=== PATIENT | female | born 1970 ===

== ENCOUNTER 2020-07-07 13:40 | Emergency (ER) | payer OTHER, SELFPAY ==
[2020-07-07 16:26] VITALS: BP 185/88; PULSE 86; RESP 18; TEMP 36.6; O2SAT 97; BMI 27.7
--- NOTE | 2020-07-07 16:26 | ED_ITS ---
HPI - Headache General Chief Complaint: General Medical Stated Complaint: facial swelling headache Time Seen by Provider: 07/07/20 16:25 Source: patient Mode of arrival: ambulatory Limitations: no limitations History of Present Illness HPI Narrative: Patient has had facial swelling for 2 weeks but now with headache and vomiting MD elicited complaint: headache Onset description: gradually Location: frontal Severity: moderate Quality & Timing: throbbing Context: occurred at rest Associated symptoms: nausea and vomiting Related Data Home Medications Medication Instructions Recorded Confirmed bisacodyl 5 mg tablet,delayed 10 mg PO BID 07/03/20 release clonazepam 1 mg tablet 2 mg PO BEDTIME 07/03/20 hydroxyzine HCl 25 mg tablet 25 mg PO BID 07/03/20 ketoconazole 2 % shampoo TOPICAL 2XW 07/03/20 linaclotide 72 mcg capsule mcg PO 07/03/20 loratadine 10 mg tablet 10 mg PO DAILY 07/03/20 omeprazole 20 mg capsule,delayed 20 mg PO DAILY 07/03/20 release peg 3350-electrolytes 236 ml PO ONCE 07/03/20 gram-22.74 gram-6.74 gram-5.86 gram solution prazosin 1 mg capsule mg PO 07/03/20 sumatriptan succinate 25 mg tablet mg PO 07/03/20 tizanidine 4 mg tablet 4 mg PO BEDTIME 07/03/20 Previous Rx's Medication Instructions Recorded diphenhydramine HCl 25 mg capsule 25 mg PO TID PRN #30 cap 07/03/20 famotidine 20 mg tablet 20 mg PO DAILY #7 tab 07/03/20 prednisone 20 mg tablet 20 mg PO DAILY 9 Days #18 tab 07/03/20 diphenhydramine HCl [Benadryl] 25 mg PO TID PRN #14 cap 07/07/20 naproxen [Naprosyn] 500 mg PO BID #20 tab 07/07/20 Allergies Allergy/AdvReac Type Severity Reaction Status Date / Time No Known Allergies Allergy Verified 07/07/20 16:25 [No Known Allergies*] Review of Systems Constitutional: Constitutional: Reports no additional constitutional complaints Eyes: Eyes: Reports no additional eye complaints ENT: Denies dizziness Cardiovascular: Cardiovascular: Reports no additional cardiovascular comp laints Respiratory: Respiratory: Reports as per HPI Gastrointestinal: Gastrointestinal: Reports no additional gastrointestinal complaints Genitourinary: Genitourinary: Reports no additional female genitourinary complaints Musculoskeletal: Musculoskeletal: Reports no additional musculoskeletal complaints Integumentary/Breasts: Skin/Breast: Denies rash Neurologic: Reports system reviewed and no additional complaints, except as documented, Denies dizziness and Denies Sensory deficit (Neuro) Psychiatric: Psychiatric: Denies anxiety [facility], [facility] Past Medical History Medical History (Updated 07/07/20 @ 20:11 by Ehsan Rawls MD) Healthy adult Social History Social History Advance Directives: No Advance Directives Information Provided: Yes Physical Exam Vital Signs: Vital Signs: Vital Signs Temp Pulse Resp BP Pulse Ox 07/07/20 17:44 99.8 F 75 18 152/78 H 96 07/07/20 16:26 97.8 F 86 18 185/88 H 97 Body Mass Index 27.7 Const: Other: some facial erythema and swelling General: healthy appearing Nutritional Appearance: average body habitus Orientation/consciousness: oriented to person and patient oriented x3 Limitations: no limitations HENMT: Head: Yes normal to inspection Ears: external ears normal General nose exam: Normal external nose present Mouth: Normal oral and palatal mucosa present and oropharynx normal Throat: Yes posterior oropharynx normal Eyes: General: appearance normal, both eyes and all related structures Neck: Other: supple Neck: Yes normal visual inspection Chest: Chest palpation & inspection: normal inspection of the chest Resp: Auscultation: clear to auscultation bilaterally Cardio: Jugular venous distension: no JVD Rate: regular rate Rhythm: regular rhythm Heart sounds: S1 normal heart sound present and S2 normal heart sound present GI: Inspection: Yes normal to inspection Palpation (GI): Soft to palpation, nontender and No hepatosplenomegaly present Auscultation: normal bowel sounds : General: Yes no CVA tenderness Back/Spine/Pelvis: Back: no CVA tenderness Skin: General skin exam: no rashes or lesions noted Neuro: General: oriented to person and patient oriented x3 Cranial nerves: Yes CN's II-XII intact bilaterally Motor exam (neuro): 5/5 motor strength present throughout Sensory Exam: No Sensory deficit (Neuro) Extrem: General: Yes normal to inspection Psych: Appearance: grossly normal Course Course Course Narrative: less swelling, head CT neg, leukocytosis secondary to the prednisone MDM - Headache MDM Narrative Medical decision making narrative: rule out brain pathology, swelling responded to bendadryl Lab Data Result diagrams: 07/07/20 17:35 07/07/20 19:08 Labs: Lab Results 07/07/20 07/07/20 07/07/20 Range/Units 17:35 17:35 19:08 WBC 14.1 H (4.8-10.8) X10*3/uL RBC 4.63 (4.20-5.50) X10*6/uL Hgb 14.0 (12.0-16.0) g/dl Hct 41.4 (37-47) % MCV 89.4 (80-98) fL MCH 30.2 (27.0-33.0) pg MCHC 33.8 (31.0-35.0) g/dl RDW 14.8 (11.0-16.0) % Plt Count 284 (160-400) X10*3/uL MPV 11.5 (9.4-12.3) fL Immature Gran % (Auto) 0.5 H (0.0-0.4) % Neut % (Auto) 86.5 H (45-73) % Lymph % (Auto) 11.9 L (20-40) % Gladwin % (Auto) 0.9 L (2-11) % Eos % (Auto) 0.1 (0-4) % Baso % (Auto) 0.1 (0-2) % Lymph # (Auto) 1.7 (1.2-4.9) X10*3/uL Gladwin # (Auto) 0.1 (0.1-1.2) X10*3/uL Eos # (Auto) 0.0 (0.0-0.4) X10*3/uL Baso # (Auto) 0.0 (0.0-0.2) X10*3/uL Abs Immat Gran (auto) 0.07 H (0.00-0.03) X10*3/uL Absolute Neuts (auto) 12.2 H (2.0-8.3) X10*3/uL Absolute Nucleated RBC 0.000 (0.0-0.012) X10*3/uL Nucleated RBC % (auto) 0.0 (0.0-0.2) /100WBC Sodium Cancelled 141 Potassium Cancelled 4.6 Chloride Cancelled 111 H Carbon Dioxide Cancelled 23 Anion Gap Cancelled 12 BUN Cancelled 13 Creatinine Cancelled 0.70 Estim Creat Clear Calc Cancelled 78.7 Estimated GFR Cancelled > 60 Random Glucose Cancelled 137 H Calcium Cancelled 8.[address] scan - head: Radiologist's impression: no acute pathology Discharge Plan Discharge Clinical Impression: Periorbital edema of both eyes Allergic reaction Qualifiers: Encounter type: initial encounter Qualified Code(s): T78.40XA - Allergy, unspecified, initial encounter Patient Disposition: Home, Self-Care Prescriptions: New naproxen [Naprosyn] 500 mg tablet 500 mg PO BID Qty: 20 RF: 0 diphenhydramine HCl [Benadryl] 25 mg capsule 25 mg PO TID PRN (Reason: allergic reaction) Qty: 14 RF: 0 No Action Linzess 72 mcg capsule PO RF: 0 hydroxyzine HCl 25 mg tablet 25 mg PO BID RF: 0 ketoconazole 2 % shampoo topical 2XW RF: 0 sumatriptan succinate 25 mg tablet PO RF: 0 omeprazole 20 mg capsule,delayed release(DR/EC) 20 mg PO DAILY RF: 0 clonazepam 1 mg tablet 2 mg PO BEDTIME RF: 0 loratadine 10 mg tablet 10 mg PO DAILY RF: 0 prazosin 1 mg capsule PO RF: 0 peg 3350-electrolytes 236-22.74-6.74 -5.86 gram recon soln PO ONCE RF: 0 bisacodyl 5 mg tablet,delayed release (DR/EC) 10 mg PO BID RF: 0 tizanidine 4 mg tablet 4 mg PO BEDTIME RF: 0 prednisone 20 mg tablet 20 mg PO DAILY 9 Days Qty: 18 RF: 0 famotidine [Pepcid] 20 mg tablet 20 mg PO DAILY Qty: 7 RF: 0 diphenhydramine HCl [Allergy (diphenhydramine)] 25 mg capsule 25 mg PO TID PRN (Reason: itching) Qty: 30 RF: 0 Referrals: Lauren Merritt MD [Primary Care Provider] - 2 days
--- NOTE | 2020-07-07 16:31 | CT_ITS ---
EXAMINATION: CT HEAD WITHOUT CONTRAST CLINICAL INFORMATION: 50-year-old female with headache and vomiting. COMPARISON: Head CT 04/10/2017 TECHNIQUE: Contiguous axial imaging was performed from the skull base to vertex without intravenous administration of contrast. This CT examination was performed using dose optimization techniques as appropriate, variously including the following: *Automated exposure control *Adjustment of mA and/or kV according to patient size (this includes techniques or standardized protocols for targeted exams where dose is matched to indication/reason for exam; i.e. extremities or head) *Use of iterative reconstruction technique DLP: 677 mGy-cm FINDINGS: There is no evidence of acute intracranial hemorrhage or territorial infarction. No abnormal mass effect or midline shift is seen. Torres to white matter differentiation is well preserved. No extra-axial fluid collections are identified. The ventricles are normal in size. There is no abnormal attenuation within the brain parenchyma. The osseous structures and soft tissues are normal. The mastoid air cells and visualized portions of the paranasal sinuses are well aerated. IMPRESSION: No acute intracranial pathology.
[2020-07-07] MEDS: diphenhydrAMINE HCL 50 MG/ML VIAL IVPUSH (17:38)
[2020-07-07 17:42] LABS: MANUAL DIFF FLAG NO
[2020-07-07 17:43] LABS: Basophils Percent Auto 0.1 % (0-2); Eosinophils Percent Auto 0.1 % (0-4); Hematocrit 41.4 % (37-47); Imm Gran Abs Auto 0.07 X10*3/uL (0.00-0.03); Imm Gran Pct Auto 0.5 % (0.0-0.4); Lymphocytes Absolute Auto 1.7 X10*3/uL (1.2-4.9); Lymphocytes Percent Auto 11.9 % (20-40); Mean Corpuscular HGB Conc 33.8 g/dl (31.0-35.0); Mean Corpuscular Hemoglobin 30.2 pg (27.0-33.0); Mean Corpuscular Volume 89.4 fL (80-98); Mean Platelet Volume 11.5 fL (9.4-12.3); Monocytes Absolute Auto 0.1 X10*3/uL (0.1-1.2); Monocytes Percent Auto 0.9 % (2-11); Neutrophils Absolute Auto 12.2 X10*3/uL (2.0-8.3); Neutrophils Percent Auto 86.5 % (45-73); Platelet Count 284 X10*3/uL (160-400); Red Blood Count 4.63 X10*6/uL (4.20-5.50); Red Cell Distribution Width 14.8 % (11.0-16.0); White Blood Count 14.1 X10*3/uL (4.8-10.8)
[2020-07-07 17:44] VITALS: BP 152/78; PULSE 75; RESP 18; TEMP 37.7; O2SAT 96
[2020-07-07 19:34] LABS: Anion Gap 12 (12-20); Blood Urea Nitrogen 13 mg/dL (9-16); Calcium 8.4 mg/dL (8.4-10.2); Carbon Dioxide 23 mmol/L (22-29); Chloride 111 mmol/L (96-108); Creatinine Clr Calc Pharmacy 78.7; Estimated Glomerular Filt Rate > 60; Glucose Random 137 mg/dL (60-115); Potassium 4.6 mmol/l (3.3-5.1); Sodium 141 mmol/L (135-145)
[2020-07-07 21:10] VITALS: BP 142/70; O2SAT 96
== END 2020-07-07 21:12 | disposition home or self-care (01) ==
PROVIDERS: Emergency Provider Emergency Medicine; PCP Internal Medicine
DX: H05.223 Edema of bilateral orbit (principal); H57.13 Ocular pain, bilateral; R51.9 Headache, unspecified; Z79.899 Other long term (current) drug therapy
CPT/HCPCS: 36415; 70450; 80048; 85025; 96374; 99284; J1200

== ENCOUNTER → 2020-07-21 09:17 | Outpatient (BNVA) | payer OTHER, SELFPAY | PROVIDERS: PCP Internal Medicine; Referring Provider Internal Medicine; Visit Provider Nurse Practitioner | DX: K59.04 Chronic idiopathic constipation (principal); K21.9 Gastro-esophageal reflux disease without esophagitis; Z83.71 Family history of colonic polyps | CPT/HCPCS: 99212 ==

== ENCOUNTER 2020-08-02 08:06 | Outpatient (REF) | payer OTHER, SELFPAY ==
[2020-08-02 08:48] LABS: MANUAL DIFF FLAG NO
[2020-08-02 09:06] LABS: Basophils Absolute Auto 0.1 X10*3/uL (0.0-0.2); Basophils Percent Auto 0.5 % (0-2); Eosinophils Absolute Auto 0.9 X10*3/uL (0.0-0.4); Eosinophils Percent Auto 7.5 % (0-4); Hematocrit 40.5 % (37-47); Hemoglobin 13.2 g/dl (12.0-16.0); Imm Gran Abs Auto 0.05 X10*3/uL (0.00-0.03); Imm Gran Pct Auto 0.4 % (0.0-0.4); Lymphocytes Absolute Auto 3.3 X10*3/uL (1.2-4.9); Mean Corpuscular HGB Conc 32.6 g/dl (31.0-35.0); Mean Platelet Volume 11.6 fL (9.4-12.3); Monocytes Absolute Auto 0.8 X10*3/uL (0.1-1.2); Monocytes Percent Auto 6.2 % (2-11); Neutrophils Absolute Auto 7.1 X10*3/uL (2.0-8.3); Neutrophils Percent Auto 58.4 % (45-73); Platelet Count 298 X10*3/uL (160-400); Red Cell Distribution Width 14.8 % (11.0-16.0); White Blood Count 12.2 X10*3/uL (4.8-10.8)
[2020-08-02 09:20] LABS: Anion Gap 11 (12-20); Blood Urea Nitrogen 11 mg/dL (9-16); Calcium 8.9 mg/dL (8.4-10.2); Carbon Dioxide 27 mmol/L (22-29); Chloride 105 mmol/L (96-108); Cholesterol 203 mg/dL; Estimated Glomerular Filt Rate > 60; Glucose Fasting 88 mg/dL (60-99); HDL Cholesterol 53 mg/dL; LDL Cholesterol Calculated 137 mg/dl; Potassium 4.3 mmol/l (3.3-5.1); Sodium 139 mmol/L (135-145); Triglycerides 69 mg/dL
== END 2020-08-02 08:07 | disposition home or self-care (01) ==
LOC: HO.LAB 08:06
PROVIDERS: PCP Internal Medicine; Visit Provider Nurse Practitioner Family
DX: Z01.818 Encounter for other preprocedural examination (principal)
CPT/HCPCS: 36415; 80048; 80061; 85025

== ENCOUNTER 2020-08-07 10:00 | Day surgery (SDC) | payer OTHER, SELFPAY ==
--- NOTE | 2020-08-02 08:35 | MHC.SHP ---
Pre-Procedural Eval Section A The patient is an INPATIENT: No The History & Physical has been completed within 30 days and I have reviewed it.: Yes Section B Chief Complaint: Bilateral Dermatochalasis Upper Lids Allergies: Allergies Allergy/AdvReac Type Severity Reaction Status Date / Time No Known Allergies Allergy Verified 07/24/20 10:44 [No Known Allergies*] Plan Diagnosis/Plan: Unchanged Patient has been examined and remains a candidate for the planned procedure
[2020-08-02 10:28] VITALS: BMI 28.1
[2020-08-07 10:41] VITALS: BP 161/72; PULSE 78; RESP 16; TEMP 36.7; O2SAT 99
[2020-08-07] MEDS: Lactated Ringers 500 ML 50 ML IV (10:57)
--- NOTE | 2020-08-07 11:32 | P.CONAN_ITS ---
[facility], [facility] Past Medical History Medical History Anxiety Depression Healthy adult History of headache Family History Family History (Updated 07/21/20 @ 09:22 by KENNEDY Cronin) Father No problems noted. Mother Arthritis of knee Breast cancer Heart problem HTN (hypertension) Family/Other Diabetes Arthritis of knee HTN (hypertension) Surgical History Surgical History History of section History of tubal ligation Social History Social History Household Members: Children Alcohol intake: current Alcohol intake frequency: does not drink Smoking Status: Current every day smoker Tobacco Type: Cigarette Packs Per Day: 0.5 Cigarettes Per Day: 10.0 Years Smoked: 15 Meds Allergies Allergy/AdvReac Type Severity Reaction Status Date / Time No Known Allergies Allergy Verified 08/07/20 10:56 [No Known Allergies*] Home Medications Medication Instructions Recorded Confirmed Type clonazepam 1 mg tablet 2 mg PO BEDTIME 07/03/20 08/02/20 History omeprazole 20 mg capsule,delayed 20 mg PO DAILY 07/03/20 08/02/20 History release peg 3350-electrolytes 236 ml PO ONCE 07/03/20 History gram-22.74 gram-6.74 gram-5.86 gram solution erythromycin 5 mg/gram (0.5 %) eye OPHTHALMIC (EYE) 08/01/20 History ointment Exam Exam Date and Time: August 07, 2020 1132 Height,Weight and Vital Signs: Height 5 ft Weight 65.317 kg Last Vital Signs Temp 98.1 F 08/07/20 10:41 Pulse 78 08/07/20 10:41 Resp 16 08/07/20 10:41 BP 161/72 H 08/07/20 10:41 Pulse Ox 99 08/07/20 10:41 Airway Mallampati Class: I TM Dist: >3cm Neck ROM: Full Loose/Missing/Broken Teeth: No Heart: RRR Lungs: CTA Assessment and Plan Assessment Anesthesia Assessment: Anesthesia Plan Discussed and Chart Reviewed Final Anesthetic Review NPO: Yes ASA Class: II Final Preanesthetic Review: Meds/Allgs Chart Reviewed, Consent Obtained/Reviewed and Anes Risks/Benef Reviewed Patient Risk: Low Procedure Risk: Low Anesthetic Plan Anesthetic Plan: MAC: Disposition: Standard PACU
--- NOTE | 2020-08-07 11:56 | HO.ANESPROP2 ---
[facility] Past Medical History Medical History Anxiety Depression Healthy adult History of headache Family History Family History (Updated 07/21/20 @ 09:22 by KENNEDY Cronin) Father No problems noted. Mother Arthritis of knee Breast cancer Heart problem HTN (hypertension) Family/Other Diabetes Arthritis of knee HTN (hypertension) Surgical History Surgical History History of section History of tubal ligation Social History Social History Household Members: Children Alcohol intake: current Alcohol intake frequency: does not drink Smoking Status: Current every day smoker Tobacco Type: Cigarette Packs Per Day: 0.5 Cigarettes Per Day: 10.0 Years Smoked: 15 Meds Allergies Allergy/AdvReac Type Severity Reaction Status Date / Time No Known Allergies Allergy Verified 08/07/20 10:56 [No Known Allergies*] Home Medications Medication Instructions Recorded Confirmed Type clonazepam 1 mg tablet 2 mg PO BEDTIME 07/03/20 08/02/20 History omeprazole 20 mg capsule,delayed 20 mg PO DAILY 07/03/20 08/02/20 History release peg 3350-electrolytes 236 ml PO ONCE 07/03/20 History gram-22.74 gram-6.74 gram-5.86 gram solution erythromycin 5 mg/gram (0.5 %) eye OPHTHALMIC (EYE) 08/01/20 History ointment Exam Exam Date and Time: August 07, 2020 1156 Height,Weight and Vital Signs: Height 5 ft Weight 65.317 kg Last Vital Signs Temp 98.1 F 08/07/20 10:41 Pulse 78 08/07/20 10:41 Resp 16 08/07/20 10:41 BP 161/72 H 08/07/20 10:41 Pulse Ox 99 08/07/20 10:41 Airway Mallampati Class: I TM Dist: >3cm Neck ROM: Full Loose/Missing/Broken Teeth: No Heart: RRR Lungs: CTA Assessment and Plan Assessment Anesthesia Assessment: Anesthesia Plan Discussed and Chart Reviewed Final Anesthetic Review NPO: Yes ASA Class: II Final Preanesthetic Review: Meds/Allgs Chart Reviewed, Consent Obtained/Reviewed and Anes Risks/Benef Reviewed Patient Risk: Low Procedure Risk: Low Anesthetic Plan Anesthetic Plan: MAC: Disposition: Standard PACU
[2020-08-07 13:13] VITALS: BP 150/82; PULSE 77; RESP 18; TEMP 36.3; O2SAT 100
--- NOTE | 2020-08-07 13:13 | HO.PNOPHT ---
Ophthalmology Procedure Procedure Date of Service: 08/07/20 Ophthalmology Viscoelastic: Not Applicable Ophthalmology Lenses: Not Applicable Procedure Notes: PREOPERATIVE DIAGNOSIS: Decreased visual field secondary to dermatochalasia POSTOPERATIVE DIAGNOSIS: Same PROCEDURE: Bilateral Blepharoplasty, upper eyelids SURGEON: Maxx Tyler M.D. ANESTHESIA: Local with sedation ESTIMATED BLOOD LOSS: None COMPLICATIONS: None After obtaining informed consent, the patient was brought to the operating room and placed in supine position. After adequate sedation per Anesthesia, the eyes were prepped and draped in the usual sterile fashion. Attention was directed to the right eye where a double pinch test was completed to assure excess tissue was not removed from the upper lid. The margin was marked at the proposed incision sites. The left eye was done in a similar fashion. 2% Lidocaine with epinephrine was then instilled subcutaneously along the margin of the pre-marked skin incisions. #15 scalpel blade was then utilized to create the incisions. Using a combination of sharp and blunt dissection with Liat scissors, the epidermis was removed. Hemostasis was achieved with cautery. 6-0 plain suture was then utilized to close the incision site. Attention was directed to the left upper lid where subcutaneous 2% with Epinephrine Lidocaine was instilled along the pre-marked areas. A #15 scalpel blade was then utilized to create the incisions followed by sharp and blunt dissection with Liat scissors to remove the overlying epidermis. Hemostasis was achieved with cautery, followed by closure with 6-0 plain suture. The patient tolerated the procedure well. The patient will be followed up in the a.m. Topical antibiotic ointment was instilled over the incision sites and ice as tolerated for 48 hours.
[2020-08-07 13:27] VITALS: BP 135/72; PULSE 69; RESP 20; O2SAT 98
[2020-08-07 13:45] VITALS: BP 124/73; PULSE 63; RESP 18; O2SAT 98
[2020-08-07 14:00] VITALS: BP 128/71; PULSE 72; RESP 18; TEMP 36.4; O2SAT 98
== END 2020-08-07 14:22 | disposition home or self-care (01) ==
PROVIDERS: PCP Internal Medicine; Visit Provider Ophthalmology
PROC: (CPT 15823; principal; 2020-08-07 12:20)
DX: H02.834 Dermatochalasis of left upper eyelid (principal); H02.831 Dermatochalasis of right upper eyelid; F32.9 Major depressive disorder, single episode, unspecified; Z79.899 Other long term (current) drug therapy; F17.210 Nicotine dependence, cigarettes, uncomplicated
CPT/HCPCS: 15823; 88304; 88305; J2250; J3010

== ENCOUNTER 2020-09-14 10:10 | Outpatient (REF) | payer OTHER, SELFPAY | END 2020-09-14 10:11 | disposition home or self-care (01) | LOC: HO.LAB 10:10 | PROVIDERS: Visit Provider Internal Medicine | DX: Z20.828 Contact with and (suspected) exposure to other viral communicable diseases (principal) | CPT/HCPCS: C9803; U0003 ==

== ENCOUNTER 2020-09-28 06:28 | Day surgery (SDC) | payer OTHER, SELFPAY ==
[2020-09-21 08:10] VITALS: BMI 28.0
--- NOTE | 2020-09-26 14:45 | HO.ANESPROP2 ---
Documented by User: Stephanie Corley 09/26/20 14:46 HPI - Anesthesia Eval Consult details Narrative: 50yo F for Colonoscopy PMFSH Past Medical History Medical History Anxiety Depression Dermatochalasis Healthy adult History of headache Migraine Family History Family History Father No problems noted. Mother Arthritis of knee Breast cancer Heart problem HTN (hypertension) Family/Other Diabetes Arthritis of knee HTN (hypertension) Surgical History Surgical History History of section History of tubal ligation Hx of blepharoplasty Social History Social History Household Members: Children Alcohol intake: current Alcohol intake frequency: does not drink Smoking Status: Current every day smoker Tobacco Type: Cigarette Packs Per Day: 0.5 Cigarettes Per Day: 6 Years Smoked: 15 Smoked in Last 30 Days: Yes Use of substances other than those prescribed or required for medical reasons: No Advance Directives: No Advance Directives Information Provided: Yes Meds Allergies Allergy/AdvReac Type Severity Reaction Status Date / Time No Known Allergies Allergy Verified 09/06/20 10:54 [No Known Allergies*] Home Medications Medication Instructions Recorded Confirmed Type clonazepam 1 mg tablet 2 mg PO BEDTIME 07/03/20 09/21/20 History omeprazole 20 mg capsule,delayed 20 mg PO DAILY 07/03/20 09/21/20 History release peg 3350-electrolytes 236 ml PO ONCE 07/03/20 09/06/20 History gram-22.74 gram-6.74 gram-5.86 gram solution erythromycin 5 mg/gram (0.5 %) eye OPHTHALMIC (EYE) 08/01/20 09/06/20 History ointment [id number] 1 tab PO DAILY PRN 09/06/20 09/21/20 History 50 mg-325 mg-40 mg tablet hydroxyzine HCl 25 mg tablet 25 mg PO ONCE tab 09/06/20 09/21/20 History loratadine 10 mg tablet 10 mg PO DAILY 09/06/20 09/21/20 History prazosin 1 mg capsule 1 mg PO BEDTIME 09/06/20 09/21/20 History sumatriptan succinate 25 mg tablet mg PO 09/06/20 09/06/20 History Exam Exam Date and Time: September 26, 2020 1445 Height,Weight and Vital Signs: Height 5 ft Weight 65.317 kg Assessment and Plan Assessment Anesthesia Assessment: Chart Reviewed Documented by User: Roscoe Finch 09/28/20 07:19 PMFSH Past Medical History Medical History Anxiety Depression Dermatochalasis Healthy adult History of headache Migraine Family History Family History Father No problems noted. Mother Arthritis of knee Breast cancer Heart problem HTN (hypertension) Family/Other Diabetes Arthritis of knee HTN (hypertension) Family history of problems with anesthesia: No Surgical History Surgical History History of section History of tubal ligation Hx of blepharoplasty History of Problems with Anesthesia: No Social History Social History Household Members: Children Alcohol intake: current Alcohol intake frequency: does not drink Smoking Status: Current every day smoker Tobacco Type: Cigarette Packs Per Day: 0.5 Cigarettes Per Day: 6 Years Smoked: 15 Smoked in Last 30 Days: Yes Use of substances other than those prescribed or required for medical reasons: No Advance Directives: No Advance Directives Information Provided: Yes Meds Allergies Allergy/AdvReac Type Severity Reaction Status Date / Time No Known Allergies Allergy Verified 09/06/20 10:54 [No Known Allergies*] Home Medications Medication Instructions Recorded Confirmed Type clonazepam 1 mg tablet 2 mg PO BEDTIME 07/03/20 09/21/20 History omeprazole 20 mg capsule,delayed 20 mg PO DAILY 07/03/20 09/21/20 History release peg 3350-electrolytes 236 ml PO ONCE 07/03/20 09/06/20 History gram-22.74 gram-6.74 gram-5.86 gram solution erythromycin 5 mg/gram (0.5 %) eye OPHTHALMIC (EYE) 08/01/20 09/06/20 History ointment [id number] 1 tab PO DAILY PRN 09/06/20 09/21/20 History 50 mg-325 mg-40 mg tablet hydroxyzine HCl 25 mg tablet 25 mg PO ONCE tab 09/06/20 09/21/20 History loratadine 10 mg tablet 10 mg PO DAILY 09/06/20 09/21/20 History prazosin 1 mg capsule 1 mg PO BEDTIME 09/06/20 09/21/20 History sumatriptan succinate 25 mg tablet mg PO 09/06/20 09/06/20 History Exam Airway Mallampati Class: I TM Dist: >3cm Neck ROM: Full Assessment and Plan Assessment Anesthesia Assessment: Anesthesia Plan Discussed and Chart Reviewed Final Anesthetic Review NPO: Yes ASA Class: I Final Preanesthetic Review: No Changes in Pt Med Stat, Meds/Allgs Chart Reviewed, Consent Obtained/Reviewed and Anes Risks/Benef Reviewed Patient Risk: Low Procedure Risk: Low Anesthetic Plan Anesthetic Plan: MAC: and Agree w/ Assess. and Plan Disposition: Standard PACU
[2020-09-28 06:49] VITALS: BP 129/74; PULSE 96; RESP 18; TEMP 35.9; O2SAT 98
[2020-09-28] MEDS: Lactated Ringers 1,000 ML 100 ML IVCONT (07:14)
--- NOTE | 2020-09-28 07:25 | W.PM.OPN ---
Operative Note Operative Note Date of Service: 09/28/20 Narrative: Pre-op diagnosis: Colon cancer screening, ch constipation, FH of colon polyps (brother in his 60's) Post-op diagnosis: other (diverticulosis, hemorrhoids) Procedure: COLONOSCOPY PROCEDURE NOTE Consent: Indications for the procedure and potential complications of bleeding, perforation, reaction to medications and missed diagnosis were discussed with the patient and informed consent was obtained. Instrument: Olympus PCF H 190 L variable stiffness pediatric colonoscope Monitoring: Vital signs and clinical assessment, intermittent blood pressure monitoring, continuous EKG monitoring, Pulse oximetry and Carbon Dioxide monitoring were done throughout the procedure. Colon withdrawl time was 25 minutes. Procedure: The patient was placed in the left lateral decubitis position and pre-procedure medications were administered. After a digital rectal examination of the ano-rectum, the video colonoscope was inserted into the rectum and advanced through the colon to the cecum. The colonoscope was slowly withdrawn in a retrograde panoramic fashion and the colon mucosa was carefully examined including a retroflexed view of the rectum. Findings and interventions are described below. Procedure Difficulty: Without difficulty Findings: Terminal Ileum: Not evaluated Cecum: Normal Ascending Colon: Moderate diverticulosis Transverse Colon: Moderate diverticulosis Descending Colon: Moderate diverticulosis Sigmoid Colon: Severe diverticulosis with luminal narrowing Rectum: Normal Ano-rectum: Moderate internal hemorrhoids Colon preparation: Initially fair and good after copious irrigation (pt stated she had some chicken noodle soup at 11 pm last night) Impression and Post Procedure Diagnosis: Colonoscopy Findings: No polyps were detected Moderate to severe diverticulosis seen in the entire colon Moderate hemorrhoids on retroflexed exam. Plan: Await pathology results Patient has an appointment on 10/19/20 in the [facility] with Melinda Herron NP . Repeat Colonoscopy in 5 years due to positive FH of colon polyps. Above findings were reviewed with the patient and diverticulosis handout was given in the discharge area Surgeon: Sruthi Mitchell MD Anesthesia: MAC (Dr Roscoe Finch) Estimated blood loss (mL): 0 Pathology: none sent Condition: stable Disposition: PACU
--- NOTE | 2020-09-28 07:25 | MHC.SHP ---
Pre-Procedural Eval Section A The patient is an INPATIENT: No The History & Physical has been completed within 30 days and I have reviewed it.: No Section B Chief Complaint: screening Details of Present Illness: colon cancer screening, ch constipation, FH of colon polyps Relevant Family History (Specify if Yes): Yes Relevant Social History: Tobacco Use Present Medications: see Short Stay Collaborative assessment Medical History: Significant History (Depression. Anxiety. Insomnia. Constipation. Tobacco abuse. GERD. MIGRAINES. ARTHRALGIA. ) History of Previous Operations: Relevant previous surgery/procedure and date(s) ( section tubal ligation ) Allergies: Allergies Allergy/AdvReac Type Severity Reaction Status Date / Time No Known Allergies Allergy Verified 09/06/20 10:54 [No Known Allergies*] Review of Systems Sugical H&P ROS: Negative: Constitution, Cardiovascular and Respiratory and Yes, Specify: Gastrointestinal (chronic constipation) Exam Surgical H&P Exam: Normal: Heart, Normal: Lungs, Normal: Extremities and Normal: Abdomen Plan Diagnosis/Plan: Unchanged I have reviewed the history and physical and performed a pertinent physical examination on my patient. No changes have occurred unless specified.
[2020-09-28 08:30] VITALS: BP 112/54; PULSE 87; RESP 18; TEMP 36.2; O2SAT 98
[2020-09-28 08:45] VITALS: BP 128/71; PULSE 81; RESP 18; O2SAT 100
--- NOTE | 2020-09-28 08:54 | PC.NURSE ---
0850 AWAKE ALERT [place] PO MONITORS AND IVF DC'D ASST OOB CH STAEDY IV DCD TIP INTACT PRESSURE AND DRESSING TO SITE TOTAL IVF IN IS 500 ML LR DRESSED SELF CALL [facility] IN [place], PLAN TO AMB TO [facility]
--- NOTE | 2020-09-28 09:17 | HO.POSTANES ---
Post Anesthesia Evaluation Post Anesthesia Evaluation Vital Signs: Vital Signs Temp Pulse Resp BP Pulse Ox 09/28/20 08:45 97.2 F 81 18 128/71 100 09/28/20 08:30 97.2 F 87 18 112/54 L 98 09/28/20 06:49 96.6 F L 96 18 129/74 98 Anesthesia: Monitored Mental Status: Awake Pain Control: Satisfactory Nausea/Vomiting: None Hydration: Adequate Anesthesia-Related Issues: No Anes. Related Issues
== END 2020-09-28 09:14 | disposition home or self-care (01) ==
PROVIDERS: PCP Internal Medicine; Visit Provider Internal Medicine Gastroenterology
PROC: 0DJD8ZZ Inspection of Lower Intestinal Tract, Via Natural or Artificial Opening Endoscopic (ICD-10-PCS; CPT 45378; principal; 2020-09-28 07:30)
DX: Z12.11 Encounter for screening for malignant neoplasm of colon (principal); Z83.71 Family history of colonic polyps; K59.09 Other constipation; K57.30 Diverticulosis of large intestine without perforation or abscess without bleeding; K64.8 Other hemorrhoids; F17.210 Nicotine dependence, cigarettes, uncomplicated
CPT/HCPCS: 45378; J3010

== ENCOUNTER 2020-10-12 10:23 | Outpatient (REF) | payer OTHER, SELFPAY ==
[2020-10-12 12:03] LABS: MANUAL DIFF FLAG NO
[2020-10-12 12:10] LABS: Basophils Absolute Auto 0.1 X10*3/uL (0.0-0.2); Basophils Percent Auto 0.7 % (0-2); Eosinophils Absolute Auto 0.5 X10*3/uL (0.0-0.4); Hematocrit 45.2 % (37-47); Imm Gran Abs Auto 0.04 X10*3/uL (0.00-0.03); Imm Gran Pct Auto 0.4 % (0.0-0.4); Lymphocytes Absolute Auto 2.1 X10*3/uL (1.2-4.9); Lymphocytes Percent Auto 21.8 % (20-40); Mean Corpuscular HGB Conc 33.2 g/dl (31.0-35.0); Mean Corpuscular Hemoglobin 30.4 pg (27.0-33.0); Mean Corpuscular Volume 91.7 fL (80-98); Mean Platelet Volume 11.5 fL (9.4-12.3); Monocytes Absolute Auto 0.5 X10*3/uL (0.1-1.2); Monocytes Percent Auto 5.1 % (2-11); Neutrophils Absolute Auto 6.3 X10*3/uL (2.0-8.3); Platelet Count 298 X10*3/uL (160-400); Red Blood Count 4.93 X10*6/uL (4.20-5.50); Red Cell Distribution Width 13.7 % (11.0-16.0); White Blood Count 9.5 X10*3/uL (4.8-10.8)
[2020-10-12 12:31] LABS: C Reactive Protein 0.67 mg/dL (< or = 0.50)
[2020-10-12 13:25] LABS: Erythrocyte Sedimentation Rate 13 MM/HR (0-20)
[2020-10-19 06:32] LABS: C1 Esterase Inhibitor 92 % (>=68)
== END 2020-10-12 10:24 | disposition home or self-care (01) ==
LOC: HO.LAB 10:23
PROVIDERS: PCP Internal Medicine; Visit Provider Nurse Practitioner Family
DX: R23.2 Flushing (principal); L29.9 Pruritus, unspecified; R21 Rash and other nonspecific skin eruption; L50.9 Urticaria, unspecified
CPT/HCPCS: 36415; 82785; 83520; 85025; 85652; 86003; 86140; 86160; 86161

== ENCOUNTER 2020-11-06 10:34 | Outpatient (REF) | payer OTHER, SELFPAY ==
[2020-11-22 09:01] LABS: Prostaglandin D2 Random Urine 151 ng/liter
== END 2020-11-06 10:35 | disposition home or self-care (01) ==
LOC: HO.LAB 10:34
PROVIDERS: PCP Internal Medicine; Visit Provider Nurse Practitioner Family
DX: R23.2 Flushing (principal); R21 Rash and other nonspecific skin eruption; L29.9 Pruritus, unspecified
CPT/HCPCS: 36415; 83520; 84150; 86160

== ENCOUNTER 2020-11-06 14:59 | Outpatient (REF) | payer OTHER, SELFPAY | END 2020-11-06 15:00 | disposition home or self-care (01) | LOC: HO.LAB 14:59 | PROVIDERS: PCP Internal Medicine; Visit Provider Internal Medicine | DX: Z20.822 Contact with and (suspected) exposure to COVID-19 (principal) | CPT/HCPCS: 36415; C9803; U0003; U0005 ==

== ENCOUNTER 2020-11-13 08:46 | Outpatient (REF) | payer OTHER, SELFPAY ==
[2020-11-22 15:52] LABS: Creatinine 24Hr Urine 398 mg/24 h; N-Methylhistamine, 24Hr Urine 191 mcg/g Cr (30-200); Total Volume 750 mL
== END 2020-11-13 08:47 | disposition home or self-care (01) ==
LOC: HO.LNP 08:46
PROVIDERS: Visit Provider Nurse Practitioner Family
DX: R23.2 Flushing (principal); R21 Rash and other nonspecific skin eruption; L29.9 Pruritus, unspecified
CPT/HCPCS: 81050; 82542

== ENCOUNTER 2021-01-03 11:22 | Outpatient (REF) | payer OTHER, SELFPAY ==
[2021-01-03 12:08] LABS: Hematocrit 42.5 % (37-47); Hemoglobin 14.2 g/dl (12.0-16.0); Mean Corpuscular HGB Conc 33.4 g/dl (31.0-35.0); Mean Corpuscular Hemoglobin 30.4 pg (27.0-33.0); Platelet Count 284 X10*3/uL (160-400); Red Blood Count 4.67 X10*6/uL (4.20-5.50); Red Cell Distribution Width 14.2 % (11.0-16.0); White Blood Count 10.5 X10*3/uL (4.8-10.8)
[2021-01-03 12:23] LABS: C Reactive Protein 0.44 mg/dL (< or = 0.50)
[2021-01-03 13:55] LABS: Erythrocyte Sedimentation Rate 14 MM/HR (0-20)
[2021-01-07 06:56] LABS: C1 Esterase Inhibitor 87 % (>=68)
== END 2021-01-03 11:23 | disposition home or self-care (01) ==
LOC: HO.LAB 11:22
PROVIDERS: PCP Internal Medicine; Visit Provider Nurse Practitioner Family
DX: R23.2 Flushing (principal); R21 Rash and other nonspecific skin eruption; L29.9 Pruritus, unspecified; L50.9 Urticaria, unspecified
CPT/HCPCS: 36415; 83520; 85027; 85652; 86003; 86140; 86160; 86161

== ENCOUNTER 2021-01-15 10:35 | Outpatient (REF) | payer OTHER, SELFPAY | END 2021-01-15 10:36 | disposition home or self-care (01) | LOC: HO.LAB 10:35 | PROVIDERS: PCP Internal Medicine; Visit Provider Nurse Practitioner Family | DX: R79.89 Other specified abnormal findings of blood chemistry (principal) | CPT/HCPCS: 36415 ==

== ENCOUNTER 2021-04-09 08:46 | Outpatient (REF) | payer OTHER, SELFPAY ==
--- NOTE | ~2021-04-09 | MM_ITS ---
EXAMINATION: MM SCREENING DIGITAL BREAST TOMOSYNTHESIS, BILATERAL CLINICAL INFORMATION: Screening. Asymptomatic. The lifetime risk of breast cancer based on the Tyrer-Cuzick Model is 13%. COMPARISON: Mammography: 11/15/2019, 11/09/2018, 06/30/2014 TECHNIQUE: Digital breast tomosynthesis is performed in both the craniocaudal and mediolateral oblique views along with computer-aided detection (CAD). Synthesized 2D images are generated from the tomosynthesis. FINDINGS: There are scattered areas of fibroglandular density (ACR BI-RADS breast composition Category b). There are no significant masses, abnormal calcifications, or other abnormalities. Parenchymal pattern is similar to prior studies. The axilla and skin contours are unremarkable. MM/MM tomosynthesis screening BI IMPRESSION: No mammographic evidence of malignancy. ASSESSMENT: BI-RADS 1: Negative RECOMMENDATION: Routine annual mammography screening. This patient's information was entered into a reminder system with a target due date for their next mammogram.
== END 2021-04-09 08:47 | disposition home or self-care (01) ==
LOC: HO.MAMMO 08:46
PROVIDERS: Visit Provider Internal Medicine
DX: Z12.31 Encounter for screening mammogram for malignant neoplasm of breast (principal)
CPT/HCPCS: 77063; 77067

== ENCOUNTER 2021-04-30 11:35 | Emergency (ER) | payer OTHER, SELFPAY ==
--- NOTE | ~2021-04-30 | CT_ITS ---
EXAMINATION: CT angio neck, CT head/brain wo con CLINICAL INFORMATION: Left-sided neck pain. Evaluate for dissection. COMPARISON: CT scan of the head 04/30/2021, 07/07/2020. TECHNIQUE: Salon Manager images were obtained. A CT angiogram of the neck was performed in the arterial phase after the intravenous administration of 70 mL Omnipaque 350. Noncontrast images of the head were also obtained. MIP reconstructions were generated in multiple orientations at the acquisition workstation. Multiple three-dimensional surface rendered images and maximum intensity projection images were generated on a dedicated 3-D lab workstation. Arterial stenoses are measured in accordance with NASCET criteria or similar method if applicable. This CT examination was performed using dose optimization techniques as appropriate, including one or more of the following: Automated exposure control, iterative reconstruction, and adjustment of technique factors (mA and/or kVp) according to patient size (this includes techniques or standardized protocols for targeted exams where dose is matched to indication/reason for exam). Total exam dose-length product 1171 mGy-cm FINDINGS: Head: There is no acute intracranial hemorrhage. No intracranial mass effect or midline shift. Lateral and third ventricles are normal. No hydrocephalus. Torres-white matter differentiation is preserved and there is no evidence of acute territorial infarct. The calvarium and skull base are intact. Mastoid air cells and middle ear cavities are well aerated. No active paranasal sinus disease. CT angiogram neck: The aortic arch apex is normal. Origins of the major aortic branches are widely patent. There is a small amount of eccentric lipid-laden atheromatous plaque involving the midportion of the cervical carotid arteries. Partially calcified atheromatous plaque involves the left carotid bifurcation. No stenosis of the extracranial internal carotid arteries. The cervical segments of the vertebral arteries as well as their origins are patent. Intracranial internal carotid arteries are patent. The intradural vertebral artery segments and basilar artery are patent. Visualized portions of the anterior, middle, and posterior cerebral artery complexes are normal. No intracranial or dislocation. Other: Soft tissues of the neck including the thyroid gland are normal. Visualized lung apices are clear. No acute osseous finding. CT/CT head/brain wo con IMPRESSION: Unremarkable CT angiogram of the neck in that there is no stenosis of the cervical carotid or vertebral arteries. Visualized intracranial arterial anatomy is normal. No evidence of acute territorial infarct or hemorrhage..
--- NOTE | ~2021-04-30 | XR_ITS ---
EXAMINATION: XR CHEST CLINICAL INFORMATION: Left-sided chest pain from neck COMPARISON: None TECHNIQUE: Frontal view of the chest was obtained. FINDINGS: No significant abnormality is noted involving the heart, lungs, mediastinum, bony thorax or soft tissues. XR/XR chest 1V IMPRESSION: Unremarkable chest examination.
--- NOTE | ~2021-04-30 | CT_ITS ---
EXAMINATION: CT angio neck, CT head/brain wo con CLINICAL INFORMATION: Left-sided neck pain. Evaluate for dissection. COMPARISON: CT scan of the head 04/30/2021, 07/07/2020. TECHNIQUE: Regulatory Affairs Portfolio Leader images were obtained. A CT angiogram of the neck was performed in the arterial phase after the intravenous administration of 70 mL Omnipaque 350. Noncontrast images of the head were also obtained. MIP reconstructions were generated in multiple orientations at the acquisition workstation. Multiple three-dimensional surface rendered images and maximum intensity projection images were generated on a dedicated 3-D lab workstation. Arterial stenoses are measured in accordance with NASCET criteria or similar method if applicable. This CT examination was performed using dose optimization techniques as appropriate, including one or more of the following: Automated exposure control, iterative reconstruction, and adjustment of technique factors (mA and/or kVp) according to patient size (this includes techniques or standardized protocols for targeted exams where dose is matched to indication/reason for exam). Total exam dose-length product 1171 mGy-cm FINDINGS: Head: There is no acute intracranial hemorrhage. No intracranial mass effect or midline shift. Lateral and third ventricles are normal. No hydrocephalus. Torres-white matter differentiation is preserved and there is no evidence of acute territorial infarct. The calvarium and skull base are intact. Mastoid air cells and middle ear cavities are well aerated. No active paranasal sinus disease. CT angiogram neck: The aortic arch apex is normal. Origins of the major aortic branches are widely patent. There is a small amount of eccentric lipid-laden atheromatous plaque involving the midportion of the cervical carotid arteries. Partially calcified atheromatous plaque involves the left carotid bifurcation. No stenosis of the extracranial internal carotid arteries. The cervical segments of the vertebral arteries as well as their origins are patent. Intracranial internal carotid arteries are patent. The intradural vertebral artery segments and basilar artery are patent. Visualized portions of the anterior, middle, and posterior cerebral artery complexes are normal. No intracranial or dislocation. Other: Soft tissues of the neck including the thyroid gland are normal. Visualized lung apices are clear. No acute osseous finding. CT/CT angio neck IMPRESSION: Unremarkable CT angiogram of the neck in that there is no stenosis of the cervical carotid or vertebral arteries. Visualized intracranial arterial anatomy is normal. No evidence of acute territorial infarct or hemorrhage..
[2021-04-30 12:02] VITALS: BP 182/96; PULSE 95; RESP 18; TEMP 36.7; O2SAT 99; BMI 27.7
--- NOTE | 2021-04-30 12:05 | ECG_ITS ---
Test Reason : CHEST PAIN Blood Pressure : / mmHG Vent. Rate : 068 BPM Atrial Rate : 068 BPM P-R Int : 126 ms QRS Dur : 080 ms QT Int : 402 ms P-R-T Axes : -06 060 034 degrees QTc Int : 427 ms Normal sinus rhythm Normal ECG No previous ECGs available Referred By: Ryan Turcios Electronically Signed By:PEDRITO BUCHANAN MD
--- NOTE | 2021-04-30 12:07 | ED_ITS ---
HPI - General Adult General Chief complaint: General Medical Stated complaint: neck pain diff breathing Time Seen by Provider: 04/30/21 12:05 Related Data Home Medications Medication Instructions Recorded Confirmed hydroxyzine HCl 25 mg tablet 25 mg PO ONCE tab 09/06/20 02/20/21 cetirizine 10 mg tablet 10 mg PO DAILY 02/20/21 02/20/21 epinephrine 0.3 mg/0.3 mL IM DIRECTED 02/20/21 02/20/21 injection, auto-injector fluticasone propionate 50 1 spray INTRANASAL BID 02/20/21 02/20/21 mcg/actuation nasal spray,suspension Previous Rx's Medication Instructions Recorded amitriptyline 25 mg tablet 25 mg PO BEDTIME 90 Days #90 tab 02/20/21 aspirin 81 mg tablet,delayed 81 mg PO DAILY 90 Days #90 tab 02/20/21 release kybdtveymr-abguajjntuwwh-nygsfqxy 1 tab PO DAILY PRN 30 Days #30 tab 02/20/21 50 mg-325 mg-40 mg tablet clotrimazole 1 % topical cream 1 appl TOPICAL BID 28 Days #15 g 02/20/21 omeprazole 20 mg capsule,delayed 20 mg PO DAILY 90 Days #90 cap 02/20/21 release prazosin 1 mg capsule 1 mg PO BEDTIME 90 Days #90 cap 02/20/21 sumatriptan succinate 25 mg tablet 25 mg PO .as needed PRN 30 Days #9 02/20/21 tab clonazepam 0.5 mg tablet 0.5 mg PO BEDTIME 30 Days #30 tab 02/21/21 cyclobenzaprine 10 mg tablet 10 mg PO TID PRN #10 tab 04/30/21 naproxen 500 mg tablet 500 mg PO BID PRN #20 tab 04/30/21 Allergies Allergy/AdvReac Type Severity Reaction Status Date / Time No Known Allergies Allergy Verified 04/30/21 12:01 [No Known Allergies*] [facility] Past Medical History Medical History Anxiety Depression Dermatochalasis Healthy adult History of headache Hypertension Migraine Polyarthralgia Surgical History History of section History of tubal ligation Hx of blepharoplasty Family History Family History Father No problems noted. Mother Arthritis of knee Breast cancer Heart problem HTN (hypertension) Family/Other Diabetes Arthritis of knee HTN (hypertension) Social History Social History Household Members: Children Alcohol intake: never Patient Tobacco Use Status: Current everyday Tobacco user Tobacco use type: Cigarette Cigarette Packs Per Day: 0.5 Cigarettes Per Day: 10 Years Smoked: 15 Second Hand Smoke Exposure: No Use of substances other than those prescribed or required for medical reasons: No Advance Directives: No Advance Directives Information Provided: No Patient : No Physical Exam Vital Signs: Vital Signs: Last Vital Signs Temp 98.1 F 04/30/21 19:26 Pulse 77 04/30/21 22:00 Resp 15 04/30/21 22:00 BP 156/74 H 04/30/21 22:00 Pulse Ox 96 04/30/21 22:00 Body Mass Index 27.7 Course Course Course Narrative: patient presents to the ED with left lateral neck pain radiating to chest that is worse on movement for 3 days. Patient states mild SOB. Due to family history Of [place]. Patient will have caridac evaluations. This rapid medical screening. Medical Decision Making Lab Data Result diagrams: 04/30/21 12:43 04/30/21 12:43 Labs: Lab Results 04/30/21 04/30/21 04/30/21 Range/Units 12:43 12:43 12:43 WBC 8.5 (4.8-10.8) X10*3/uL RBC 4.68 (4.20-5.50) X10*6/uL Hgb 14.2 (12.0-16.0) g/dl Hct 42.6 (37-47) % MCV 91.0 (80-98) fL MCH 30.3 (27.0-33.0) pg MCHC 33.3 (31.0-35.0) g/dl RDW 13.8 (11.0-16.0) % Plt Count 259 (160-400) X10*3/uL MPV 11.1 (9.4-12.3) fL Immature Gran % (Auto) 0.2 (0.0-0.4) % Neut % (Auto) 62.1 (45-73) % Lymph % (Auto) 25.2 (20-40) % Wilkinson % (Auto) 6.4 (2-11) % Eos % (Auto) 5.3 H (0-4) % Baso % (Auto) 0.8 (0-2) % Lymph # (Auto) 2.1 (1.2-4.9) X10*3/uL Wilkinson # (Auto) 0.5 (0.1-1.2) X10*3/uL Eos # (Auto) 0.5 H (0.0-0.4) X10*3/uL Baso # (Auto) 0.1 (0.0-0.2) X10*3/uL Abs Immat Gran (auto) 0.02 (0.00-0.03) X10*3/uL Absolute Neuts (auto) 5.2 (2.0-8.3) X10*3/uL Absolute Nucleated RBC 0.000 (0.0-0.012) X10*3/uL Nucleated RBC % (auto) 0.0 (0.0-0.2) /100WBC PT (9.9-13.0) SEC INR (0.9-1.1) APTT (24.1-38.0) SEC Sodium 141 (135-145) mmol/L Potassium 4.4 (3.3-5.1) mmol/L Chloride 106 (96-108) mmol/L Carbon Dioxide 27 (22-29) mmol/L Anion Gap 12 (12-20) BUN 14 (9-16) mg/dL Creatinine 0.85 (0.5-1.4) mg/dL Estim Creat Clear Calc 64.1 Estimated GFR > 60 Random Glucose 101 (60-115) mg/dL Calcium 9.5 D (8.4-10.2) mg/dL Total Bilirubin < 0.2 (0.0-1.0) mg/dL AST 13 (5-31) U/L ALT 18 (0-31) U/L Alkaline Phosphatase 95 (39-117) U/L Troponin I High Sens < 3.5 (<3.5-17.0) ng/L B-Natriuretic Peptide 19 (<100) pg/mL Total Protein 7.0 (6.5-8.0) g/dL Albumin 4.2 (3.5-5.0) g/dL 04/30/21 Range/Units 12:43 WBC (4.8-10.8) X10*3/uL RBC (4.20-5.50) X10*6/uL Hgb (12.0-16.0) g/dl Hct (37-47) % MCV (80-98) fL MCH (27.0-33.0) pg MCHC (31.0-35.0) g/dl RDW (11.0-16.0) % Plt Count (160-400) X10*3/uL MPV (9.4-12.3) fL Immature Gran % (Auto) (0.0-0.4) % Neut % (Auto) (45-73) % Lymph % (Auto) (20-40) % Wilkinson % (Auto) (2-11) % Eos % (Auto) (0-4) % Baso % (Auto) (0-2) % Lymph # (Auto) (1.2-4.9) X10*3/uL Wilkinson # (Auto) (0.1-1.2) X10*3/uL Eos # (Auto) (0.0-0.4) X10*3/uL Baso # (Auto) (0.0-0.2) X10*3/uL Abs Immat Gran (auto) (0.00-0.03) X10*3/uL Absolute Neuts (auto) (2.0-8.3) X10*3/uL Absolute Nucleated RBC (0.0-0.012) X10*3/uL Nucleated RBC % (auto) (0.0-0.2) /100WBC PT 12.0 (9.9-13.0) SEC INR 1.1 (0.9-1.1) APTT 34.8 (24.1-38.0) SEC Sodium (135-145) mmol/L Potassium (3.3-5.1) mmol/L Chloride (96-108) mmol/L Carbon Dioxide (22-29) mmol/L Anion Gap (12-20) BUN (9-16) mg/dL Creatinine (0.5-1.4) mg/dL Estim Creat Clear Calc Estimated GFR Random Glucose (60-115) mg/dL Calcium (8.4-10.2) mg/dL Total Bilirubin (0.0-1.0) mg/dL AST (5-31) U/L ALT (0-31) U/L Alkaline Phosphatase (39-117) U/L Troponin I High Sens (<3.5-17.0) ng/L B-Natriuretic Peptide (<100) pg/mL Total Protein (6.5-8.0) g/dL Albumin (3.5-5.0) g/dL Discharge Plan Discharge Clinical Impression: Muscle spasm Patient Disposition: Home, Self-Care Instructions: Spasmodic Torticollis (ED), Muscle Spasm (ED) Additional Instructions: Heat to the area Gentle stretching Follow-up with primary care doctor Your lab work and CT scan are normal Prescriptions: New cyclobenzaprine 10 mg tablet 10 mg PO TID PRN (Reason: muscle spasm) Qty: 10 RF: 0 naproxen 500 mg tablet 500 mg PO BID PRN (Reason: pain) Qty: 20 RF: 0 No Action clonazepam 0.5 mg tablet 0.5 mg PO BEDTIME 30 Days Qty: 30 RF: 0 hydroxyzine HCl 25 mg tablet 25 mg PO ONCE RF: 0 epinephrine 0.3 mg/0.3 mL auto-injector IM DIRECTED RF: 0 fluticasone propionate 50 mcg/actuation spray,suspension 1 spray intranasal BID RF: 0 cetirizine 10 mg tablet 10 mg PO DAILY RF: 0 amitriptyline 25 mg tablet 25 mg PO BEDTIME 90 Days Qty: 90 RF: 3 aspirin 81 mg tablet,delayed release (DR/EC) 81 mg PO DAILY 90 Days Qty: 90 RF: 3 yzovylpjgm-ytyuscpakizyf-vsvo 50-325-40 mg tablet 1 tab PO DAILY PRN (Reason: Migraine Headache) 30 Days Qty: 30 RF: 0 omeprazole 20 mg capsule,delayed release(DR/EC) 20 mg PO DAILY 90 Days Qty: 90 RF: 3 sumatriptan succinate 25 mg tablet 25 mg PO .as needed PRN (Reason: migraine headache) 30 Days Qty: 9 RF: 6 prazosin 1 mg capsule 1 mg PO BEDTIME 90 Days Qty: 90 RF: 2 clotrimazole 1 % cream 1 appl topical BID 28 Days Qty: 15 RF: 1 Referrals: Lauren Merritt MD [Primary Care Provider] - 2 days Interventions: ED Discharge Assessment Last Done: 04/30/21 23:25 Discharge Date/Time: 04/30/21 23:29
[2021-04-30 12:59] LABS: MANUAL DIFF FLAG NO
[2021-04-30 13:01] LABS: Basophils Absolute Auto 0.1 X10*3/uL (0.0-0.2); Basophils Percent Auto 0.8 % (0-2); Eosinophils Absolute Auto 0.5 X10*3/uL (0.0-0.4); Eosinophils Percent Auto 5.3 % (0-4); Hematocrit 42.6 % (37-47); Hemoglobin 14.2 g/dl (12.0-16.0); Imm Gran Abs Auto 0.02 X10*3/uL (0.00-0.03); Imm Gran Pct Auto 0.2 % (0.0-0.4); Lymphocytes Absolute Auto 2.1 X10*3/uL (1.2-4.9); Lymphocytes Percent Auto 25.2 % (20-40); Mean Corpuscular HGB Conc 33.3 g/dl (31.0-35.0); Mean Corpuscular Hemoglobin 30.3 pg (27.0-33.0); Mean Platelet Volume 11.1 fL (9.4-12.3); Monocytes Absolute Auto 0.5 X10*3/uL (0.1-1.2); Monocytes Percent Auto 6.4 % (2-11); Neutrophils Absolute Auto 5.2 X10*3/uL (2.0-8.3); Neutrophils Percent Auto 62.1 % (45-73); Platelet Count 259 X10*3/uL (160-400); Red Blood Count 4.68 X10*6/uL (4.20-5.50); Red Cell Distribution Width 13.8 % (11.0-16.0); White Blood Count 8.5 X10*3/uL (4.8-10.8)
[2021-04-30 13:07] LABS: INTERNATIONAL NORM RATIO 1.1 (0.9-1.1)
[2021-04-30 13:10] LABS: Partial Thromboplastin Time 34.8 SEC (24.1-38.0)
[2021-04-30 13:36] LABS: B Type Natriuretic Peptide 19 pg/mL (<100); Troponin-I High Sensitivity < 3.5 ng/L (<3.5-17.0)
[2021-04-30 13:38] LABS: Alanine Aminotransferase 18 U/L (0-31); Albumin Level 4.2 g/dL (3.5-5.0); Alkaline Phosphatase 95 U/L (39-117); Anion Gap 12 (12-20); Aspartate Amino Transferase 13 U/L (5-31); Bilirubin Total < 0.2 mg/dL (0.0-1.0); Blood Urea Nitrogen 14 mg/dL (9-16); Calcium 9.5 mg/dL (8.4-10.2); Carbon Dioxide 27 mmol/L (22-29); Chloride 106 mmol/L (96-108); Creatinine Clr Calc Pharmacy 64.1; Estimated Glomerular Filt Rate > 60; Glucose Random 101 mg/dL (60-115); Potassium 4.4 mmol/L (3.3-5.1); Sodium 141 mmol/L (135-145)
[2021-04-30 19:26] VITALS: BP 192/86; PULSE 74; RESP 15; TEMP 36.7; O2SAT 98
--- NOTE | 2021-04-30 19:47 | ED_ITS ---
HPI - General Adult General Chief complaint: General Medical Stated complaint: neck pain diff breathing Time Seen by Provider: 04/30/21 12:05 Source: patient Mode of arrival: ambulatory Limitations: no limitations History of Present Illness HPI narrative: 51 yo female with past medical history of GERD, HTN, migraines, anxiety, depression here with complaints of left-sided neck pain x2 days which is worsened with movement of the head with associated headache and intermittent blurry vision. However, patient tells me blurry vision has been going on for months. Uses glasses. No nausea, vomiting, chest pain, shortness of breath, back pain. No injury or trauma. Using Motrin and Tylenol with continued symptoms Related Data Home Medications Medication Instructions Recorded Confirmed hydroxyzine HCl 25 mg tablet 25 mg PO ONCE tab 09/06/20 02/20/21 cetirizine 10 mg tablet 10 mg PO DAILY 02/20/21 02/20/21 epinephrine 0.3 mg/0.3 mL IM DIRECTED 02/20/21 02/20/21 injection, auto-injector fluticasone propionate 50 1 spray INTRANASAL BID 02/20/21 02/20/21 mcg/actuation nasal spray,suspension Previous Rx's Medication Instructions Recorded amitriptyline 25 mg tablet 25 mg PO BEDTIME 90 Days #90 tab 02/20/21 aspirin 81 mg tablet,delayed 81 mg PO DAILY 90 Days #90 tab 02/20/21 release wrykvydlth-wzzwqkhamyxpn-kophhkrn 1 tab PO DAILY PRN 30 Days #30 tab 02/20/21 50 mg-325 mg-40 mg tablet clotrimazole 1 % topical cream 1 appl TOPICAL BID 28 Days #15 g 02/20/21 omeprazole 20 mg capsule,delayed 20 mg PO DAILY 90 Days #90 cap 02/20/21 release prazosin 1 mg capsule 1 mg PO BEDTIME 90 Days #90 cap 02/20/21 sumatriptan succinate 25 mg tablet 25 mg PO .as needed PRN 30 Days #9 02/20/21 tab clonazepam 0.5 mg tablet 0.5 mg PO BEDTIME 30 Days #30 tab 02/21/21 cyclobenzaprine 10 mg tablet 10 mg PO TID PRN #10 tab 04/30/21 naproxen 500 mg tablet 500 mg PO BID PRN #20 tab 04/30/21 Allergies Allergy/AdvReac Type Severity Reaction Status Date / Time No Known Allergies Allergy Verified 04/30/21 12:01 [No Known Allergies*] Review of Systems Review of Systems: Yes all other systems are reviewed and are negative Constitutional: Constitutional: Reports no additional constitutional complaint s, Denies body ache(s), Denies chills, Denies fever(s), Reports headache(s) and Denies weakness Eyes: Eyes: Reports no additional eye complaints, Reports blurry vision (intermittent blurry vision > months) and Denies change in vision ENT: Reports system reviewed and no additional complaints, except as documented, Denies dizziness, Reports headache(s), Denies nasal congestion, Denies nasal discharge and Reports neck pain Cardiovascular: Cardiovascular: Reports no additional cardiovascular complaints, Denies chest pain, Denies leg edema and Denies dyspnea Respiratory: Respiratory: Reports no additional respiratory complaints, Denies cough and Denies dyspnea Gastrointestinal: Gastrointestinal: Reports no additional gastrointestinal complaints, Denies abdominal pain, Denies diarrhea, Denies nausea and Denies vomiting Genitourinary: Genitourinary: Reports no additional female genitourinary co mplaints and Denies urinary incontinence Musculoskeletal: Musculoskeletal: Reports no additional musculoskeletal complaints, Denies back pain, Denies arthralgias, Denies joint swelling, Reports neck pain, Denies numbness and Denies tingling Integumentary/Breasts: Skin/Breast: Reports system reviewed and no additional complaints, except as docu and Denies rash Neurologic: Reports system reviewed and no additional complaints, except as documented, Denies Abnormal speech present, Denies dizziness, Reports headache(s), Denies numbness, Denies tingling and Denies weakness [facility] Past Medical History Attestation statement: The following information was validated with the patient. Source: old records reviewed and nursing notes reviewed Medical History Anxiety Depression Dermatochalasis Healthy adult History of headache Hypertension Migraine Polyarthralgia Surgical History History of section History of tubal ligation Hx of blepharoplasty Family History Family History Father No problems noted. Mother Arthritis of knee Breast cancer Heart problem HTN (hypertension) Family/Other Diabetes Arthritis of knee HTN (hypertension) Social History Social History Household Members: Children Alcohol intake: never Patient Tobacco Use Status: Current everyday Tobacco user Tobacco use type: Cigarette Cigarette Packs Per Day: 0.5 Cigarettes Per Day: 10 Years Smoked: 15 Second Hand Smoke Exposure: No Use of substances other than those prescribed or required for medical reasons: No Advance Directives: No Advance Directives Information Provided: No Patient : No Physical Exam Vital Signs: Vital Signs: Last Vital Signs Temp 98.1 F 04/30/21 19:26 Pulse 77 04/30/21 22:00 Resp 15 04/30/21 22:00 BP 156/74 H 04/30/21 22:00 Pulse Ox 96 04/30/21 22:00 Body Mass Index 27.7 Const: General: cooperative, healthy appearing, comfortable and no acute distress Orientation/consciousness: patient oriented x3 Limitations: no limitations HENMT: Head: Yes normal to inspection Ears: hearing grossly normal bilaterally General nose exam: Normal external nose present Face and sinus: Yes normal facial exam Mouth: Normal oral and palatal mucosa present Throat: Yes posterior oropharynx normal Eyes: General: appearance normal, both eyes and all related structures Pupils: Equal, round and reactive pupils present Neck: Other: Left sided neck soft tissue tenderness No obvious bruit or thrill. No swelling. Pain is worsened with rotation of the head from right to left. Neck: Yes normal visual inspection, Yes no lymphadenopathy and Yes no meningeal signs Chest: Chest palpation & inspection: normal inspection of the chest Resp: Effort & Inspection: normal respiratory effort Auscultation: clear to auscultation bilaterally Cardio: Rate: regular rate Rhythm: regular rhythm Peripheral pulses: Peripheral pulses 2+ throughout GI: Inspection: Yes normal to inspection Palpation (GI): Soft to palpation and nontender Auscultation: normal bowel sounds Back/Spine/Pelvis: Thoracic/Lumbar Spine: thoracic and lumbar spine normal to inspection Skin: General skin exam: no rashes or lesions noted Neuro: General: patient oriented x3, no meningeal signs, no focal motor deficits and normal sensation to monofilament Cranial nerves: Yes Equal, round and reactive pupils present, Yes Bilaterally intact EOM present, Yes Nystagmus not present, Yes Normal facial strength present and Yes Midline tongue present Cognition (Neuro): normal cognition Speech: No Abnormal speech present Gait exam (Neuro): Normal gait present Motor exam (neuro): 5/5 motor strength present throughout Sensory Exam: Normal double simultaneous st imulation for sensation Coordination: ghhoty-wc-cepy test normal and heel -to-jones test normal Extrem: General: Yes normal to inspection Course Course Course Narrative: 51-year-old female with a past medical history of anxiety, de pression, hypertension, GERD, migraines here with complaints of left-sided neck pain with associated headache and intermittent visual complaints for the last 2 days. Trying Motrin, Tylenol and an unknown muscle relaxant with continued symptoms. No fevers or chills. No chest pain, shortness of breath or back pain. Hemodynamically stable. Normal neuro exam. On exam has tenderness in the soft tissue area of the left side of the neck. Pain with range of motion of the head secondary to tenderness. Will check labs, EKG, CXR and CT neck angio 230-labs, EKG including troponin unremarkable. Chest x-ray and CT negative. Likely muscle strain vs spasm. Patient is feeling improved on discharge with increased range of motion. Reviewed worrisome signs and symptoms and when to return to the emergency department. Comfortable discharge home. Medical Decision Making MDM Narrative Medical decision making narrative: carotid dissection Medical Records Medical records reviewed: Yes I reviewed the patient's medical records. Lab Data Lab results reviewed: Yes I reviewed the patient's lab results. Result diagrams: 04/30/21 12:43 04/30/21 12:43 Labs: Lab Results 04/30/21 04/30/21 04/30/21 Range/Units 12:43 12:43 12:43 WBC 8.5 (4.8-10.8) X10*3/uL RBC 4.68 (4.20-5.50) X10*6/uL Hgb 14.2 (12.0-16.0) g/dl Hct 42.6 (37-47) % MCV 91.0 (80-98) fL MCH 30.3 (27.0-33.0) pg MCHC 33.3 (31.0-35.0) g/dl RDW 13.8 (11.0-16.0) % Plt Count 259 (160-400) X10*3/uL MPV 11.1 (9.4-12.3) fL Immature Gran % (Auto) 0.2 (0.0-0.4) % Neut % (Auto) 62.1 (45-73) % Lymph % (Auto) 25.2 (20-40) % Henderson % (Auto) 6.4 (2-11) % Eos % (Auto) 5.3 H (0-4) % Baso % (Auto) 0.8 (0-2) % Lymph # (Auto) 2.1 (1.2-4.9) X10*3/uL Henderson # (Auto) 0.5 (0.1-1.2) X10*3/uL Eos # (Auto) 0.5 H (0.0-0.4) X10*3/uL Baso # (Auto) 0.1 (0.0-0.2) X10*3/uL Abs Immat Gran (auto) 0.02 (0.00-0.03) X10*3/uL Absolute Neuts (auto) 5.2 (2.0-8.3) X10*3/uL Absolute Nucleated RBC 0.000 (0.0-0.012) X10*3/uL Nucleated RBC % (auto) 0.0 (0.0-0.2) /100WBC PT (9.9-13.0) SEC INR (0.9-1.1) APTT (24.1-38.0) SEC Sodium 141 (135-145) mmol/L Potassium 4.4 (3.3-5.1) mmol/L Chloride 106 (96-108) mmol/L Carbon Dioxide 27 (22-29) mmol/L Anion Gap 12 (12-20) BUN 14 (9-16) mg/dL Creatinine 0.85 (0.5-1.4) mg/dL Estim Creat Clear Calc 64.1 Estimated GFR > 60 Random Glucose 101 (60-115) mg/dL Calcium 9.5 D (8.4-10.2) mg/dL Total Bilirubin < 0.2 (0.0-1.0) mg/dL AST 13 (5-31) U/L ALT 18 (0-31) U/L Alkaline Phosphatase 95 (39-117) U/L Troponin I High Sens < 3.5 (<3.5-17.0) ng/L B-Natriuretic Peptide 19 (<100) pg/mL Total Protein 7.0 (6.5-8.0) g/dL Albumin 4.2 (3.5-5.0) g/dL /06/12 Range/Units 12:43 WBC (4.8-10.8) X10*3/uL RBC (4.20-5.50) X10*6/uL Hgb (12.0-16.0) g/dl Hct (37-47) % MCV (80-98) fL MCH (27.0-33.0) pg MCHC (31.0-35.0) g/dl RDW (11.0-16.0) % Plt Count (160-400) X10*3/uL MPV (9.4-12.3) fL Immature Gran % (Auto) (0.0-0.4) % Neut % (Auto) (45-73) % Lymph % (Auto) (20-40) % Henderson % (Auto) (2-11) % Eos % (Auto) (0-4) % Baso % (Auto) (0-2) % Lymph # (Auto) (1.2-4.9) X10*3/uL Henderson # (Auto) (0.1-1.2) X10*3/uL Eos # (Auto) (0.0-0.4) X10*3/uL Baso # (Auto) (0.0-0.2) X10*3/uL Abs Immat Gran (auto) (0.00-0.03) X10*3/uL Absolute Neuts (auto) (2.0-8.3) X10*3/uL Absolute Nucleated RBC (0.0-0.012) X10*3/uL Nucleated RBC % (auto) (0.0-0.2) /100WBC PT 12.0 (9.9-13.0) SEC INR 1.1 (0.9-1.1) APTT 34.8 (24.1-38.0) SEC Sodium (135-145) mmol/L Potassium (3.3-5.1) mmol/L Chloride (96-108) mmol/L Carbon Dioxide (22-29) mmol/L Anion Gap (12-20) BUN (9-16) mg/dL Creatinine (0.5-1.4) mg/dL Estim Creat Clear Calc Estimated GFR Random Glucose (60-115) mg/dL Calcium (8.4-10.2) mg/dL Total Bilirubin (0.0-1.0) mg/dL AST (5-31) U/L ALT (0-31) U/L Alkaline Phosphatase (39-117) U/L Troponin I High Sens (<3.5-17.0) ng/L B-Natriuretic Peptide (<100) pg/mL Total Protein (6.5-8.0) g/dL Albumin (3.5-5.0) g/dL Imaging Data Chest x-ray: Attestation: I personally reviewed and interpreted this imaging study as follows: Radiologist's impression: [address] [address] XRay Report Signed Patient: Deanna Gómez MR#: [id number] : 1970 Acct:[id number] Age/Sex: 51 / F ADM Date: 04/30/21 Loc: .ED Attending Dr: Ordering Physician: LISA HOFFMAN Date of Service: 04/30/21 Procedure(s): XR chest 1V Accession Number(s): [id number] cc: LISA HOFFMAN~ EXAMINATION: XR CHEST CLINICAL INFORMATION: Left-sided chest pain from neck COMPARISON: None TECHNIQUE: Frontal view of the chest was obtained. FINDINGS: No significant abnormality is noted involving the heart, lungs, mediastinum, bony thorax or soft tissues. XR/XR chest 1V IMPRESSION: Unremarkable chest examination. ? Ct neck/head: Attestation: I personally reviewed and interpreted this imaging study as follows: Radiologist's impression: FINDINGS: Head: There is no acute intracranial hemorrhage. No intracranial mass effect or midline shift. Lateral and third ventricles are normal. No hydrocephalus. Torres-white matter differentiation is preserved and there is no evidence of acute territorial infarct. The calvarium and skull base are intact. Mastoid air cells and middle ear cavities are well aerated. No active paranasal sinus disease. CT angiogram neck: The aortic arch apex is normal. Origins of the major aortic branches are widely patent. There is a small amount of eccentric lipid-laden atheromatous plaque involving the midportion of the cervical carotid arteries. Partially calcified atheromatous plaque involves the left carotid bifurcation. No stenosis of the extracranial internal carotid arteries. The cervical segments of the vertebral arteries as well as their origins are patent. Intracranial internal carotid arteries are patent. The intradural vertebral artery segments and basilar artery are patent. Visualized portions of the anterior, middle, and posterior cerebral artery complexes are normal. No intracranial or dislocation. Other: Soft tissues of the neck including the thyroid gland are normal. Visualized lung apices are clear. No acute osseous finding. CT/CT head/brain wo con IMPRESSION: Unremarkable CT angiogram of the neck in that there is no stenosis of the cervical carotid or vertebral arteries. Visualized intracranial arterial anatomy is normal. No evidence of acute territorial infarct or hemorrhage.. ECG Data Attestation: I personally reviewed and interpreted this ECG as follows: Interpretation: Normal sinus rhythm with a rate of 68, normal [place], normal QRS, normal QT Discharge Plan Discharge Clinical Impression: Muscle spasm Patient Disposition: Home, Self-Care Instructions: Spasmodic Torticollis (ED), Muscle Spasm (ED) Additional Instructions: Heat to the area Gentle stretching Follow-up with primary care doctor Your lab work and CT scan are normal Prescriptions: New cyclobenzaprine 10 mg tablet 10 mg PO TID PRN (Reason: muscle spasm) Qty: 10 RF: 0 naproxen 500 mg tablet 500 mg PO BID PRN (Reason: pain) Qty: 20 RF: 0 No Action clonazepam 0.5 mg tablet 0.5 mg PO BEDTIME 30 Days Qty: 30 RF: 0 hydroxyzine HCl 25 mg tablet 25 mg PO ONCE RF: 0 epinephrine 0.3 mg/0.3 mL auto-injector IM DIRECTED RF: 0 fluticasone propionate 50 mcg/actuation spray,suspension 1 spray intranasal BID RF: 0 cetirizine 10 mg tablet 10 mg PO DAILY RF: 0 amitriptyline 25 mg tablet 25 mg PO BEDTIME 90 Days Qty: 90 RF: 3 aspirin 81 mg tablet,delayed release (DR/EC) 81 mg PO DAILY 90 Days Qty: 90 RF: 3 rutakgshkm-ofwfnqwijsusp-xbwm 50-325-40 mg tablet 1 tab PO DAILY PRN (Reason: Migraine Headache) 30 Days Qty: 30 RF: 0 omeprazole 20 mg capsule,delayed release(DR/EC) 20 mg PO DAILY 90 Days Qty: 90 RF: 3 sumatriptan succinate 25 mg tablet 25 mg PO .as needed PRN (Reason: migraine headache) 30 Days Qty: 9 RF: 6 prazosin 1 mg capsule 1 mg PO BEDTIME 90 Days Qty: 90 RF: 2 clotrimazole 1 % cream 1 appl topical BID 28 Days Qty: 15 RF: 1 Referrals: Lauren Merritt MD [Primary Care Provider] - 2 days
[2021-04-30] MEDS: iohexoL 350 MG/ML 100 ML INFUS..BTL IV (21:31)
[2021-04-30 22:00] VITALS: BP 156/74; PULSE 77; RESP 15; O2SAT 96
[2021-04-30] MEDS: diazePAM 2 MG TABLET PO (22:05)
[2021-04-30] MEDS: Morphine Sulfate 4 MG/ML CARTRIDGE IVPUSH (22:05)
[2021-04-30] MEDS: ondansetron HCL 4 MG/2 ML VIAL IVPUSH (22:05)
== END 2021-04-30 23:29 | disposition home or self-care (01) ==
PROVIDERS: Physician Assistant; Emergency Provider Emergency Medicine Emergency Medical Services; PCP Internal Medicine
DX: G24.3 Spasmodic torticollis (principal); M54.2 Cervicalgia; R06.02 Shortness of breath; R07.89 Other chest pain; Z79.899 Other long term (current) drug therapy; F17.210 Nicotine dependence, cigarettes, uncomplicated; Z71.6 Tobacco abuse counseling
CPT/HCPCS: 36415; 70450; 70498; 71045; 80053; 83880; 84484; 85025; 85610; 85730; 93005; 96374; 96375; 99284; 99285; J2270; J2405; Q9967

== ENCOUNTER 2021-05-09 09:07 | Outpatient (REF) | payer OTHER, SELFPAY ==
[2021-05-09 11:03] LABS: Glucose Urine UA NEG (NEG); Leukocyte Esterase Urine NEG (NEG); Nitrite Urine NEG (NEG); PH 6.5 (5.0-8.0); Urine Blood NEG (NEG); Urine Ketones NEG (NEG); Urine Protein NEG (NEG-TRACE)
[2021-05-09 11:04] LABS: Alanine Aminotransferase 19 U/L (0-31); Albumin Level 4.2 g/dL (3.5-5.0); Alkaline Phosphatase 95 U/L (39-117); Anion Gap 14 (12-20); Aspartate Amino Transferase 16 U/L (5-31); Bilirubin Total 0.3 mg/dL (0.0-1.0); Blood Urea Nitrogen 10 mg/dL (9-16); Calcium 9.4 mg/dL (8.4-10.2); Carbon Dioxide 22 mmol/L (22-29); Chloride 107 mmol/L (96-108); Estimated Glomerular Filt Rate > 60; Glucose Random 90 mg/dL (60-115); Potassium 4.5 mmol/L (3.3-5.1); Rheumatoid Factor < 15.0 IU/mL (<15.0); Sodium 138 mmol/L (135-145); Total Protein 7.1 g/dL (6.5-8.0)
[2021-05-09 11:05] LABS: Appearance Urine CLEAR; Color Urine YELLOW
[2021-05-09 11:15] LABS: Bacteria Urine TRACE /LPF; RBC Urine 0 /HPF (0); Squamous Epithelial Cell Urine 1+ /LPF; WBC Urine 0 /HPF (0-4)
[2021-05-09 11:27] LABS: Thyroid Stimulating Hormone 1.52 uIU/mL (0.32-4.0)
[2021-05-10 11:25] LABS: Complement C3 120 mg/dL (83-193)
[2021-05-10 11:55] LABS: Anti DNA DS Antibody 2 IU/mL; Antibody to SS-A Antigen <1.0 NEG AI (<1.0 NEG); Antibody to SS-B Antigen <1.0 NEG AI (<1.0 NEG); SM/Ribonucleoprotein Ab <1.0 NEG AI (<1.0 NEG); Smith Protein <1.0 NEG AI (<1.0 NEG)
[2021-05-14 13:17] LABS: Vitamin D 25-OH, D2 <4 ng/mL; Vitamin D 25-OH, D3 30 ng/mL; Vitamin D 25-OH, Total 30 ng/mL (30-100)
[2021-05-15 16:28] LABS: Cyclic Citrullinated Peptide <16 UNITS
== END 2021-05-09 09:08 | disposition home or self-care (01) ==
LOC: HO.LAB 09:07
PROVIDERS: PCP Internal Medicine; Visit Provider Student in an Organized Health Care Education/Training Program
DX: R76.8 Other specified abnormal immunological findings in serum (principal); E66.3 Overweight
CPT/HCPCS: 36415; 80053; 81001; 82306; 84443; 86140; 86160; 86200; 86225; 86235; 86431; 99202

== ENCOUNTER 2021-05-10 09:00 | Outpatient (REF) | payer OTHER, SELFPAY ==
[2021-05-10 09:42] LABS: MANUAL DIFF FLAG NO
[2021-05-10 09:49] LABS: Basophils Absolute Auto 0.1 X10*3/uL (0.0-0.2); Basophils Percent Auto 0.5 % (0-2); Eosinophils Absolute Auto 0.5 X10*3/uL (0.0-0.4); Eosinophils Percent Auto 4.4 % (0-4); Hematocrit 41.7 % (37-47); Hemoglobin 13.9 g/dl (12.0-16.0); Imm Gran Abs Auto 0.05 X10*3/uL (0.00-0.03); Imm Gran Pct Auto 0.4 % (0.0-0.4); Lymphocytes Percent Auto 24.9 % (20-40); Mean Corpuscular HGB Conc 33.3 g/dl (31.0-35.0); Mean Corpuscular Hemoglobin 30.2 pg (27.0-33.0); Mean Corpuscular Volume 90.7 fL (80-98); Mean Platelet Volume 11.6 fL (9.4-12.3); Monocytes Absolute Auto 0.8 X10*3/uL (0.1-1.2); Monocytes Percent Auto 6.8 % (2-11); Neutrophils Absolute Auto 7.6 X10*3/uL (2.0-8.3); Platelet Count 291 X10*3/uL (160-400); Red Cell Distribution Width 14.1 % (11.0-16.0); White Blood Count 12.1 X10*3/uL (4.8-10.8)
[2021-05-10 10:13] LABS: Alanine Aminotransferase 19 U/L (0-31); Albumin Level 4.1 g/dL (3.5-5.0); Alkaline Phosphatase 96 U/L (39-117); Anion Gap 11 (12-20); Aspartate Amino Transferase 17 U/L (5-31); Bilirubin Total 0.3 mg/dL (0.0-1.0); Blood Urea Nitrogen 13 mg/dL (9-16); Calcium 9.5 mg/dL (8.4-10.2); Carbon Dioxide 28 mmol/L (22-29); Chloride 106 mmol/L (96-108); Cholesterol 208 mg/dL; Estimated Glomerular Filt Rate > 60; Glucose Fasting 86 mg/dL (60-99); HDL Cholesterol 54 mg/dL; LDL Cholesterol Calculated 143 mg/dl; Potassium 4.5 mmol/L (3.3-5.1); Sodium 140 mmol/L (135-145); Total Protein 6.8 g/dL (6.5-8.0); Triglycerides 59 mg/dL
[2021-05-10 10:50] LABS: Erythrocyte Sedimentation Rate 16 MM/HR (0-20)
== END 2021-05-10 09:01 | disposition home or self-care (01) ==
LOC: HO.LAB 09:00
PROVIDERS: Absent Provider Internal Medicine; PCP Internal Medicine; Visit Provider Student in an Organized Health Care Education/Training Program
DX: R76.8 Other specified abnormal immunological findings in serum (principal); E66.3 Overweight; E78.5 Hyperlipidemia, unspecified
CPT/HCPCS: 36415; 80053; 80061; 85025; 85652

== ENCOUNTER → 2021-05-22 08:52 | Outpatient (BNVA) | payer OTHER, SELFPAY | PROVIDERS: PCP Internal Medicine; Visit Provider Student in an Organized Health Care Education/Training Program ==

== ENCOUNTER → 2021-06-04 10:52 | Outpatient (BNVA) | payer OTHER, SELFPAY | PROVIDERS: PCP Internal Medicine; Visit Provider Anesthesiology | DX: M54.2 Cervicalgia (principal); M79.18 Myalgia, other site | CPT/HCPCS: 99202 ==

== ENCOUNTER 2021-08-14 09:33 | Outpatient (REF) | payer OTHER, SELFPAY ==
[2021-08-14 09:49] LABS: MANUAL DIFF FLAG NO
[2021-08-14 10:16] LABS: Basophils Absolute Auto 0.1 X10*3/uL (0.0-0.2); Basophils Percent Auto 0.5 % (0-2); Eosinophils Absolute Auto 0.6 X10*3/uL (0.0-0.4); Hemoglobin 13.4 g/dl (12.0-16.0); Imm Gran Abs Auto 0.04 X10*3/uL (0.00-0.03); Imm Gran Pct Auto 0.4 % (0.0-0.4); Lymphocytes Absolute Auto 2.8 X10*3/uL (1.2-4.9); Lymphocytes Percent Auto 26.1 % (20-40); Mean Corpuscular HGB Conc 32.7 g/dl (31.0-35.0); Mean Corpuscular Hemoglobin 29.8 pg (27.0-33.0); Mean Corpuscular Volume 91.1 fL (80.0-98.0); Mean Platelet Volume 11.3 fL (9.4-12.3); Monocytes Absolute Auto 0.7 X10*3/uL (0.1-1.2); Monocytes Percent Auto 6.3 % (2-11); Neutrophils Absolute Auto 6.4 x10*3/uL (2.0-8.3); Neutrophils Percent Auto 60.7 % (45-73); Platelet Count 295 X10*3/uL (160-400); Red Cell Distribution Width 14.1 % (11.0-16.0); White Blood Count 10.6 X10*3/uL (4.8-10.8)
== END 2021-08-14 09:34 | disposition home or self-care (01) ==
LOC: HO.LAB 09:33
PROVIDERS: PCP Internal Medicine; Visit Provider Internal Medicine
DX: D64.9 Anemia, unspecified (principal); E66.3 Overweight
CPT/HCPCS: 36415; 85025

== ENCOUNTER 2021-11-30 09:09 | Outpatient (REF) | payer OTHER, SELFPAY ==
[2021-11-30 17:32] LABS: CT PCR NOT DETECTED (Not Detect.); NG PCR NOT DETECTED (Not Detect.)
[2021-12-01 13:07] LABS: BV Int Neg Control Negative (Negative); BV Int Pos Control Positive (Positive)
[2021-12-06 11:00] LABS: HPV mRNA E6/E7 rflx Not Detected (Not Detected)
== END 2021-11-30 09:10 | disposition home or self-care (01) ==
LOC: HO.LAB 09:09
PROVIDERS: PCP Internal Medicine; Visit Provider Advanced Practice Midwife
DX: Z01.419 Encounter for gynecological examination (general) (routine) without abnormal findings (principal); L85.3 Xerosis cutis; F17.210 Nicotine dependence, cigarettes, uncomplicated; Z20.2 Contact with and (suspected) exposure to infections with a predominantly sexual mode of transmission; Z79.899 Other long term (current) drug therapy
CPT/HCPCS: 87480; 87491; 87510; 87591; 87624; 87660; 88142

== ENCOUNTER 2022-05-25 18:31 | Emergency (ER) | payer OTHER, SELFPAY ==
--- NOTE | ~2022-05-25 | CT_ITS ---
EXAMINATION: CT HEAD WITHOUT CONTRAST CT CERVICAL SPINE WITHOUT CONTRAST CLINICAL INFORMATION: Head strike. Headache. Neck pain. COMPARISON: CT head 05/10/2021 TECHNIQUE: Imaging was performed from the skull base to vertex without intravenous administration of contrast. In addition, helical noncontrast CT imaging was acquired through the cervical spine and source images were reviewed along with axial reconstructions and sagittal and coronal MPRs. [This CT examination was performed using dose optimization techniques as appropriate, variously including the following: *Automated exposure control *Adjustment of mA and/or kV according to patient size (this includes techniques or standardized protocols for targeted exams where dose is matched to indication/reason for exam; i.e. extremities or head) *Use of iterative reconstruction technique] DLP: 977 mGy-cm FINDINGS: HEAD: No intracranial mass, hemorrhage, or midline shift is visualized. The ventricles and sulci are proportional. No extra-axial collections are identified. The paranasal sinuses and mastoid air cells are well aerated. CERVICAL SPINE: There is no evidence of acute cervical spine fracture. Vertebral bodies remain normal in height. Cervical vertebrae have normal alignment. Cervical disc heights are normal. Facet joints are normal. No pre- or paravertebral soft tissue abnormality is identified. Limited assessment of the lung apices is unremarkable. CT/CT head/brain wo IV con IMPRESSION: 1. No acute intracranial pathology. 2. No CT evidence of acute cervical spine fracture or traumatic subluxation
--- NOTE | ~2022-05-25 | CT_ITS ---
EXAMINATION: CT HEAD WITHOUT CONTRAST CT CERVICAL SPINE WITHOUT CONTRAST CLINICAL INFORMATION: Head strike. Headache. Neck pain. COMPARISON: CT head 05/10/2021 TECHNIQUE: Imaging was performed from the skull base to vertex without intravenous administration of contrast. In addition, helical noncontrast CT imaging was acquired through the cervical spine and source images were reviewed along with axial reconstructions and sagittal and coronal MPRs. [This CT examination was performed using dose optimization techniques as appropriate, variously including the following: *Automated exposure control *Adjustment of mA and/or kV according to patient size (this includes techniques or standardized protocols for targeted exams where dose is matched to indication/reason for exam; i.e. extremities or head) *Use of iterative reconstruction technique] DLP: 977 mGy-cm FINDINGS: HEAD: No intracranial mass, hemorrhage, or midline shift is visualized. The ventricles and sulci are proportional. No extra-axial collections are identified. The paranasal sinuses and mastoid air cells are well aerated. CERVICAL SPINE: There is no evidence of acute cervical spine fracture. Vertebral bodies remain normal in height. Cervical vertebrae have normal alignment. Cervical disc heights are normal. Facet joints are normal. No pre- or paravertebral soft tissue abnormality is identified. Limited assessment of the lung apices is unremarkable. CT/CT cervical spine wo IV con IMPRESSION: 1. No acute intracranial pathology. 2. No CT evidence of acute cervical spine fracture or traumatic subluxation
--- NOTE | ~2022-05-25 | XR_ITS ---
EXAMINATION: XR CHEST CLINICAL INFORMATION: Syncope COMPARISON: 04/30/2021 TECHNIQUE: 2 views of the chest were obtained. FINDINGS: No focal consolidation, pulmonary edema, or pleural effusion. Stable cardiomediastinal silhouette. XR/XR chest 2V IMPRESSION: Unremarkable examination.
[2022-05-25 18:46] VITALS: BP 168/86; PULSE 98; RESP 18; TEMP 36; O2SAT 99; BMI 26.9
--- NOTE | 2022-05-25 18:52 | ECG_ITS ---
Test Reason : SYNCOPE Blood Pressure : / mmHG Vent. Rate : 091 BPM Atrial Rate : 091 BPM P-R Int : 130 ms QRS Dur : 082 ms QT Int : 378 ms P-R-T Axes : 072 065 052 degrees QTc Int : 464 ms Normal sinus rhythm with sinus arrhythmia Possible Left atrial enlargement Borderline ECG When compared with ECG of 30-APR-2021 12:34, No significant change was found Referred By: Generic ED Physician Electronically Signed By:JOSELO ULRICH
[2022-05-25 19:56] LABS: Basophils Absolute Auto 0.1 X10*3/uL (0.0-0.2); Basophils Percent Auto 0.7 % (0-2); PLT CLUMP 1; SCAN SMEAR FLAG 1
[2022-05-25 19:58] LABS: Eosinophils Absolute Auto 0.6 X10*3/uL (0.0-0.4); Eosinophils Percent Auto 5.5 % (0-4); Hematocrit 40.2 % (37.0-47.0); Hemoglobin 13.3 g/dl (12.0-16.0); Imm Gran Abs Auto 0.02 X10*3/uL (0.00-0.03); Imm Gran Pct Auto 0.2 % (0.0-0.4); Lymphocytes Absolute Auto 3.7 X10*3/uL (1.2-4.9); MANUAL DIFF FLAG SCAN; Mean Corpuscular HGB Conc 33.1 g/dl (31.0-35.0); Mean Corpuscular Hemoglobin 29.8 pg (27.0-33.0); Mean Corpuscular Volume 89.9 fL (80.0-98.0); Monocytes Absolute Auto 0.7 X10*3/uL (0.1-1.2); Monocytes Percent Auto 5.8 % (2-11); Neutrophils Absolute Auto 6.1 x10*3/uL (2.0-8.3); Neutrophils Percent Auto 54.8 % (45-73); Red Blood Count 4.47 X10*6/uL (4.20-5.50); Red Cell Distribution Width 14.6 % (11.0-16.0)
[2022-05-25 20:08] LABS: White Blood Count 11.2 X10*3/uL (4.8-10.8)
[2022-05-25 20:20] LABS: Alanine Aminotransferase 15 U/L (0-31); Albumin Level 3.9 g/dL (3.5-5.0); Alkaline Phosphatase 86 U/L (39-117); Anion Gap 15 (12-20); Aspartate Amino Transferase 17 U/L (5-31); Bilirubin Direct < 0.2 mg/dL (0.0-0.5); Bilirubin Total < 0.2 mg/dL (0.0-1.0); Blood Urea Nitrogen 17 mg/dL (9-16); Calcium 9.2 mg/dL (8.4-10.2); Carbon Dioxide 25 mmol/L (22-29); Chloride 109 mmol/L (96-108); Creatinine Clr Calc Pharmacy 52.5; Estimated Glomerular Filt Rate 57; Glucose Random 95 mg/dL (60-115); Lipase 32 U/L (8-78); Potassium 4.2 mmol/L (3.3-5.1); SLIDE REVIEW VERIFIED; Sodium 145 mmol/L (135-145); Total Protein 6.7 g/dL (6.5-8.0); Troponin-I High Sensitivity < 3.5 ng/L (<3.5-17.0)
[2022-05-25 20:24] LABS: COVID-19 Test Negative (Negative)
--- NOTE | 2022-05-25 22:07 | ED_ITS ---
HPI - Syncope General Chief Complaint: Syncope Stated Complaint: fell05/24 neck,chest and arm pain Time Seen by Provider: 05/25/22 21:46 Source: patient and family ( ) Mode of arrival: ambulatory Limitations: no limitations History of Present Illness HPI narrative: 52-year-old female who presents emergency department for evaluation syncope with fall, head injury , neck pain and chest pain. patient states that yesterday around 14:00 hours she was walking. She states she suddenly felt dizzy as if she was going to pass out and then woke up on the ground. She believes that she hit her head but she has no memory of the fall. Since the fall, she has had a constant, pressure-like headache located on the top of her head which is 6/10 at its worst. She has also had a constant pain in her neck which is 7/10 and worse with movement. States the neck pain is located on the sides and back of her neck, and feels like a sharp pain. The patient did land on her chest and she states that since the fall she has been experiencing chest pain and left shoulder pain. These pains are constant, sharp pain, 6/10 at its worst. She states that she was feeling well prior to the fall. She states she was ea ting and drinking well. She denied fever, chills, rhinorrhea, sore throat she did not have any chest pain shortness of breath or dyspnea on exertion preceding the fall. She denied nausea, vomiting or diarrhea preceding the fall. She has not noticed any change in her bowel movements, she denied diarrhea, dark tarry stools or bright red blood per rectum. She denies any pain and swelling in her lower extremities and she has not gone on any long trips recently. Related Data Previous Rx's Medication Instructions Recorded clotrimazole 1 % topical cream 1 appl topical BID 4 weeks #15 02/20/21 grams aspirin 81 mg tablet,delayed 81 mg PO DAILY 90 days #90 tabs 10/07/21 release cetirizine 10 mg tablet 10 mg PO DAILY 90 days #90 tabs 02/20/22 cyclobenzaprine 10 mg tablet 10 mg PO TID PRN muscle spasm 30 02/20/22 days #90 tabs epinephrine 0.3 mg/0.3 mL 0.3 ml IM DIRECTED anaphylaxis 02/20/22 injection, auto-injector 30 days #2 ea omeprazole 20 mg capsule,delayed 20 mg PO DAILY 90 days #90 caps 02/20/22 release prazosin 1 mg capsule 1 mg PO BEDTIME 90 days #90 caps 02/20/22 clonazepam 1 mg tablet 1 mg PO BID PRN anxiety 30 days 05/07/22 #60 tabs morphine 15 mg immediate release 15 mg PO Q4-6H PRN pain #10 tabs 05/26/22 tablet Allergies Allergy/AdvReac Type Severity Reaction Status Date / Time cat dander Allergy Unknown Verified 02/20/22 10:05 dog dander Allergy Unknown Verified 02/20/22 10:05 Seasonal Allergies Allergy Unknown Verified 02/20/22 10:05 Review of Systems Review of Systems: Yes all other systems are reviewed and are negative PMFSH Past Medical History [facility] Narrative: Social history: The patient does smoke 1 pack of cigarettes per day times 20 days. She denies alcohol use. She denies drug use. Medical History (Updated 05/26/22 @ 00:06 by Sam Leonardo MD) Anxiety Cervical radiculopathy Cervicalgia Chronic fatigue Depression Dermatochalasis Healthy adult History of headache Hypertension Left ankle pain Migraine Myofascial pain syndrome Overweight (BMI 25.0-29.9) Polyarthralgia Right ankle pain Surgical History History of section History of tubal ligation Hx of blepharoplasty Family History Family History Father No problems noted. Mother Arthritis of knee Breast cancer Heart problem HTN (hypertension) Family/Other Diabetes Arthritis of knee HTN (hypertension) Mental health disorder Social History Social History Household Members: Children Housing: House Alcohol intake: never Patient Tobacco Use Status: Current everyday Tobacco user Tobacco use type: Cigarette Cigarette Packs Per Day: 0.5 Cigarettes Per Day: 10 Years Smoked: 15 Smoked in Last 30 Days: Yes e-Cigarette/Vaping Use: Never Used Second Hand Smoke Exposure: No Use of substances other than those prescribed or required for medical reasons: No Advance Directives: No Advance Directives Information Provided: Yes service: No Current occupational status: employed Current occupational exposures/hazards: No Cognitive needs: No Hearing needs: No Vision needs: No Physical Exam Vital Signs: Vital Signs: Last Vital Signs Temp 96.8 F 05/25/22 18:46 Pulse 98 05/25/22 18:46 Resp 16 05/25/22 23:20 BP 168/86 H 05/25/22 18:46 Pulse Ox 99 05/25/22 18:46 O2 Del Method 05/25/22 18:46 BMI result Body Mass Index 26.9 Const: Other: Awake, alert, female patient, very pleasant and cooperative, no distress, answers questions appropriately. HEENT: Other: Patient does have tenderness palpation over her scalp diffusely with no obvious hematomas or abrasions noted on palpitation. Head: Yes normal to inspection and Yes normocephalic Ears: external ears normal General nose exam: Normal external nose present Face and sinus: Yes normal facial exam Mouth: Normal oral and palatal mucosa present Throat: Yes posterior oropharynx normal Eyes: General: appearance normal, both eyes and all related structures Pupils: Equal, round and reactive pupils present Neck: Other: Tender trapezius muscles bilaterally, tender C-spine diffusely Neck: Yes normal visual inspection, Yes no lymphadenopathy, Yes trachea midline and Yes supple Chest: Other: anterior chest wall tenderness, no crepitus, no ecchymosis, abrasions noted. Chest palpation & inspection: normal inspection of the chest Resp: Effort & Inspection: normal respiratory effort and able to speak in complete sentences Auscultation: clear to auscultation bilaterally Cardio: Rate: regular rate Rhythm: regular rhythm Heart sounds: S1 normal heart sound present, S2 normal heart sound present and no murmurs GI: Inspection: Yes normal to inspection Palpation (GI): Soft to palpation, nontender and no guarding Auscultation: normal bowel sounds : General: Yes no CVA tenderness Back/Spine/Pelvis: Other: patient has tenderness palpation over her paraspinal muscles in lumbar sacral area with no spasm of these muscles Back: no CVA tenderness Skin: General skin exam: no rashes or lesions noted Neuro: Cranial nerves: Yes CN's II-XII intact bilaterally and Yes Equal, round and reactive pupils present Cognition (Neuro): normal cognition Motor exam (neuro): 5/5 motor strength present throughout Extrem: Other: patient has tenderness with palpation over her left shoulder with full range of motion passively and some limited range of motion actively secondary to pain Psych: Appearance: grossly normal Speech and movement: Normal speech and movement present Affect: normal affect Attitude: cooperative Thought process: Normal thought process present Thought content: Normal thought content present Course Course Course Narrative: 52-year-old female who presents emergency department for evaluation of his syncopal episode causing her to fall 2 days prior. Patient did have dizziness and felt like she was going to pass out prior to her syncope. She had no other concerning prodromal symptoms such as fever, chills, cough, chest pain, shortness of breath or dyspnea on exertion. since the fall, she has had headache, neck pain, chest pain and left shoulder pain. The patient's exam did reveal tenderness palpation of her head, neck and left shoulder otherwise was unremarkable. I did order laboratory evaluation to include CBC, CMP, troponin, lipase, COVID-19. Chest x-ray, CT scan of the head and C-spine was also ordered. Twelve EKG was obtained as well. 2216: Laboratory evaluation: WBC was elevated 11,200. chloride elevated 109, BUN elevated 17. High sensitivity troponin I was below detectable limits. COVID-19 was negative. Radiology evaluation: Chest x-ray revealed no acute disease. Twelve EKG was unremarkable. Patient was ordered to get morphine 4 mg IM and Zofran ODT 4 mg sublingually. 2346 : CT scan of the head and cervical spine did not reveal any acute fractures. Patient's headache is most likely secondary to postconcussion syndrome and she most likely has musculoskeletal strain of her neck. The patient did get some relief with the above treatment. She was advised to take T ylenol ibuprofen for pain and she was also prescribed morphine for pain not relieved by these 2 medications. The patient will be discharged home with printed and verbal instructions. MDM - Syncope Medical Records Attestation: I reviewed the patient's medical records. Lab Data Attestation: I reviewed the patient's lab results. Result diagrams: 05/25/22 19:32 05/25/22 19:32 Labs: Lab Results 05/25/22 05/25/22 05/25/22 Range/Units 19:32 19:32 19:32 WBC 11.2 H (4.8-10.8) X10*3/uL RBC 4.47 (4.20-5.50) X10*6/uL Hgb 13.3 (12.0-16.0) g/dl Hct 40.2 (37.0-47.0) % MCV 89.9 (80.0-98.0) fL MCH 29.8 (27.0-33.0) pg MCHC 33.1 (31.0-35.0) g/dl RDW 14.6 (11.0-16.0) % Plt Count Not Reportable MPV Not Reportable Immature Gran % (Auto) 0.2 (0.0-0.4) % Neut % (Auto) 54.8 (45-73) % Lymph % (Auto) 33.0 (20-40) % [place] % (Auto) 5.8 (2-11) % Eos % (Auto) 5.5 H (0-4) % Baso % (Auto) 0.7 (0-2) % Lymph # (Auto) 3.7 (1.2-4.9) X10*3/uL [place] # (Auto) 0.7 (0.1-1.2) X10*3/uL Eos # (Auto) 0.6 H (0.0-0.4) X10*3/uL Baso # (Auto) 0.1 (0.0-0.2) X10*3/uL Abs Immat Gran (auto) 0.02 (0.00-0.03) X10*3/uL Absolute Neuts (auto) 6.1 (2.0-8.3) x10*3/uL Absolute Nucleated RBC 0.000 (0.0-0.012) X10*3/uL Nucleated RBC % (auto) 0.0 (0.0-0.2) /100WBC Smear Tech's Comments VERIFIED Sodium 145 (135-145) mmol/L Potassium 4.2 (3.3-5.1) mmol/L Chloride 109 H (96-108) mmol/L Carbon Dioxide 25 (22-29) mmol/L Anion Gap 15 (12-20) BUN 17 H (9-16) mg/dL Creatinine 1.01 (0.5-1.4) mg/dL Estim Creat Clear Calc 52.5 Estimated GFR 57 Random Glucose 95 (60-115) mg/dL Calcium 9.2 (8.4-10.2) mg/dL Total Bilirubin < 0.2 (0.0-1.0) mg/dL Direct Bilirubin < 0.2 (0.0-0.5) mg/dL AST 17 (5-31) U/L ALT 15 (0-31) U/L Alkaline Phosphatase 86 (39-117) U/L Troponin I High Sens < 3.5 (<3.5-17.0) ng/L Total Protein 6.7 (6.5-8.0) g/dL Albumin 3.9 (3.5-5.0) g/dL Lipase 32 (8-78) U/L COVID-19 (LINDEN) (Negative) COVID-19 Clin Com 05/25/22 Range/Units 19:34 WBC (4.8-10.8) X10*3/uL RBC (4.20-5.50) X10*6/uL Hgb (12.0-16.0) g/dl Hct (37.0-47.0) % MCV (80.0-98.0) fL MCH (27.0-33.0) pg MCHC (31.0-35.0) g/dl RDW (11.0-16.0) % Plt Count MPV Immature Gran % (Auto) (0.0-0.4) % Neut % (Auto) (45-73) % Lymph % (Auto) (20-40) % [place] % (Auto) (2-11) % Eos % (Auto) (0-4) % Baso % (Auto) (0-2) % Lymph # (Auto) (1.2-4.9) X10*3/uL [place] # (Auto) (0.1-1.2) X10*3/uL Eos # (Auto) (0.0-0.4) X10*3/uL Baso # (Auto) (0.0-0.2) X10*3/uL Abs Immat Gran (auto) (0.00-0.03) X10*3/uL Absolute Neuts (auto) (2.0-8.3) x10*3/uL Absolute Nucleated RBC (0.0-0.012) X10*3/uL Nucleated RBC % (auto) (0.0-0.2) /100WBC Smear Tech's Comments Sodium (135-145) mmol/L Potassium (3.3-5.1) mmol/L Chloride (96-108) mmol/L Carbon Dioxide (22-29) mmol/L Anion Gap (12-20) BUN (9-16) mg/dL Creatinine (0.5-1.4) mg/dL Estim Creat Clear Calc Estimated GFR Random Glucose (60-115) mg/dL Calcium (8.4-10.2) mg/dL Total Bilirubin (0.0-1.0) mg/dL Direct Bilirubin (0.0-0.5) mg/dL AST (5-31) U/L ALT (0-31) U/L Alkaline Phosphatase (39-117) U/L Troponin I High Sens (<3.5-17.0) ng/L Total Protein (6.5-8.0) g/dL Albumin (3.5-5.0) g/dL Lipase (8-78) U/L COVID-19 (LINDEN) Negative (Negative) COVID-19 Clin Com See Note ECG Data Attestation: I personally reviewed and interpreted this ECG as follows: Interpretation: 1911: Normal sinus rhythm with a rate of 91, normal KS intervals, QRS duration and QTC interval were normal. No ST segment elevation, no ST segment depression, no significant T-wave abnormalities, no PACs, no PVCs. Discharge Plan Discharge Clinical Impression: Closed head injury with concussion Qualifiers: Encounter type: initial encounter Acute neck sprain Qualifiers: Encounter type: initial encounter Qualified Code(s): S13.9XXA - Sprain of joints and ligaments of unspecified parts of neck, initial encounter Contusion of left shoulder Qualifiers: Encounter type: initial encounter Qualified Code(s): S40.012A - Contusion of left shoulder, initial encounter Chest wall contusion Qualifiers: Encounter type: initial encounter Laterality: left Qualified Code(s): S20.212A - Contusion of left front wall of thorax, initial encounter Syncope Qualifiers: Encounter type: initial encounter Fall Qualifiers: Encounter type: initial encounter Qualified Code(s): W19.XXXA - Unspecified fall, initial encounter Patient Disposition: Home, Self-Care Instructions: Cervical Strain (ED), Concussion (ED), Chest Wall Pain (ED) Prescriptions: New morphine 15 mg tablet 15 mg PO Q4-6H PRN (Reason: pain) Qty: 10 0RF Rx Instructions: The patient may ask for partial fill; Partial Fill upon patient request. No Action aspirin 81 mg tablet,delayed release (DR/EC) 81 mg PO DAILY 90 Days Qty: 90 3RF clonazepam 1 mg tablet 1 mg PO BID PRN (Reason: anxiety) 30 Days Qty: 60 0RF clotrimazole 1 % cream 1 appl topical BID 28 Days Qty: 15 1RF cetirizine 10 mg tablet 10 mg PO DAILY 90 Days Qty: 90 1RF cyclobenzaprine 10 mg tablet 10 mg PO TID PRN (Reason: muscle spasm) 30 Days Qty: 90 0RF omeprazole 20 mg capsule,delayed release(DR/EC) 20 mg PO DAILY 90 Days Qty: 90 3RF epinephrine 0.3 mg/0.3 mL auto-injector 0.3 ml IM DIRECTED 30 Days Qty: 2 2RF prazosin 1 mg capsule 1 mg PO BEDTIME 90 Days Qty: 90 2RF
[2022-05-25 23:20] VITALS: RESP 16
[2022-05-25] MEDS: Ondansetron ODT 4 MG TAB.RAPDIS TRANSLINGU (23:20)
[2022-05-25] MEDS: Morphine Sulfate 4 MG/ML CARTRIDGE IM (23:20)
== END 2022-05-26 01:00 | disposition home or self-care (01) ==
PROVIDERS: Emergency Provider Emergency Medicine Emergency Medical Services; PCP Internal Medicine
DX: R55 Syncope and collapse (principal); S06.0X0A Concussion without loss of consciousness, initial encounter; S13.9XXA Sprain of joints and ligaments of unspecified parts of neck, initial encounter; S40.012A Contusion of left shoulder, initial encounter; S20.212A Contusion of left front wall of thorax, initial encounter; W17.89XA Other fall from one level to another, initial encounter; F17.210 Nicotine dependence, cigarettes, uncomplicated; Z20.822 Contact with and (suspected) exposure to COVID-19; Y93.9 Activity, unspecified; Y92.9 Unspecified place or not applicable; Y99.9 Unspecified external cause status
CPT/HCPCS: 36415; 70450; 71046; 72125; 80048; 80076; 83690; 84484; 85025; 87635; 93005; 96372; 99284; J2270

== ENCOUNTER 2022-08-20 09:15 | Outpatient (REF) | payer OTHER, SELFPAY ==
[2022-08-20 09:27] LABS: MANUAL DIFF FLAG NO
[2022-08-20 10:07] LABS: Basophils Absolute Auto 0.1 X10*3/uL (0.0-0.2); Basophils Percent Auto 0.7 % (0-2); Eosinophils Absolute Auto 0.7 X10*3/uL (0.0-0.4); Eosinophils Percent Auto 6.5 % (0-4); Hematocrit 41.5 % (37.0-47.0); Hemoglobin 13.7 g/dl (12.0-16.0); Imm Gran Abs Auto 0.04 X10*3/uL (0.00-0.03); Imm Gran Pct Auto 0.4 % (0.0-0.4); Lymphocytes Absolute Auto 3.5 X10*3/uL (1.2-4.9); Lymphocytes Percent Auto 32.9 % (20-40); Mean Corpuscular Hemoglobin 29.8 pg (27.0-33.0); Mean Corpuscular Volume 90.4 fL (80.0-98.0); Mean Platelet Volume 11.5 fL (9.4-12.3); Monocytes Absolute Auto 0.7 X10*3/uL (0.1-1.2); Monocytes Percent Auto 6.4 % (2-11); Neutrophils Absolute Auto 5.7 x10*3/uL (2.0-8.3); Neutrophils Percent Auto 53.1 % (45-73); Platelet Count 314 X10*3/uL (160-400); Red Blood Count 4.59 X10*6/uL (4.20-5.50); Red Cell Distribution Width 14.3 % (11.0-16.0); White Blood Count 10.8 X10*3/uL (4.8-10.8)
[2022-08-20 11:05] LABS: Alanine Aminotransferase 17 U/L (0-31); Albumin Level 4.2 g/dL (3.5-5.0); Alkaline Phosphatase 93 U/L (39-117); Anion Gap 14 (12-20); Aspartate Amino Transferase 17 U/L (5-31); Bilirubin Total 0.3 mg/dL (0.0-1.0); Blood Urea Nitrogen 11 mg/dL (9-16); Calcium 9.5 mg/dL (8.4-10.2); Carbon Dioxide 27 mmol/L (22-29); Chloride 106 mmol/L (96-108); Cholesterol 195 mg/dL; Estimated Glomerular Filt Rate > 60; Glucose Fasting 84 mg/dL (60-99); HDL Cholesterol 48 mg/dL; Iron 109 mcg/dL (30-160); LDL Cholesterol Calculated 130 mg/dl; Percent Iron Saturation 43 % (15-50); Potassium 4.3 mmol/L (3.3-5.1); Sodium 143 mmol/L (135-145); Total Iron Binding Capacity 256 mcg/dL (228-428); Total Protein 6.8 g/dL (6.5-8.0); Triglycerides 87 mg/dL; Unsaturated Iron Binding 147 ug/dL
[2022-08-20 11:09] LABS: Free T4 (Free Thyroxine) 0.87 ng/dL (0.71-1.85); Thyroid Stimulating Hormone 2.95 uIU/mL (0.32-4.0)
[2022-08-20 16:01] LABS: Vitamin B12 443 pg/mL (200-900)
== END 2022-08-20 09:16 | disposition home or self-care (01) ==
LOC: HO.LAB 09:15
PROVIDERS: PCP Internal Medicine; Visit Provider Internal Medicine
DX: D64.9 Anemia, unspecified (principal); E78.5 Hyperlipidemia, unspecified; R53.82 Chronic fatigue, unspecified; E55.9 Vitamin D deficiency, unspecified
CPT/HCPCS: 36415; 80053; 80061; 82306; 82607; 82746; 83540; 84439; 84443; 85025

== ENCOUNTER → 2022-09-11 08:36 | Outpatient (REF) | payer OTHER, SELFPAY ==
--- NOTE | 2022-09-11 08:39 | CA_ITS ---
Acquisition Time: 2022-09-11 08:50:14 Total Exercise Time: 00:05:33 Test Indications: Chest Pain Medications: Protocol: SAMANTA Max HR: 166 BPM 100% of Pred: 166 BPM Max BP: 182/070 mmHG Max Work Load: 7.0 METS Exercise stress test with exercise 5 min 33 sec of Samanta protocol, achieving 100% MPHR, 7 METs, with 3/10 anterior chest tightness at baseline which resolved with exercise, with mild to moderate sob, with isolated PACs, with normotensive response to execise, with borderline EKG changes during stage 2 of exercise which resolve very quickly in recovery, No ischemic changes noted at 13 sec recovery or remainder of recovery. Test reviewed with Dr Ellis. Message sent to PCP with above report. Referred By: Lauren Keene Overread By: FRED COLEMAN
== END ==
LOC: HO.CARD 08:36
PROVIDERS: Visit Provider Internal Medicine
DX: R07.9 Chest pain, unspecified (principal)
CPT/HCPCS: 93017

== ENCOUNTER → 2022-09-18 10:27 | Outpatient (BNVA) | payer OTHER, SELFPAY | PROVIDERS: PCP Internal Medicine; Visit Provider Internal Medicine Cardiovascular Disease | DX: R94.39 Abnormal result of other cardiovascular function study (principal) | CPT/HCPCS: 99202 ==

== ENCOUNTER 2023-03-03 10:23 | Outpatient (REF) | payer OTHER, SELFPAY ==
[2023-03-03 10:53] LABS: MANUAL DIFF FLAG NO
[2023-03-03 11:59] LABS: Basophils Absolute Auto 0.1 X10*3/uL (0.0-0.2); Basophils Percent Auto 0.7 % (0-2); Eosinophils Absolute Auto 0.5 X10*3/uL (0.0-0.4); Eosinophils Percent Auto 4.9 % (0-4); Hematocrit 40.7 % (37.0-47.0); Hemoglobin 13.4 g/dl (12.0-16.0); Imm Gran Abs Auto 0.13 X10*3/uL (0.00-0.03); Imm Gran Pct Auto 1.3 % (0.0-0.4); Lymphocytes Absolute Auto 2.7 X10*3/uL (1.2-4.9); Lymphocytes Percent Auto 26.8 % (20-40); Mean Corpuscular HGB Conc 32.9 g/dl (31.0-35.0); Mean Corpuscular Hemoglobin 30.5 pg (27.0-33.0); Mean Corpuscular Volume 92.5 fL (80.0-98.0); Mean Platelet Volume 12.3 fL (9.4-12.3); Monocytes Absolute Auto 0.7 X10*3/uL (0.1-1.2); Monocytes Percent Auto 6.4 % (2-11); Neutrophils Absolute Auto 6.1 x10*3/uL (2.0-8.3); Neutrophils Percent Auto 59.9 % (45-73); Platelet Count 248 X10*3/uL (160-400); White Blood Count 10.2 X10*3/uL (4.8-10.8)
[2023-03-03 13:15] LABS: Folate > 20.0 ng/mL (> or = 4.0); Thyroid Stimulating Hormone 1.64 uIU/mL (0.32-4.0); Vitamin B12 463 pg/mL (200-900); Vitamin D 25-OH Total 31.1 ng/mL (>30)
== END 2023-03-03 10:24 | disposition home or self-care (01) ==
LOC: HO.LAB 10:23
PROVIDERS: PCP Internal Medicine; Visit Provider Internal Medicine
DX: R53.82 Chronic fatigue, unspecified (principal); E55.9 Vitamin D deficiency, unspecified; E53.8 Deficiency of other specified B group vitamins
CPT/HCPCS: 36415; 82306; 82607; 82746; 84443; 85025

== ENCOUNTER 2023-05-16 14:15 | Emergency (ER) | payer OTHER, SELFPAY ==
[2023-05-16 14:47] VITALS: BP 143/80; PULSE 91; RESP 18; TEMP 36.5; O2SAT 97; BMI 25.0
--- NOTE | 2023-05-16 14:48 | ED.GENADULT ---
HPI - General Adult General Chief complaint: General Medical Stated complaint: Headache Time Seen by Provider: 05/16/23 17:15 Source: patient and family Mode of arrival: ambulatory Limitations: no limitations History of Present Illness HPI narrative: 53 year old female with history of fibromyalgia, cervical radiculopathy, GERD, migraines who presents to the ER for evaluation of 2 days of feeling unwell. She reports chest tightness, fevers, coughing, cold sweats, poor p.o. intake, body aches, headaches and dry cough. her has similar symptoms. she denies any lower extremity swelling, difficulty breathing. She denies any vomiting, nausea, diarrhea or abdominal pain. MD complaint: COVID symptoms Onset (ago): day(s) (2) Location: head and chest Radiation: non-radiation Severity: moderate Quality: aching Pain Consistency: constant Relieving factors: none Exacerbating factors: none Associated symptoms: cough, fever/chills, headaches, loss of appetite, malaise, shortness of breath and weakness Treatments prior to arrival: none Related Data Previous Rx's Medication Instructions Recorded clotrimazole 1 % topical cream 1 appl topical BID 4 weeks #15 12/23/22 grams aspirin 81 mg tablet,delayed 81 mg PO DAILY 90 days #90 tabs 03/03/23 release cetirizine 10 mg tablet 10 mg PO DAILY 90 days #90 tabs 03/03/23 clonazepam 1 mg tablet 1 mg PO BID PRN anxiety 30 days 03/03/23 #60 tabs cyclobenzaprine 10 mg tablet 10 mg PO TID PRN muscle spasm 30 03/03/23 days #90 tabs epinephrine 0.3 mg/0.3 mL 0.3 ml IM DIRECTED anaphylaxis 03/03/23 injection, auto-injector 30 days #2 ea ketoconazole 2 % shampoo 1 appl topical 2XW PRN itchy scalp 03/03/23 30 days #120 mL ketoconazole 2 % topical cream 1 appl topical DAILY #60 grams 03/03/23 omeprazole 20 mg capsule,delayed 20 mg PO DAILY 90 days #90 caps 03/03/23 release Allergies Allergy/AdvReac Type Severity Reaction Status Date / Time cat dander Allergy Unknown Verified 03/03/23 10:07 dog dander Allergy Unknown Verified 03/03/23 10:07 Seasonal Allergies Allergy Unknown Verified 03/03/23 10:07 Review of Systems Review of Systems: Yes all other systems are reviewed and are negative [facility] Past Medical History Medical History Anxiety Cervical radiculopathy Cervicalgia Chronic fatigue Depression Dermatochalasis Healthy adult History of headache Hypertension Left ankle pain Migraine Myofascial pain syndrome Overweight (BMI 25.0-29.9) Polyarthralgia Right ankle pain Surgical History History of section History of tubal ligation Hx of blepharoplasty Hx of colonoscopy Family History Family History Father No problems noted. Mother Arthritis of knee Breast cancer Heart problem HTN (hypertension) Family/Other Diabetes Arthritis of knee HTN (hypertension) Mental health disorder Social History Social History Household Members: Children Housing: House Alcohol intake: never Patient Tobacco Use Status: Current everyday Tobacco user Tobacco use type: Cigarette Cigarette Packs Per Day: 0.5 Cigarettes Per Day: 10 Years Smoked: 15 +/- e-Cigarette/Vaping Use: Never Used Second Hand Smoke Exposure: No Advance Directives: No Advance Directives Information Provided: No service: No Current occupational status: employed Current occupational exposures/hazards: No Cognitive needs: No Hearing needs: No Vision needs: Yes Physical Exam ED Vital Signs: Vital Signs - 24 hr 05/16/23 14:47 Temperature 97.7 F Pulse Rate 91 Respiratory Rate 18 Blood Pressure 143/80 H Pulse Oximetry 97 BMI result Body Mass Index 25.0 Appearance: Alert. Oriented X3. No acute distress. Head: normocephalic, atraumatic. Eyes: Pupils equal, round and reactive to light. ENT: Pharynx normal. No tonsillar swelling or exudate. Neck: Normal inspection. Neck supple. CVS: Normal heart rate and rhythm. Pulses normal. Mild anterior chest wall tenderness throughout. Respiratory: No respiratory distress. Breath sounds normal. Abdomen: Soft and nontender. +BS x4 Skin: Skin warm and dry. Normal skin color. Normal skin turgor. No rashes. Extremities: No lower extremity edema. No joint swelling. No calf tenderness Neuro/psych: Oriented X 3. grossly normal, nonfocal. Normal speech and cognition. Course Course Course Narrative: This is a rapid medical exam: Additional HPI, ROS, PE not included below will be deferred to primary provider. Patient is a 53 year old female presenting to the emergency department with complaint of generalized body aches, headache, shortness of breath, cough and subjective fever for the past 2 days. Denies nausea or vomiting. VS stable in triage. Plan: swab for flu/covid Medical Decision Making Medical Decision Making MDM Narrative: 53-year-old female presenting to the ER for evaluation of fever, chills, chest discomfort associated with nonproductive cough, body aches, decreased appetite, headaches. has similar symptoms. On arrival to the ER patient's vital signs are stable. SpO2 97%. Her lungs are clear on exam. She has a dry cough. She tested positive for COVID today. Her symptoms are relatively mild with no significant physical exam findings. She has no significant medical comorbidities. Patient was counseled on diagnosis, management, supportive care as well as return precautions. She is stable for discharge home at this time. Differential Diagnosis Differential Diagnoses: The differential diagnosis associated with the presentation includes strep, covid, flu, rsv, other viral syndrome, bronchitis, pneumonia Lab Data [facility] Lab Attestation statement: I reviewed the patient's lab results. Labs: Lab Results 05/16/23 05/16/23 Range/Units 16:45 16:45 COVID-19 (LINDEN) Positive A (Negative) COVID-19 Clin Com See Note Influenza Type A (AIXA) Negative (Negative) Influenza Type B (AIXA) Negative (Negative) Influenza A & B Note See Note Independent Historian Clinical information obtained from an independent historian. History obtained from or confirmed by: Spouse External Record Review External record reviewed: Prior outpatient labs Tests considered The following testing was considered but not selected: consider x-ray of the chest however oxygenation is normal lung sounds are clear Prescription Management I considered prescription management with: Antiviral Critical Care Time Critical Care Time Critical Care Time: No Discharge Plan Discharge Clinical Impression: COVID-19 Patient Disposition: Home, Self-Care Instructions: Covid-19 Viral Syndrome and Novel Coronavirus (ED) Hey/Ath Additional Instructions: You were found to be COVID-19 POSITIVE today. Your exam and oxygen levels were normal. Rest. Drink plenty of fluids. Do not go out in public while you are not feeling well. Take over the counter cold/flu medications as needed for your symptoms. Take Tylenol and/or Motrin as needed for fevers and body aches. Follow up with your doctor this week. If you develop new or worsening symptoms call 911 or come back to the ER for further evaluation. Prescriptions: No Action clotrimazole 1 % cream 1 appl topical BID 28 Days Qty: 15 1RF aspirin 81 mg tablet,delayed release (DR/EC) 81 mg PO DAILY 90 Days Qty: 90 3RF cetirizine 10 mg tablet 10 mg PO DAILY 90 Days Qty: 90 1RF clonazepam 1 mg tablet 1 mg PO BID PRN (Reason: anxiety) 30 Days Qty: 60 0RF cyclobenzaprine 10 mg tablet 10 mg PO TID PRN (Reason: muscle spasm) 30 Days Qty: 90 0RF epinephrine 0.3 mg/0.3 mL auto-injector 0.3 ml IM DIRECTED 30 Days Qty: 2 2RF ketoconazole 2 % shampoo 1 appl topical 2XW PRN (Reason: itchy scalp) 30 Days Qty: 120 1RF ketoconazole 2 % cream 1 appl topical DAILY Qty: 60 0RF omeprazole 20 mg capsule,delayed release(DR/EC) 20 mg PO DAILY 90 Days Qty: 90 3RF Referrals: Lauren Merritt MD [Primary Care Provider] - Stand Alone Forms: Work/School Release
[2023-05-16 17:03] LABS: COVID-19 Test Positive (Negative); IDNOW Serial# BCCEAD1C
[2023-05-16 17:17] LABS: IDNOW Serial# 08D9AD1C; Influenza A Negative (Negative); Influenza B2 Negative (Negative)
== END 2023-05-16 18:18 | disposition home or self-care (01) ==
PROVIDERS: Registered Nurse Emergency; Emergency Provider Emergency Medicine; PCP Internal Medicine
DX: U07.1 COVID-19 (principal); R51.9 Headache, unspecified; E50.9 Vitamin A deficiency, unspecified; Z71.6 Tobacco abuse counseling; Z79.899 Other long term (current) drug therapy
CPT/HCPCS: 87502; 87635; 99282; 99283

== ENCOUNTER 2023-08-20 09:05 | Outpatient (REF) | payer OTHER, SELFPAY ==
--- NOTE | 2023-08-20 09:16 | ECG_ITS ---
Test Reason : CHECK QTC Blood Pressure : / mmHG Vent. Rate : 072 BPM Atrial Rate : 072 BPM P-R Int : 138 ms QRS Dur : 084 ms QT Int : 392 ms P-R-T Axes : 073 064 046 degrees QTc Int : 429 ms Normal sinus rhythm with sinus arrhythmia Intra-ventricular conduction delay Otherwise normal ECG When compared with ECG of 25-MAY-2022 19:11, No significant change was found Referred By: Angel Conti Electronically Signed By:CHANDNI RIVERA MD
[2023-08-20 09:40] LABS: MANUAL DIFF FLAG NO
[2023-08-20 09:56] LABS: Basophils Absolute Auto 0.1 X10*3/uL (0.0-0.2); Basophils Percent Auto 0.6 % (0-2); Eosinophils Absolute Auto 0.4 X10*3/uL (0.0-0.4); Hematocrit 42.6 % (37.0-47.0); Hemoglobin 14.4 g/dl (12.0-16.0); Imm Gran Abs Auto 0.02 X10*3/uL (0.00-0.03); Imm Gran Pct Auto 0.2 % (0.0-0.4); Lymphocytes Absolute Auto 2.5 X10*3/uL (1.2-4.9); Lymphocytes Percent Auto 26.4 % (20-40); Mean Corpuscular HGB Conc 33.8 g/dl (31.0-35.0); Mean Corpuscular Volume 91.8 fL (80.0-98.0); Mean Platelet Volume 11.9 fL (9.4-12.3); Monocytes Absolute Auto 0.8 X10*3/uL (0.1-1.2); Monocytes Percent Auto 8.2 % (2-11); Neutrophils Absolute Auto 5.7 x10*3/uL (2.0-8.3); Neutrophils Percent Auto 60.6 % (45-73); Platelet Count 247 X10*3/uL (160-400); Red Blood Count 4.64 X10*6/uL (4.20-5.50); Red Cell Distribution Width 14.3 % (11.0-16.0); White Blood Count 9.3 X10*3/uL (4.8-10.8)
[2023-08-20 10:36] LABS: Erythrocyte Sedimentation Rate 18 MM/HR (0-20)
[2023-08-20 10:43] LABS: Estimated Average Glucose 103 mg/dL; Hemoglobin A1c % 5.2 % (<6.0)
[2023-08-20 10:52] LABS: Syphilis Screen Nonreactive (Nonreactive)
[2023-08-20 10:57] LABS: Alanine Aminotransferase 19 U/L (0-31); Albumin Level 4.2 g/dL (3.5-5.0); Alkaline Phosphatase 87 U/L (39-117); Anion Gap 9 (12-20); Aspartate Amino Transferase 19 U/L (5-31); Bilirubin Total 0.2 mg/dL (0.0-1.0); Blood Urea Nitrogen 17 mg/dL (9-16); Calcium 9.6 mg/dL (8.4-10.2); Carbon Dioxide 29 mmol/L (22-29); Chloride 107 mmol/L (96-108); Cholesterol 205 mg/dL (<200); Estimated Glomerular Filt Rate > 60; Glucose Random 95 mg/dL (60-115); HDL Cholesterol 59 mg/dL (>40); LDL Cholesterol Calculated 130 mg/dL (<100); Potassium 4.2 mmol/L (3.3-5.1); Sodium 141 mmol/L (135-145); Total Protein 7.6 g/dL (6.5-8.0); Triglycerides 81 mg/dL (<150)
[2023-08-20 11:28] LABS: Thyroid Stimulating Hormone 2.26 uIU/mL (0.32-4.0)
[2023-08-20 12:01] LABS: Free T4 (Free Thyroxine) 0.88 ng/dL (0.71-1.85)
[2023-08-21 09:33] LABS: Prolactin 11.7 ng/mL
== END 2023-08-20 09:06 | disposition home or self-care (01) ==
LOC: HO.LAB 09:05
PROVIDERS: PCP Internal Medicine; Visit Provider Psychiatry & Neurology Child & Adolescent Psychiatry
DX: F33.1 Major depressive disorder, recurrent, moderate (principal)
CPT/HCPCS: 36415; 80053; 80061; 83036; 84146; 84439; 84443; 85025; 85652; 86780; 93005

== ENCOUNTER 2023-09-08 09:56 | Outpatient (AMB) | payer OTHER, SELFPAY ==
--- NOTE | 2023-09-08 09:40 | MHC.PC.OV ---
Vital Signs 09/08/23 09:57 Height 5 ft Weight 133 lb BMI 26.0 BP 102/70 Blood Pressure Location Lt brachial Position Sitting Intake Visit Reasons: Annual Exam Intake Note: Patient here for an annual physical exam Institute Scientist Required: No Accompanied by: Self / Same As Patient Allergies cat dander Allergy (Verified 09/08/23 10:09) Unknown dog dander Allergy (Verified 09/08/23 10:09) Unknown Seasonal Allergies Allergy (Verified 09/08/23 10:09) Unknown Medication List - Last Reconciled 09/08/23 by Lauren Keene MD aspirin 81 mg PO DAILY 90 days cetirizine 10 mg PO DAILY 90 days clonazepam 1 mg PO BID PRN 30 days clotrimazole 1% 1 appl topical BID 4 weeks cyclobenzaprine 10 mg PO TID PRN 30 days epinephrine 0.3 mL IM DIRECTED 30 days hydroxyzine HCl 25 mg PO TID ketoconazole 2% 1 appl topical DAILY ketoconazole 2% 1 appl topical 2XW PRN 30 days mirtazapine 15 mg PO BEDTIME omeprazole 20 mg PO DAILY 90 days prazosin 2 mg PO BEDTIME Tobacco use date assessed: 03/03/23 Dental Screening Dental Screen Date: 09/08/23 Did you have a dental visit in the last 12 months?: No Did you have a dental problem in the last 6 months where you did not have access to dental care?: No Was dental information given to patient?: Patient has dentist HPI HPI Comments History of Present Illness Details This is a 53-year-old female that comes for her physical exam. She is a chronic smoker and complains of a cough that has been present for about a month. Was advised to quit smoking and will be referred to pulmonology. Last mammogram was 2020 and will be order. Last Pap smear was 2021 was negative. Last colonoscopy was 2020. No chest pain or shortness of breath. Has anxiety follow by Psychiatry. [facility] Medical History (Updated 09/08/23 @ 10:20 by Lauren Keene MD) Chronic fatigue Right ankle pain Left ankle pain Myofascial pain syndrome Cervicalgia Overweight (BMI 25.0-29.9) Cervical radiculopathy Hypertension Polyarthralgia Dermatochalasis Migraine Anxiety Depression History of headache Healthy adult Surgical History Hx of colonoscopy Hx of blepharoplasty History of section History of tubal ligation Family History Father No problems noted. Mother Arthritis of knee Breast cancer Heart problem HTN (hypertension) Family/Other Diabetes Arthritis of knee HTN (hypertension) Mental health disorder Social History Household Members: Children Housing: House Alcohol intake: never Patient Tobacco Use Status: Current everyday Tobacco user Tobacco use type: Cigarette Cigarette Packs Per Day: 0.5 Cigarettes Per Day: 10 Years Smoked: 15 +/- e-Cigarette/Vaping Use: Never Used Second Hand Smoke Exposure: No service: No Current occupational status: employed Current occupational exposures/hazards: No Cognitive needs: No Hearing needs: No Vision needs: Yes Questionnaire Thrive Questionnaire Date Thrive assessed: 03/03/23 VÍCTOR-7 AMB Questionnaire VÍCTOR-7 Date VÍCTOR - 7 assessed: 03/03/23 Source: Developed by Drs. Eddie Rothman, Padmini Blancas, Azeem Katz and colleagues, with an educational ran from [employer]. Review of Systems Const All systems reviewed & are unremarkable except as noted in HPI and below Eyes Reports no additional complaints, Denies change in vision and Denies other visual disturbances Card Denies chest pain at rest, Denies chest pain with activity, Denies edema, Denies irregular heart rhythm, Denies claudication, Denies dyspnea, Denies dyspnea on exertion, Denies orthopnea, Denies paroxysmal nocturnal dyspnea and Denies slow heart rate Resp Denies cough, Denies dyspnea and Denies dyspnea on exertion GI Denies abdominal pain, Denies change in bowel habits, Denies excessive flatus, Denies nausea and Denies vomiting Denies urinary incontinence, Denies urinary hesitancy and Denies urinary urgency Musc Denies abnormal gait, Denies atrophy, Denies deformity and Denies limited range of motion Skin/Breast Denies bleeding lesions, Denies changing lesions and Denies rash Neuro Denies abnormal gait, Denies behavioral changes, Denies confusion and Denies lack of coordination Psych Denies behavioral changes and Denies confusion Physical exam (Primary Care) Vital Signs: Last Vital Signs BP 102/70 09/08/23 09:57 BMI result Body Mass Index 26.0 Tobacco/Smoking Status: Tobacco use Status Tobacco use date assessed 03/03/23 09/08/23 09:41 Patient Tobacco Use Status Current everyday Tobacco 09/08/23 09:41 Tobacco use type Cigarette 09/08/23 09:41 e-Cigarette/Vaping Use Never Used 09/08/23 09:41 Thrive Assessment: Date of Thrive Assessment Date Thrive assessed 03/03/23 09/08/23 09:41 Const General: No confusion Orientation/consciousness: patient oriented x3 and No confusion HENMT Head: Yes normal to inspection, Yes normocephalic and Yes atraumatic Ears: external ears normal Eyes General: appearance normal, both eyes and all related structures Eyelids: Yes eyelids normal Conjunctivae: conjunctivae normal Neck Neck: Yes normal visual inspection and Yes supple Resp Effort & Inspection: normal respiratory effort Auscultation: clear to auscultation bilaterally Cardio Jugular venous distension: no JVD Rate: regular rate Rhythm: regular rhythm Heart sounds: S1 normal heart sound present and S2 normal heart sound present GI Inspection: Yes normal to inspection Palpation (GI): Soft to palpation and nontender Auscultation: normal bowel sounds Skin General skin exam: no rashes or lesions noted Neuro General: patient oriented x3, no focal motor deficits and No confusion Extrem General: Yes full ROM Psych Appearance: grossly normal Office Procedures Flu Questionnaire Does the patient have a severe egg allergy?: No Immunizations flu vacc [id number] 6mos up(PF) 60 mcg(15 mcgx4)/0.5 mL IM syringe Performing Provider: Lauren Keene MD [facility] Documented (not given) by: KENNEDY Garcia on 09/08/23 10:02 Reason Not Given: Patient Refused Assessment and Plan Assessment & Plan (1) Physical exam: Code(s): Z00.00 - Encounter for general adult medical examination without abnormal findings Plan: Repeat in a year. Orders: Orders Influenza [id number] Immunization Today Z23 - Encounter for immunization MM screening mammo BI Today Z12.31 - Encounter for screening mammogram for malignant neoplasm of breast T Spot TB Today Z11.1 - Encounter for screening for respiratory tuberculosis Referrals Dermatology Referral L98.9 - Disorder of the skin and subcutaneous tissue, unspecified Pulmonology Referral R05.9 - Cough, unspecified Coding Level of Care Code Est Pt Prev Care 40-64y(05652) Diagnoses Physical exam Z00.00 Time Spent (min) 32
[2023-09-08 09:57] VITALS: BP 102/70; BMI 26.0
== END 2023-09-08 10:23 | disposition home or self-care (01) ==
PROVIDERS: PCP Internal Medicine; Visit Provider Internal Medicine
DX: Z00.00 Encounter for general adult medical examination without abnormal findings (principal)
CPT/HCPCS: 99396

== ENCOUNTER 2023-09-12 10:09 | Outpatient (REF) | payer OTHER, SELFPAY ==
[2023-09-14 23:13] LABS: TS Negative Control Passed; TS Panel A 0; TS Panel B 0; TS Positive Control Passed; TSpotTB Negative (Negative)
== END 2023-09-12 10:10 | disposition home or self-care (01) ==
LOC: HO.LAB 10:09
PROVIDERS: PCP Internal Medicine; Visit Provider Internal Medicine
DX: Z11.1 Encounter for screening for respiratory tuberculosis (principal)
CPT/HCPCS: 36415; 86481

== ENCOUNTER 2023-10-20 10:26 | Outpatient (REF) | payer OTHER, SELFPAY | END 2023-10-20 10:27 | disposition home or self-care (01) | LOC: HO.MAMMO 10:26 | PROVIDERS: PCP Internal Medicine; Visit Provider Internal Medicine | DX: Z12.31 Encounter for screening mammogram for malignant neoplasm of breast (principal) | CPT/HCPCS: 77063; 77067 ==

== ENCOUNTER → 2023-10-20 10:45 | Outpatient (BNV) | payer OTHER, SELFPAY | PROVIDERS: PCP Internal Medicine; Visit Provider Radiology Diagnostic Radiology | DX: Z12.31 Encounter for screening mammogram for malignant neoplasm of breast (principal) | CPT/HCPCS: 77063; 77067 ==

== ENCOUNTER 2023-10-23 10:30 | Outpatient (AMB) | payer OTHER, SELFPAY ==
[2023-10-23 10:33] VITALS: BP 110/67; PULSE 79; O2SAT 99; BMI 26.7
--- NOTE | 2023-10-23 10:33 | A.OFFVIS_ITS ---
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 Patient states that she gets intermittent dyspnea on exertion, particularly with going up stairs or hills. She does complain of intermittent cough and wheezing. Patient denies family or prior personal history of lung disease. She denies exposure to industrial dusts. Patient does not have recent pulmonary function testing or CT imaging. She is currently on no bronchodilator therapy. [facility] Medical History Chronic fatigue Right ankle pain Left ankle pain Myofascial pain syndrome Cervicalgia Overweight (BMI 25.0-29.9) Cervical radiculopathy Hypertension Polyarthralgia Dermatochalasis Migraine Anxiety Depression History of headache Healthy adult Surgical History Hx of colonoscopy Hx of blepharoplasty History of section History of tubal ligation Family History Father No problems noted. Mother Arthritis of knee Breast cancer Heart problem HTN (hypertension) Family/Other Diabetes Arthritis of knee HTN (hypertension) Mental health disorder Social History (Updated 10/23/23 @ 10:39 by KENNEDY Mcnulty) Household Members: Children Housing: House Alcohol intake: never Patient Tobacco Use Status: Current everyday Tobacco user Tobacco use type: Cigarette Cigarette Packs Per Day: 1 Cigarettes Per Day: 20 Years Smoked: 15 +/- started at 16 years old e-Cigarette/Vaping Use: Never Used Second Hand Smoke Exposure: No service: No Current occupational status: employed Current occupational exposures/hazards: No Cognitive needs: No Hearing needs: No Vision needs: Yes Review of Systems Const Denies daytime sleepiness, Denies excessive sweating, Denies fatigue, Denies fever(s), Denies lethargy, Denies malaise, Denies night sweats, Denies snoring and Denies weight loss Eyes Denies blurry vision and Denies itchy eyes ENT Denies nasal congestion, Denies post nasal drip, Denies sinus pain, Denies sinus pressure and Denies other ( Thrush) Card Denies chest pain, Denies pedal edema, Denies dyspnea, Reports dyspnea on exertion, Denies orthopnea and Denies paroxysmal nocturnal dyspnea Resp Denies cough, Denies hemoptysis, Denies excessive phlegm production, Denies dyspnea, Reports dyspnea on exertion, Denies snoring and Reports wheezing GI Denies abdominal pain and Denies heartburn Musc Denies myalgias, Denies arthralgias and Denies joint swelling Skin/Breast Denies rash Neuro Denies memory loss and Denies seizure-like activity Psych Denies abnormal sleep pattern, Denies anxiety and Denies memory loss Endo Denies excessive sweating, Denies fatigue and Denies heat intolerance Fer/Lymph Denies easy bruising Aller/Immun Denies itchy eyes, Denies seasonal rhinorrhea and Reports wheezing Physical Exam Vital Signs: Last Vital Signs Pulse 79 10/23/23 10:33 BP 110/67 10/23/23 10:33 Pulse Ox 99 10/23/23 10:33 Oxygen Delivery Method Room Air 10/23/23 10:33 BMI result Body Mass Index 26.7 Const General: no acute distress and alert Nutritional Appearance: not obese Orientation/consciousness: Other orientation findings ( oriented) HEENT Head: Yes atraumatic Eyes General: appearance normal, both eyes and all related structures Sclerae: sclerae normal EOM: EOMs intact bilaterally Neck Neck: Yes supple Lymphatic: no lymphadenopathy noted Resp Effort & Inspection: normal respiratory effort and no use of accessory muscles Auscultation: clear to auscultation bilaterally Cardio Rate: regular rate Rhythm: regular rhythm Heart sounds: no gallops, no murmurs and no rubs Skin General skin exam: other ( warm) Extrem General: No clubbing, No cyanosis and No edema Assessment & Plan Assessment & Plan (1) COPD (chronic obstructive pulmonary disease): Code(s): J44.9 - Chronic obstructive pulmonary disease, unspecified Plan: Likely underlying COPD of unclear severity. Will start on empiric Anoro and albuterol MDI. Will obtain full PFT. (2) Personal history of nicotine dependence: Code(s): Z87.891 - Personal history of nicotine dependence Plan: Will obtain lung cancer screening CT chest. Orders: Orders PFT pulmonary function test Today J44.9 - Chronic obstructive pulmonary disease, unspecified, Z87.891 - Personal history of nicotine dependence CT lung screening Today Z87.891 - Personal history of nicotine dependence Medications: New umeclidinium-vilanterol 62.5-25 mcg/actuation (Anoro Ellipta) 1 inh inhalation DAILY 1 ea 6RF 30 days albuterol sulfate 90 mcg/actuation 2 puffs inhalation Q4-6H PRN 1 ea 6RF shortness of breath or wheezing 30 days Coding Level of Care Code New Pt Level 4 (75839) Diagnoses COPD (chronic obstructive pulmonary disease) J44.9 Personal history of nicotine dependence Z87.891
== END 2023-10-23 10:52 | disposition home or self-care (01) ==
PROVIDERS: PCP Internal Medicine; Referring Provider Internal Medicine; Visit Provider Internal Medicine Pulmonary Disease
DX: J44.9 Chronic obstructive pulmonary disease, unspecified (principal); Z87.891 Personal history of nicotine dependence
CPT/HCPCS: 99204

== ENCOUNTER → 2023-10-23 10:30 | Outpatient (BNVA) | payer OTHER, SELFPAY | PROVIDERS: PCP Internal Medicine; Referring Provider Internal Medicine; Visit Provider Internal Medicine Pulmonary Disease | DX: J44.9 Chronic obstructive pulmonary disease, unspecified (principal); Z87.891 Personal history of nicotine dependence | CPT/HCPCS: 99202 ==

== ENCOUNTER 2023-11-27 14:45 | Outpatient (REF) | payer OTHER, SELFPAY ==
--- NOTE | ~2023-11-27 | CT_ITS ---
EXAMINATION: CT CHEST SCREENING CLINICAL INFORMATION: Current smoker one pack per day for 43 years. COMPARISON: Chest radiograph 05/25/2022. TECHNIQUE: Multidetector volumetric CT imaging of the chest is performed without contrast using low dose technique. Additional 2D coronal and sagittal reformatted images and axial 3D maximum intensity projection (MIP) images are generated on the CT workstation. This CT examination was performed using dose optimization techniques as appropriate, variously including the following: *Automated exposure control *Adjustment of mA and/or kV according to patient size (this includes techniques or standardized protocols for targeted exams where dose is matched to indication/reason for exam; i.e. extremities or head) *Use of iterative reconstruction technique DLP: 36 mGy-cm FINDINGS: LUNGS: Multiple small lung nodules are present and fagan images of all have been saved. The largest measures 4 mm in the left upper lobe (5:177). Mild emphysematous changes are seen. Peribronchial thickening is present. Some scarring/atelectasis is present in the right middle lobe and lingula. Some mild dependent ground-glass change is present. The lungs are otherwise clear with no evidence of malignancy. MEDIASTINUM: The mediastinum is normal. CORONARY ARTERY CALCIFICATION: None visualized on this study. PLEURA: There is no pleural effusion. No pleural mass or thickening. AXILLA: No lymphadenopathy. UPPER ABDOMEN: Unremarkable. OSSEOUS STRUCTURES: Unremarkable. CT/CT lung screening IMPRESSION: Benign-appearing pulmonary nodules the largest measuring 4 mm. ASSESSMENT: Lung-RADS category 2: Benign RECOMMENDATION: Routine annual low-dose CT screening in 12 months.
== END 2023-11-27 14:46 | disposition home or self-care (01) ==
LOC: HO.CT 14:45
PROVIDERS: PCP Internal Medicine; Visit Provider Internal Medicine Pulmonary Disease
DX: Z12.2 Encounter for screening for malignant neoplasm of respiratory organs (principal); Z87.891 Personal history of nicotine dependence
CPT/HCPCS: 71271

== ENCOUNTER 2023-11-28 09:49 | Outpatient (REF) | payer OTHER, SELFPAY ==
[2023-11-28 09:03] VITALS: PULSE 80; RESP 14; O2SAT 95
--- NOTE | 2023-11-28 12:22 | PFT_ITS ---
Flows: FEV1: 86 % of predicted at 1.96 L FVC: 88 % of predicted at 2.50 L FEV1/FVC: 78 % Bronchodilator response: Absent Volumes: Total lung capacity: 81 % of predicted at 3.61 L Residual volume: 88 % of predicted at 1.24 L Slow vital capacity: 77 % of predicted at 2.37 L Expiratory reserve volume: 50 % of predicted at 0.38 L Diffusion capacity: Mildly decreased, corrects to normal after adjustment for alveolar ventilation. Impression: Borderline restrictive ventilatory defect with no bronchodilator response. Combination restrictive ventilatory defect and decreased diffusion capacity suggests underlying pulmonary parenchymal disease. Clinical correlation is advised. MTDD
== END 2023-11-28 09:50 | disposition home or self-care (01) ==
LOC: HO.RESP 09:49
PROVIDERS: PCP Internal Medicine; Visit Provider Internal Medicine Pulmonary Disease
DX: J44.9 Chronic obstructive pulmonary disease, unspecified (principal); Z87.891 Personal history of nicotine dependence
CPT/HCPCS: 94010; 94640; 94727; 94729

== ENCOUNTER → 2023-11-28 12:22 | Outpatient (BNV) | payer OTHER, SELFPAY | PROVIDERS: PCP Internal Medicine; Visit Provider Internal Medicine Pulmonary Disease | DX: J44.9 Chronic obstructive pulmonary disease, unspecified (principal) | CPT/HCPCS: 94060; 94727; 94729 ==

== ENCOUNTER 2023-12-04 | Outpatient (REF) | payer OTHER, SELFPAY | END 2023-12-04 00:01 | disposition home or self-care (01) | LOC: CF | PROVIDERS: PCP Internal Medicine; Visit Provider Internal Medicine Pulmonary Disease | DX: J44.9 Chronic obstructive pulmonary disease, unspecified (principal); Z87.891 Personal history of nicotine dependence | CPT/HCPCS: 99212 ==

== ENCOUNTER 2023-12-04 11:22 | Outpatient (AMB) | payer OTHER, SELFPAY ==
--- NOTE | 2023-12-04 11:40 | A.OFFVIS_ITS ---
Intake Vital Signs 12/04/23 11:44 Height 5 ft Weight 135 lb 9.349 oz BMI 26.5 BP 112/64 Blood Pressure Location Lt brachial Position Sitting Pulse 85 Pulse Source Doppler Pulse Oximetry (%) 99 Oxygen Delivery Method Room Air Intake Visit Reasons: cough Power Shovel Engineer Required: Yes Power Shovel Engineer Name: Tish Nilay Flynn Allergies cat dander Allergy (Verified 10/23/23 10:36) Unknown dog dander Allergy (Verified 10/23/23 10:36) Unknown Seasonal Allergies Allergy (Verified 10/23/23 10:36) Unknown HPI cough HPI Details 53-year-old lady, active 35+ pack-year s momark anthony referred followed for emphysema and pulmonary nodules. After the last office visit patient was started on Anoro with significant improvement her symptoms. She also completed her pulmonary function test that showed decreased diffusion capacity but no fixed obstruction. Her CT chest shows 4 mm and under pulmonary nodules. [facility] Medical History Chronic fatigue Right ankle pain Left ankle pain Myofascial pain syndrome Cervicalgia Overweight (BMI 25.0-29.9) Cervical radiculopathy Hypertension Polyarthralgia Dermatochalasis Migraine Anxiety Depression History of headache Healthy adult Surgical History Hx of colonoscopy Hx of blepharoplasty History of section History of tubal ligation Family History Father No problems noted. Mother Arthritis of knee Breast cancer Heart problem HTN (hypertension) Family/Other Diabetes Arthritis of knee HTN (hypertension) Mental health disorder Social History Household Members: Children Housing: House Alcohol intake: never Patient Tobacco Use Status: Current everyday Tobacco user Tobacco use type: Cigarette Cigarette Packs Per Day: 1 Cigarettes Per Day: 20 Years Smoked: 15 +/- started at 16 years old e-Cigarette/Vaping Use: Never Used Second Hand Smoke Exposure: No service: No Current occupational status: employed Current occupational exposures/hazards: No Cognitive needs: No Hearing needs: No Vision needs: Yes Review of Systems Const Denies daytime sleepiness, Denies excessive sweating, Denies fatigue, Denies fever(s), Denies lethargy, Denies malaise, Denies night sweats, Denies snoring and Denies weight loss Eyes Denies blurry vision and Denies itchy eyes ENT Denies nasal congestion, Denies post nasal drip, Denies sinus pain, Denies sinus pressure and Denies other ( Thrush) Card Denies chest pain, Denies pedal edema, Denies dyspnea, Denies orthopnea and Denies paroxysmal nocturnal dyspnea Resp Denies cough, Denies hemoptysis, Denies excessive phlegm production, Denies dyspnea, Denies snoring and Denies wheezing GI Denies abdominal pain and Denies heartburn Musc Denies myalgias, Denies arthralgias and Denies joint swelling Skin/Breast Denies rash Neuro Denies memory loss and Denies seizure-like activity Psych Denies abnormal sleep pattern, Denies anxiety and Denies memory loss Endo Denies excessive sweating, Denies fatigue and Denies heat intolerance Fer/Lymph Denies easy bruising Aller/Immun Denies itchy eyes, Denies seasonal rhinorrhea and Denies wheezing Physical Exam Vital Signs: Last Vital Signs Pulse 85 12/04/23 11:44 BP 112/64 12/04/23 11:44 Pulse Ox 99 12/04/23 11:44 Oxygen Delivery Method Room Air 12/04/23 11:44 BMI result Body Mass Index 26.5 Const General: no acute distress and alert Nutritional Appearance: not obese Orientation/consciousness: Other orientation findings ( oriented) HEENT Head: Yes atraumatic Eyes General: appearance normal, both eyes and all related structures Sclerae: sclerae normal EOM: EOMs intact bilaterally Neck Neck: Yes supple Lymphatic: no lymphadenopathy noted Resp Effort & Inspection: normal respiratory effort and no use of accessory muscles Auscultation: clear to auscultation bilaterally Cardio Rate: regular rate Rhythm: regular rhythm Heart sounds: no gallops, no murmurs and no rubs Skin General skin exam: other ( warm) Extrem General: No clubbing, No cyanosis and No edema Assessment & Plan Assessment & Plan (1) COPD (chronic obstructive pulmonary disease): Code(s): J44.9 - Chronic obstructive pulmonary disease, unspecified Plan: Now well controlled on Anoro and albuterol MDI. Continue current regimen. Results of pulmonary function test reviewed, underlying decreased diffusion secondary to pulmonary edema, but no fixed obstruction. (2) Personal history of nicotine dependence: Code(s): Z87.891 - Personal history of nicotine dependence Plan: Results of screening CT chest reviewed, 4 mm and under bilateral pulmonary nodules. Will repeat CT chest in 12 months. Orders: Orders CT lung screening 11/05/24 Z87.891 - Personal history of nicotine dependence Coding Level of Care Code Est Pt Level 4 (51189) Diagnoses COPD (chronic obstructive pulmonary disease) J44.9 Personal history of nicotine dependence Z87.891
[2023-12-04 11:44] VITALS: BP 112/64; PULSE 85; O2SAT 99; BMI 26.5
== END 2023-12-04 11:56 | disposition home or self-care (01) ==
PROVIDERS: PCP Internal Medicine; Visit Provider Internal Medicine Pulmonary Disease
DX: J44.9 Chronic obstructive pulmonary disease, unspecified (principal); Z87.891 Personal history of nicotine dependence
CPT/HCPCS: 99214

== ENCOUNTER 2024-03-09 09:35 | Outpatient (AMB) | payer OTHER, SELFPAY ==
--- NOTE | 2024-03-09 09:37 | A.OFFPC_ITS ---
Vital Signs 03/09/24 09:40 Height 5 ft Weight 138 lb BMI 26.9 BP 120/72 Blood Pressure Location Lt brachial Position Sitting Intake Visit Reasons: anxiety Intake Note: Patient here for a follow up Anxiety Ballet Dancer Required: No Accompanied by: Self / Same As Patient Allergies cat dander Allergy (Verified 03/09/24 09:51) Unknown dog dander Allergy (Verified 03/09/24 09:51) Unknown Seasonal Allergies Allergy (Verified 03/09/24 09:51) Unknown aripiprazole [From [facility]] Adverse Reaction (Intermediate, Verified 03/09/24 09:57) Dizziness Medication List - Last Reconciled 03/09/24 by Lauren Keene MD albuterol sulfate 90 mcg/actuation 2 puffs inhalation Q4-6H PRN 30 days aripiprazole 10 mg PO DAILY aspirin 81 mg PO DAILY 90 days cetirizine 10 mg PO DAILY 90 days clonazepam 1 mg PO BID PRN 30 days clotrimazole 1% 1 appl topical BID 4 weeks cyclobenzaprine 10 mg PO TID PRN 30 days epinephrine 0.3 mL IM DIRECTED 30 days hydroxyzine HCl 25 mg PO TID ketoconazole 2% 1 appl topical DAILY ketoconazole 2% 1 appl topical 2XW PRN 30 days omeprazole 20 mg PO DAILY 90 days prazosin 2 mg PO BEDTIME umeclidinium-vilanterol 62.5-25 mcg/actuation (Anoro Ellipta) 1 inh inhalation DAILY 30 days zolpidem 10 mg PO BEDTIME PRN Tobacco use date assessed: 03/09/24 Dental Screening Dental Screen Date: 03/09/24 Did you have a dental visit in the last 12 months?: Yes Did you have a dental problem in the last 6 months where you did not have access to dental care?: No Was dental information given to patient?: Patient has dentist HPI HPI Comments History of Present Illness Details This is a 54-year-old female with GERD, moderate recurrent major depression and anxiety that comes today complaining of daytime somnolence that has been present for few months. She severely dozed off while driving in a stopped traffic or red light, watching TV, sitting and reading and laying down in the afternoon without alcohol when circumstances permit giving an [place] score Scale of 12 and this is why I will order a sleep study. Sleep study was also recommended by psychiatrist. Depression still present and she follows with psychiatry as well as anxiety. GERD has been stable with PPIs. She has COPD follow by pulmonology and has CT scan of the lung cancer screening which was negative. She was advised to quit smoking and wants to try Chantix again. She is aware that Chantix can aggravate her depression and cause suicidal thoughts. Also has some tender varicose veins and would like vascular surgery referral. [facility] Medical History (Updated 03/09/24 @ 11:16 by Lauren Keene MD) Chronic fatigue Right ankle pain Left ankle pain Myofascial pain syndrome Cervicalgia Overweight (BMI 25.0-29.9) Cervical radiculopathy Hypertension Polyarthralgia Dermatochalasis Migraine Anxiety Depression History of headache Healthy adult Surgical History Hx of colonoscopy Hx of blepharoplasty History of section History of tubal ligation Family History Father No problems noted. Mother Arthritis of knee Breast cancer Heart problem HTN (hypertension) Family/Other Diabetes Arthritis of knee HTN (hypertension) Mental health disorder Social History Household Members: Children Housing: House Alcohol intake: never Patient Tobacco Use Status: Current everyday Tobacco user Tobacco use type: Cigarette Cigarette Packs Per Day: 1 Cigarettes Per Day: 20 Years Smoked: 15 +/- started at 16 years old Packs Per Year: 0 Packs per year/per ci.00 e-Cigarette/Vaping Use: Never Used Second Hand Smoke Exposure: No service: No Current occupational status: employed Current occupational exposures/hazards: No Cognitive needs: No Hearing needs: No Vision needs: Yes Questionnaire PHQ-9 Over the last 2 weeks, how often have you been bothered by any of the following problems? 1. Little interest or pleasure in doing things: nearly every day 2. Feeling down, depressed, or hopeless: nearly every day 3. Trouble falling or staying asleep, or sleeping too much: nearly every day 4. Feeling tired or having little energy: nearly every day 5. Poor appetite or overeating: not at all 6. Feeling bad about yourself - or that you are a failure or have let yourself or your family down: more than half the days 7. Trouble concentrating on things, such as reading the newspaper or watching television: more than half the days 8. Moving or speaking so slowly that other people could have noticed. Or the opposite - being so fidgety or restless that you have been moving around a lot more than usual: more than half the days 9. Thoughts that you would be better off or of hurting yourself in some way: not at all Total score: 18 Depression Screening Interpretation: Positive (no suicidal thoughts) Depression Screening Follow-up: Existing condition, In treatment, Community Mental Health Worker F/U and Follow-up Visit Requested Depression Screening Done: Yes 85840 - PHQ-9 Billing: Yes Source: Developed by Drs. Eddie Rothman, Padmini Blancas, Azeem Katz and colleagues, with an educational ran from [employer]. Thrive Questionnaire Date Thrive assessed: 03/09/24 I am a: Patient What is your living situation today?: I have a steady place to live Within the past 12 months, did the food you bought not last and you didn't have the money to get more?: Never true Within the past 12 months, did you worry whether your food would run out before you got money to buy more?: Never true Do you have trouble paying for medicines?: No Do you have trouble getting transportation to medical appointments?: No Do you have trouble paying your heating and electricity bill?: No Do you have trouble taking care of your child, family member or friend?: No Do you have trouble with day-to-day activities such as bathing, preparing meals, shopping, managing finances, etc.?: No Are you currently unemployed and looking for a job?: No Are you interested in more education?: No Please select the resources that you would like help with: None Currently or been in a relationship where the following occur: no concerns reported THRIVE Score: 0 AUDIT C Alcohol Use Questionnaire (AUDIT-C) 1. How often do you have a drink containing alcohol?: Never Total Score: 0 Score Reviewed/Action Taken: No VÍCTOR-7 AMB Questionnaire VÍCTOR-7 Date VÍCTOR - 7 assessed: 03/09/24 Feeling nervous, anxious, or on edge: 2 = More than half the days Not being able to stop or control worryin = Not at all Worrying too much about different things: 0 = Not at all Trouble relaxin = Nearly every day Being so restless that it is hard to sit still: 3 = Nearly every day Becoming easily annoyed or irritable: 3 = Nearly every day Feeling afraid as if something awful might happen: 1 = Several days Total VÍCTOR-7 score (0-4 normal; 5-9 mild; 10-14 moderate; 15-21 severe): 12 Source: Developed by Drs. Eddie Rothman, Padmini Blancas, Azeem Katz and colleagues, with an educational ran from [employer]. VÍCTOR-7 Assessment Billing VÍCTOR-7 Assessment Tool: VÍCTOR-7 Assessment 66134 Review of Systems Const All systems reviewed & are unremarkable except as noted in HPI and below Card Denies chest pain at rest, Denies chest pain with activity, Denies edema, Denies irregular heart rhythm, Denies claudication, Denies dyspnea, Denies dyspnea on exertion, Denies orthopnea, Denies paroxysmal nocturnal dyspnea and Denies slow heart rate Resp Denies cough, Denies dyspnea and Denies dyspnea on exertion GI Denies abdominal pain, Denies change in bowel habits, Denies excessive flatus, Denies nausea and Denies vomiting Denies urinary incontinence, Denies urinary hesitancy and Denies urinary urgency Physical exam (Primary Care) Vital Signs: Last Vital Signs BP 120/72 03/09/24 09:40 BMI result Body Mass Index 26.9 Tobacco/Smoking Status: Tobacco use Status Tobacco use date assessed 03/09/24 03/09/24 09:47 Patient Tobacco Use Status Current everyday Tobacco 03/09/24 09:47 Tobacco use type Cigarette 03/09/24 09:47 e-Cigarette/Vaping Use Never Used 03/09/24 09:47 Are you ready to quit: Yes Tobacco cessation counseling provided: Yes Items discussed: [employer] and Other (Chantix) Relapse Prevention: discussed the importance of a supportive environment, discussed negative mood or depression after quitting, weight gain after smoking is common and discussed dietary, exercise and/or lifestyle changes Number of minutes spent counselin CPT code: 50165 - 4-10 Minutes PHQ-9: PHQ-9 Score PHQ-9: Total score 18 03/09/24 09:57 Depression Screening Interpretation: Positive (no suicidal thoughts) Depression Screening Follow-up: Existing condition, In treatment, Community Mental Health Worker F/U and Follow-up Visit Requested Thrive Assessment: Date of Thrive Assessment Date Thrive assessed 03/09/24 03/09/24 09:47 Currently or been in a relationship where the following occur: no concerns r eported Resp Effort & Inspection: normal respiratory effort Auscultation: clear to auscultation bilaterally Cardio Jugular venous distension: no JVD Rate: regular rate Rhythm: regular rhythm Heart sounds: S1 normal heart sound present and S2 normal heart sound present Extrem General: Yes full ROM Assessment and Plan Assessment & Plan (1) COPD (chronic obstructive pulmonary disease): Code(s): J44.9 - Chronic obstructive pulmonary disease, unspecified Qualifiers: COPD type: unspecified COPD Qualified Code(s): J44.9 - Chronic obstructive pulmonary disease, unspecified Plan: Follow-up with pulmonology. Use rescue inhaler as needed. (2) Daytime somnolence: Code(s): R40.0 - Somnolence Plan: Asleep study ordered. (3) GERD (gastroesophageal reflux disease): Code(s): K21.9 - Gastro-esophageal reflux disease without esophagitis Qualifiers: Esophagitis presence: esophagitis presence not specified Qualified Code(s): K21.9 - Gastro-esophageal reflux disease without esophagitis Plan: Continue PPIs. (4) Moderate recurrent major depression: Code(s): F33.1 - Major depressive disorder, recurrent, moderate Plan: Follow-up with psychiatry. (5) VÍCTOR (generalized anxiety disorder): Code(s): F41.1 - Generalized anxiety disorder Plan: Continue benzodiazepines as needed. Follow-up with psychiatry. Orders: Orders RT home sleep study Today R40.0 - Somnolence Vitamin D 25-OH Total Today E55.9 - Vitamin D deficiency, unspecified Lipid Panel Today E78.5 - Hyperlipidemia, unspecified Comprehensive [place]. Panel Fast Today J44.9 - Chronic obstructive pulmonary disease, unspecified Complete Blood Count Auto Diff Today J44.9 - Chronic obstructive pulmonary disease, unspecified UA CC w/rflx Micro + Cult Today R30.0 - Dysuria Referrals Vascular Surgery Referral I87.2 - Venous insufficiency (chronic) (peripheral) Medications: New varenicline (Chantix Starting Month Box) 1 ea PO PER PKG DIR PRN 53 ea 0RF smoking cessation 28 days Coding Level of Care Code Est Pt Level 4 (72619) Complex EM visit Add On G2211 Diagnoses Chronic obstructive pulmonary disease, unspecified COPD type J44.9 COPD type: unspecified COPD Daytime somnolence R40.0 Gastroesophageal reflux disease, unspecified whether esophagitis present K21.9 Esophagitis presence: esophagitis presence not specified Moderate recurrent major depression F33.1 VÍCTOR (generalized anxiety disorder) F41.1 Additional Codes VÍCTOR-7 Assessment Billing - VÍCTOR-7 Assessment Tool: VÍCTOR-7 Assessment 16653 ([id number]) Vital Signs *Quality* - CPT code: 81681 - 4-10 Minutes ([id number]) Time Spent (min) 25
[2024-03-09 09:40] VITALS: BP 120/72; BMI 26.9
== END 2024-03-09 10:10 | disposition home or self-care (01) ==
PROVIDERS: PCP Internal Medicine; Visit Provider Internal Medicine
DX: J44.9 Chronic obstructive pulmonary disease, unspecified (principal); R40.0 Somnolence; K21.9 Gastro-esophageal reflux disease without esophagitis; F33.1 Major depressive disorder, recurrent, moderate; F17.210 Nicotine dependence, cigarettes, uncomplicated
CPT/HCPCS: 99214; 99406; G2211

== ENCOUNTER → 2024-04-13 08:51 | Outpatient (REF) | payer OTHER, SELFPAY | LOC: HO.SL 08:51 | PROVIDERS: PCP Internal Medicine; Visit Provider Internal Medicine | DX: R40.0 Somnolence (principal); R06.83 Snoring | CPT/HCPCS: 95806 ==

== ENCOUNTER → 2024-04-13 09:07 | Outpatient (BNV) | payer OTHER, SELFPAY | PROVIDERS: PCP Internal Medicine; Visit Provider Internal Medicine | DX: R06.83 Snoring (principal); R40.0 Somnolence | CPT/HCPCS: 95806 ==

== ENCOUNTER 2024-06-08 09:18 | Outpatient (AMB) | payer OTHER, SELFPAY ==
[2024-06-08 09:19] VITALS: BP 118/77; PULSE 82; O2SAT 97; BMI 28.0
--- NOTE | 2024-06-08 09:19 | MHC.OFFVIS ---
Vital Signs 06/08/24 09:19 Height 5 ft Weight 143 lb 4.807 oz BMI 28.0 BP 118/77 Blood Pressure Location Rt brachial Position Sitting Pulse 82 Pulse Source Doppler Pulse Oximetry (%) 97 Oxygen Delivery Method Room Air Intake Visit Reasons: Cough Ammonia Technician Required: Yes Ammonia Technician Name: Tish EricTerriHasmukh Allergies cat dander Allergy (Verified 03/09/24 09:51) Unknown dog dander Allergy (Verified 03/09/24 09:51) Unknown Seasonal Allergies Allergy (Verified 03/09/24 09:51) Unknown aripiprazole [From Abilify] Adverse Reaction (Intermediate, Verified 03/09/24 09:57) Dizziness HPI HPI Cough: Details: 54-year-old lady, active 35+ pack-year smoker referred followed for emphysema and pulmonary nodules. She continues on Anoro and albuterol MDI with good control of his symptoms. She does complain of mild bronchitic exacerbation. [facility] Medical History Chronic fatigue Right ankle pain Left ankle pain Myofascial pain syndrome Cervicalgia Overweight (BMI 25.0-29.9) Cervical radiculopathy Hypertension Polyarthralgia Dermatochalasis Migraine Anxiety Depression History of headache Healthy adult Surgical History Hx of colonoscopy Hx of blepharoplasty History of section History of tubal ligation Family History Father No problems noted. Mother Arthritis of knee Breast cancer Heart problem HTN (hypertension) Family/Other Diabetes Arthritis of knee HTN (hypertension) Mental health disorder Social History Household Members: Children Housing: House Alcohol intake: never Patient Tobacco Use Status: Current everyday Tobacco user Tobacco use type: Cigarette Cigarette Packs Per Day: 1 Cigarettes Per Day: 20 Years Smoked: 15 +/- started at 16 years old e-Cigarette/Vaping Use: Never Used Second Hand Smoke Exposure: No service: No Current occupational status: employed Current occupational exposures/hazards: No Cognitive needs: No Hearing needs: No Vision needs: Yes Review of Systems Const Denies daytime sleepiness, Denies excessive sweating, Denies fatigue, Denies fever(s), Denies lethargy, Denies malaise, Denies night sweats, Denies snoring and Denies weight loss Eyes Denies blurry vision and Denies itchy eyes ENT Denies nasal congestion, Denies post nasal drip, Denies sinus pain, Denies sinus pressure and Denies other ( Thrush) Card Denies chest pain, Denies pedal edema, Denies dyspnea, Denies orthopnea and Denies paroxysmal nocturnal dyspnea Resp Reports cough, Denies hemoptysis, Reports excessive phlegm production, Denies dyspnea, Denies snoring and Denies wheezing GI Denies abdominal pain and Denies heartburn Musc Denies myalgias, Denies arthralgias and Denies joint swelling Skin/Breast Denies rash Neuro Denies memory loss and Denies seizure-like activity Psych Denies abnormal sleep pattern, Denies anxiety and Denies memory loss Endo Denies excessive sweating, Denies fatigue and Denies heat intolerance Fer/Lymph Denies easy bruising Aller/Immun Denies itchy eyes, Denies seasonal rhinorrhea and Denies wheezing Physical Exam Vital Signs: Last Vital Signs Pulse 82 06/08/24 09:19 BP 118/77 06/08/24 09:19 Pulse Ox 97 06/08/24 09:19 Oxygen Delivery Method Room Air 06/08/24 09:19 BMI result Body Mass Index 28.0 Const General: no acute distress and alert Nutritional Appearance: not obese Orientation/consciousness: Other orientation findings ( oriented) HEENT Head: Yes atraumatic Eyes General: appearance normal, both eyes and all related structures Sclerae: sclerae normal EOM: EOMs intact bilaterally Neck Neck: Yes supple Lymphatic: no lymphadenopathy noted Resp Effort & Inspection: normal respiratory effort and no use of accessory muscles Auscultation: clear to auscultation bilaterally Cardio Rate: regular rate Rhythm: regular rhythm Heart sounds: no gallops, no murmurs and no rubs Skin General skin exam: other ( warm) Extrem General: No clubbing, No cyanosis and No edema Assessment & Plan Assessment & Plan (1) COPD (chronic obstructive pulmonary disease): Code(s): J44.9 - Chronic obstructive pulmonary disease, unspecified Category: Medical Qualifiers: COPD type: unspecified COPD Qualified Code(s): J44.9 - Chronic obstructive pulmonary disease, unspecified Plan: Baseline well controlled on Anoro and albuterol MDI. Continue current regimen. Now with mild bronchitic exacerbation, will treat with a course of azithromycin. (2) Personal history of nicotine dependence: Code(s): Z87.891 - Personal history of nicotine dependence Category: Medical Plan: Results of CT chest lung cancer screening from November of 2023 reviewed, no worrisome nodules at that time. Continue with yearly screening, next in November of 2024, ordered. Medications: New azithromycin For 250 mg dose pack: take 500 mg today (day 1), then 250 mg for 4 days (days 2-5) PO 6 tabs 0RF Coding Level of Care Code Est Pt Level 4 (07872) Diagnoses Chronic obstructive pulmonary disease, unspecified COPD type J44.9 COPD type: unspecified COPD Personal history of nicotine dependence Z87.891
== END 2024-06-08 09:39 | disposition home or self-care (01) ==
PROVIDERS: PCP Internal Medicine; Visit Provider Internal Medicine Pulmonary Disease
DX: J44.9 Chronic obstructive pulmonary disease, unspecified (principal); Z87.891 Personal history of nicotine dependence
CPT/HCPCS: 99214

== ENCOUNTER → 2024-06-08 09:18 | Outpatient (BNVA) | payer OTHER, SELFPAY | PROVIDERS: PCP Internal Medicine; Visit Provider Internal Medicine Pulmonary Disease | DX: J43.9 Emphysema, unspecified (principal); R91.8 Other nonspecific abnormal finding of lung field; F17.210 Nicotine dependence, cigarettes, uncomplicated | CPT/HCPCS: 99212 ==

== ENCOUNTER 2024-08-06 08:00 | Outpatient (REF) | payer OTHER, SELFPAY ==
[2024-08-06 08:39] LABS: MANUAL DIFF FLAG NO
[2024-08-06 08:44] LABS: Basophils Absolute Auto 0.1 X10*3/uL (0.0-0.2); Basophils Percent Auto 0.5 % (0-2); Eosinophils Absolute Auto 0.6 X10*3/uL (0.0-0.4); Eosinophils Percent Auto 5.3 % (0-4); Hematocrit 43.1 % (37.0-47.0); Hemoglobin 14.7 g/dl (12.0-16.0); Imm Gran Abs Auto 0.05 X10*3/uL (0.00-0.03); Imm Gran Pct Auto 0.4 % (0.0-0.4); Lymphocytes Absolute Auto 3.1 X10*3/uL (1.2-4.9); Lymphocytes Percent Auto 26.1 % (20-40); Mean Corpuscular HGB Conc 34.1 g/dl (31.0-35.0); Mean Corpuscular Hemoglobin 31.1 pg (27.0-33.0); Mean Corpuscular Volume 91.3 fL (80.0-98.0); Mean Platelet Volume 10.5 fL (9.4-12.3); Monocytes Absolute Auto 0.6 X10*3/uL (0.1-1.2); Monocytes Percent Auto 5.2 % (2-11); Neutrophils Absolute Auto 7.3 x10*3/uL (2.0-8.3); Neutrophils Percent Auto 62.5 % (45-73); Platelet Count 279 X10*3/uL (160-400); Red Blood Count 4.72 X10*6/uL (4.20-5.50); Red Cell Distribution Width 14.5 % (11.0-16.0); White Blood Count 11.7 X10*3/uL (4.8-10.8)
[2024-08-06 08:56] LABS: Lithium 0.21 mmol/L (0.60-1.20)
[2024-08-06 09:12] LABS: Alanine Aminotransferase 22 U/L (0-31); Alkaline Phosphatase 92 U/L (39-117); Anion Gap 10 (12-20); Aspartate Amino Transferase 21 U/L (5-31); Bilirubin Direct 0.1 mg/dL (0.0-0.5); Bilirubin Total 0.3 mg/dL (0.0-1.0); Blood Urea Nitrogen 11 mg/dL (9-16); Calcium 9.3 mg/dL (8.4-10.2); Carbon Dioxide 27 mmol/L (22-29); Chloride 107 mmol/L (96-108); Cholesterol 216 mg/dL (<200); Estimated Glomerular Filt Rate > 60; Glucose Random 91 mg/dL (60-115); HDL Cholesterol 54 mg/dL (>40); LDL Cholesterol Calculated 143 mg/dL (<100); Sodium 140 mmol/L (135-145); Total Protein 7.1 g/dL (6.5-8.0); Triglycerides 96 mg/dL (<150)
[2024-08-06 09:26] LABS: Thyroid Stimulating Hormone 5.05 uIU/mL (0.32-4.0)
[2024-08-06 10:14] LABS: Free T4 (Free Thyroxine) 1.04 ng/dL (0.71-1.85)
[2024-08-07 17:23] LABS: Triiodothyronine T3 Free 3.5 pg/mL (2.3-4.2)
== END 2024-08-06 08:01 | disposition home or self-care (01) ==
LOC: HO.LAB 08:00
PROVIDERS: PCP Internal Medicine; Visit Provider Registered Nurse Psychiatric/Mental Health
DX: Z79.84 Long term (current) use of oral hypoglycemic drugs (principal)
CPT/HCPCS: 36415; 80048; 80061; 80076; 80178; 84439; 84443; 84481; 85025

== ENCOUNTER 2024-09-24 09:19 | Outpatient (AMB) | payer OTHER, SELFPAY ==
--- NOTE | 2024-09-24 09:24 | A.OFFPC_ITS ---
Vital Signs 09/24/24 09:29 Height 5 ft Weight 146 lb 4 oz BMI 28.6 BP 106/66 Blood Pressure Location Lt brachial Position Sitting Pulse 82 Pulse Source Pulse Oximeter Pulse Oximetry (%) 98 Oxygen Delivery Method Room Air Intake Visit Reasons: Annual Exam Intake Note: Patient is here today for a physical. Request medication refills on all meds. 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 Accompanied by: Self / Same As Patient Allergies cat dander Allergy (Verified 09/24/24 09:40) Unknown dog dander Allergy (Verified 09/24/24 09:40) Unknown Seasonal Allergies Allergy (Verified 09/24/24 09:40) Unknown aripiprazole [From Abili] Adverse Reaction (Intermediate, Verified 09/24/24 09:40) Dizziness Medication List - Last Reconciled 09/24/24 by Lauren Keene MD albuterol sulfate 90 mcg/actuation 2 puffs inhalation Q4-6H PRN 30 days aripiprazole 10 mg PO DAILY aspirin 81 mg PO DAILY 90 days cetirizine 10 mg PO DAILY 90 days clonazepam 1 mg PO BID PRN 30 days clotrimazole 1% 1 appl topical BID 4 weeks cyclobenzaprine 10 mg PO TID PRN 30 days epinephrine 0.3 mL IM DIRECTED 30 days hydroxyzine HCl 25 mg PO TID ketoconazole 2% 1 appl topical DAILY ketoconazole 2% 1 appl topical 2XW PRN 30 days omeprazole 20 mg PO DAILY 90 days prazosin 2 mg PO BEDTIME umeclidinium-vilanterol 62.5-25 mcg/actuation (Anoro Ellipta) 1 inh inhalation DAILY 30 days varenicline (Chantix Starting Month Box) 1 ea PO PER PKG DIR PRN 28 days varenicline 1 mg PO BID 28 days zolpidem 10 mg PO BEDTIME PRN Tobacco use date assessed: 09/24/24 Dental Screening Dental Screen Date: 09/24/24 Did you have a dental visit in the last 12 months?: Yes Did you have a dental problem in the last 6 months where you did not have access to dental care?: No Was dental information given to patient?: Patient has dentist HPI HPI Comments History of Present Illness Details The patient is a 54-year-old female presenting for her physical exam with a history of Major Depressive Disorder, Generalized Anxiety Disorder, Bipolar disorder, COPD, and tobacco use disorder. She has a history of elevated cholesterol and emphysema. Depression and anxiety levels are severe, with a PHQ- 9 score of 23 and VÍCTOR-7 score of 19. Patient reports experiencing insomnia. She was previously prescribed Abilify, which was discontinued due to dizziness. Current medication regimen includes cetirizine for allergies, albuterol as needed for COPD, and clonazepam. She reports reducing cigarette consumption from one pack per day to half a pack per day and finds it challenging to quit smoking due to stress and depression. She also underwent a cholesterol risk calculation with a result of 2.5% no requiring a statin. - Mammography due this year, last comple belkis in September of the previous year. - Colonoscopy completed in 2020, next pl anned for 2025. - Tetanus booster received in 2018, next due in 2028. - Pap smear performed in 2021, with norm al results. - Pneumonia vaccine received at age 48, requiring a second dose due to age criteria. - Discussion of elevated cholesterol lev el with a cardiovascular risk of 2.5%. - Thyroid function test indicated slight elevation, recommended for repeat testing. - Lung cancer screening showed emphysema . [facility] Medical History Chronic fatigue Right ankle pain Left ankle pain Myofascial pain syndrome Cervicalgia Overweight (BMI 25.0-29.9) Cervical radiculopathy Hypertension Polyarthralgia Dermatochalasis Migraine Anxiety Depression History of headache Healthy adult Surgical History Hx of colonoscopy Hx of blepharoplasty History of section History of tubal ligation Family History Father No problems noted. Mother Arthritis of knee Breast cancer Heart problem HTN (hypertension) Family/Other Diabetes Arthritis of knee HTN (hypertension) Mental health disorder Social History (Updated 09/24/24 @ 09:47 by Lauren Keene MD) Household Members: Children Housing: House Alcohol intake: never Patient Tobacco Use Status: Current everyday Tobacco user Tobacco use type: Cigarette Cigarettes Per Day: 10 Years Smoked: 15 +/- started at 16 years old e-Cigarette/Vaping Use: Never Used Second Hand Smoke Exposure: No service: No Current occupational status: employed Current occupational exposures/hazards: No Cognitive needs: No Hearing needs: No Vision needs: Yes Questionnaire PHQ-9 Over the last 2 weeks, how often have you been bothered by any of the following problems? 1. Little interest or pleasure in doing things: nearly every day 2. Feeling down, depressed, or hopeless: nearly every day 3. Trouble falling or staying asleep, or sleeping too much: nearly every day 4. Feeling tired or having little energy: nearly every day 5. Poor appetite or overeating: more than half the days 6. Feeling bad about yourself - or that you are a failure or have let yourself or your family down: nearly every day 7. Trouble concentrating on things, such as reading the newspaper or watching television: more than half the days 8. Moving or speaking so slowly that other people could have noticed. Or the opposite - being so fidgety or restless that you have been moving around a lot more than usual: more than half the days 9. Thoughts that you would be better off or of hurting yourself in some way: more than half the days Total score: 23 Depression Screening Interpretation: Positive (no suicidal thoughts) Depression Screening Follow-up: Existing condition, In treatment and Follow-up Visit Requested Depression Screening Done: Yes 12382 - PHQ-9 Billing: Yes Source: Developed by Drs. Eddie Rothman, Padmini Blancas, Azeem Katz and colleagues, with an educational ran from [employer]. Thrive Questionnaire Date Thrive assessed: 09/24/24 I am a: Patient What is your living situation today?: I have a steady place to live Within the past 12 months, did the food you bought not last and you didn't have the money to get more?: I choose not to answer this question Within the past 12 months, did you worry whether your food would run out before you got money to buy more?: I choose not to answer this question Do you have trouble paying for medicines?: I choose not to answer this question Do you have trouble getting transportation to medical appointments?: No Do you have trouble paying your heating and electricity bill?: I choose not to answer this question Do you have trouble taking care of your child, family member or friend?: I choose not to answer this question Do you have trouble with day-to-day activities such as bathing, preparing meals, shopping, managing finances, etc.?: No Are you currently unemployed and looking for a job?: I choose not to answer this question Are you interested in more education?: I choose not to answer this question Please select the resources that you would like help with: Job search/training Currently or been in a relationship where the following occur: No concerns reported THRIVE Score: 0 AUDIT C Alcohol Use Questionnaire (AUDIT-C) 1. How often do you have a drink containing alcohol?: Never 3. How often do you have six or more drinks on one occasion?: Never Total Score: 0 Score Reviewed/Action Taken: No VÍCTOR-7 AMB Questionnaire VÍCTOR-7 Date VÍCTOR - 7 assessed: 09/24/24 Feeling nervous, anxious, or on edge: 3 = Nearly every day Not being able to stop or control worryin = Nearly every day Worrying too much about different things: 3 = Nearly every day Trouble relaxin = More than half the days Being so restless that it is hard to sit still: 3 = Nearly every day Becoming easily annoyed or irritable: 3 = Nearly every day Feeling afraid as if something awful might happen: 2 = More than half the days Total VÍCTOR-7 score (0-4 normal; 5-9 mild; 10-14 moderate; 15-21 severe): 19 Source: Developed by Drs. Eddie Rothman, Padmini Blancas, Azeem Katz and colleagues, with an educational ran from [employer]. VÍCTOR-7 Assessment Billing VÍCTOR-7 Assessment Tool: VÍCTOR-7 Assessment 83163 Review of Systems Const All systems reviewed & are unremarkable except as noted in HPI and below Card Denies chest pain at rest, Denies chest pain with activity, Denies edema, Denies irregular heart rhythm, Denies claudication, Denies dyspnea, Denies dyspnea on exertion, Denies orthopnea, Denies paroxysmal nocturnal dyspnea and Denies slow heart rate Resp Denies cough, Denies dyspnea and Denies dyspnea on exertion GI Denies abdominal pain, Denies change in bowel habits, Denies excessive flatus, Denies nausea and Denies vomiting Denies urinary incontinence, Denies urinary hesitancy and Denies urinary urgency Musc Denies abnormal gait, Denies atrophy, Denies deformity and Denies limited range of motion Skin/Breast Denies bleeding lesions, Denies changing lesions and Denies rash Neuro Denies abnormal gait, Denies behavioral changes and Denies lack of coordination Psych Reports abnormal sleep pattern, Reports anxiety, Denies behavioral changes, Reports depression and Reports mood swings Physical exam (Primary Care) Vital Signs: Last Vital Signs Pulse 82 09/24/24 09:29 BP 106/66 09/24/24 09:29 Pulse Ox 98 09/24/24 09:29 Oxygen Delivery Method Room Air 09/24/24 09:29 BMI result Body Mass Index 28.6 BMI Assessment/Plan discussion: High BMI High, discussed plan: lifestyle, weight reduction, dietary and physical activity Tobacco/Smoking Status: Tobacco use Status Tobacco use date assessed 09/24/24 09/24/24 09:25 Patient Tobacco Use Status Current everyday Tobacco 09/24/24 09:47 Tobacco use type Cigarette 09/24/24 09:47 e-Cigarette/Vaping Use Never Used 09/24/24 09:47 Are you ready to quit: No Tobacco cessation counseling provided: Yes Items discussed: [employer]uitWorks Relapse Prevention: discussed the importance of a supportive environment, discussed negative mood or depression after quitting, weight gain after smoking is common and discussed dietary, exercise and/or lifestyle changes Number of minutes spent counselin CPT code: 77091 - 4-10 Minutes PHQ-9: PHQ-9 Score PHQ-9: Total score 23 09/24/24 10:11 Depression Screening Interpretation: Positive (no suicidal thoughts) Depression Screening Follow-up: Existing condition, In treatment and Follow-up Visit Requested Thrive Assessment: Date of Thrive Assessment Date Thrive assessed 09/24/24 09/24/24 09:25 Currently or been in a relationship where the following occur: No concerns reported [facility] Head: Yes normal to inspection, Yes normocephalic and Yes atraumatic Ears: external ears normal Eyes General: appearance normal, both eyes and all related structures Eyelids: Yes eyelids normal Conjunctivae: conjunctivae normal Neck Neck: Yes normal visual inspection and Yes supple Resp Effort & Inspection: normal respiratory effort Auscultation: clear to auscultation bilaterally Cardio Jugular venous distension: no JVD Rate: regular rate Rhythm: regular rhythm Heart sounds: S1 normal heart sound present and S2 normal heart sound present GI Inspection: Yes normal to inspection Palpation (GI): Soft to palpation and nontender Auscultation: normal bowel sounds Skin General skin exam: no rashes or lesions noted Neuro General: no focal motor deficits Extrem General: Yes full ROM Psych Appearance: grossly normal Affect: Sad affect present Attitude: cooperative Office Procedures Flu Questionnaire Does the patient have a severe egg allergy?: No Immunizations Fluarix Triv [id number] (PF) 45 mcg (15 mcg x 3)/0.5 mL IM syringe Performing Provider: Lauren Keene MD Performing Location: [facility] Documented (not given) by: SOLIS Conway on 09/24/24 09:30 Reason Not Given: Patient Refused pneumoc 20-kristina conj-dip cr(PF) 0.5 mL IM syringe Performing Provider: Lauren Keene MD Performing Location: [facility] Administered by: SOLIS Conway on 09/24/24 10:11 Dose Route Admin Location Dispensed Lot Number Expiration Date [facility] [employer] 0.5 mL IM Left Deltoid 0.5 mL [id number] 12/21/25 [employer] VIS Given Date VIS Provided VIS Publication Date 09/24/24 Single Vaccine 21 Eligibility Eligibility Date Funding Source Not [facility] Eligible 09/24/24 Private Coding Level of Care Code Est Pt Level 3 (27445) Est Pt Prev Care 40-64y(85718) Diagnoses Physical exam Z00.00 Chronic obstructive pulmonary disease, unspecified COPD type J44.9 COPD type: unspecified COPD Moderate recurrent major depression F33.1 VÍCTOR (generalized anxiety disorder) F41.1 TSH elevation R79.89 Additional Codes VÍCTOR-7 Assessment Billing - VÍCTOR-7 Assessment Tool: VÍCTOR-7 Assessment 22501 ([id number]) PHQ-9 - 28070 - PHQ-9 Billing: Yes ([id number]) Vital Signs *Quality* - CPT code: 33121 - 4-10 Minutes ([id number]) Time Spent (min) 40 Assessment & Plan Assessment & Plan (1) Physical exam: Code(s): Z00.00 - Encounter for general adult medical examination without abnormal findings Category: Medical (2) COPD (chronic obstructive pulmonary disease): Code(s): J44.9 - Chronic obstructive pulmonary disease, unspecified Category: Medical Qualifiers: COPD type: unspecified COPD Qualified Code(s): J44.9 - Chronic obstructive pulmonary disease, unspecified (3) Moderate recurrent major depression: Code(s): F33.1 - Major depressive disorder, recurrent, moderate Category: Medical (4) VÍCTOR (generalized anxiety disorder): Code(s): F41.1 - Generalized anxiety disorder Category: Medical (5) TSH elevation: Code(s): R79.89 - Other specified abnormal findings of blood chemistry Category: Medical Plan - Discontinue Abilify permanently due to reported dizziness. - Prescribe a behavioral health evaluation for possible adjustment to psychiatric medication. - Administer second pneumonia vaccine dose. - Schedule repeat thyroid function test and lipid panel. - Encourage continued reduction in tobacco use to assist with COPD management and decrease cardiovascular risk. - Discuss dietary and lifestyle modifications to manage elevated cholesterol and consult with a marketing manager health communications if necessary. - Refer to behavioral health services for cognitive behavioral therapy to help manage anxiety and depression. Patient was informed and verbally consented to the use of an ambient scribe for clinic note documentation during this visit. During our discussion, I addressed the patient's need to continue managing her depression and anxiety with appropriate mental health services, exploring alternatives to Abilify due to adverse effects. We discussed her COPD management, highlighting the importance of continued smoking cessation efforts to improve lung health and reduce emphysema progression. We reviewed the slightly elevated cholesterol level and thyroid function, and I advised further testing. The patient consented to receive a second pneumonia vaccine needed due to her age and risk factors. I reinforced the need for annual screenings and tests like mammograms and colonoscopies based on previous schedules. Orders: Orders Thyroglobulin Antibodies Today R79. - Other specified abnormal findings of blood chemistry MM tomosynthesis screening BI Today Z12.31 - Encounter for screening mammogram for malignant neoplasm of breast Pneumococcal 20 Immunization Today Z23 - Encounter for immunization Influenza 2479-0015 Immunization Today Z23 - Encounter for immunization Thyroid Stimulating Hormone Today R79.89 - Other specified abnormal findings of blood chemistry Free T4 (Free Thyroxine) Today R79.89 - Other specified abnormal findings of blood chemistry Thyroid Peroxidase Antibodies Today R79. - Other specified abnormal findings of blood chemistry Medications: Refilled aspirin 81 mg PO DAILY 90 tabs 3RF 90 days R94.39 - Abnormal result of other cardiovascular function study omeprazole 20 mg PO DAILY 90 caps 3RF 90 days K21.9 - Gastro-esophageal reflux disease without esophagitis Patient Instructions: - Follow up with behavioral health services for mental health medication management. - Limit smoking further; seek support for cessation. - Schedule a mammogram and other pending preventive screenings. - Return for a repeat thyroid test and cholesterol management plan after repeat testing. - Attend nutritional counseling for elevated cholesterol. - Use the albuterol inhaler as needed for COPD symptoms.
[2024-09-24 09:29] VITALS: BP 106/66; PULSE 82; O2SAT 98; BMI 28.6
== END 2024-09-24 10:16 | disposition home or self-care (01) ==
PROVIDERS: PCP Internal Medicine; Visit Provider Internal Medicine
DX: Z00.00 Encounter for general adult medical examination without abnormal findings (principal); J44.9 Chronic obstructive pulmonary disease, unspecified; F33.1 Major depressive disorder, recurrent, moderate; F41.1 Generalized anxiety disorder; R79.89 Other specified abnormal findings of blood chemistry; Z23 Encounter for immunization

== ENCOUNTER → 2024-09-24 09:19 | Outpatient (BNVA) | payer OTHER, SELFPAY | PROVIDERS: PCP Internal Medicine; Visit Provider Internal Medicine | DX: Z00.00 Encounter for general adult medical examination without abnormal findings (principal); F41.1 Generalized anxiety disorder; F31.9 Bipolar disorder, unspecified; J44.9 Chronic obstructive pulmonary disease, unspecified; R79.89 Other specified abnormal findings of blood chemistry; R94.39 Abnormal result of other cardiovascular function study; K21.9 Gastro-esophageal reflux disease without esophagitis; F17.210 Nicotine dependence, cigarettes, uncomplicated; Z23 Encounter for immunization | CPT/HCPCS: 90471; 90472; 90677; 96127; 99212; 99396 ==

== ENCOUNTER 2024-10-19 12:53 | Inpatient (IN) | payer OTHER, SELFPAY ==
--- NOTE | 2024-10-19 | ECG_ITS ---
Test Reason : LOC Blood Pressure : */* mmHG Vent. Rate : 69 BPM Atrial Rate : 69 BPM P-R Int : 136 ms QRS Dur : 80 ms QT Int : 442 ms P-R-T Axes : 10 64 37 degrees QTcB Int : 473 ms Normal sinus rhythm with sinus arrhythmia Normal ECG When compared with ECG of 19-Oct-2024 17:00, QRS axis Shifted left Criteria for Lateral infarct are no longer Present Nonspecific T wave abnormality no longer evident in Anterolateral leads Referred By: Sen Coles Electronically Signed By: RACHAEL RGANGER
--- NOTE | 2024-10-19 12:57 | ED_ITS ---
HPI - General Adult General Chief complaint: Psychiatric Symptoms Stated complaint: SI W/PLAN TO OD FROM [facility],DEPRESSED X2W PER EMS Time Seen by Provider: 10/19/24 12:56 Source: patient, RN notes reviewed and old records reviewed Mode of arrival: ambulatory Limitations: no limitations History of Present Illness ED Provider: Genaro HPI narrative: Patient is a 54-year-old female with history of generalized anxiety disorder, recurrent major depression, COPD, fibromyalgia, migraines presenting to the emergency department from [facility] with complaint of depression and suicidal ideation. She reports that she does have a psychiatrist in the community, recently had 1 of her medication doses increased but is unsure of the name. Denies any homicidal ideation, auditory or visual hallucinations. Denies any physical complaints. MD complaint: suicidal ideation Onset (ago): day(s) Associated symptoms: denies other symptoms Treatments prior to arrival: none Related Data Home Medications ?Medication ?Instructions ?Recorded ?Confirmed hydroxyzine HCl 25 mg tablet 25 mg PO TID 09/08/23 09/24/24 prazosin 2 mg capsule 2 mg PO BEDTIME 09/08/23 10/19/24 zolpidem 10 mg tablet 10 mg PO BEDTIME PRN Insomnia 03/09/24 10/19/24 cariprazine 3 mg capsule (Vraylar) 3 mg PO QPM 10/19/24 10/19/24 Previous Rx's ?Medication ?Instructions ?Recorded clonazepam 1 mg tablet 1 mg PO BID PRN anxiety 30 days 06/02/23 #60 tabs albuterol sulfate 90 mcg/actuation 2 puff inhalation Q4-6H PRN 10/23/23 aerosol inhaler shortness of breath or wheezing 30 days #1 ea cetirizine 10 mg tablet 10 mg PO DAILY 90 days #90 tabs 04/17/24 epinephrine 0.3 mg/0.3 mL 0.3 ml IM DIRECTED anaphylaxis 04/25/24 injection, auto-injector 30 days #2 ea aspirin 81 mg tablet,delayed 81 mg PO DAILY 90 days #90 tabs 09/24/24 release omeprazole 20 mg capsule,delayed 20 mg PO DAILY 90 days #90 caps 09/24/24 release Allergies Allergy/AdvReac Type Severity Reaction Status Date / Time cat dander Allergy Unknown Verified 10/19/24 13:05 dog dander Allergy Unknown Verified 10/19/24 13:05 Seasonal Allergies Allergy Unknown Verified 10/19/24 13:05 aripiprazole [From Abilify] AdvReac Intermediate Dizziness Verified 10/19/24 13:05 Review of Systems 2 Review of Systems: As per HPI Yes all other systems are reviewed and are negative Constitutional: Constitutional: Reports as per HPI ON LICENSE OF [facility] Past Medical History Medical History Chronic fatigue Right ankle pain Left ankle pain Myofascial pain syndrome Cervicalgia Overweight (BMI 25.0-29.9) Cervical radiculopathy Hypertension Polyarthralgia Dermatochalasis Migraine Anxiety Depression History of headache Healthy adult Surgical History Hx of colonoscopy Hx of blepharoplasty History of section History of tubal ligation Family History Family History Father No problems noted. Mother Arthritis of knee Breast cancer Heart problem HTN (hypertension) Family/Other Diabetes Arthritis of knee HTN (hypertension) Mental health disorder Social History Social History (Updated 09/24/24 @ 09:47 by Lauren Keene MD) Household Members: Children Housing: House Alcohol intake: never Patient Tobacco Use Status: Current everyday Tobacco user Tobacco use type: Cigarette Cigarettes Per Day: 10 Years Smoked: 15 +/- started at 16 years old Smoked in Last 30 Days: No e-Cigarette/Vaping Use: Never Used Second Hand Smoke Exposure: No Use of substances other than those prescribed or required for medical reasons: No Advance Directives: No Advance Directives Information Provided: Yes Do you have a plan to hurt others: No Plan service: No Current occupational status: employed Current occupational exposures/hazards: No Cognitive needs: No Hearing needs: No Vision needs: Yes Physical Exam ED Vital Signs: Vital Signs - 24 hr 10/19/24 13:03 10/19/24 13:06 Temperature 97.9 F 97.9 F Pulse Rate 72 72 Respiratory Rate 18 18 Blood Pressure 151/84 H 151/84 H Pulse Oximetry 96 96 Oxygen Delivery Method Room Air Room Air BMI result Body Mass Index 28.3 Vital signs have been reviewed and appear to be correct. Blood pressure elevated. Heart rate normal. Respiratory rate normal. Temperature normal. Oxygen saturation normal. Const General: cooperative, healthy appearing and no acute distress Orientation/consciousness: oriented to person, oriented to place, oriented to time and patient oriented x3 Limitations: no limitations HENMT Head: Yes normocephalic and Yes atraumatic Ears: external ears normal General nose exam: Normal external nose present Face and sinus: Yes face symmetric Mouth: oropharynx normal and moist mucous membranes Throat: Yes uvula midline Eyes Pupils: Equal, round and reactive pupils present Neck Neck: Yes normal visual inspection and Yes supple Resp Effort & Inspection: normal respiratory effort and able to speak in complete sentences Auscultation: clear to auscultation bilaterally Cardio Rate: regular rate Rhythm: regular rhythm Heart sounds: S1 normal heart sound present and S2 normal heart sound present GI Palpation (GI): Soft to palpation and nontender Auscultation: normoactive bowel sounds General: Yes no CVA tenderness Back/Spine/Pelvis Back: no CVA tenderness Skin General skin exam: elasticity normal and turgor normal Neuro General: oriented to person, oriented to place, oriented to time, patient oriented x3, moves all extremities, no focal motor deficits and CN's II-XI intact bilaterally Cranial nerves: Yes Equal, round and reactive pupils present Cognition (Neuro): normal cognition Extrem General: Yes full ROM, Yes no pedal edema and Yes no calf tenderness Psych Appearance: grossly normal Mental Status: mental status grossly normal Speech and movement: Normal speech and movement present Affect: Sad affect present Attitude: cooperative Thought process: Normal thought process present Thought content: Suicidality present, no homicidality, no delusions, no hallucinations and Depressive thoughts present Insight: Fair insight present (Psych) Judgement: Fair judgement present (Psych) Course Reevaluation(s) Reevaluation #1: Patient was given to me via sign-out pending labs and care team consultation. Patient has slight leukocytosis at 12.6, likely reactive, no other electrolyte derangements. Urine without evidence of infection. At this time, patient is medically cleared. The care team came and spoke to patient, she will be admitted to the psychiatric unit. Transfer of care initiated Time: 19:53 Medical Decision Making Medical Decision Making MDM Narrative: Patient is a 54-year-old female with history of generalized anxiety disorder, recurrent major depression, COPD, fibromyalgia, migraines presenting to the emergency department from [facility] with complaint of depression and suicidal ideation. On exam patient is awake, A+Ox3, VS WNL, afebrile, normal neurological exam without focal deficits, physical exam findings as above. Given reported symptoms and physical exam findings, initial differential includes but is not limited to depression, anxiety, suicidal ideation. Patient signed out to [facility] pending lab results and medical clearance. Differential Diagnosis Differential Diagnoses: The differential diagnosis associated with the presentation includes As per [facility] Lab Data [facility] Lab Attestation statement: I reviewed the patient's lab results. UA without evidence of infection. 10/19/24 16:18 10/19/24 16:18 Labs: Lab Results 10/19/24 10/19/24 Range/Units 13:54 16:18 WBC 12.6 H (4.8-10.8) X10*3/uL RBC 5.03 (4.20-5.50) X10*6/uL Hgb 14.7 (12.0-16.0) g/dl Hct 44.7 (37.0-47.0) % MCV 88.9 (80.0-98.0) fL MCH 29.2 (27.0-33.0) pg MCHC 32.9 (31.0-35.0) g/dl RDW 14.4 (11.0-16.0) % Plt Count 320 (160-400) X10*3/uL MPV 10.6 (9.4-12.3) fL Immature Gran % (Auto) 0.3 (0.0-0.4) % Neut % (Auto) 56.0 (45-73) % Lymph % (Auto) 33.7 (20-40) % [place] % (Auto) 4.7 (2-11) % Eos % (Auto) 4.7 H (0-4) % Baso % (Auto) 0.6 (0-2) % Lymph # (Auto) 4.3 (1.2-4.9) X10*3/uL [place] # (Auto) 0.6 (0.1-1.2) X10*3/uL Eos # (Auto) 0.6 H (0.0-0.4) X10*3/uL Baso # (Auto) 0.1 (0.0-0.2) X10*3/uL Abs Immat Gran (auto) 0.04 H (0.00-0.03) X10*3/uL Absolute Neuts (auto) 7.1 (2.0-8.3) x10*3/uL Absolute Nucleated RBC 0.000 (0.0-0.012) X10*3/uL Nucleated RBC % (auto) 0.0 (0.0-0.2) /100WBC Sodium 142 (135-145) mmol/L Potassium 3.9 (3.3-5.1) mmol/L Chloride 107 (96-108) mmol/L Carbon Dioxide 28 (22-29) mmol/L Anion Gap 11 L (12-20) BUN 11 (9-16) mg/dL Creatinine 0.78 (0.5-1.4) mg/dL Estim Creat Clear Calc 68.1 Estimated GFR > 60 Random Glucose 88 (60-115) mg/dL Calcium 9.1 (8.4-10.2) mg/dL Total Bilirubin 0.2 (0.0-1.0) mg/dL AST 20 (5-31) U/L ALT 19 (0-31) U/L Alkaline Phosphatase 101 (39-117) U/L Total Protein 8.1 H (6.5-8.0) g/dL Albumin 4.3 (3.5-5.0) g/dL Urine Color Yellow Urine Appearance Clear Urine pH 5.5 (5.0-9.0) Ur Specific Callahan <= 1.005 (1.005-1.025) Urine Protein Negative (Neg-Trace) mg/dL Urine Glucose (UA) Negative (Negative) mg/dL Urine Ketones Negative (Negative) mg/dL Urine Blood Negative (Negative) Urine Nitrite Negative (Negative) Ur Leukocyte Esterase Negative (Negative) Salicylates < 5.0 L (15-30) mg/dL Urine Opiates Screen Not Detected (Not Detect) Ur Buprenorphine Scrn Not Detected (Not Detect) ng/mL Ur Oxycodone Screen Not Detected (Not Detect) ng/mL Urine Methadone Screen Not Detected (Not Detect) ng/mL Urine Fentanyl Screen Not Detected (Not Detect) Acetaminophen < 3 (<30) mcg/mL Ur Barbiturates Screen Not Detected (Not Detect) Ur Phencyclidine Scrn Not Detected (Not Detect) Ur Amphetamines Screen Not Detected (Not Detect) U Benzodiazepines Scrn Not Detected (Not Detect) Urine Cocaine Screen Not Detected (Not Detect) U Marijuana (THC) Screen Not Detected (Not Detect) Ethyl Alcohol < 10 mg/dL External Record Review External record reviewed: Inpatient record, Office record and Outpatient record Discharge Plan Discharge Clinical Impression: Depression, Suicidal ideation Patient Disposition: Admitted As Inpatient Prescriptions: No Action clonazepam 1 mg tablet 1 mg PO BID PRN (Reason: anxiety) 30 Days Qty: 60 0RF cetirizine 10 mg tablet 10 mg PO DAILY 90 Days Qty: 90 1RF epinephrine 0.3 mg/0.3 mL auto-injector 0.3 ml IM DIRECTED 30 Days Qty: 2 2RF Vraylar 3 mg capsule 3 mg PO QPM hydroxyzine HCl 25 mg tablet 25 mg PO TID prazosin 2 mg capsule 2 mg PO BEDTIME zolpidem 10 mg tablet 10 mg PO BEDTIME PRN (Reason: Insomnia) aspirin 81 mg tablet,delayed release (DR/EC) 81 mg PO DAILY 90 Days Qty: 90 3RF omeprazole 20 mg capsule,delayed release(DR/EC) 20 mg PO DAILY 90 Days Qty: 90 3RF albuterol sulfate 90 mcg/actuation HFA aerosol inhaler 2 puff inhalation Q4-6H PRN (Reason: shortness of breath or wheezing) 30 Days Qty: 1 6RF Interventions: [place]-Suicide Risk Severity Scale Last Done: 10/19/24 13:06 Print Language: German
[2024-10-19 12:59] VITALS: BP 160/88; PULSE 78; O2SAT 98
[2024-10-19 13:03] VITALS: BP 151/84; PULSE 72; RESP 18; TEMP 36.6; O2SAT 96; BMI 28.3
[2024-10-19 13:06] VITALS: BP 151/84; PULSE 72; RESP 18; TEMP 36.6; O2SAT 96
[2024-10-19 14:01] LABS: Appearance Urine Clear; Color Urine Yellow; Glucose Urine UA Negative (Negative); Leukocyte Esterase Urine Negative (Negative); Nitrite Urine Negative (Negative); PH 5.5 (5.0-9.0); Specific Gravity - Urine <= 1.005 (1.005-1.025); Urine Blood Negative (Negative); Urine Ketones Negative (Negative); Urine Protein Negative (Neg-Trace)
[2024-10-19 14:13] LABS: Amphetamine Screen Urine Not Detected (Not Detect); Barbiturates, Urine Not Detected (Not Detect); Benzodiazepines Screen Urine Not Detected (Not Detect); Buprenorphine Scr Not Detected (Not Detect); Cannabinoid Screen Urine Not Detected (Not Detect); Cocaine Screen Urine Not Detected (Not Detect); Fentanyl, urine Not Detected (Not Detect); Methadone Screen, Urine Not Detected (Not Detect); Opiate Screen Urine Not Detected (Not Detect); Oxycodone Screen Urine Not Detected (Not Detect); Phencyclidine Screen Urine Not Detected (Not Detect)
--- OUTSIDE RECORDS SUMMARY | 2024-10-19 14:44 | XMS_ITS | Encounter Summary ---
Author Organization [employer] Address [address] [place] [address] Care Team Providers Care Criminal Justice Social Worker Name Role Phone Unavailable Primary Care Provider Unavailabl e Reason for Visit * Reason Comments Routine Cleaning Dental Exam Encounter Details Date Type Department Care Team (Late st Contact Info) Description 09/27/2024 8:00 AM EST Office Visit [facility] [address] [place] [address] Arian Monte Dental caries (Primary Dx); Dental calculus Social History Tobacco Use Types Packs/Day Years Used Date Smoking Tobacco: Every Day Cigarettes Passive Smoke Exposure: Current Smokeless Tobacco: Never Passive Exposure Comments:se lf Comments Unknown Sex and Gender Information Value Date Recorded Sex Assigned at Female 07/22/2022 10:23 AM EDT Legal Sex Female 10:23 AM EDT Gender Identity Female 10/16/2023 9:42 AM EST Sexual Orientation Choose not to disclose 2023 9:42 AM EST documented as of this encounter Last Filed Vital Signs Vital Sign Reading Time Taken Comments Blood Pressure 130/76 09/27/2024 8:03 AM EST Pulse 65 09/27/2024 8:03 AM EST Temperature - - Respiratory Rate - - Oxygen Saturation - - Inhaled Oxygen Concentration - - Weight - - Height - - Body Mass Index - - documented in this encounter Progress Notes * Hayder Virgen DMD - 09/27/2024 8:00 AM EST Dental procedures in this visit D0120 - PERIODIC ORAL EVALUATION - ESTABLISHED PATIENT (Completed) Service provider: Hayder Virgen DMD Billing provider: Hayder Virgen DMD [id number] - COMPREHENSIVE PERIODONTAL EVALUATION - NEW OR ESTABLISHED PATIENT (Completed) Service provider: Hayder Virgen DMD Billing provider: Hayder Virgen DMD Patient ID: Deanna Gómez is a 54 y.o. female. Time Out: Timeout Date: 09/27/24, Timeout Time: 805 Location: [facility] Tooth: all Procedure: Exam Verified the above with patient, day care assistant, and provider. Confirmed via patient's chart, intraorally and by radiographs. Transplant Nurse: not applicable Chief Complaint Patient presents with Routine Cleaning Dental Exam Medical Hx: Vitals: Blood pressure 130/76, pulse 65. Past Medical History: Diagnosis Date Allergies seasonal allergies Anxiety GERD (gastroesophageal reflux disease) Migraines Periodontal disease Sleep disturbances Pt takes madicine for nightmares. Medications: Outpatient Encounter Medications as of 09/27/2024 Medication Sig Dispense Refill Aspirin Low Dose 81 MG EC tablet desvenlafaxine (Pristiq) 100 MG 24 hr tablet Take 100 mg by mouth. famotidine (Pepcid) 20 MG tablet TAKE 1 TABLET BY MOUTH TWICE A DAY (PRIOR TO MEALS) ferrous sulfate 325 (65 Fe) MG EC tablet gabapentin (Neurontin) 300 MG capsule Take 1 capsule by mouth every 6 (six) hours during the day. Vraylar 1.5 MG capsule take 1 capsule by mouth every day in the evening ARIPiprazole (Abilify) 10 MG tablet Take 10 mg by mouth at bedtime. cetirizine (ZyrTEC) 10 MG tablet Take 10 mg by mouth in the morning. clonazePAM (KlonoPIN) 1 MG tablet Take 1 mg by mouth if needed in the morning and at bedtime. cyclobenzaprine (Flexeril) 10 MG tablet 10 MG ORALLY 3 TIMES A DAY NEEDED FOR MUSCLE SPASM FOR 30 DAYS hydrOXYzine HCl (Atarax) 25 MG tablet TAKE 1 TAB EVERY 8 HOURS NEEDED FOR ANXIETY AND TAKE 1 TABAT BEDTIME NEEDED omeprazole (PriLOSEC) [address] capsule Take 20 mg by mouth in the morning. paliperidone (Invega) 1.5 MG 24 hr tablet Take 1.5 mg by mouth in the morning. prazosin (Minipress) 1 MG capsule TAKE 1 CAPSULE BY MOUTH EVERY DAY AT NIGHT QUEtiapine (SEROquel) 100 MG tablet TAKE 1 TABLET BY MOUTH EVERY NIGHT AT BEDTIME FOR SLEEP SUMAtriptan (Imitrex) 5 MG/ACT nasal spray Administer into affected nostril(s). zolpidem (Ambien) 10 MG tablet Take 10 mg by mouth at bedtime. No facility-administered encounter medications on file as of 09/27/2024. Objective HPI Soft Tissue Exam No findings documented this visit Head and Neck Exam: all structures examined Details: no swellings, ulcerations or lymphadenopathies OCS: negative Dental Exam #3- D marginal ridge crack line, decay. DO advised #15- existing O composite, portion fractured and lost. New O (may extend to L) recommended Informed pt of findings and treatment options and recommendations. Pt expressed understanding, all questions answered. Radiographic Interpretation: Associated radiographs for today's visit were reviewed and finding(s) were discussed with the patient. Findings include: see above Hard Tissue Exam: Decay noted - see charting and treatment plan Perio Dx: health on a reduced periodontium Reference tooth chart for additional findings. Oral Cancer Risk: Low Risk Oral Hygiene Instructions: Felton two times daily, modified quiroz technique, Floss daily, Electric toothbrush, Soft bristle toothbrush, Felton Tongue, Anti- sensitivity toothpaste Caries Risk Assessment: Medium- one risk factor Assessment/Plan Restos Maintenance and recare Patient tolerated procedure well, all questions answered and expressed understanding. Dismissed in good condition. NV: #3-DO and #15-O Heel Seat Fitter Machine: Arian Monte Dentist: Hayder Virgen DMD * Arian Monte - 09/27/2024 8:00 AM EST Patient ID: Deanna Gómez is a 54 y.o. female. Time Out: Timeout Date: 09/27/24, Timeout Time: 805 Location: [facility] Tooth: Maxilla and Mandible Procedure: Exam, X-rays, and Prophylaxis Verified the above with patient, day care assistant, and provider. Confirmed via patient's chart, intraorally and by radiographs. Transplant Nurse: not applicable Medical Hx: Vitals: Blood pressure 130/76, pulse 65. Medications, Med Hx reviewed with patient and updated in chart. Treatment Provided Dental procedures in this visit D0120 - PERIODIC ORAL EVALUATION - ESTABLISHED PATIENT (Completed) Service provider: Hayder Virgen DMD Billing provider: Hayder Virgen DMD [id number] - COMPREHENSIVE PERIODONTAL EVALUATION - NEW OR ESTABLISHED PATIENT (Completed) Service provider: Hayder Virgen DMD Billing provider: Hayder Virgen DMD [id number] - PROPHYLAXIS - ADULT Full (Completed) Service provider: Arian Monte Billing provider: Hayder Virgen DMD [id number] - BITEWINGS - 4 RADIOGRAPHIC IMAGES (Completed) Service provider: Arian Monte Billing provider: Hayder Virgen DMD [id number] - ORAL HYGIENE INSTRUCTIONS (Completed) Service provider: Arian Monte Billing provider: Hayder Virgen DMD [id number] - CASE PRESENTATION, DETAILED AND EXTENSIVE TREATMENT PLANNING (Completed) Service provider: Arian Monte Billing provider: Hayder Virgen DMD Instruments Used: Ultrasonic Scalers and Prophy angle Fluoride: N/A Oral Cancer Screening: No lesions Head/Neck Exam: No Lesions Calculus: Light and Generalized Plaque: Moderate and Localized Stain: Heavy and Generalized Bleeding: Light and Localized Gingiva: Perio Charting Completed and Bleeding on probing OH: Poor Perio Chart: Completed Oral hygiene instructions provided to patient including brushing technique and flossing. Dental exam done by . Recommendations: Felton two times daily, modified quiroz technique, Floss daily Recall Frequency: 6 mo NV: jame #3 Hygienist: Arian Monte RDH documented in this encounter Plan of Treatment Upcoming Encounters Date Type Department Care Team (Late st Contact Info) Description 04/28/2025 10:00 AM EDT Office Visit [facility] [address] [place] [address] Josette Smith documented as of this encounter Procedures Procedure Name Priority Date/Time Associated Diagnosis Comments Full PROPHYLAXIS - ADULT Routine 025 8:00 AM EST PERIODIC ORAL EVALUATION - ESTABLISHED PATIENT Routine 09/27/2024 8:00 AM EST Dental caries ORAL HYGIENE INSTRUCTIONS Routine 2024 8:00 AM EST COMPREHENSIVE PERIODONTAL EVALUATION - NEW OR ESTABLISHED PATIENT Routine 09/27/2024 8:00 AM EST ADJUNCTIVE GENERAL SERVICES - PROFESSIONAL VISITS - CASE PRESENTATION, SUBSEQUENT TO DETAILED AND EXTENSIVE TREATMENT PLANNING Routine 09/27/2024 8:00 AM EST BITEWINGS - 4 RADIOGRAPHIC IMAGES Routine 09/27/2024 8:00 AM EST documented in this encounter Visit Diagnoses Diagnosis Dental caries- Primary Unspecified dental caries Dental calculus Accretions on teeth documented in this encounter
--- OUTSIDE RECORDS SUMMARY | 2024-10-19 14:44 | XMS_ITS | Clinical Summary ---
Author Organization [facility] Address [address] [place] [address] Care Team Providers Care Hse Manager Name Role Phone Unavailable Primary Care Provider Unavailabl e Social History Tobacco Use Types Packs/Day Years Used Date Smoking Tobacco: Never Assessed Sex and Gender Information Value Date Recorded Sex Assigned at Not on file Gender Identity Not on file Sexual Orientation Not on file Plan of Treatment Health Maintenance Due Date Last Done Comments Hepatitis C Virus Screening 1970 HIV Screening 01/10/1981 DTaP/Tdap/Td Vaccines (1 - Tdap) 01/10/1987 Hepatitis B Vaccines (1 of 3 - 19+ 3-dose series) 01/10/1987 Pneumococcal Vaccines 50+ (1 of 1 - PCV) 01/10/2018 Zoster (Shingles) Vaccine (1 of 2) 01/10/2018 COVID-19 Vaccine ( - 2023-2 5 season) 2024 Pneumococcal Vaccine: Pediat tere (0-5 Years) and At-Risk Patients (6 to 49 Years) Aged Out No longer eligible b ased on patient's age to complete this topic
--- OUTSIDE RECORDS SUMMARY | 2024-10-19 14:44 | XMS_ITS | Clinical Summary ---
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 3 Active clonazePAM (KlonoPIN) 1 MG tablet Take 1 mg by mouth if needed in the morning and at bedtime. 4 Active cyclobenzaprine (Flexeril) 10 MG tablet 10 MG ORALLY 3 TIMES A DAY NEEDED FOR MUSCLE SPASM FOR 30 DAYS 4 Active hydrOXYzine HCl (Atarax) 25 MG tablet TAKE 1 TAB EVERY 8 HOURS NEEDED FOR ANXIETY AND TAKE 1 TAB AT BEDTIME NEEDED 4 Active omeprazole (PriLOSEC) [address] capsule Take 20 mg by mouth in the morning. 3 Active paliperidone (Invega) 1.5 MG 24 hr tablet Take 1.5 mg by mouth in the morning. 4 Active SUMAtriptan (Imitrex) 5 MG/ACT nasal spray Administer into affected nostril(s). Active prazosin (Minipress) 1 MG capsule TAKE 1 CAPSULE BY MOUTH EVERY DAY AT NIGHT 4 Active ARIPiprazole (Abilify) 10 MG tablet Take 10 mg by mouth at bedtime. Active Aspirin Low Dose 81 MG EC tablet 5 Active Vraylar 1.5 MG capsule take 1 capsule by mouth every day in the evening 4 Active desvenlafaxine (Pristiq) 100 MG 24 hr tablet Take 100 mg by mouth. 4 Active famotidine (Pepcid) 20 MG tablet TAKE 1 TABLET BY MOUTH TWICE A DAY (PRIOR TO MEALS) 4 Active ferrous sulfate 325 (65 Fe) MG EC tablet 5 Active gabapentin (Neurontin) 300 MG capsule Take 1 capsule by mouth every 6 (six) hours during the day. 4 Active QUEtiapine (SEROquel) 100 MG tablet TAKE 1 TABLET BY MOUTH EVERY NIGHT AT BEDTIME FOR SLEEP Active zolpidem (Ambien) 10 MG tablet Take 10 mg by mouth at bedtime. Active Active Problems Problem Noted Date Diagnosed Date Dental calculus 12/18/2023 Periodontal disease 11/14/2023 Dental caries 11/14/2023 Inflamed gum 11/14/2023 Gingival bleeding 11/14/2023 Encounters Date Type Department Care Team Description 09/27/2024 9:00 AM EST Office Visit [facility] [address] [place] [address] Hayder Virgen DMD Dental caries (Primary Dx) 09/27/2024 8:00 AM EST Office Visit [facility] [address] [place] [address] Arian Monte Dental caries (Primary Dx); Dental calculus 08/12/2024 Telephone [facility] [address], [place] [id number] Lili Yoon from Last 3 Months Social History Tobacco Use Types Packs/Day Years Used Date Smoking Tobacco: Every Day Cigarettes Passive Smoke Exposure: Current Smokeless Tobacco: Never Tobacco Cessation:Ready to Q uit: Not Asked; Counseling Given: Not Answered Passive Exposure Comments:self Comments Unknown Sex and Gender Information Value Date Recorded Sex Assigned at Female 07/22/2022 10:23 AM EDT Legal Sex Female 10:23 AM EDT Gender Identity Female 10/16/2023 9:42 AM EST Sexual Orientation Choose not to disclose 2023 9:42 AM EST Last Filed Vital Signs Vital Sign Reading Time Taken Comments Blood Pressure 130/76 09/27/2024 8:03 AM EST Pulse 65 09/27/2024 8:03 AM EST Temperature - - Respiratory Rate - - Oxygen Saturation - - Inhaled Oxygen Concentration - - Weight - - Height - - Body Mass Index - - Plan of Treatment Upcoming Encounters Date Type Department Care Team (Late st Contact Info) Description 04/28/2025 10:00 AM EDT Office Visit [facility] ADULT [facility] [address] [place] [address] Josette Smith Health Maintenance Due Date Last Done Comments CT Colonography 1968 Colonoscopy 1968 Colorectal Cancer Screening 1968 Depression Screening 1968 FIT DNA/Cologuard 1968 FIT 1968 FOBT 1968 HIV Screening 1968 Lipid Panel 1968 SDOH Screening 1968 Sigmoidoscopy 1968 Alcohol/Substance Use Screening 1980 Hepatitis C Screening 01/10/1986 Pap Smear 01/10/1989 Cervical Cancer Screening 01/10/1998 HPV/Cotest 01/10/1998 Mammogram 2008 Hepatitis B Vaccines (3 of 3 - 19+ 3-dose series) 05/25/2020 12/23/2019, 11/23/2019 Zoster Vaccines (2 of 2) 10/11/2023 08/16/2023 COVID-19 Vaccine ( season) 2024 09/25/2021, 01/16/2021, 12/26/2020 Influenza Vaccine (#1) 2024 08/22/2021, 2019 Dental Oral Exam 03/28/2025 09/27/2024, 04/2024, 07/06/2019, Additional history exists Dental Prophylaxis 03/28/2025 09/27/2024, 0 11/14/2023, 06/14/2019, Additional history exists Tobacco Screening 09/27/2025 09/27/2024 Dental X-Ray: Bitewings 09/28/2025 09/27/19, 10/30/2023, 10/17/2023, Additional history exists Dental X-Ray: Full Mouth 10/31/2026 10/30/2023 DTaP/Tdap/Td Vaccines (2 - Td or Tdap) 06/28/2029 06/28/2019 RSV Patients and Patients Aged 60 years or older (1 - 1-dose 75+ series) 01/10/2043 Pneumococcal Vaccine: Pediatrics (0 to 5 Years) and At-Risk Patients (6 to 64 Years) Completed 09/24/2024, 02/20/2022, 07/01/2018 HIB Vaccines Aged Out No longer eligi ble based on patient's age to complete this topic HPV Vaccines Aged Out No longer eligi ble based on patient's age to complete this topic Hepatitis A Vaccines Aged Out No long er eligible based on patient's age to complete this topic IPV Vaccines Aged Out No longer eligi ble based on patient's age to complete this topic Meningococcal Vaccine Aged Out No farnaz brittany eligible based on patient's age to complete this topic RSV under 20 months Aged Out No longe r eligible based on patient's age to complete this topic Rotavirus Vaccines Aged Out No longer eligible based on patient's age to complete this topic Procedures Procedure Name Priority Date/Time Associated Diagnosis Comments ADJUNCTIVE GENERAL SERVICES - PROFESSIONAL VISITS - CASE PRESENTATION, SUBSEQUENT TO DETAILED AND EXTENSIVE TREATMENT PLANNING Routine 09/27/2024 9:00 AM EST Dental caries 15 LO RESTORATIVE - RESIN-BASED COMPOSITE RESTORATIONS - DIRECT - RESIN-BASED COMPOSITE - TWO SURFACES, POSTERIOR Routine 09/27/2024 9:00 AM EST Dental caries 3 DO RESTORATIVE - RESIN-BASED COMPOSITE RESTORATIONS - DIRECT - RESIN-BASED COMPOSITE - TWO SURFACES, POSTERIOR Routine 09/27/2024 9:00 AM EST Dental caries ORAL HYGIENE INSTRUCTIONS Routine 2024 8:00 AM EST BITEWINGS - 4 RADIOGRAPHIC IMAGES Routine 09/27/2024 8:00 AM EST Full PROPHYLAXIS - ADULT Routine 025 8:00 AM EST ADJUNCTIVE GENERAL SERVICES - PROFESSIONAL VISITS - CASE PRESENTATION, SUBSEQUENT TO DETAILED AND EXTENSIVE TREATMENT PLANNING Routine 09/27/2024 8:00 AM EST COMPREHENSIVE PERIODONTAL EVALUATION - NEW OR ESTABLISHED PATIENT Routine 09/27/2024 8:00 AM EST PERIODIC ORAL EVALUATION - ESTABLISHED PATIENT Routine 09/27/2024 8:00 AM EST Dental caries DIAGNOSTIC - DIAGNOSTIC IMAGING - INTRAORAL - COMPREHENSIVE SERIES OF RADIOGRAPHIC IMAGES Routine 10/30/2023 3:00 PM EST from Last 3 Months or Most Recently Relevant to Health Maintenance Insurance [facility] MEDICAID STAND ADULT
--- OUTSIDE RECORDS SUMMARY | 2024-10-19 14:44 | XMS_ITS | Encounter Summary ---
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 female. Time Out: Timeout Date: 09/27/24, Timeout Time: 901 Location: [facility] Tooth: #3 and #15 Procedure: Zoroastrian Verified the above with patient, parts room assistant, and provider. Confirmed via patient's chart, intraorally and by radiographs. Quality Control Analyst: not applicable Chief Complaint Patient presents with Filling Medical Hx: Vitals: There were no vitals taken for this visit. Medications, Med Hx reviewed with patient and updated in chart. Consent Obtained: The risks, benefits, indications, potential complications, and alternatives were explained to the patient and informed consent was obtained with good understanding. 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 Isolation: high speed suction, cotton rolls, and cheek guard Prep: All caries removed, Existing judaism removed, and Preparation finalized Matrix: Sectional Matrix and wedge Etch: 37% Phosphoric Acid Etch Desensitizer: Gluma Liner/Base: None Yoo: I-Yoo Zoroastrian Material: Voco Grandioso Packable Shade: A3.5 Polished. Occlusion & contacts verified. Patient satisfied with comfort and esthetics. Patient tolerated procedure well. Post-operative instructions were given. Patient departed alert, oriented, and in stable condition. 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 HANDLEY internet application developer Dentist: Hayder Virgen DMD documented in this encounter Plan of Treatment Upcoming Encounters Date Type Department Care Team (Late st Contact Info) Description 04/28/2025 10:00 AM EDT Office Visit [facility] [address] [place] [address] Josette Smith documented as of this encounter Procedures Procedure Name Priority Date/Time Associated Diagnosis Comments 15 LO RESTORATIVE - RESIN-BASED COMPOSITE RESTORATIONS - DIRECT - RESIN-BASED COMPOSITE - TWO SURFACES, POSTERIOR Routine 09/27/2024 9:00 AM EST Dental caries 3 DO RESTORATIVE - RESIN-BASED COMPOSITE RESTORATIONS - DIRECT - RESIN-BASED COMPOSITE - TWO SURFACES, POSTERIOR Routine 09/27/2024 9:00 AM EST Dental caries ADJUNCTIVE GENERAL SERVICES - PROFESSIONAL VISITS - CASE PRESENTATION, SUBSEQUENT TO DETAILED AND EXTENSIVE TREATMENT PLANNING Routine 09/27/2024 9:00 AM EST Dental caries documented in this encounter Visit Diagnoses Diagnosis Dental caries- Primary Unspecified dental caries documented in this encounter
[2024-10-19 16:24] LABS: MANUAL DIFF FLAG NO
[2024-10-19 16:30] LABS: Basophils Absolute Auto 0.1 X10*3/uL (0.0-0.2); Basophils Percent Auto 0.6 % (0-2); Eosinophils Absolute Auto 0.6 X10*3/uL (0.0-0.4); Eosinophils Percent Auto 4.7 % (0-4); Hematocrit 44.7 % (37.0-47.0); Hemoglobin 14.7 g/dl (12.0-16.0); Imm Gran Abs Auto 0.04 X10*3/uL (0.00-0.03); Imm Gran Pct Auto 0.3 % (0.0-0.4); Lymphocytes Absolute Auto 4.3 X10*3/uL (1.2-4.9); Lymphocytes Percent Auto 33.7 % (20-40); Mean Corpuscular HGB Conc 32.9 g/dl (31.0-35.0); Mean Corpuscular Hemoglobin 29.2 pg (27.0-33.0); Mean Corpuscular Volume 88.9 fL (80.0-98.0); Mean Platelet Volume 10.6 fL (9.4-12.3); Monocytes Absolute Auto 0.6 X10*3/uL (0.1-1.2); Monocytes Percent Auto 4.7 % (2-11); Neutrophils Absolute Auto 7.1 x10*3/uL (2.0-8.3); Platelet Count 320 X10*3/uL (160-400); Red Blood Count 5.03 X10*6/uL (4.20-5.50); Red Cell Distribution Width 14.4 % (11.0-16.0); White Blood Count 12.6 X10*3/uL (4.8-10.8)
[2024-10-19 16:39] LABS: Alanine Aminotransferase 19 U/L (0-31); Albumin Level 4.3 g/dL (3.5-5.0); Alkaline Phosphatase 101 U/L (39-117); Anion Gap 11 (12-20); Aspartate Amino Transferase 20 U/L (5-31); Bilirubin Total 0.2 mg/dL (0.0-1.0); Blood Urea Nitrogen 11 mg/dL (9-16); Calcium 9.1 mg/dL (8.4-10.2); Carbon Dioxide 28 mmol/L (22-29); Chloride 107 mmol/L (96-108); Creatinine Clr Calc Pharmacy 68.1; Estimated Glomerular Filt Rate > 60; Glucose Random 88 mg/dL (60-115); Potassium 3.9 mmol/L (3.3-5.1); Sodium 142 mmol/L (135-145); Total Protein 8.1 g/dL (6.5-8.0)
[2024-10-19 16:42] LABS: Acetaminophen LAB < 3 mcg/mL (<30); Salicylate < 5.0 mg/dL (15-30)
[2024-10-19 16:43] LABS: Ethanol < 10 mg/dL
--- NOTE | 2024-10-19 17:00 | ECG_ITS ---
Test Reason : prolonged qtc Blood Pressure : */* mmHG Vent. Rate : 73 BPM Atrial Rate : 73 BPM P-R Int : 144 ms QRS Dur : 82 ms QT Int : 374 ms P-R-T Axes : -27 143 104 degrees QTcB Int : 412 ms Normal sinus rhythm Nonspecific ST and T wave abnormality Borderline ECG When compared with ECG of 20-Aug-2023 09:21, QRS axis Shifted right Nonspecific T wave abnormality now evident in Inferior leads Nonspecific T wave abnormality now evident in Anterolateral leads Referred By: Sen Coles Electronically Signed By: RACHAEL GRANGER
--- NOTE | 2024-10-19 21:06 | PHA.MEDREC ---
Addendum entered by Kaitlyn Winchester RPh 10/19/24 22:22: Med rec was reviewed by [facility]. Original Note: Pharmacy Consult ? Medication Reconciliation Pharmacy has reviewed the medication reconciliation done by nursing. spoke to patient to confirm med list. Patient was able to confirm her medications with me. Patient confirmed Ferrous sulfate 352 on Mondays, , and Friday. with vitamin C 500 mg. patient states she is on Prazosin 5 mg not 2 mg. patient last took her medication 10/18/24
[2024-10-19 21:45] VITALS: BP 178/81; PULSE 80; TEMP 36.5; O2SAT 97
--- NOTE | 2024-10-19 22:11 | PC.NURSE ---
Dr Cramer notified of patient admissiont to [id number]
[2024-10-19 23:40] VITALS: BP 178/81
[2024-10-19] MEDS: Prazosin HCL 1 MG CAPSULE 2 MG PO (23:40)
[2024-10-19] MEDS: traZODone HCL 50 MG TABLET PO (23:41)
[2024-10-19] MEDS: Cariprazine HCl 3 MG CAPSULE PO (23:41)
--- NOTE | 2024-10-20 01:27 | PC.ADMIT ---
Deanna Gómez was admitted to at 2135 on 10/19/2024. 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 Her history includes: generalized anxiety disorder, moderate recurrent major depression, COPD, and obstructive sleep apnea. She speaks a very limited amount of Mongolian and REQUIRES a healthcare interpreter. Her skin/safety check was immediately completed and unremarkable. She is currently suicidal, with a plan to overdose on medications/pills. Her tox screen was negative and she does not drink. She is a smoker, currently smoking 1 pack per day, and she prefers to use a patch rather than the gum. Her mother 5 years ago, her brother 2 years ago, and another brother 1 year ago. Deanna experiences audio hallucinations: she often hears a voice saying No, Deanna, no. When asked about visual hallucinations, she became guarded. After some thought, she stated that her [] brother often appears, sits at the foot of her bed, and tells her things that are going to happen, then they happen. It is unclear if she is asleep or awake when this happens. She is pleasant, medication compliant, and retired to bed with the aid of PRN Trazodone.
--- NOTE | 2024-10-20 02:26 | PC.NURSE ---
At approximately 0205, the patient was standing outside the medication room and wanted another Trazodone as she had not slept yet. As this video game script writer turned to administer said Trazodone, the patient's eyes closed and she fell to the ground. Patient did not appear to lose consciousness. When we attempted to obtain vital signs, the patient's blood pressure would not read on automated equipment, her oxygen level was 88, and her automated pulse was approximately 40. At that time, a rapid response was called. The patient has been removed from the floor by the rapid team.
[2024-10-20 02:37] LABS: Glucose, Whole Blood 123 mg/dL (60-115)
[2024-10-20 03:16] LABS: Hematocrit 37.9 % (37.0-47.0); Hemoglobin 12.9 g/dl (12.0-16.0); Mean Corpuscular Hemoglobin 29.8 pg (27.0-33.0); Mean Corpuscular Volume 87.5 fL (80.0-98.0); Mean Platelet Volume 10.2 fL (9.4-12.3); Platelet Count 268 X10*3/uL (160-400); Red Blood Count 4.33 X10*6/uL (4.20-5.50); Red Cell Distribution Width 14.3 % (11.0-16.0); White Blood Count 10.8 X10*3/uL (4.8-10.8)
[2024-10-20 03:37] LABS: Alanine Aminotransferase 14 U/L (0-31); Albumin Level 3.6 g/dL (3.5-5.0); Anion Gap 11 (12-20); Aspartate Amino Transferase 19 U/L (5-31); Bilirubin Direct < 0.2 mg/dL (0.0-0.5); Bilirubin Total 0.2 mg/dL (0.0-1.0); Blood Urea Nitrogen 16 mg/dL (9-16); Calcium 9.2 mg/dL (8.4-10.2); Carbon Dioxide 25 mmol/L (22-29); Chloride 107 mmol/L (96-108); Estimated Glomerular Filt Rate > 60; Glucose Random 124 mg/dL (60-115); Potassium 4.2 mmol/L (3.3-5.1); Sodium 139 mmol/L (135-145); Total Protein 6.9 g/dL (6.5-8.0); Troponin-I High Sensitivity < 2.7 ng/L (<3.5-17.0)
[2024-10-20 04:09] LABS: Alkaline Phosphatase 84 U/L (39-117)
--- NOTE | 2024-10-20 08:58 | HO.PSYADMNOT ---
HPI Date of Service: 10/19/24 Chief Complaint: SI HPI Narrative: Late entry note for patient admitted on 10/19/2024; patient was not seen by Psychiatry as she was soon transferred to the medical floor. Patient is a 54-year-old female who was admitted to the psychiatric unit with history of MDD, VÍCTOR, COPD, fibromyalgia presenting to the emergency department from [facility] with complaint of depression and suicidal ideation. She reports that she does have a psychiatrist in the community, recently had 1 of her medication doses increased but is unsure of the name. Denies any homicidal ideation, auditory or visual hallucinations. Denies any physical complaints (from ED note). Nursing admit note: Deanna Gómez was admitted to at 2135 on 10/19/2024. 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 Her history includes: generalized anxiety disorder, moderate recurrent major depression, COPD, and obstructive sleep apnea. 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 Her skin/safety check was immediately completed and unremarkable. She is currently suicidal, with a plan to overdose on medications/pills. Her tox screen was negative and she does not drink. She is a smoker, currently smoking 1 pack per day, and she prefers to use a patch rather than the gum. Her mother 5 years ago, her brother 2 years ago, and another brother 1 year ago. Deanna experiences audio hallucinations: she often hears a voice saying No, Deanna, no. When asked about visual hallucinations, she became guarded. After some thought, she stated that her [] brother often appears, sits at the foot of her bed, and tells her things that are going to happen, then they happen. It is unclear if she is asleep or awake when this happens. She is pleasant, medication compliant, and retired to bed with the aid of PRN Trazodone. Nursing note: At approximately 0205, the patient was standing outside the medication room and wanted another Trazodone as she had not slept yet. As this com writer turned to administer said Trazodone, the patient's eyes closed and she fell to the ground. Patient did not appear to lose consciousness. When we attempted to obtain vital signs, the patient's blood pressure would not read on automated equipment, her oxygen level was 88, and her automated pulse was approximately 40. At that time, a rapid response was called. The patient has been removed from the floor by the rapid team. Medical Evaluation Reviewed: Yes [facility] Medical History Chronic fatigue Right ankle pain Left ankle pain Myofascial pain syndrome Cervicalgia Overweight (BMI 25.0-29.9) Cervical radiculopathy Hypertension Polyarthralgia Dermatochalasis Migraine Anxiety Depression History of headache Healthy adult Surgical History Hx of colonoscopy Hx of blepharoplasty History of section History of tubal ligation Family History: Unable to obtain Social History: Unable to obtain Substance History: Unable to obtain Trauma History: Unable to obtain Diagnostics Vital Signs (24Hr): Vital Signs - 24 hr 10/19/24 13:03 10/19/24 13:06 10/19/24 21:45 Temperature 97.9 F 97.9 F 97.7 F Pulse Rate 72 72 80 Respiratory Rate 18 18 Blood Pressure 151/84 H 151/84 H 178/81 H Pulse Oximetry 96 96 97 Oxygen Delivery Method Room Air Room Air Room Air 10/19/24 23:40 Temperature Pulse Rate Respiratory Rate Blood Pressure 178/81 H Pulse Oximetry Oxygen Delivery Method BMI result Body Mass Index 28.3 Labs 10/20/24 03:10 10/20/24 03:10 Labs: Laboratory Results - last 48 hr 10/19/24 10/19/24 10/20/24 13:54 16:18 02:17 WBC 12.6 H RBC 5.03 Hgb 14.7 Hct 44.7 MCV 88.9 MCH 29.2 MCHC 32.9 RDW 14.4 Plt Count 320 MPV 10.6 Immature Gran % (Auto) 0.3 Neut % (Auto) 56.0 Lymph % (Auto) 33.7 [place] % (Auto) 4.7 Eos % (Auto) 4.7 H Baso % (Auto) 0.6 Lymph # (Auto) 4.3 [place] # (Auto) 0.6 Eos # (Auto) 0.6 H Baso # (Auto) 0.1 Abs Immat Gran (auto) 0.04 H Absolute Neuts (auto) 7.1 Absolute Nucleated RBC 0.000 Nucleated RBC % (auto) 0.0 Sodium 142 Potassium 3.9 Chloride 107 Carbon Dioxide 28 Anion Gap 11 L BUN 11 Creatinine 0.78 Estim Creat Clear Calc 68.1 Estimated GFR > 60 POC Glucose 123 H Random Glucose 88 Lactic Acid Calcium 9.1 Total Bilirubin 0.2 Direct Bilirubin AST 20 ALT 19 Alkaline Phosphatase 101 Troponin I High Sens Total Protein 8.1 H Albumin 4.3 Urine Color Yellow Urine Appearance Clear Urine pH 5.5 Ur Specific [place] <= 1.005 Urine Protein Negative Urine Glucose (UA) Negative Urine Ketones Negative Urine Blood Negative Urine Nitrite Negative Ur Leukocyte Esterase Negative Salicylates < 5.0 L Urine Opiates Screen Not Detected Ur Buprenorphine Scrn Not Detected Ur Oxycodone Screen Not Detected Urine Methadone Screen Not Detected Urine Fentanyl Screen Not Detected Acetaminophen < 3 Ur Barbiturates Screen Not Detected Ur Phencyclidine Scrn Not Detected Ur Amphetamines Screen Not Detected U Benzodiazepines Scrn Not Detected Urine Cocaine Screen Not Detected U Marijuana (THC) Screen Not Detected Ethyl Alcohol < 10 10/20/24 03:10 WBC 10.8 RBC 4.33 Hgb 12.9 Hct 37.9 MCV 87.5 MCH 29.8 MCHC 34.0 RDW 14.3 Plt Count 268 MPV 10.2 Immature Gran % (Auto) Neut % (Auto) Lymph % (Auto) [place] % (Auto) Eos % (Auto) Baso % (Auto) Lymph # (Auto) [place] # (Auto) Eos # (Auto) Baso # (Auto) Abs Immat Gran (auto) Absolute Neuts (auto) Absolute Nucleated RBC 0.000 Nucleated RBC % (auto) 0.0 Sodium 139 Potassium 4.2 Chloride 107 Carbon Dioxide 25 Anion Gap 11 L BUN 16 Creatinine 0.77 Estim Creat Clear Calc 69.0 Estimated GFR > 60 POC Glucose Random Glucose 124 H Lactic Acid 1.0 Calcium 9.2 Total Bilirubin 0.2 Direct Bilirubin < 0.2 AST 19 ALT 14 Alkaline Phosphatase 84 Troponin I High Sens < 2.7 Total Protein 6.9 Albumin 3.6 Urine Color Urine Appearance Urine pH Ur Specific [place] Urine Protein Urine Glucose (UA) Urine Ketones Urine Blood Urine Nitrite Ur Leukocyte Esterase Salicylates Urine Opiates Screen Ur Buprenorphine Scrn Ur Oxycodone Screen Urine Methadone Screen Urine Fentanyl Screen Acetaminophen Ur Barbiturates Screen Ur Phencyclidine Scrn Ur Amphetamines Screen U Benzodiazepines Scrn Urine Cocaine Screen U Marijuana (THC) Screen Ethyl Alcohol Meds/Allergies Meds Home Medications ?Medication ?Instructions ?Recorded ?Confirmed ?Type hydroxyzine HCl 25 mg tablet 25 mg PO TID PRN Anxiety 09/08/23 10/20/24 History zolpidem 10 mg tablet 10 mg PO BEDTIME PRN Insomnia 03/09/24 10/20/24 History ascorbic acid (vitamin C) 500 mg 500 mg PO MOWEFR@0900 10/19/24 10/20/24 History tablet (Vitamin C) cariprazine 3 mg capsule (Vraylar) 3 mg PO BEDTIME 10/19/24 10/20/24 History famotidine 20 mg tablet 20 mg PO BID 10/19/24 10/20/24 History ferrous sulfate 325 mg (65 mg 325 mg PO MOWEFR@0600 10/19/24 10/20/24 History iron) tablet,delayed release gabapentin 300 mg capsule 300 mg PO TID 10/19/24 10/20/24 History omeprazole 20 mg capsule,delayed 20 mg PO DAILY PRN Acid Reflux 10/19/24 10/20/24 History release prazosin 5 mg capsule 5 mg PO BEDTIME 10/19/24 10/20/24 History albuterol sulfate 90 mcg/actuation 2 puff inhalation Q4H PRN 10/20/24 10/20/24 History aerosol inhaler shortness of breath or wheezing Allergies Allergies Allergy/AdvReac Type Severity Reaction Status Date / Time cat dander Allergy Unknown Verified 10/19/24 13:05 dog dander Allergy Unknown Verified 10/19/24 13:05 Seasonal Allergies Allergy Unknown Verified 10/19/24 13:05 aripiprazole [From Abilify] AdvReac Intermediate Dizziness Verified 10/19/24 13:05 Mental Status Exam Mental Status Exam Narrative: Unable to obtain; patient transferred to medical floor Assessment & Plan Assessment & Plan (1) Moderate recurrent major depression: Status: Acute Code(s): F33.1 - Major depressive disorder, recurrent, moderate (2) VÍCTOR (generalized anxiety disorder): Status: Acute Code(s): F41.1 - Generalized anxiety disorder Plan Patient is a 54-year-old female who was admitted to the psychiatric unit with history of MDD, VÍCTOR, COPD, fibromyalgia presenting to the emergency department from [facility] with complaint of depression and suicidal ideation. She reports that she does have a psychiatrist in the community, recently had 1 of her medication doses increased but is unsure of the name. Denies any homicidal ideation, auditory or visual hallucinations. Denies any physical complaints (from ED note). Nursing admit note: Deanna Gómez was admitted to at 2135 on 10/19/2024. 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 Her history includes: generalized anxiety disorder, moderate recurrent major depression, COPD, and obstructive sleep apnea. 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 Her skin/safety check was immediately completed and unremarkable. She is currently suicidal, with a plan to overdose on medications/pills. Her tox screen was negative and she does not drink. She is a smoker, currently smoking 1 pack per day, and she prefers to use a patch rather than the gum. Her mother 5 years ago, her brother 2 years ago, and another brother 1 year ago. Deanna experiences audio hallucinations: she often hears a voice saying No, Deanna, no. When asked about visual hallucinations, she became guarded. After some thought, she stated that her [] brother often appears, sits at the foot of her bed, and tells her things that are going to happen, then they happen. It is unclear if she is asleep or awake when this happens. She is pleasant, medication compliant, and retired to bed with the aid of PRN Trazodone. Patient transferred to medical floor: Nursing note: At approximately 0205, the patient was standing outside the medication room and wanted another Trazodone as she had not slept yet. As this com writer turned to administer said Trazodone, the patient's eyes closed and she fell to the ground. Patient did not appear to lose consciousness. When we attempted to obtain vital signs, the patient's blood pressure would not read on automated equipment, her oxygen level was 88, and her automated pulse was approximately 40. At that time, a rapid response was called. The patient has been removed from the floor by the rapid team. Patient educated on: other (not seen by psychiatry since pt was transferred to medical floor soon after admission) Reason for continued inpatient stay Substantial Risk for: other (pt transferred to medical floor) Time Spent With Patient Time: Total time managing care of this patient today ____ minutes.
--- NOTE | 2024-10-20 09:04 | PM.PSYDC ---
DS: Providers Provider Date of Service: 10/20/24 Date of admission: 10/19/24 19:39 Date of discharge: 10/20/24 Primary care physician: Lauren Keene MD Attending physician on admission: Shamir Grady Attending physician on discharge: Shamir Grady DS: Diagnosis Discharge Diagnosis (1) Moderate recurrent major depression: Status: Acute (2) VÍCTOR (generalized anxiety disorder): Status: Acute DS: Medications Discharge Medications Home Medications: Home Medications ?Medication ?Instructions ?Recorded ?Confirmed hydroxyzine HCl 25 mg tablet 25 mg PO TID PRN Anxiety 09/08/23 10/20/24 zolpidem 10 mg tablet 10 mg PO BEDTIME PRN Insomnia 03/09/24 10/20/24 ascorbic acid (vitamin C) 500 mg 500 mg PO MOWEFR@0900 10/19/24 10/20/24 tablet (Vitamin C) cariprazine 3 mg capsule (Vraylar) 3 mg PO BEDTIME 10/19/24 10/20/24 famotidine 20 mg tablet 20 mg PO BID 10/19/24 10/20/24 ferrous sulfate 325 mg (65 mg 325 mg PO MOWEFR@0600 10/19/24 10/20/24 iron) tablet,delayed release gabapentin 300 mg capsule 300 mg PO TID 10/19/24 10/20/24 omeprazole 20 mg capsule,delayed 20 mg PO DAILY PRN Acid Reflux 10/19/24 10/20/24 release prazosin 5 mg capsule 5 mg PO BEDTIME 10/19/24 10/20/24 albuterol sulfate 90 mcg/actuation 2 puff inhalation Q4H PRN 10/20/24 10/20/24 aerosol inhaler shortness of breath or wheezing Previous Rx's ?Medication ?Instructions ?Recorded clonazepam 1 mg tablet 1 mg PO BID PRN anxiety 30 days 06/02/23 #60 tabs cetirizine 10 mg tablet 10 mg PO DAILY 90 days #90 tabs 04/17/24 epinephrine 0.3 mg/0.3 mL 0.3 ml IM DIRECTED anaphylaxis 04/25/24 injection, auto-injector 30 days #2 ea aspirin 81 mg tablet,delayed 81 mg PO DAILY 90 days #90 tabs 09/24/24 release Mental Status Exam Mental Status Exam Narrative: unable to obtain Data Data Completed and Pending Completed studies during hospitalization [Text1]: 10/19/24 10/19/24 10/20/24 13:54 16:18 02:17 WBC 12.6 H RBC 5.03 Hgb 14.7 Hct 44.7 MCV 88.9 MCH 29.2 MCHC 32.9 RDW 14.4 Plt Count 320 MPV 10.6 Immature Gran % (Auto) 0.3 Neut % (Auto) 56.0 Lymph % (Auto) 33.7 [place] % (Auto) 4.7 Eos % (Auto) 4.7 H Baso % (Auto) 0.6 Lymph # (Auto) 4.3 [place] # (Auto) 0.6 Eos # (Auto) 0.6 H Baso # (Auto) 0.1 Abs Immat Gran (auto) 0.04 H Absolute Neuts (auto) 7.1 Absolute Nucleated RBC 0.000 Nucleated RBC % (auto) 0.0 Sodium 142 Potassium 3.9 Chloride 107 Carbon Dioxide 28 Anion Gap 11 L BUN 11 Creatinine 0.78 Estim Creat Clear Calc 68.1 Estimated GFR > 60 POC Glucose 123 H Random Glucose 88 Lactic Acid Calcium 9.1 Total Bilirubin 0.2 Direct Bilirubin AST 20 ALT 19 Alkaline Phosphatase 101 Troponin I High Sens Total Protein 8.1 H Albumin 4.3 Urine Color Yellow Urine Appearance Clear Urine pH 5.5 Ur Specific [place] <= 1.005 Urine Protein Negative Urine Glucose (UA) Negative Urine Ketones Negative Urine Blood Negative Urine Nitrite Negative Ur Leukocyte Esterase Negative Salicylates < 5.0 L Urine Opiates Screen Not Detected Ur Buprenorphine Scrn Not Detected Ur Oxycodone Screen Not Detected Urine Methadone Screen Not Detected Urine Fentanyl Screen Not Detected Acetaminophen < 3 Ur Barbiturates Screen Not Detected Ur Phencyclidine Scrn Not Detected Ur Amphetamines Screen Not Detected U Benzodiazepines Scrn Not Detected Urine Cocaine Screen Not Detected U Marijuana (THC) Screen Not Detected Ethyl Alcohol < 10 10/20/24 03:10 WBC 10.8 RBC 4.33 Hgb 12.9 Hct 37.9 MCV 87.5 MCH 29.8 MCHC 34.0 RDW 14.3 Plt Count 268 MPV 10.2 Immature Gran % (Auto) Neut % (Auto) Lymph % (Auto) [place] % (Auto) Eos % (Auto) Baso % (Auto) Lymph # (Auto) [place] # (Auto) Eos # (Auto) Baso # (Auto) Abs Immat Gran (auto) Absolute Neuts (auto) Absolute Nucleated RBC 0.000 Nucleated RBC % (auto) 0.0 Sodium 139 Potassium 4.2 Chloride 107 Carbon Dioxide 25 Anion Gap 11 L BUN 16 Creatinine 0.77 Estim Creat Clear Calc 69.0 Estimated GFR > 60 POC Glucose Random Glucose 124 H Lactic Acid 1.0 Calcium 9.2 Total Bilirubin 0.2 Direct Bilirubin < 0.2 AST 19 ALT 14 Alkaline Phosphatase 84 Troponin I High Sens < 2.7 Total Protein 6.9 Albumin 3.6 Urine Color Urine Appearance Urine pH Ur Specific [place] Urine Protein Urine Glucose (UA) Urine Ketones Urine Blood Urine Nitrite Ur Leukocyte Esterase Salicylates Urine Opiates Screen Ur Buprenorphine Scrn Ur Oxycodone Screen Urine Methadone Screen Urine Fentanyl Screen Acetaminophen Ur Barbiturates Screen Ur Phencyclidine Scrn Ur Amphetamines Screen U Benzodiazepines Scrn Urine Cocaine Screen U Marijuana (THC) Screen Ethyl Alcohol DS: Summary Hospital Course Hospital Course: Patient is a 54-year-old female who was admitted to the psychiatric unit with history of MDD, VÍCTOR, COPD, fibromyalgia presenting to the emergency department from [facility] with complaint of depression and suicidal ideation. She reports that she does have a psychiatrist in the community, recently had 1 of her medication doses increased but is unsure of the name. Denies any homicidal ideation, auditory or visual hallucinations. Denies any physical complaints (from ED note). Nursing admit note: Deanna Gómez was admitted to at 2135 on 10/19/2024. 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 Her history includes: generalized anxiety disorder, moderate recurrent major depression, COPD, and obstructive sleep apnea. 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 Her skin/safety check was immediately completed and unremarkable. She is currently suicidal, with a plan to overdose on medications/pills. Her tox screen was negative and she does not drink. She is a smoker, currently smoking 1 pack per day, and she prefers to use a patch rather than the gum. Her mother 5 years ago, her brother 2 years ago, and another brother 1 year ago. Deanna experiences audio hallucinations: she often hears a voice saying No, Deanna, no. When asked about visual hallucinations, she became guarded. After some thought, she stated that her [] brother often appears, sits at the foot of her bed, and tells her things that are going to happen, then they happen. It is unclear if she is asleep or awake when this happens. She is pleasant, medication compliant, and retired to bed with the aid of PRN Trazodone. Patient transferred to medical floor: Nursing note: At approximately 0205, the patient was standing outside the medication room and wanted another Trazodone as she had not slept yet. As this technical writer and editor turned to administer said Trazodone, the patient's eyes closed and she fell to the ground. Patient did not appear to lose consciousness. When we attempted to obtain vital signs, the patient's blood pressure would not read on automated equipment, her oxygen level was 88, and her automated pulse was approximately 40. At that time, a rapid response was called. The patient has been removed from the floor by the rapid team Time Spent with Patient Time attestation: Total time managing care of this patient today ____ minutes. Discharge Plan Discharge Anticipated Discharge Date/Time: 10/20/24 02:25 Patient Disposition: er [facility] Discharge Diagnosis: Depressive Disorder NOS Referrals: Lauren Merritt MD [Primary Care Provider] - 1 Week Discharge Medications: Continued clonazepam 1 mg tablet 1 mg PO BID PRN (Reason: anxiety) 30 Days Qty: 60 0RF cetirizine 10 mg tablet 10 mg PO DAILY 90 Days Qty: 90 1RF epinephrine 0.3 mg/0.3 mL auto-injector 0.3 ml IM DIRECTED 30 Days Qty: 2 2RF Vraylar 3 mg capsule 3 mg PO BEDTIME famotidine 20 mg tablet 20 mg PO BID gabapentin 300 mg capsule 300 mg PO TID ferrous sulfate 325 mg (65 mg iron) tablet,delayed release (DR/EC) 325 mg PO MOWEFR@0600 prazosin 5 mg capsule 5 mg PO BEDTIME ascorbic acid (vitamin C) [Vitamin C] 500 mg Tablet 500 mg PO MOWEFR@0900 omeprazole 20 mg capsule,delayed release(DR/EC) 20 mg PO DAILY PRN (Reason: Acid Reflux) hydroxyzine HCl 25 mg tablet 25 mg PO TID PRN (Reason: Anxiety) zolpidem 10 mg tablet 10 mg PO BEDTIME PRN (Reason: Insomnia) aspirin 81 mg tablet,delayed release (DR/EC) 81 mg PO DAILY 90 Days Qty: 90 3RF No Action albuterol sulfate 90 mcg/actuation HFA aerosol inhaler 2 puff inhalation Q4H PRN (Reason: shortness of breath or wheezing) Discharge Orders: Discharge Order (Routine); Ordered 10/20/24 Ordered By: Shamir Grady Diet: Advance to usual diet Activity on Discharge: As tolerated Stand Alone Forms: Patient Portal Discharge page, Community Support Print Language: Azeri Care Plan Goals: medical stabilization Health Concerns: syncope Plan of Treatment: as directed on hospitalist service Assessment: suicidal Discharge Date/Time: 10/20/24 02:30
== END 2024-10-20 02:30 | disposition short-term general hospital (02) | DRG 751 ==
LOC: HO.ED 19:54 → HO.PM5 20:00
PROVIDERS: Internal Medicine; Registered Nurse Emergency; Admitting Provider Psychiatry & Neurology Psychiatry; Emergency Provider Emergency Medicine Emergency Medical Services; PCP Internal Medicine; Visit Provider Psychiatry & Neurology Psychiatry
DX: F33.1 Major depressive disorder, recurrent, moderate (principal); J44.9 Chronic obstructive pulmonary disease, unspecified; M79.7 Fibromyalgia; Z79.82 Long term (current) use of aspirin; Z79.899 Other long term (current) drug therapy
CPT/HCPCS: 36415; 80048; 80053; 80076; 80143; 80179; 80307; 81003; 82947; 83605; 84484; 85025; 85027; 93005; 99285

== ENCOUNTER → 2024-10-19 19:39 | Outpatient (BNV) | payer OTHER, SELFPAY | PROVIDERS: Admitting Provider Psychiatry & Neurology Psychiatry; Emergency Provider Emergency Medicine Emergency Medical Services; PCP Internal Medicine; Visit Provider Psychiatry & Neurology Psychiatry | DX: F33.1 Major depressive disorder, recurrent, moderate (principal); F41.1 Generalized anxiety disorder | CPT/HCPCS: 90792; 99499 ==

== ENCOUNTER → 2024-10-19 19:39 | Outpatient (BNV) | payer OTHER, SELFPAY | PROVIDERS: Admitting Provider Psychiatry & Neurology Psychiatry; Emergency Provider Emergency Medicine Emergency Medical Services; PCP Internal Medicine; Visit Provider Internal Medicine | DX: Z13.6 Encounter for screening for cardiovascular disorders (principal); R94.31 Abnormal electrocardiogram [ECG] [EKG] | CPT/HCPCS: 93010 ==

== ENCOUNTER → 2024-10-20 02:51 | Outpatient (BNV) | payer OTHER, SELFPAY | PROVIDERS: Admitting Provider Internal Medicine; Visit Provider Internal Medicine | DX: R55 Syncope and collapse (principal); F41.9 Anxiety disorder, unspecified | CPT/HCPCS: 99222 ==

== ENCOUNTER 2024-10-20 02:57 | Observation (INO) | payer OTHER, SELFPAY ==
[2024-10-20] VITALS (8 sets, daily range): BP systolic 86–118; BP diastolic 48–69; PULSE 68–107; RESP 15–20; TEMP 36.3–36.9; O2SAT 96–97; BMI 29.9
--- NOTE | ~2024-10-20 | XR_ITS ---
CLINICAL HISTORY: hypoxia 1 view chest x-ray. Comparison: CR/SR - XR CHEST 2V - 05/25/22 19:51 EDT Findings: No consolidation, pneumothorax, or effusion. Heart size normal. Impression: 1. No acute cardiopulmonary process. No focal pulmonary consolidation. This document has been electronically signed by: Zan Mak MD on 10/20/2024 04:15:33
--- NOTE | 2024-10-20 03:00 | P.HPHOSP_ITS ---
History of Present Illness Date of Service: 10/20/24 Chief Complaint: presycnope 54F PMH nicotine dependence, mood disorder, copd, was admitted to 10/19/24 for depression wtih SI. 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 patient became very clammy and diaphoretic, denies chest pain, sob. EKG unremarkable, bradycardic to 40s, sbp low, ?60s-90s. glucose normal. remained alert, able to answer questions. Review of Systems Review of Systems: Yes all other systems are reviewed and are negative [facility] Medical History Chronic fatigue Right ankle pain Left ankle pain Myofascial pain syndrome Cervicalgia Overweight (BMI 25.0-29.9) Cervical radiculopathy Hypertension Polyarthralgia Dermatochalasis Migraine Anxiety Depression History of headache Healthy adult Family History Father No problems noted. Mother Arthritis of knee Breast cancer Heart problem HTN (hypertension) Family/Other Diabetes Arthritis of knee HTN (hypertension) Mental health disorder Surgical History Hx of colonoscopy Hx of blepharoplasty History of section History of tubal ligation Social History Household Members: Significant Other and Other Household Members Other:: Grown daughter Housing: Unknown / Unable to assess Do you presently have visiting nurse or other home services: No Alcohol intake: never Patient Tobacco Use Status: Current everyday Tobacco user Tobacco use type: Cigarette Cigarette Packs Per Day: 1 Cigarettes Per Day: 20.0 Years Smoked: 15 +/- started at 16 years old e-Cigarette/Vaping Use: Never Used Second Hand Smoke Exposure: No Substance Use Type: Caffiene service: No Current occupational status: employed Current occupational exposures/hazards: No Cognitive needs: No Hearing needs: No Vision needs: Yes Meds Allergies Allergy/AdvReac Type Severity Reaction Status Date / Time cat dander Allergy Unknown Verified 10/19/24 13:05 dog dander Allergy Unknown Verified 10/19/24 13:05 Seasonal Allergies Allergy Unknown Verified 10/19/24 13:05 aripiprazole [[facility]] AdvReac Intermediate Dizziness Verified 10/19/24 13:05 Home Medications ?Medication ?Instructions ?Recorded ?Confirmed ?Last Taken ?Type hydroxyzine HCl 25 mg tablet 25 mg PO TID PRN Anxiety 09/08/23 10/19/24 Unknown History zolpidem 10 mg tablet 10 mg PO BEDTIME PRN Insomnia 03/09/24 10/19/24 10/18/24 History ascorbic acid (vitamin C) 500 mg 500 mg PO MOWEFR 10/19/24 10/19/24 10/18/24 History tablet (Vitamin C) cariprazine 3 mg capsule (Vraylar) 3 mg PO QPM 10/19/24 10/19/24 Unknown History famotidine 20 mg tablet 20 mg PO BID 10/19/24 10/19/24 Unknown History ferrous sulfate 325 mg (65 mg 325 mg PO MOWEFR 10/19/24 10/19/24 10/18/24 History iron) tablet,delayed release gabapentin 300 mg capsule 300 mg PO TID 10/19/24 10/19/24 10/18/24 History omeprazole 20 mg capsule,delayed 20 mg PO DAILY PRN Acid Reflux 10/19/24 10/19/24 10/19/24 History release prazosin 5 mg capsule 5 mg PO BEDTIME 10/19/24 10/19/24 10/18/24 History Physical Exam Vital Signs and Narrative: General: AO X 3, no acute distress, cold and clammy Resp: CTA bilateral, no accessory muscles used CVS: S1,S2,RRR GI: soft, non tender, non distended Neuro: motor grossly intact, alert Assessment and Plan (1) Anxiety: Status: Acute Plan 54F PMH nicotine dependence, mood disorder, copd, was admitted to 10/19/24 for depression wtih SI. 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
[2024-10-20] MEDS: 0.9 % Sodium Chloride 1,000 ML 999 ML IV ×2 (03:55→05:37)
[2024-10-20] MEDS: 0.9 % Sodium Chloride Flush 3 ML SYRINGE IVFLUSH (03:57)
--- NOTE | 2024-10-20 07:33 | PHA.MEDREC ---
Pharmacy Consult ? Medication Reconciliation Pharmacy has completed the medication reconciliation, patient was discharged form [id number] completed med rec 10/19/24 and spoke to patient and confirmed medications.
[2024-10-20] MEDS: Aspirin Enteric Coated 81 MG TABLET.DR PO (07:44)
[2024-10-20] MEDS: Enoxaparin Sodium 40 MG/0.4 ML SYRINGE SUBCUT (07:45)
--- NOTE | 2024-10-20 08:59 | MHC.CM.PN ---
Addendum entered by Maddy Gómez 10/20/24 09:01: LINDA given 10/20. Original Note: This CM met with pt with the assistance of a space systems operations manager. Pt was transferred from inpatient psych unit. DCP: likely return to inpatient psych unit. Prior to hospitalization pt lives at home with her boyfriend and daughter, and will arrange her own transport home. HCP declined at this time. PCP: Dr. Lauren Keene
[2024-10-20] MEDS: Nicotine 14 MG PATCH.TD24 TRANSDERMA (11:15)
--- NOTE | 2024-10-20 13:32 | P.DS_ITS ---
DS: Providers Provider Date of Service: 10/20/24 Date of admission: 10/20/24 02:57 Date of discharge: 10/20/24 Primary care physician: Lauren Keene MD Consults: 10/20/24 10:54 Consult to Care Team Routine Comment: Reason for consultation: medically clear DS: Diagnosis Discharge Diagnosis (1) Anxiety: Status: Acute DS: Summary Hospital Course Hospital Course: History and physical as per admitting provider. 54F PMH nicotine dependence, mood disorder, copd, was admitted to 10/19/24 for depression wtih SI. CLIENT RETENTION SPECIALIST called early AM of 10/20/24 for presyncope, RN reported patient rolling eyes back was lowered to chair, no trauma, no full LOC. patient became very clammy and diaphoretic, denies chest pain, sob. EKG unremarkable, bradycardic to 40s, sbp low, ?60s-90s. glucose normal. remained alert, able to answer questions. 54-year-old woman transferred from for an episode of presyncope. Seemed like hypotension as patient is on prazosin. Patient has been monitored on telemetry with no noted bradycardia, arrhythmia. Patient was ambulating in the room without any dizziness or feelings of presyncope. Prazosin has been stopped and patient should discontinue this medication. Patient had a short episode of possible hypoxia, chest x-ray was negative for consolidation or effusion and patient has been weaned off of oxygen fairly quickly. Mental health. Management as per psychiatric team Time Attestation Discharge Coordination Time (in mins): 36 Quality: Safe Use of Opioids Does Pt have an Active Cancer Diagnosis on the Problem List?: No Quality: Stroke Does the patient have a stroke diagnosis?: No Physical Exam Vital Signs: Vital Signs: Last Vital Signs Temp 98.4 F 10/20/24 10:52 Pulse 71 10/20/24 10:52 Resp 20 10/20/24 10:52 BP 109/59 L 10/20/24 10:52 Pulse Ox 97 10/20/24 10:52 O2 Del Method Room Air 10/20/24 10:52 O2 Flow Rate 1 10/20/24 07:38 Oxygen Flow Rate 2 10/20/24 03:11 BMI result Body Mass Index 29.9 Appearing in no acute distress head is normocephalic atraumatic eyes pupils are PERRLA sclera is anicteric mouth throat mucous membranes are intact and moist neck is supple no lymphadenopathy, no JVD noted lung sounds are clear to auscultation heart regular rate rhythm, clear S1, S2 positive bowel sounds, abdomen is soft, nontender neuro patient is alert x3, no focal deficits Discharge Plan Discharge Anticipated Discharge Date/Time: 10/20/24 13:26 Patient Disposition: Xfer Psychiatric Hosp Discharge Diagnosis: Presyncope Hypotension Referrals: Lauren Merritt MD [Primary Care Provider] - 1 Week Discharge Medications: Continued clonazepam 1 mg tablet 1 mg PO BID PRN (Reason: anxiety) 30 Days Qty: 60 0RF cetirizine 10 mg tablet 10 mg PO DAILY 90 Days Qty: 90 1RF epinephrine 0.3 mg/0.3 mL auto-injector 0.3 ml IM DIRECTED 30 Days Qty: 2 2RF Vraylar 3 mg capsule 3 mg PO BEDTIME famotidine 20 mg tablet 20 mg PO BID gabapentin 300 mg capsule 300 mg PO TID ferrous sulfate 325 mg (65 mg iron) tablet,delayed release (DR/EC) 325 mg PO MOWEFR@0600 ascorbic acid (vitamin C) [Vitamin C] 500 mg Tablet 500 mg PO MOWEFR@0900 omeprazole 20 mg capsule,delayed release(DR/EC) 20 mg PO DAILY PRN (Reason: Acid Reflux) albuterol sulfate 90 mcg/actuation HFA aerosol inhaler 2 puff inhalation Q4H PRN (Reason: shortness of breath or wheezing) hydroxyzine HCl 25 mg tablet 25 mg PO TID PRN (Reason: Anxiety) zolpidem 10 mg tablet 10 mg PO BEDTIME PRN (Reason: Insomnia) aspirin 81 mg tablet,delayed release (DR/EC) 81 mg PO DAILY 90 Days Qty: 90 3RF Discontinued prazosin 5 mg capsule 5 mg PO BEDTIME Discharge Orders: Discharge Order (Routine); Ordered 10/20/24 Ordered By: Luna Laura Diet: Advance to usual diet Activity on Discharge: As tolerated Stand Alone Forms: Patient Portal Discharge page Print Language: Moldovan Care Plan Goals: Transfer to inpatient psychiatric care Stop Prazosin to avoid hypotension Health Concerns: Presyncope Hypotension Plan of Treatment: See discharge summary Discharge Date/Time: 10/20/24 14:11
== END 2024-10-20 14:11 ==
LOC: HO.EDOVER 03:12 → HO.IMC 03:14
PROVIDERS: Admitting Provider Internal Medicine; PCP Internal Medicine; Visit Provider Nurse Practitioner Acute Care
DX: F41.9 Anxiety disorder, unspecified (principal); R55 Syncope and collapse; R09.02 Hypoxemia; I10 Essential (primary) hypertension; F39 Unspecified mood [affective] disorder; Z79.899 Other long term (current) drug therapy
CPT/HCPCS: 71045; 96360; 96361; 99222; J1650; S9485

== ENCOUNTER 2024-10-20 02:57 | Outpatient (BNV) | payer OTHER, SELFPAY | END 2024-10-20 03:48 | PROVIDERS: Admitting Provider Internal Medicine; PCP Internal Medicine; Visit Provider Radiology Diagnostic Radiology | DX: R09.02 Hypoxemia (principal) | CPT/HCPCS: 71045 ==

== ENCOUNTER 2024-10-20 14:15 | Inpatient (IN) | payer OTHER, SELFPAY ==
[2024-10-20 14:30] VITALS: BP 144/69; PULSE 90; RESP 16; TEMP 36.6; O2SAT 94
[2024-10-20 15:12] VITALS: BMI 29.5
--- NOTE | 2024-10-20 16:25 | PC.ADMIT ---
Addendum entered by Tish Yanes RN 10/20/24 19:07: Elevated BP in evening. Covering provider Roseanne Bridges NP notified. Original Note: 54 y/o female admitted to at 1420 on a CV from [facility] medical floor. Pt admitted for SI with plan to overdose on medications. Pt previously admitted to on 10/19/2024 for same complaints, however was transferred to medicine shortly after arrival after an episode of presyncope and hypotension. Pt was medically cleared today with recommendation to stop Prazosin to avoid further hypotension. Pt primarily Tanzanian speaking, however able to answer simple questions in Nepalese. Computer assisted park interpreter device utilized for assessment. Pt endorsed anxiety /10 and depression /. Pt continued to endorse SI with plan to overdose on medications when she discharges. Pt reported she felt safe in the hospital, and denied thoughts or urges to harm self at time of admission. Pt stated she could seek out staff if feeling unsafe. Pt reported AH of a person calling her name, as well as VH of her brother. Pt also reported that she often felt like someone was standing behind her, only to turn around and not see anyone there. Pt stated she lived with her boyfriend, as well as her daughter. Pt reported it is a safe and supportive environment. Pt is a daily nicotine user and utilizes a nicotine patch. Pt stated her symptoms that prompted transfer to the medical floor were because I didn't get my nicotine patch. That happens when I don't have nicotine. Pt stated she feels fine after the medical floor helped her . Pt denied substance use. Tox screen negative. Pt refused Influenza vaccine. NRT ordered and nicotine consult placed. Med rec done with [facility]. Toiletries, fluids, and menu provided to pt. Pt placed on 15 minute checks.
--- OUTSIDE RECORDS SUMMARY | 2024-10-20 16:31 | XMS_ITS | Clinical Summary ---
Author Organization [facility] Address [address] [place] [address] Care Team Providers Care Customs Collector Name Role Phone Unavailable Primary Care Provider [...]
--- OUTSIDE RECORDS SUMMARY | 2024-10-20 16:31 | XMS_ITS | Encounter Summary ---
Author Organization [employer] [facility] Address [address] [place] [address] 7 [place] [address] Care Team Providers Care Porter Luggage Name Role Phone Unavailable Primary Care Provider Unavailabl e Reason for Visit * Reason Comments Filling Encounter Details Date Type Department Care Team ([facility] st Contact Info) Description 09/27/2024 9:00 AM EST Office Visit [facility] ADULT D[facility]AL [address] [place] [address] Hayder Virgen DMD [address] [place] [address] Dental caries (Primary Dx) Social History Tobacco [...] Timeout Date: 09/27/24, Timeout Time: 901 Location: [facility] Tooth: #3 and #15 Procedure: Mandaen Verified the above with patient, fleet assistant, and provider. Confirmed via patient's chart, intraorally and by radiographs. 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 Isolation: high speed suction, cotton rolls, and cheek guard Prep: All caries removed, Existing sabianism removed, and Preparation finalized Matrix: Sectional Matrix and wedge Etch: 37% Phosphoric Acid Etch Desensitizer: Gluma Liner/Base: None Yoo: I-Yoo Mandaen Material: Voco Grandioso Packable Shade: A3.5 Polished. Occlusion & contacts verified. Patient satisfied with comfort and esthetics. Patient tolerated procedure well. Post-operative instructions were given. Patient departed alert, oriented, and in stable condition. NV: Recare Nurse Licensed Practical: Selena HANDLEY recording studio intern Dentist: Hayder Virgen DMD documented in this encounter Plan of Treatment Upcoming Encounters Date Type Department Care Team (Late st Contact Info) Description 04/28/2025 10:00 AM EDT Office Visit [facility] [address] [place] [address] Josette Smith documented as of this encounter [...]
--- OUTSIDE RECORDS SUMMARY | 2024-10-20 16:31 | XMS_ITS | Encounter Summary ---
Author Organization [employer] Address [address] [facility] [address] [place] [address] Care Team Providers Care Sheet Metal Worker Maintenance Name Role Phone Unavailable Primary Care Provider Unavailabl e Reason for Visit * Reason Comments Routine Cleaning Dental Exam Encounter Details Date Type Department Care Team (Late st Contact Info) Description 09/27/2024 8:00 AM EST Office Visit [facility] ADULT D[facility]AL [address] [place] [address] Arian Monte Dental caries (Primary Dx); Dental [...] Timeout Date: 09/27/24, Timeout Time: 805 Location: [facility] Tooth: all Procedure: Exam Verified the above with patient, engineer assistant, and provider. Confirmed via patient's chart, intraorally and by radiographs. Hvac Service Manager: not applicable Chief Complaint Patient presents with [...] Cancer Risk: Low Risk Oral Hygiene Instructions: [place] two times daily, modified quiroz technique, Floss daily, Electric toothbrush, Soft bristle toothbrush, [place] Tongue, Anti- sensitivity toothpaste Caries Risk Assessment: Medium- one risk factor Assessment/Plan Restos Maintenance and recare Patient tolerated procedure well, all questions answered and expressed understanding. Dismissed in good condition. NV: #3-DO and #15-O Youth Services Librarian: Arian Monte Dentist: Hayder Virgen DMD * Arian Monte - 09/27/2024 8:00 AM EST Patient ID: Deanna Gómez is a 54 y.o. female. Time Out: Timeout Date: 09/27/24, Timeout Time: 805 Location: [facility] Tooth: Maxilla and Mandible Procedure: Exam, X-rays, and Prophylaxis Verified the above with patient, engineer assistant, and provider. Confirmed via patient's chart, intraorally and by radiographs. Hvac Service Manager: not applicable Medical Hx: Vitals: Blood pressure [...] flossing. Dental exam done by . Recommendations: [place] two times daily, modified quiroz technique, Floss daily Recall Frequency: 6 mo NV: jame #3 Hygienist: Arina Monte RDH documented in this encounter Plan of Treatment Upcoming Encounters Date Type Department Care Team (Late st Contact Info) Description 04/28/2025 10:00 AM EDT Office Visit [facility] ADULT D[facility] [address] [place] [address] Josette Smith documented as of this encounter [...]
--- OUTSIDE RECORDS SUMMARY | 2024-10-20 16:31 | XMS_ITS | Clinical Summary ---
Author Organization [employer] Address [address] [facility] [address] [place] [address] Care Team Providers Care Entrance Guard Name Role Phone Unavailable Primary Care Provider [...] Description 09/27/2024 9:00 AM EST Office Visit [facility] [address] [place] [address] Hayder Virgen DMD Dental caries (Primary Dx) 09/27/2024 8:00 AM EST Office Visit [facility] [address] [place] [address] Arian Monte Dental caries (Primary Dx); Dental calculus 08/12/2024 Telephone [facility] [address] [place], [place] [phone] Lili Yoon from Last 3 Months Social [...] 04/28/2025 10:00 AM EDT Office Visit [facility] [address] [place] [address] Josette Smith Health Maintenance Due Date Last [...] 5 Years) and At-Risk Patients (6 to 49) Years) Completed 09/24/2024, 02/20/2022, 07/01/2018 HIB Vaccines [...] Most Recently Relevant to Health Maintenance Insurance [facility] MEDICAID STAND ADULT
[2024-10-20 18:46] VITALS: BP 174/81; PULSE 86
[2024-10-20 19:45] VITALS: BP 174/81; PULSE 86; TEMP 36.8; O2SAT 98
[2024-10-20] MEDS: Famotidine 20 MG TABLET PO (20:30)
[2024-10-20] MEDS: Cariprazine HCl 3 MG CAPSULE PO (20:30)
[2024-10-20] MEDS: Zolpidem Tartrate 5 MG TABLET 10 MG PO (20:30)
[2024-10-20] MEDS: Gabapentin 300 MG CAPSULE PO (20:30)
[2024-10-20] MEDS: clonazePAM 1 MG TABLET PO (20:36)
[2024-10-21 07:00] VITALS: BMI 29.2
[2024-10-21 07:51] LABS: Estimated Average Glucose 111 mg/dL; Hemoglobin A1C 126.4548 umol/L; Hemoglobin A1c % 5.5 % (<6.0); Total Hemoglobin (HGBA1C) 3503.5704 umol/L
[2024-10-21 07:57] VITALS: BP 141/74; PULSE 86; RESP 18; TEMP 36.3; O2SAT 93
[2024-10-21 08:09] LABS: Cholesterol 196 mg/dL (<200); HDL Cholesterol 57 mg/dL (>40); LDL Cholesterol Calculated 127 mg/dL (<100); Triglycerides 60 mg/dL (<150)
[2024-10-21 08:26] LABS: TSH reflex Free T4 3.59 uIU/mL (0.32-4.0)
[2024-10-21] MEDS: Famotidine 20 MG TABLET PO (08:32)
[2024-10-21] MEDS: Aspirin 81 MG TAB.CHEW PO (08:32)
[2024-10-21] MEDS: Gabapentin 300 MG CAPSULE PO ×3 (08:33→20:16)
[2024-10-21] MEDS: Nicotine 21 MG PATCH.TD24 TRANSDERMA (08:42)
--- NOTE | 2024-10-21 08:59 | P.HPPS_ITS ---
[facility] Date of Service: 10/21/24 Chief Complaint: depression/anxiety Sources of Information: patient interviewed, chart reviewed and crisis/core team assessment reviewed HPI Subjective Notes: Angulo Warning and Conditional Voluntary Narrative: Patient is a 54-year-old female with past medical history of MDD, PTSD, VÍCTOR?, COPD, fibromyalgia who initially self presented to the ED for worsening depression, AH and SI. She was initially admitted to however soon after admission had a near syncopal event and was transferred to the medical floor for observation which proved unremarkable and patient was medically cleared and returned to . Patient reports that she struggled with depression many years but after 10 years on medication management was doing better and got off a number of her medications. Depression started to return about a year ago as did intermittent panic attacks. This past June patient went to [place] where she had oversee her mother's body exhumed from burial plot and transferred to another cemetery. This read triggered many memories and her depression worsened; anniversary of other family members this past August contributed. For some unknown reason, about 2 weeks ago her depression significantly worsened and for the 1st time she started having vague suicidal thoughts, feeling worthless, that she rather be , empty and overwhelmed with sadness. Also auditory hallucinations started up calling to her saying no Deanna. This past week, in a fit of anxiety and despair she broke various items in her house; nightmares worsened and she started waking up thinking she could see her brother at the foot of the bed, saying derogatory things. Patient had the thought to overdose on her pills. Instead she prayed and then went to see her therapist encouraged her to come to the hospital. Patient remains very sad, tearful however is hopeful that medication management can help. Patient endorses history of what she was told are hypomanic episodes, during which time for 3 days she is talking fast, mind is racing, angry feelings and yelling family; feels depressed, bad and though has trouble sleeping very much wishes she could sleep; describes being driven by anxiety rather than having excess energy. AVH rare and has only ever been present when very depressed. Denies any drug or alcohol use. Past Psychiatric History: Unsure if past psychiatric admissions Past medication trials which included Abilify, paliperidone, lithium; patient does not remember affect Has psychiatrist and therapist Medical Evaluation Reviewed: Yes [facility] Medical History (Updated 10/21/24 @ 15:18 by Byron Pickard MD) PTSD (post-traumatic stress disorder) MDD (major depressive disorder), recurrent, severe, with psychosis Chronic fatigue Right ankle pain Left ankle pain Myofascial pain syndrome Cervicalgia Overweight (BMI 25.0-29.9) Cervical radiculopathy Hypertension Polyarthralgia Dermatochalasis Migraine Anxiety Depression History of headache Healthy adult Surgical History Hx of colonoscopy Hx of blepharoplasty History of section History of tubal ligation Family History: Unable to obtain Social History: From [place] , 2 adult daughters Two living sisters with whom she is close Beloved mother 5 years ago; beloved brothers , one 2 years ago and another 1 year ago. Some college; worked for years until she lost employment about 6 months ago Substance History: Nicotine only; denies any drug or alcohol history Trauma History: Trauma as a child; does not disclose details Diagnostics Vital Signs (24Hr): Vital Signs - 24 hr 10/20/24 14:30 10/20/24 18:46 10/20/24 19:45 Temperature 98 F 98.2 F Pulse Rate 90 86 86 Respiratory Rate 16 Blood Pressure 144/69 H 174/81 H 174/81 H Pulse Oximetry 94 98 Oxygen Delivery Method Room Air Room Air 10/21/24 07:57 Temperature 97.4 F Pulse Rate 86 Respiratory Rate 18 Blood Pressure 141/74 H Pulse Oximetry 93 Oxygen Delivery Method Room Air BMI result Body Mass Index 29.5 Labs Labs: Laboratory Results - last 48 hr 10/21/24 07:32 Estimat Average Glucose 111 Hemoglobin A1c % 5.5 Triglycerides 60 Cholesterol 196 LDL Cholesterol, Calc 127 H HDL Cholesterol 57 TSH 3.59 Meds/Allergies Meds Home Medications ?Medication ?Instructions ?Recorded ?Confirmed ?Type hydroxyzine HCl 25 mg tablet 25 mg PO TID PRN Anxiety 09/08/23 10/20/24 History zolpidem 10 mg tablet 10 mg PO BEDTIME PRN Insomnia 03/09/24 10/20/24 History cariprazine 3 mg capsule (Vraylar) 3 mg PO BEDTIME 10/19/24 10/20/24 History famotidine 20 mg tablet (Heartburn 20 mg PO BID 10/19/24 10/20/24 History Relief (famotidine)) ferrous sulfate 325 mg (65 mg 325 mg PO MOWEFR@0600 10/19/24 10/20/24 History iron) tablet,delayed release gabapentin 300 mg capsule 300 mg PO TID 10/19/24 10/20/24 History (Neurontin) omeprazole 20 mg capsule,delayed 20 mg PO DAILY PRN Acid Reflux 10/19/24 10/20/24 History release aspirin 81 mg tablet,delayed 81 mg PO DAILY 10/20/24 10/20/24 History release (Adult Aspirin Regimen) clonazepam 1 mg tablet (Klonopin) 1 mg PO BID PRN anxiety 10/20/24 10/20/24 History selegiline 9 mg/24 hr transdermal 9 mg transdermal DAILY 10/20/24 10/20/24 History 24 hour patch (Emsam) Allergies Allergies Allergy/AdvReac Type Severity Reaction Status Date / Time cat dander Allergy Unknown Verified 10/19/24 13:05 dog dander Allergy Unknown Verified 10/19/24 13:05 Seasonal Allergies Allergy Unknown Verified 10/19/24 13:05 aripiprazole [From Abilify] AdvReac Intermediate Dizziness Verified 10/19/24 13:05 Mental Status Exam Mental Status Exam Narrative: Pt is alert and oriented; behavior is cooperative, tearful; patient is not in distress; dressed in hospital attire with unkempt hair but adequate hygiene; mood is described as depressed, anxious and affect congruent, downcast, tearful, worried; eye contact avoided; Speech is slowed and soft; psychomotor retardation present; thought process is organized and goal directed; Thought content is on feeling worthless, empty, hopeless; missing loved ones; otherwise pertinent to relevant topics and without any delusional content, paranoid ideations or grandiosity; passive wish but no active SI; no HI. Recent intermittent AVH which is mood congruent; patient does not seem internally preoccupied. Patients insight and judgment impaired Assessment & Plan Assessment & Plan (1) MDD (major depressive disorder), recurrent, severe, with psychosis: Status: Acute Code(s): F33.3 - Major depressive disorder, recurrent, severe with psychotic symptoms (2) PTSD (post-traumatic stress disorder): Status: Acute Code(s): F43.10 - Post-traumatic stress disorder, unspecified (3) VÍCTOR (generalized anxiety disorder): Status: Acute Code(s): F41.1 - Generalized anxiety disorder (4) COPD (chronic obstructive pulmonary disease): Status: Acute Qualifiers: COPD type: unspecified COPD Qualified Code(s): J44.9 - Chronic obstructive pulmonary disease, unspecified Code(s): J44.9 - Chronic obstructive pulmonary disease, unspecified (5) GLENROY (obstructive sleep apnea): Status: Acute Code(s): G47.33 - Obstructive sleep apnea (adult) (pediatric) (6) Chronic fatigue: Status: Acute Code(s): R53.82 - Chronic fatigue, unspecified Plan HPI: Patient is a 54-year-old female with past medical history of MDD (reports history of bipolar DX), PTSD, VÍCTOR?, GLENROY, COPD, fibromyalgia who initially self presented to the ED for worsening depression, AH and SI. She was initially admitted to however soon after admission had a near syncopal event and was transferred to the medical floor for observation which proved unremarkable and patient was medically cleared and returned to . Patient reports that she struggled with depression many years but after 10 years on medication management was doing better and got off a number of her medications. Depression started to return about a year ago as did intermittent panic attacks. This past June patient went to [place] where she had oversee her mother's body exhumed from burial plot and transferred to another cemetery. This read triggered many memories and her depression worsened; anniversary of other family members this past August contributed. For some unknown reason, about 2 weeks ago her depression significantly worsened and for the 1st time she started having vague suicidal thoughts, feeling worthless, that she rather be , empty and overwhelmed with sadness. Also auditory hallucinations started up calling to her saying no Deanna. This past week, in a fit of anxiety and despair she broke various items in her house; nightmares worsened and she started waking up thinking she could see her brother at the foot of the bed, saying derogatory things. Patient had the thought to overdose on her pills. Instead she prayed and then went to see her therapist encouraged her to come to the hospital. Patient remains very sad, tearful however is hopeful that medication management can help. Patient endorses history of what she was told are hypomanic episodes, during which time for 3 days she is talking fast, mind is racing, angry feelings and yelling family; feels depressed, bad and though has trouble sleeping very much wishes she could sleep; describes being driven by anxiety rather than having excess energy. AVH rare and has only ever been present when very depressed. Denies any drug or alcohol use. Formulation/clinical reasoning: Patient has chronic moderate depression with episodes of severe depression. She reports carrying a diagnosis of bipolar disorder however what she describes as hypomanic episodes seem much more likely a combination of depression and anxiety. Patient's PTSD history very likely contributory. Patient has recorded diagnosis of GLENROY; principal technical writer does not see any mention of CPAP and untreated GLENROY can certainly affect mood and is us possibly contributory. TSH WNL. Discussed med ication management. She has been consistent with taking medications. Currently patient would like to maximize Vraylar and or selegiline before starting a new medication; discussed lithium and she is open to restarting this as well. Plan: CV Q 15 minute checks Increase Vraylar to 4.5 mg; may continue to titrate (has been on this for 2 months; says it seemed to help a little as it reduced her crying spells) Continue selegiline/Emsam 9 mg transdermal patch; has been on this for about 5 months and also feels that it has been partially helpful Will consider lithium Will try to assess history of GLENROY Gather collateral Patient educated on: diagnosis, medication risk/benefits and therapeutic strategies Informed Consent: understands Reason for continued inpatient stay Substantial Risk for: inability to function Statement Statement: I have reviewed the history and physical and performed a pertinent examination on my patient. No changes have occurred unless specified. If the History and Physical was not performed prior to admission, the Hospitalist's service will be consulted for completing the admission physical. Time Spent With Patient Time: Total time managing care of this patient today ____ minutes.
[2024-10-21] MEDS: Cariprazine HCl 1.5 MG CAPSULE PO (11:57)
[2024-10-21] MEDS: hydrOXYzine HCL 25 MG TABLET PO (12:02)
[2024-10-21] MEDS: Loratadine 10 MG TABLET PO (12:04)
[2024-10-21] MEDS: polyethylene glycoL 3350 17 GM POWD.PACK PO (12:50)
[2024-10-21] MEDS: SELEGILINE TRANSDERMA (13:34)
[2024-10-21 19:45] VITALS: BP 168/76; PULSE 87; TEMP 36.8; O2SAT 99
[2024-10-21] MEDS: Cariprazine HCl 1.5 MG CAPSULE 4.5 MG PO (20:16)
[2024-10-21] MEDS: traZODone HCL 50 MG TABLET PO (20:16)
[2024-10-21] MEDS: clonazePAM 1 MG TABLET PO (20:24)
[2024-10-22 08:00] VITALS: BP 123/62; PULSE 70; RESP 16; TEMP 36.4; O2SAT 95
[2024-10-22] MEDS: Aspirin 81 MG TAB.CHEW PO (08:56)
[2024-10-22] MEDS: Gabapentin 300 MG CAPSULE PO ×3 (08:57→20:54)
[2024-10-22] MEDS: Loratadine 10 MG TABLET PO (08:57)
[2024-10-22] MEDS: Nicotine 21 MG PATCH.TD24 TRANSDERMA (08:57)
[2024-10-22] MEDS: Ferrous Sulfate 324 MG TABLET.DR PO (08:57)
[2024-10-22] MEDS: clonazePAM 1 MG TABLET PO (08:57)
[2024-10-22] MEDS: SELEGILINE TRANSDERMA (08:59)
[2024-10-22] MEDS: polyethylene glycoL 3350 17 GM POWD.PACK PO (09:04)
--- NOTE | 2024-10-22 09:26 | HO.PSYCHPN ---
Subjective Subjective Date of Service: 10/22/24 Reason For Visit: depression/anxiety Interim History: Met with patient; discussed with team; seen with damper worker Patient remains very depressed and tearful however she says she is feeling a little better which she can tell since she is not getting upset quite as much. She is finding it very helpful to be around people so that her mind is occupied. Patient says AH has resolved. Not sleeping well and automobile service writer adjusted medications, including adding clonidine at bedtime but also making sure Ambien, which he takes at home is available. Discussed medication management and since patient is feeling a little better, agreed to leave adjusted Vraylar as is for now. Discussed how losing her job has been very difficult for her as she gets a lot of benefit from interacting with others. Mental Status Exam Mental Status Exam Narrative: Pt is alert and oriented; behavior is cooperative, tearful; patient is not in distress; dressed in casual attire, with adequate grooming and hygiene; mood is described as depressed... Little better and affect congruent, still downcast, tearful, worried but also moments that are brighter; eye contact improved; Speech is slowed and soft; some psychomotor retardation still present; thought process is organized and goal directed; Thought content is on feeling trying to feel more hopeful and avoiding self-deprecating thoughts; no delusional content, paranoid ideations or grandiosity; intermittent passive wish but less; no active SI; no HI. No AVH today; Patients insight and judgment impaired but improving Diagnostics Vital Signs (24Hr): Vital Signs - 24 hr 10/21/24 19:45 Temperature 98.3 F Pulse Rate 87 Blood Pressure 168/76 H Pulse Oximetry 99 Oxygen Delivery Method Room Air BMI result Body Mass Index 29.2 Labs Labs: Laboratory Results - last 48 hr 10/21/24 07:32 Estimat Average Glucose 111 Hemoglobin A1c % 5.5 Triglycerides 60 Cholesterol 196 LDL Cholesterol, Calc 127 H HDL Cholesterol 57 TSH 3.59 Medications Medications Current Medications Acetaminophen (Acetaminophen 325 Mg Tablet) 650 mg PO Q6H PRN PRN Reason: Headache/Pain Mild Scale (1-3) Al Hydroxide/Mg Hydroxide (Magnesium Hydrox/Alum Hydrox 30 Ml Oral.Susp) 30 ml PO Q6H PRN PRN Reason: Heartburn/Nausea Aspirin (Aspirin 81 Mg Tab.Chew) 81 mg PO DAILY [facility] Last Admin: 10/22/24 08:56 Dose: 81 mg Cariprazine (Cariprazine Hcl 1.5 Mg Capsule) 4.5 mg PO BEDTIME [facility] Last Admin: 10/21/24 20:16 Dose: 4.5 mg Clonazepam (Clonazepam 1 Mg Tablet) 1 mg PO BID PRN PRN Reason: severe anxiety Last Admin: 10/22/24 08:57 Dose: 1 mg Ferrous Sulfate (Ferrous Sulfate 324 Mg Tablet.) 324 mg PO [email or web address] [facility] Last Admin: 10/22/24 08:57 Dose: 324 mg Gabapentin (Gabapentin 300 Mg Capsule) 300 mg PO TID [facility] Last Admin: 10/22/24 08:57 Dose: 300 mg Hydroxyzine HCl (Hydroxyzine Hcl 25 Mg Tablet) 25 mg PO Q6H PRN PRN Reason: Anxiety Last Admin: 10/21/24 12:02 Dose: 25 mg Loratadine (Loratadine 10 Mg Tablet) 10 mg PO DAILY [facility] Last Admin: 10/22/24 08:57 Dose: 10 mg Nicotine (Nicotine 21 Mg Patch.Td24) 21 mg TRANSDERMA DAILY PRN PRN Reason: smoking cessation Last Admin: 10/22/24 08:57 Dose: 21 mg Nicotine Polacrilex (Nicotine Polacrilex 2 Mg Gum) 4 mg BUCCAL Q2H PRN PRN Reason: Nicotine Cravings Omeprazole (Omeprazole 20 Mg Capsule.) 20 mg PO DAILY PRN PRN Reason: reflux Polyethylene Glycol (Polyethylene Glycol 3350 17 Gm Powd.Pack) 17 gm PO DAILY PRN PRN Reason: Constipation Last Admin: 10/22/24 09:04 Dose: 17 gm Trazodone HCl (Trazodone Hcl 50 Mg Tablet) 50 mg PO BEDTIME MRX1 PRN PRN Reason: Insomnia Last Admin: 10/21/24 20:16 Dose: 50 mg Zolpidem Tartrate (Zolpidem Tartrate 5 Mg Tablet) 10 mg PO BEDTIME PRN PRN Reason: Continued insomnia Allergies Allergies Allergy/AdvReac Type Severity Reaction Status Date / Time cat dander Allergy Unknown Verified 10/19/24 13:05 dog dander Allergy Unknown Verified 10/19/24 13:05 Seasonal Allergies Allergy Unknown Verified 10/19/24 13:05 [facility]razole [[facility]] AdvReac Intermediate Dizziness Verified 10/19/24 13:05 Assessment & Plan Assessment & Plan (1) MDD (major depressive disorder), recurrent, severe, with psychosis: Status: Acute Code(s): F33.3 - Major depressive disorder, recurrent, severe with psychotic symptoms (2) PTSD (post-traumatic stress disorder): Status: Acute Code(s): F43.10 - Post-traumatic stress disorder, unspecified (3) VÍCTOR (generalized anxiety disorder): Status: Acute Code(s): F41.1 - Generalized anxiety disorder (4) COPD (chronic obstructive pulmonary disease): Qualifiers: COPD type: unspecified COPD Qualified Code(s): J44.9 - Chronic obstructive pulmonary disease, unspecified Status: Acute Code(s): J44.9 - Chronic obstructive pulmonary disease, unspecified (5) GLENROY (obstructive sleep apnea): Status: Acute Code(s): G47.33 - Obstructive sleep apnea (adult) (pediatric) (6) Chronic fatigue: Status: Acute Code(s): R53.82 - Chronic fatigue, unspecified Plan HPI: Patient is a 54-year-old female with past medical history of MDD (reports history of bipolar DX), PTSD, VÍCTOR?, GLENROY, COPD, fibromyalgia who initially self presented to the ED for worsening depression, AH and SI. She was initially admitted to however soon after admission had a near syncopal event and was transferred to the medical floor for observation which proved unremarkable and patient was medically cleared and returned to . Patient reports that she struggled with depression many years but after 10 years on medication management was doing better and got off a number of her medications. Depression started to return about a year ago as did intermittent panic attacks. This past June patient went to [place] where she had oversee her mother's body exhumed from burial plot and transferred to another cemetery. This read triggered many memories and her depression worsened; anniversary of other family members this past August contributed. For some unknown reason, about 2 weeks ago her depression significantly worsened and for the 1st time she started having vague suicidal thoughts, feeling worthless, that she rather be , empty and overwhelmed with sadness. Also auditory hallucinations started up calling to her saying no Deanna. This past week, in a fit of anxiety and despair she broke various items in her house; nightmares worsened and she started waking up thinking she could see her brother at the foot of the bed, saying derogatory things. Patient had the thought to overdose on her pills. Instead she prayed and then went to see her therapist encouraged her to come to the hospital. Patient remains very sad, tearful however is hopeful that medication management can help. Patient endorses history of what she was told are hypomanic episodes, during which time for 3 days she is talking fast, mind is racing, angry feelings and yelling family; feels depressed, bad and though has trouble sleeping very much wishes she could sleep; describes being driven by anxiety rather than having excess energy. AVH rare and has only ever been present when very depressed. Denies any drug or alcohol use. Formulation/clinical reasoning: Patient currently has a severe, psychotic depression with AH, VH and SI. Patient has chronic moderate depression with episodes of severe depression. She reports carrying a diagnosis of bipolar disorder however what she describes as hypomanic episodes seem much more likely a combination of depression and anxiety. Patient's PTSD history very likely contributory. Patient has recorded diagnosis of GLENROY; automobile service writer does not see any mention of CPAP and untreated GLENROY can certainly affect mood and is us possibly contributory. TSH WNL. Discussed medication management. She has been consistent with taking medications. Currently patient would like to maximize Vraylar and or selegiline before starting a new medication; discussed lithium and she is open to restarting this as well. Hospital course: 10/22 Patient remains very depressed and tearful however she says she is feeling a little better which she can tell since she is not getting upset quite as much. She is finding it very helpful to be around people so that her mind is occupied. Patient says AH has resolved. Not sleeping well and automobile service writer adjusted medications, including adding clonidine at bedtime but also making sure Ambien, which he takes at home is available. Discussed medication management and since patient is feeling a little better, agreed to leave adjusted Vraylar as is for now. Discussed how losing her job has been very difficult for her as she gets a lot of benefit from interacting with others. Plan: CV Q 15 minute checks Increased Vraylar to 4.5 mg; may continue to titrate (has been on this for 2 months; says it seemed to help a little as it reduced her crying spells) Continue selegiline/Emsam 9 mg transdermal patch; has been on this for about 5 months and also feels that it has been partially helpful Will consider lithium Will try to assess history of GLENROY Gather collateral Patient educated on: diagnosis, medication risk/benefits and therapeutic strategies Informed Consent: understands Reason for continued inpatient stay Substantial Risk for: inability to function and rapid decompensation Time Spent With Patient Time: Total time managing care of this patient today ____ minutes.
[2024-10-22] MEDS: Zolpidem Tartrate 5 MG TABLET 10 MG PO (20:52)
[2024-10-22] MEDS: Cariprazine HCl 1.5 MG CAPSULE 4.5 MG PO (20:53)
[2024-10-22 20:54] VITALS: BP 192/95; PULSE 82; TEMP 36.6; O2SAT 99
[2024-10-22] MEDS: cloNIDine HCL 0.1 MG TABLET PO (20:54)
[2024-10-22 21:55] VITALS: BP 197/98; PULSE 87; TEMP 36.7; O2SAT 99
[2024-10-23 08:00] VITALS: BP 125/60; PULSE 74; RESP 16; TEMP 36.8; O2SAT 94
--- NOTE | 2024-10-23 08:49 | HO.PSYCHPN ---
Subjective Subjective Date of Service: 10/23/24 Reason For Visit: depression/anxiety Subjective Notes: Angulo Warning and 3 Day Interim History: Met with patient. Patient reports feeling much improved regarding mood. Eager for discharge planning. Submitted 3 day notice. Reports having lots of supports through [facility]. Also reports family helpful. Denies depression. Denies suicidal thoughts. Denies hallucinations. No med concerns. Medication Compliance: Yes Side effects from medications: No Attending Groups: Yes Review of Systems Review of Systems Unremarkable Mental Status Exam Mental Status Exam Narrative: pleasant. Engaged. Casually dressed presented. Organized. Engaging well with peers. Euthymic. No SI. No HI. No agitation psychosis. Insight and judgment fair Diagnostics Vital Signs (24Hr): Vital Signs - 24 hr 10/22/24 20:54 10/22/24 20:54 10/22/24 21:55 Temperature 97.9 F 98.1 F Pulse Rate 82 87 Blood Pressure 192/95 H 192/95 H 197/98 H Pulse Oximetry 99 99 Oxygen Delivery Method Room Air Room Air BMI result Body Mass Index 29.2 Medications Medications Current Medications Acetaminophen (Acetaminophen 325 Mg Tablet) 650 mg PO Q6H PRN PRN Reason: Headache/Pain Mild Scale (1-3) Al Hydroxide/Mg Hydroxide (Magnesium Hydrox/Alum Hydrox 30 Ml Oral.Susp) 30 ml PO Q6H PRN PRN Reason: Heartburn/Nausea Aspirin (Aspirin 81 Mg Tab.Chew) 81 mg PO DAILY [facility] Last Admin: 10/22/24 08:56 Dose: 81 mg Cariprazine (Cariprazine Hcl 1.5 Mg Capsule) 4.5 mg PO BEDTIME [facility] Last Admin: 10/22/24 20:53 Dose: 4.5 mg Clonazepam (Clonazepam 1 Mg Tablet) 1 mg PO BID PRN PRN Reason: severe anxiety Last Admin: 10/22/24 08:57 Dose: 1 mg Clonidine HCl (Clonidine Hcl 0.1 Mg Tablet) 0.1 mg PO BEDTIME [facility]; Protocol Last Admin: 10/22/24 20:54 Dose: 0.1 mg Ferrous Sulfate (Ferrous Sulfate 324 Mg Tablet.) 324 mg PO [id number] [facility] Last Admin: 10/22/24 08:57 Dose: 324 mg Gabapentin (Gabapentin 300 Mg Capsule) 300 mg PO TID [facility] Last Admin: 10/22/24 20:54 Dose: 300 mg Hydroxyzine HCl (Hydroxyzine Hcl 25 Mg Tablet) 25 mg PO Q6H PRN PRN Reason: Anxiety Last Admin: 10/21/24 12:02 Dose: 25 mg Loratadine (Loratadine 10 Mg Tablet) 10 mg PO DAILY [facility] Last Admin: 10/22/24 08:57 Dose: 10 mg Nicotine (Nicotine 21 Mg Patch.Td24) 21 mg TRANSDERMA DAILY PRN PRN Reason: smoking cessation Last Admin: 10/22/24 08:57 Dose: 21 mg Nicotine Polacrilex (Nicotine Polacrilex 2 Mg Gum) 4 mg BUCCAL Q2H PRN PRN Reason: Nicotine Cravings Omeprazole (Omeprazole 20 Mg Capsule.Dr) 20 mg PO DAILY PRN PRN Reason: reflux Polyethylene Glycol (Polyethylene Glycol 3350 17 Gm Powd.Pack) 17 gm PO DAILY PRN PRN Reason: Constipation Last Admin: 10/22/24 09:04 Dose: 17 gm Zolpidem Tartrate (Zolpidem Tartrate 5 Mg Tablet) 10 mg PO BEDTIME PRN PRN Reason: Continued insomnia Last Admin: 10/22/24 20:52 Dose: 10 mg Allergies Allergies Allergy/AdvReac Type Severity Reaction Status Date / Time cat dander Allergy Unknown Verified 10/19/24 13:05 dog dander Allergy Unknown Verified 10/19/24 13:05 Seasonal Allergies Allergy Unknown Verified 10/19/24 13:05 aripiprazole [From [facility]] AdvReac Intermediate Dizziness Verified 10/19/24 13:05 Assessment & Plan Assessment & Plan (1) MDD (major depressive disorder), recurrent, severe, with psychosis: Status: Acute Code(s): F33.3 - Major depressive disorder, recurrent, severe with psychotic symptoms (2) PTSD (post-traumatic stress disorder): Status: Acute Code(s): F43.10 - Post-traumatic stress disorder, unspecified (3) VÍCTOR (generalized anxiety disorder): Status: Acute Code(s): F41.1 - Generalized anxiety disorder (4) COPD (chronic obstructive pulmonary disease): Qualifiers: COPD type: unspecified COPD Qualified Code(s): J44.9 - Chronic obstructive pulmonary disease, unspecified Status: Acute Code(s): J44.9 - Chronic obstructive pulmonary disease, unspecified (5) GLENROY (obstructive sleep apnea): Status: Acute Code(s): G47.33 - Obstructive sleep apnea (adult) (pediatric) (6) Chronic fatigue: Status: Acute Code(s): R53.82 - Chronic fatigue, unspecified Plan HPI: Patient is a 54-year-old female with past medical history of MDD (reports history of bipolar DX), PTSD, VÍCTOR?, GLENROY, COPD, fibromyalgia who initially self presented to the ED for worsening depression, AH and SI. She was initially admitted to however soon after admission had a near syncopal event and was transferred to the medical floor for observation which proved unremarkable and patient was medically cleared and returned to . Patient reports that she struggled with depression many years but after 10 years on medication management was doing better and got off a number of her medications. Depression started to return about a year ago as did intermittent panic attacks. This past June patient went to [place] where she had oversee her mother's body exhumed from burial plot and transferred to another cemetery. This read triggered many memories and her depression worsened; anniversary of other family members this past August contributed. For some unknown reason, about 2 weeks ago her depression significantly worsened and for the 1st time she started having vague suicidal thoughts, feeling worthless, that she rather be , empty and overwhelmed with sadness. Also auditory hallucinations started up calling to her saying no Deanna. This past week, in a fit of anxiety and despair she broke various items in her house; nightmares worsened and she started waking up thinking she could see her brother at the foot of the bed, saying derogatory things. Patient had the thought to overdose on her pills. Instead she prayed and then went to see her therapist encouraged her to come to the hospital. Patient remains very sad, tearful however is hopeful that medication management can help. Patient endorses history of what she was told are hypomanic episodes, during which time for 3 days she is talking fast, mind is racing, angry feelings and yelling family; feels depressed, bad and though has trouble sleeping very much wishes she could sleep; describes being driven by anxiety rather than having excess energy. AVH rare and has only ever been present when very depressed. Denies any drug or alcohol use. Formulation/clinical reasoning: Patient currently has a severe, psychotic depression with AH, VH and SI. Patient has chronic moderate depression with episodes of severe depression. She reports carrying a diagnosis of bipolar disorder however what she describes as hypomanic episodes seem much more likely a combination of depression and anxiety. Patient's PTSD history very likely contributory. Patient has recorded diagnosis of GLENROY; clinical writer does not see any mention of CPAP and untreated GLENROY can certainly affect mood and is us possibly contributory. TSH WNL. Discussed medication management. She has been consistent with taking medications. Currently patient would like to maximize Vraylar and or selegiline before starting a new medication; discussed lithium and she is open to restarting this as well. Hospital course: 10/22 Patient remains very depressed and tearful however she says she is feeling a little better which she can tell since she is not getting upset quite as much. She is finding it very helpful to be around people so that her mind is occupied. Patient says AH has resolved. Not sleeping well and clinical writer adjusted medications, including adding clonidine at bedtime but also making sure Ambien, which he takes at home is available. Discussed medication management and since patient is feeling a little better, agreed to leave adjusted Vraylar as is for now. Discussed how losing her job has been very difficult for her as she gets a lot of benefit from interacting with others. Plan: CV Q 15 minute checks Increased Vraylar to 4.5 mg; may continue to titrate (has been on this for 2 months; says it seemed to help a little as it reduced her crying spells) Continue selegiline/Emsam 9 mg transdermal patch; has been on this for about 5 months and also feels that it has been partially helpful Will consider lithium Will try to assess history of GLENROY Gather collateral 10/23/24: Maintain current med regimen. Three day notice submitted Reason for continued inpatient stay Substantial Risk for: rapid decompensation Time Spent With Patient Time: Total time managing care of this patient today ____ minutes.
[2024-10-23] MEDS: Gabapentin 300 MG CAPSULE PO ×3 (09:13→22:00)
[2024-10-23] MEDS: SELEGILINE TRANSDERMA (09:13)
[2024-10-23] MEDS: Aspirin 81 MG TAB.CHEW PO (09:13)
[2024-10-23] MEDS: clonazePAM 1 MG TABLET PO (09:13)
[2024-10-23] MEDS: Loratadine 10 MG TABLET PO (09:13)
[2024-10-23] MEDS: polyethylene glycoL 3350 17 GM POWD.PACK PO (09:14)
[2024-10-23] MEDS: Nicotine 21 MG PATCH.TD24 TRANSDERMA (09:14)
[2024-10-23] MEDS: Acetaminophen 325 MG TABLET 650 MG PO (09:16)
[2024-10-23] MEDS: Milk of Magnesia 30 ML ORAL.SUSP PO (10:53)
[2024-10-23] MEDS: Docusate Sodium 100 MG CAPSULE PO ×2 (10:53→21:58)
[2024-10-23 20:00] VITALS: BP 145/75; PULSE 86; TEMP 36.8; O2SAT 100
[2024-10-23] MEDS: Cariprazine HCl 1.5 MG CAPSULE 4.5 MG PO (21:57)
[2024-10-23 21:58] VITALS: BP 145/75
[2024-10-23] MEDS: cloNIDine HCL 0.1 MG TABLET PO (21:58)
[2024-10-23] MEDS: Zolpidem Tartrate 5 MG TABLET 10 MG PO (21:58)
[2024-10-23] MEDS: Sennosides 8.6 MG TABLET 17.2 MG PO (21:58)
[2024-10-24 08:35] VITALS: BP 119/69; PULSE 71; RESP 16; TEMP 36.3; O2SAT 98
[2024-10-24] MEDS: Aspirin 81 MG TAB.CHEW PO (08:46)
[2024-10-24] MEDS: SELEGILINE TRANSDERMA (08:46)
[2024-10-24] MEDS: Docusate Sodium 100 MG CAPSULE PO ×2 (08:46→20:54)
[2024-10-24] MEDS: Gabapentin 300 MG CAPSULE PO ×3 (08:46→20:53)
[2024-10-24] MEDS: Loratadine 10 MG TABLET PO (08:46)
[2024-10-24] MEDS: Acetaminophen 325 MG TABLET 650 MG PO (08:50)
[2024-10-24] MEDS: Nicotine 21 MG PATCH.TD24 TRANSDERMA (08:50)
--- NOTE | 2024-10-24 09:36 | HO.PSYCHPN ---
Subjective Subjective Date of Service: 10/24/24 Reason For Visit: depression/anxiety Subjective Notes: 3 Day Interim History: Met with patient. Continues to report feeling well and eager for discharge. Much improved regarding mood. Reports having lots of supports through [facility] services, With family support does not see further benefit from admission and hopeful for DC tomorrow. Denies suicidal thoughts. Denies hallucinations. No med concerns. Review of Systems Review of Systems Unremarkable Mental Status Exam Mental Status Exam Narrative: pleasant. Engaged. Casually dressed presented. Organized. Engaging well with peers. Euthymic. No SI. No HI. No agitation psychosis. Insight and judgment fair Diagnostics Vital Signs (24Hr): Vital Signs - 24 hr 10/23/24 20:00 10/23/24 21:58 10/24/24 08:35 Temperature 98.2 F 97.4 F Pulse Rate 86 71 Respiratory Rate 16 Blood Pressure 145/75 H 145/75 H 119/69 Pulse Oximetry 100 98 Oxygen Delivery Method Room Air Room Air BMI result Body Mass Index 29.2 Medications Medications Current Medications Acetaminophen (Acetaminophen 325 Mg Tablet) 650 mg PO Q6H PRN PRN Reason: Headache/Pain Mild Scale (1-3) Last Admin: 10/24/24 08:50 Dose: 650 mg Al Hydroxide/Mg Hydroxide (Magnesium Hydrox/Alum Hydrox 30 Ml Oral.Susp) 30 ml PO Q6H PRN PRN Reason: Heartburn/Nausea Aspirin (Aspirin 81 Mg Tab.Chew) 81 mg PO DAILY [facility] Last Admin: 10/24/24 08:46 Dose: 81 mg Cariprazine (Cariprazine Hcl 1.5 Mg Capsule) 4.5 mg PO BEDTIME [facility] Last Admin: 10/23/24 21:57 Dose: 4.5 mg Clonazepam (Clonazepam 1 Mg Tablet) 1 mg PO BID PRN PRN Reason: severe anxiety Last Admin: 10/23/24 09:13 Dose: 1 mg Clonidine HCl (Clonidine Hcl 0.1 Mg Tablet) 0.1 mg PO BEDTIME [facility]; Protocol Last Admin: 10/23/24 21:58 Dose: 0.1 mg Docusate Sodium (Docusate Sodium 100 Mg Capsule) 100 mg PO BID [facility] Last Admin: 10/24/24 08:46 Dose: 100 mg Ferrous Sulfate (Ferrous Sulfate 324 Mg Tablet.) 324 mg PO [id number] [facility] Last Admin: 10/22/24 08:57 Dose: 324 mg Gabapentin (Gabapentin 300 Mg Capsule) 300 mg PO TID [facility] Last Admin: 10/24/24 08:46 Dose: 300 mg Hydroxyzine HCl (Hydroxyzine Hcl 25 Mg Tablet) 25 mg PO Q6H PRN PRN Reason: Anxiety Last Admin: 10/21/24 12:02 Dose: 25 mg Loratadine (Loratadine 10 Mg Tablet) 10 mg PO DAILY [facility] Last Admin: 10/24/24 08:46 Dose: 10 mg Magnesium Hydroxide (Milk Of Magnesia 30 Ml Oral.Susp) 30 ml PO BID PRN PRN Reason: Constipation Last Admin: 10/23/24 10:53 Dose: 30 ml Nicotine (Nicotine 21 Mg Patch.Td24) 21 mg TRANSDERMA DAILY PRN PRN Reason: smoking cessation Last Admin: 10/24/24 08:50 Dose: 21 mg Nicotine Polacrilex (Nicotine Polacrilex 2 Mg Gum) 4 mg BUCCAL Q2H PRN PRN Reason: Nicotine Cravings Omeprazole (Omeprazole 20 Mg Capsule.Dr) 20 mg PO DAILY PRN PRN Reason: reflux Polyethylene Glycol (Polyethylene Glycol 3350 17 Gm Powd.Pack) 17 gm PO DAILY PRN PRN Reason: Constipation Last Admin: 10/23/24 09:14 Dose: 17 gm Senna (Sennosides 8.6 Mg Tablet) 17.2 mg PO BEDTIME [facility] Last Admin: 10/23/24 21:58 Dose: 17.2 mg Zolpidem Tartrate (Zolpidem Tartrate 5 Mg Tablet) 10 mg PO BEDTIME PRN PRN Reason: Continued insomnia Last Admin: 10/23/24 21:58 Dose: 10 mg Allergies Allergies Allergy/AdvReac Type Severity Reaction Status Date / Time cat dander Allergy Unknown Verified 10/19/24 13:05 dog dander Allergy Unknown Verified 10/19/24 13:05 Seasonal Allergies Allergy Unknown Verified 10/19/24 13:05 aripiprazole [From Abilify] AdvReac Intermediate Dizziness Verified 10/19/24 13:05 Assessment & Plan Assessment & Plan (1) MDD (major depressive disorder), recurrent, severe, with psychosis: Status: Acute Code(s): F33.3 - Major depressive disorder, recurrent, severe with psychotic symptoms (2) PTSD (post-traumatic stress disorder): Status: Acute Code(s): F43.10 - Post-traumatic stress disorder, unspecified (3) VÍCTOR (generalized anxiety disorder): Status: Acute Code(s): F41.1 - Generalized anxiety disorder (4) COPD (chronic obstructive pulmonary disease): Qualifiers: COPD type: unspecified COPD Qualified Code(s): J44.9 - Chronic obstructive pulmonary disease, unspecified Status: Acute Code(s): J44.9 - Chronic obstructive pulmonary disease, unspecified (5) GLENROY (obstructive sleep apnea): Status: Acute Code(s): G47.33 - Obstructive sleep apnea (adult) (pediatric) (6) Chronic fatigue: Status: Acute Code(s): R53.82 - Chronic fatigue, unspecified Plan HPI: Patient is a 54-year-old female with past medical history of MDD (reports history of bipolar DX), PTSD, VÍCTOR?, GLENROY, COPD, fibromyalgia who initially self presented to the ED for worsening depression, AH and SI. She was initially admitted to however soon after admission had a near syncopal event and was transferred to the medical floor for observation which proved unremarkable and patient was medically cleared and returned to . Patient reports that she struggled with depression many years but after 10 years on medication management was doing better and got off a number of her medications. Depression started to return about a year ago as did intermittent panic attacks. This past June patient went to [place] where she had oversee her mother's body exhumed from burial plot and transferred to another cemetery. This read triggered many memories and her depression worsened; anniversary of other family members this past August contributed. For some unknown reason, about 2 weeks ago her depression significantly worsened and for the 1st time she started having vague suicidal thoughts, feeling worthless, that she rather be , empty and overwhelmed with sadness. Also auditory hallucinations started up calling to her saying no Deanna. This past week, in a fit of anxiety and despair she broke various items in her house; nightmares worsened and she started waking up thinking she could see her brother at the foot of the bed, saying derogatory things. Patient had the thought to overdose on her pills. Instead she prayed and then went to see her therapist encouraged her to come to the hospital. Patient remains very sad, tearful however is hopeful that medication management can help. Patient endorses history of what she was told are hypomanic episodes, during which time for 3 days she is talking fast, mind is racing, angry feelings and yelling family; feels depressed, bad and though has trouble sleeping very much wishes she could sleep; describes being driven by anxiety rather than having excess energy. AVH rare and has only ever been present when very depressed. Denies any drug or alcohol use. Formulation/clinical reasoning: Patient currently has a severe, psychotic depression with AH, VH and SI. Patient has chronic moderate depression with episodes of severe depression. She reports carrying a diagnosis of bipolar disorder however what she describes as hypomanic episodes seem much more likely a combination of depression and anxiety. Patient's PTSD history very likely contributory. 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 TSH WNL. Discussed medication management. She has been consistent with taking medications. Currently patient would like to maximize Vraylar and or selegiline before starting a new medication; discussed lithium and she is open to restarting this as well. Hospital course: 10/22 Patient remains very depressed and tearful however she says she is feeling a little better which she can tell since she is not getting upset quite as much. She is finding it very helpful to be around people so that her mind is occupied. Patient says AH has resolved. 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 Discussed medication management and since patient is feeling a little better, agreed to leave adjusted Vraylar as is for now. Discussed how losing her job has been very difficult for her as she gets a lot of benefit from interacting with others. Plan: CV Q 15 minute checks Increased Vraylar to 4.5 mg; may continue to titrate (has been on this for 2 months; says it seemed to help a little as it reduced her crying spells) Continue selegiline/Emsam 9 mg transdermal patch; has been on this for about 5 months and also feels that it has been partially helpful Will consider lithium Will try to assess history of GLENROY Gather collateral 10/23/24: Maintain current med regimen. Three day notice submitted 10/24: no changes. eager for DC Reason for continued inpatient stay Substantial Risk for: rapid decompensation Time Spent With Patient Time: Total time managing care of this patient today ____ minutes.
[2024-10-24 12:59] VITALS: BP 144/77; PULSE 77; O2SAT 99
[2024-10-24 20:00] VITALS: BP 145/86; PULSE 82; RESP 16; TEMP 36.3; O2SAT 98
[2024-10-24] MEDS: Cariprazine HCl 1.5 MG CAPSULE 4.5 MG PO (20:53)
[2024-10-24] MEDS: cloNIDine HCL 0.1 MG TABLET PO (20:53)
[2024-10-24] MEDS: Zolpidem Tartrate 5 MG TABLET 10 MG PO (21:02)
[2024-10-24] MEDS: Sennosides 8.6 MG TABLET 17.2 MG PO (21:25)
--- NOTE | 2024-10-25 02:41 | PC.NURSE ---
TW noted patient signed 3 day notice 10/23/24 and it will be up 10/27/24. . DELILAH and UR notified.
[2024-10-25] MEDS: Ferrous Sulfate 324 MG TABLET.DR PO (06:41)
[2024-10-25 07:57] VITALS: BP 121/60; PULSE 67; RESP 16; TEMP 36.4; O2SAT 96
[2024-10-25] MEDS: SELEGILINE TRANSDERMA (09:02)
[2024-10-25] MEDS: Gabapentin 300 MG CAPSULE PO ×3 (09:03→21:03)
[2024-10-25] MEDS: Loratadine 10 MG TABLET PO (09:03)
[2024-10-25] MEDS: Aspirin 81 MG TAB.CHEW PO (09:03)
[2024-10-25] MEDS: Docusate Sodium 100 MG CAPSULE PO ×2 (09:03→21:04)
[2024-10-25] MEDS: Nicotine 21 MG PATCH.TD24 TRANSDERMA (09:05)
[2024-10-25] MEDS: Acetaminophen 325 MG TABLET 650 MG PO ×2 (09:18→19:13)
--- NOTE | 2024-10-25 12:28 | P.PNPSI_ITS ---
Subjective Subjective Date of Service: 10/25/24 Reason For Visit: depression/anxiety Subjective Notes: Conditional Voluntary Interim History: Pt reports sleep is fair due to other people on loud on the unit. She reports mood is better now in that she reports less depression. She denies SI/HI. She has been visible on the unit, social with select peers. Inspected area where she had IV- she is on aspirin and it seems increased bruising, mild swelling. She reports swelling is much less, mild pain. Review of Systems Review of Systems Unremarkable Mental Status Exam Mental Status Exam Narrative: pleasant. Engaged. Casually dressed presented. Organized. Engaging well with peers. Euthymic. No SI. No HI. No agitation psychosis. Insight and judgment fair Diagnostics Vital Signs (24Hr): Vital Signs - 24 hr 10/24/24 12:59 10/24/24 20:00 10/25/24 07:57 Temperature 97.4 F 97.6 F Pulse Rate 77 82 67 Respiratory Rate 16 16 Blood Pressure 144/77 H 145/86 H 121/60 Pulse Oximetry 99 98 96 Oxygen Delivery Method Room Air Room Air Room Air BMI result Body Mass Index 29.2 Medications Medications Current Medications Acetaminophen (Acetaminophen 325 Mg Tablet) 650 mg PO Q6H PRN PRN Reason: Headache/Pain Mild Scale (1-3) Last Admin: 10/25/24 09:18 Dose: 650 mg Al Hydroxide/Mg Hydroxide (Magnesium Hydrox/Alum Hydrox 30 Ml Oral.Susp) 30 ml PO Q6H PRN PRN Reason: Heartburn/Nausea Aspirin (Aspirin 81 Mg Tab.Chew) 81 mg PO DAILY [facility] Last Admin: 10/25/24 09:03 Dose: 81 mg Cariprazine (Cariprazine Hcl 1.5 Mg Capsule) 4.5 mg PO BEDTIME [facility] Last Admin: 10/24/24 20:53 Dose: 4.5 mg Clonazepam (Clonazepam 1 Mg Tablet) 1 mg PO BID PRN PRN Reason: severe anxiety Last Admin: 10/23/24 09:13 Dose: 1 mg Clonidine HCl (Clonidine Hcl 0.1 Mg Tablet) 0.1 mg PO BEDTIME [facility]; Protocol Last Admin: 10/24/24 20:53 Dose: 0.1 mg Docusate Sodium (Docusate Sodium 100 Mg Capsule) 100 mg PO BID [facility] Last Admin: 10/25/24 09:03 Dose: 100 mg Ferrous Sulfate (Ferrous Sulfate 324 Mg Tablet.) 324 mg PO [id number] [facility] Last Admin: 10/25/24 06:41 Dose: 324 mg Gabapentin (Gabapentin 300 Mg Capsule) 300 mg PO TID [facility] Last Admin: 10/25/24 09:03 Dose: 300 mg Hydroxyzine HCl (Hydroxyzine Hcl 25 Mg Tablet) 25 mg PO Q6H PRN PRN Reason: Anxiety Last Admin: 10/21/24 12:02 Dose: 25 mg Loratadine (Loratadine 10 Mg Tablet) 10 mg PO DAILY [facility] Last Admin: 10/25/24 09:03 Dose: 10 mg Magnesium Hydroxide (Milk Of Magnesia 30 Ml Oral.Susp) 30 ml PO BID PRN PRN Reason: Constipation Last Admin: 10/23/24 10:53 Dose: 30 ml Nicotine (Nicotine 21 Mg Patch.Td24) 21 mg TRANSDERMA DAILY PRN PRN Reason: smoking cessation Last Admin: 10/25/24 09:05 Dose: 21 mg Nicotine Polacrilex (Nicotine Polacrilex 2 Mg Gum) 4 mg BUCCAL Q2H PRN PRN Reason: Nicotine Cravings Omeprazole (Omeprazole 20 Mg Capsule.) 20 mg PO DAILY PRN PRN Reason: reflux Polyethylene Glycol (Polyethylene Glycol 3350 17 Gm Powd.Pack) 17 gm PO DAILY PRN PRN Reason: Constipation Last Admin: 10/23/24 09:14 Dose: 17 gm Senna (Sennosides 8.6 Mg Tablet) 17.2 mg PO BEDTIME [facility] Last Admin: 10/24/24 21:25 Dose: 17.2 mg Zolpidem Tartrate (Zolpidem Tartrate 5 Mg Tablet) 10 mg PO BEDTIME PRN PRN Reason: Continued insomnia Last Admin: 10/24/24 21:02 Dose: 10 mg Allergies Allergies Allergy/AdvReac Type Severity Reaction Status Date / Time cat dander Allergy Unknown Verified 10/19/24 13:05 dog dander Allergy Unknown Verified 10/19/24 13:05 Seasonal Allergies Allergy Unknown Verified 10/19/24 13:05 aripiprazole [From Abilify] AdvReac Intermediate Dizziness Verified 10/19/24 13:05 Assessment & Plan Assessment & Plan (1) MDD (major depressive disorder), recurrent, severe, with psychosis: Status: Acute Code(s): F33.3 - Major depressive disorder, recurrent, severe with psychotic symptoms (2) PTSD (post-traumatic stress disorder): Status: Acute Code(s): F43.10 - Post-traumatic stress disorder, unspecified (3) VÍCTOR (generalized anxiety disorder): Status: Acute Code(s): F41.1 - Generalized anxiety disorder (4) COPD (chronic obstructive pulmonary disease): Qualifiers: COPD type: unspecified COPD Qualified Code(s): J44.9 - Chronic obstructive pulmonary disease, unspecified Status: Acute Code(s): J44.9 - Chronic obstructive pulmonary disease, unspecified (5) GLENROY (obstructive sleep apnea): Status: Acute Code(s): G47.33 - Obstructive sleep apnea (adult) (pediatric) (6) Chronic fatigue: Status: Acute Code(s): R53.82 - Chronic fatigue, unspecified Plan HPI: Patient is a 54-year-old female with past medical history of MDD (reports history of bipolar DX), PTSD, VÍCTOR?, GLENROY, COPD, fibromyalgia who initially self presented to the ED for worsening depression, AH and SI. She was initially admitted to however soon after admission had a near syncopal event and was transferred to the medical floor for observation which proved unremarkable and patient was medically cleared and returned to . Patient reports that she struggled with depression many years but after 10 years on medication management was doing better and got off a number of her medications. Depression started to return about a year ago as did intermittent panic attacks. This past June patient went to [place] where she had oversee her mother's body exhumed from burial plot and transferred to another cemetery. This read triggered many memories and her depression worsened; anniversary of other family members this past August contributed. For some unknown reason, about 2 weeks ago her depression significantly worsened and for the 1st time she started having vague suicidal thoughts, feeling worthless, that she rather be , empty and overwhelmed with sadness. Also auditory hallucinations started up calling to her saying no Deanna. This past week, in a fit of anxiety and despair she broke various items in her house; nightmares worsened and she started waking up thinking she could see her brother at the foot of the bed, saying derogatory things. Patient had the thought to overdose on her pills. Instead she prayed and then went to see her therapist encouraged her to come to the hospital. Patient remains very sad, tearful however is hopeful that medication management can help. Patient endorses history of what she was told are hypomanic episodes, during which time for 3 days she is talking fast, mind is racing, angry feelings and yelling family; feels depressed, bad and though has trouble sleeping very much wishes she could sleep; describes being driven by anxiety rather than having excess energy. AVH rare and has only ever been present when very depressed. Denies any drug or alcohol use. Formulation/clinical reasoning: Patient currently has a severe, psychotic depression with AH, VH and SI. Patient has chronic moderate depression with episodes of severe depression. She reports carrying a diagnosis of bipolar disorder however what she describes as hypomanic episodes seem much more likely a combination of depression and anxiety. Patient's PTSD history very likely contributory. 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 TSH WNL. Discussed medication management. She has been consistent with taking medications. Currently patient would like to maximize Vraylar and or selegiline before starting a new medication; discussed lithium and she is open to restarting this as well. Hospital course: 10/22 Patient remains very depressed and tearful however she says she is feeling a little better which she can tell since she is not getting upset quite as much. She is finding it very helpful to be around people so that her mind is occupied. Patient says AH has resolved. Not sleeping well and greeting card writer adjusted medications, including adding clonidine at bedtime but also making sure Ambien, which he takes at home is available. Discussed medication management and since patient is feeling a little better, agreed to leave adjusted Vraylar as is for now. Discussed how losing her job has been very difficult for her as she gets a lot of benefit from interacting with others. Plan: CV Q 15 minute checks Increased Vraylar to 4.5 mg; may continue to titrate (has been on this for 2 months; says it seemed to help a little as it reduced her crying spells) Continue selegiline/Emsam 9 mg transdermal patch; has been on this for about 5 months and also feels that it has been partially helpful Will consider lithium Will try to assess history of GLENROY Gather collateral 10/23/24: Maintain current med regimen. Three day notice submitted 10/24: no changes. eager for DC 3 continue current medications. Reason for continued inpatient stay Substantial Risk for: harm to self Time Spent With Patient Time: Total time managing care of this patient today ____ minutes.
[2024-10-25 18:59] VITALS: BP 189/80; PULSE 93
--- NOTE | 2024-10-25 19:06 | PC.NURSE ---
Elevated BP with c/o headache. Covering provider Roseanne Bridges notified. Per orders, pt given scheduled 2100 Clonidine early.
[2024-10-25] MEDS: cloNIDine HCL 0.1 MG TABLET PO (19:11)
[2024-10-25 20:00] VITALS: BP 189/88; PULSE 93; TEMP 36.8; O2SAT 97
[2024-10-25] MEDS: Sennosides 8.6 MG TABLET 17.2 MG PO (21:03)
[2024-10-25] MEDS: Cariprazine HCl 1.5 MG CAPSULE 4.5 MG PO (21:03)
[2024-10-25] MEDS: clonazePAM 1 MG TABLET PO (21:04)
[2024-10-25] MEDS: Zolpidem Tartrate 5 MG TABLET 10 MG PO (21:04)
[2024-10-25 21:16] VITALS: BP 150/71; PULSE 82; TEMP 36.6; O2SAT 97
[2024-10-26 08:00] VITALS: BP 125/68; PULSE 81; TEMP 36.2; O2SAT 96
[2024-10-26] MEDS: Docusate Sodium 100 MG CAPSULE PO (08:18)
[2024-10-26] MEDS: Aspirin 81 MG TAB.CHEW PO (08:18)
[2024-10-26] MEDS: Loratadine 10 MG TABLET PO (08:18)
[2024-10-26] MEDS: Gabapentin 300 MG CAPSULE PO (08:18)
[2024-10-26] MEDS: SELEGILINE TRANSDERMA (08:19)
[2024-10-26] MEDS: Nicotine 21 MG PATCH.TD24 TRANSDERMA (08:24)
--- NOTE | 2024-10-26 09:36 | P.DS_ITS ---
DS: Providers Provider Date of Service: 10/26/24 Date of admission: 10/20/24 14:15 Date of discharge: 10/26/24 Primary care physician: Lauren Keene MD Attending physician on admission: Byron Pickard Attending physician on discharge: Byron Picakrd DS: Diagnosis Discharge Diagnosis (1) MDD (major depressive disorder), recurrent, severe, with psychosis: Status: Acute (2) PTSD (post-traumatic stress disorder): Status: Acute (3) VÍCTOR (generalized anxiety disorder): Status: Acute (4) COPD (chronic obstructive pulmonary disease): Status: Acute (5) Chronic fatigue: Status: Acute DS: Medications Discharge Medications Home Medications: Home Medications ?Medication ?Instructions ?Recorded ?Confirmed famotidine 20 mg tablet (Heartburn 20 mg PO BID 10/19/24 10/20/24 Relief (famotidine)) ferrous sulfate 325 mg (65 mg 325 mg PO MOWEFR@0600 10/19/24 10/20/24 iron) tablet,delayed release omeprazole 20 mg capsule,delayed 20 mg PO DAILY PRN Acid Reflux 10/19/24 release aspirin 81 mg tablet,delayed 81 mg PO DAILY 10/20/24 10/20/24 release (Adult Aspirin Regimen) Previous Rx's ?Medication ?Instructions ?Recorded cariprazine 4.5 mg capsule 4.5 mg PO DAILY 30 days #30 caps 10/26/24 clonazepam 1 mg tablet (Klonopin) 1 mg PO BID PRN moderate to severe 10/26/24 anxiety 30 days #60 tabs clonidine HCl 0.1 mg tablet 0.1 mg PO BEDTIME 30 days #30 tabs 10/26/24 docusate sodium 100 mg capsule 100 mg PO BID 30 days #60 caps 10/26/24 gabapentin 300 mg capsule 300 mg PO TID 30 days #90 caps 10/26/24 (Neurontin) hydroxyzine HCl 25 mg tablet 25 mg PO TID PRN mild Anxiety 30 10/26/24 days #60 tabs loratadine 10 mg tablet 10 mg PO DAILY PRN allergy 10/26/24 symptoms 30 days #30 tabs nicotine 21 mg/24 hr daily 21 mg transdermal DAILY PRN 10/26/24 transdermal patch smoking cessation 28 days #28 ea selegiline 9 mg/24 hr transdermal 9 mg transdermal DAILY 30 days #30 10/26/24 24 hour patch (Emsam) ea sennosides 8.6 mg tablet (Senna 17.2 mg (2 x 8.6 mg) PO BEDTIME 10/26/24 Lax) days #60 tabs zolpidem 10 mg tablet 10 mg PO BEDTIME PRN Insomnia 10/26/24 days #30 tabs Mental Status Exam Mental Status Exam Narrative: Pt is alert and oriented; behavior is cooperative, friendly and calm; patient is not in distress; dressed in casual attire with appropriate hygiene and grooming; mood is described as good and affect congruent; eye contact appropriate; Spee ch is normal rate, volume and prosody and not pressured; no psychomotor agitation/retardation present; thought process is organized and goal directed; Thought content is on tx; otherwise pertinent to relevant topics and without any delusional content, paranoid ideations or grandiosity; denies any SI/HI. There is no evidence of perceptual disturbance. Patients insight and judgment are intact. Data Data Completed and Pending Completed studies during hospitalization [Text1]: 10/21/24 07:32 Estimat Average Glucose 111 Hemoglobin A1c % 5.5 Triglycerides 60 Cholesterol 196 LDL Cholesterol, Calc 127 H HDL Cholesterol 57 TSH 3.59 DS: Summary Hospital Course Hospital Course: HPI: Patient is a 54-year-old female with past medical history of MDD (reports history of bipolar DX), PTSD, VÍCTOR?, GLENROY, COPD, fibromyalgia who initially self presented to the ED for worsening depression, AH and SI. She was initially admitted to however soon after admission had a near syncopal event and was transferred to the medical floor for observation which proved unremarkable and patient was medically cleared and returned to . Patient reports that she struggled with depression many years but after 10 years on medication management was doing better and got off a number of her medications. Depression started to return about a year ago as did intermittent panic attacks. This past June patient went to [place] where she had oversee her mother's body exhumed from burial plot and transferred to another cemetery. This read triggered many memories and her depression worsened; anniversary of other family members this past August contributed. For some unknown reason, about 2 weeks ago her depression significantly worsened and for the 1st time she started having vague suicidal thoughts, feeling worthless, that she rather be , empty and overwhelmed with sadness. Also auditory hallucinations started up calling to her saying no Deanna. This past week, in a fit of anxiety and despair she broke various items in her house; nightmares worsened and she started waking up thinking she could see her brother at the foot of the bed, saying derogatory things. Patient had the thought to overdose on her pills. Instead she prayed and then went to see her therapist encouraged her to come to the hospital. Patient remains very sad, tearful however is hopeful that medication management can help. Patient endorses history of what she was told are hypomanic episodes, during which time for 3 days she is talking fast, mind is racing, angry feelings and yelling family; feels depressed, bad and though has trouble sleeping very much wishes she could sleep; describes being driven by anxiety rather than having excess energy. AVH rare and has only ever been pres ent when very depressed. Denies any drug or alcohol use. Formulation/clinical reasoning: Patient currently has a severe, psychotic depression with AH, VH and SI. Patient has chronic moderate depression with episodes of severe depression. She reports carrying a diagnosis of bipolar disorder however what she describes as hypomanic episodes seem much more likely a combination of depression and anxiety. Patient's PTSD history very likely contributory. Patient has recorded diagnosis of GLENROY; specification writer does not see any mention of CPAP and untreated GLENROY can certainly affect mood and is us possibly contributory. TSH WNL. Discussed medication management. She has been consistent with taking medications. Currently patient would like to maximize Vraylar and or selegiline before starting a new medication; discussed lithium and she is open to restarting this as well. Hospital course: 10/22 Patient remains very depressed and tearful however she says she is feeling a little better which she can tell since she is not getting upset quite as much. She is finding it very helpful to be around people so that her mind is occupied. Patient says AH has resolved. Not sleeping well and specification writer adjusted medications, including adding clonidine at bedtime but also making sure Ambien, which he takes at home is available. Discussed medication management and since patient is feeling a little better, agreed to leave adjusted Vraylar as is for now. Discussed how losing her job has been very difficult for her as she gets a lot of benefit from interacting with others. Over subsequent days patient's mood significantly improved and depression abated. She was feeling much better, back to her regular self and felt ready for discharge. Patient placed a 3 day notice. She remained in good behavioral and impulse control throughout her time in the unit and was appropriate with peers and staff. She was engaged in treatment as well. Patient's affect was noticeably brighter, smiling and interacting freely with peers in the milieu. Patient was optimistic and future oriented but ready for discharge. She was not in imminent risk for harm to self or others and her request for discharge honored. Time spent discussing smoking cessation with patient: 3 to 10 minutes Status at Discharge Functional status at discharge: independent ambulation Overall status at discharge: patient is back to baseline Time Spent with Patient Time attestation: Total time managing care of this patient today _40___ minutes. Time spent: Greater than 30 minutes Specific discharge activities: Met with patient; discussed with team; charting, prescriptions Discharge Plan Discharge Anticipated Discharge Date/Time: 10/26/24 11:30 Patient Disposition: Home, Self-Care Discharge Diagnosis: MDD, recurrent, severe with psychotic symptoms in remission Referrals: Dr. Mercado: [facility] [Other] - 10/28/24 11:30 am (Hospital Discharge Appointment with psychiatrist ) [facility]: [facility] [Other] - 11/04/24 8:30 am (Hospital Disc harge: Follow-up appointment with established therapist) [facility]: [facility] [Other] - 1 Week (Referral to [facility]: [facility] for vocational support ) Lauren Merritt MD [Primary Care Provider] - 1 Week (Office will call PT with follow up appointment ) Discharge Medications: New loratadine 10 mg Tablet 10 mg PO DAILY PRN (Reason: allergy symptoms) 30 Days Qty: 30 0RF nicotine 21 mg/24 hr Patch 24 Hour 21 mg transdermal DAILY PRN (Reason: smoking cessation) 28 Days Qty: 28 0RF Rx Instructions: remove at bedtime clonidine HCl 0.1 mg Tablet 0.1 mg PO BEDTIME 30 Days Qty: 30 0RF Protocol: Hold for SBP< HOLD for SBP < : 90 docusate sodium 100 mg Capsule 100 mg PO BID 30 Days Qty: 60 0RF Rx Instructions: hold for loose stool sennosides [Senna Lax] 8.6 mg Tablet 17.2 mg PO BEDTIME 30 Days Qty: 60 0RF Rx Instructions: hold for loose stool Continued famotidine [Heartburn Relief (famotidine)] 20 mg tablet 20 mg PO BID ferrous sulfate 325 mg (65 mg iron) tablet,delayed release (DR/EC) 325 mg PO MOWEFR@0600 omeprazole 20 mg capsule,delayed release(DR/EC) 20 mg PO DAILY PRN (Reason: Acid Reflux) aspirin [Adult Aspirin Regimen] 81 mg tablet,delayed release (DR/EC) 81 mg PO DAILY clonazepam [Klonopin] 1 mg tablet 1 mg PO BID PRN (Reason: moderate to severe anxiety) 30 Days Qty: 60 0RF gabapentin [Neurontin] 300 mg capsule 300 mg PO TID 30 Days Qty: 90 0RF hydroxyzine HCl 25 mg tablet 25 mg PO TID PRN (Reason: mild Anxiety) 30 Days Qty: 60 0RF zolpidem 10 mg tablet 10 mg PO BEDTIME PRN (Reason: Insomnia) 30 Days Qty: 30 0RF Emsam 9 mg/24 hr Patch 24 Hour 9 mg TRANSDERMAL DAILY 30 Days Qty: 30 0RF Changed cariprazine 4.5 mg capsule 4.5 mg PO DAILY 30 Days Qty: 30 0RF Discharge Orders: Discharge Order (Routine); Ordered 10/26/24 Ordered By: Byron Pickard Diet: Regular diet Activity on Discharge: As tolerated Stand Alone Forms: Patient Portal Discharge page, Community Support Print Language: Mauritian Care Plan Goals: Maintain mood and safe behaviors Take medications as prescribed Practice coping skills Continue with outpatient providers and reach out to them as needed Health Concerns: Mood stability and behaviors Plan of Treatment: Follow up with your PCP, psychiatric provider and other outpatient providers regarding above concerns Take medications as prescribed Assessment: Risk assessment at time of discharge:? Patient was interviewed prior to discharge and found to be fully oriented and without any SI or HI. Patient has improved insight and judgment and wants to continue treatment. Patient is not in imminent risk of harm to self or others and has a safety plan that includes presenting to the closest ER or calling 911 if feeling unsafe.? Patient has been observed closely by nursing and unit staff throughout admission; patient has not engaged in any behaviors that suggest dangerousness to self or others and has demonstrated appropriate behaviors and impulse control Discharge Date/Time: 10/26/24 11:45
== END 2024-10-26 11:45 | disposition home or self-care (01) | DRG 751 ==
PROVIDERS: Admitting Provider Psychiatry & Neurology Psychiatry; PCP Internal Medicine; Visit Provider Psychiatry & Neurology Psychiatry
DX: F33.3 Major depressive disorder, recurrent, severe with psychotic symptoms (principal); F17.210 Nicotine dependence, cigarettes, uncomplicated; F43.10 Post-traumatic stress disorder, unspecified; F41.1 Generalized anxiety disorder; J44.9 Chronic obstructive pulmonary disease, unspecified; G47.33 Obstructive sleep apnea (adult) (pediatric); Z71.6 Tobacco abuse counseling; Z79.899 Other long term (current) drug therapy
CPT/HCPCS: 36415; 80061; 83036; 84443

== ENCOUNTER → 2024-10-20 14:15 | Outpatient (BNV) | payer OTHER, SELFPAY | PROVIDERS: Admitting Provider Psychiatry & Neurology Psychiatry; PCP Internal Medicine; Visit Provider Psychiatry & Neurology Psychiatry | DX: F33.3 Major depressive disorder, recurrent, severe with psychotic symptoms (principal); F43.11 Post-traumatic stress disorder, acute; F41.1 Generalized anxiety disorder; J44.9 Chronic obstructive pulmonary disease, unspecified; G47.33 Obstructive sleep apnea (adult) (pediatric); R53.82 Chronic fatigue, unspecified | CPT/HCPCS: 90792 ==

== ENCOUNTER → 2024-10-29 09:22 | Outpatient (AMB) | payer OTHER, SELFPAY | END | disposition home or self-care (01) | PROVIDERS: PCP Internal Medicine; Visit Provider Nurse Practitioner Family ==

== ENCOUNTER → 2024-10-29 09:22 | Outpatient (BNVA) | DX: F33.3 Major depressive disorder, recurrent, severe with psychotic symptoms (principal); F41.1 Generalized anxiety disorder; I95.9 Hypotension, unspecified; L85.3 Xerosis cutis | CPT/HCPCS: 96127; 99212 ==

== ENCOUNTER 2024-11-30 10:46 | Outpatient (REF) | payer OTHER, SELFPAY ==
--- NOTE | ~2024-11-30 | CT_ITS ---
CLINICAL HISTORY: Z87.891 - Personal history of nicotine dependence CT lung cancer screening (LDCT) Comparison: CT/FL/SR - CT LUNG SCREENING - 11/27/23 14:53 EST Technique: Axial CT images of the chest using low-dose technique. Referring provider counseled the patient on shared decision-making for LDCT screening. Additional counseling was provided on smoking cessation. Effective radiation dose total: DLP 33.2 mGycm, CTDIvol 1.1 mGy. Findings: Left upper lobe 4 mm nodule previously described is significantly smaller in the current study. Several other smaller nodules best seen on image number 146 of the prior exam are smaller or no longer evident. Other tiny nodules seen previously are unchanged. No new nodules are noted. Coronary artery calcifications: None. Limited upper abdomen: Unremarkable. Impression: LungRADS 2 - Benign Appearance: Continue annual screening with low dose Chest CT in 12 months. ##L2# Category 1: Normal; continue annual screening Category 2: Benign appearance or behavior, continue annual screening Category 3: Probably benign, [address] recommended Category 4A: Suspicious, [address] recommended; may consider PET/CT Category 4B: Suspicious, Additional diagnostics and/or tissue sampling recommended Category 4X: Suspicious, Additional diagnostics and/or tissue sampling recommended Category 0: Recalls (incomplete screen due to Incomplete coverage, Noise, Respiratory motion, Expiration, Obscured by acute abnormality) This document has been electronically signed by: Srinath Patel MD on 12/01/2024 13:08:37
--- OUTSIDE RECORDS SUMMARY | 2024-11-30 13:04 | XMS_ITS | Clinical Summary ---
Author Organization [employer] Address [address] [place] [address] Care Team Providers Care Biologist Name Role Phone Unavailable Primary Care Provider [...] Description 09/27/2024 9:00 AM EST Office Visit [facility] ADULT DENTAL [address] [place] [address] Hayder Virgen DMD Dental caries (Primary Dx) 09/27/2024 8:00 AM EST Office Visit [facility] ADULT DENTAL [address] [place] [address] Arian Monte Dental caries (Primary Dx); Dental calculus from Last 3 Months Social History Tobacco [...] Description 04/28/2025 10:00 AM EDT Office Visit [facility] ADULT DENTAL [address] [place] [address] Josette Smith Health Maintenance Due Date Last [...] of 2) 10/11/2023 08/16/2023 COVID-19 Vaccine ( - season) 2024 09/25/2021, 01/16/2021, 12/26/2020 Influenza Vaccine [...] - 1-dose 75+ series) 01/10/2043 Pneumococcal Vaccine: 50+ Years Completed 09/24/2024, 02/20/2022, 07/01/2018 Pneumococcal Vaccine: Pediatrics (0 to 5 Years) [...] Procedure Name Priority Date/Time Associated Diagnosis Comments CASE PRESENTATION, DETAILED AND EXTENSIVE TREATMENT PLANNING Routine 09/27/2024 9:00 AM EST Dental caries 15 LO RESIN-BASED COMPOSITE - 2 SURF, POSTERIOR Routine 09/27/2024 9:00 AM EST Dental caries 3 DO RESIN-BASED COMPOSITE - 2 SURF, POSTERIOR Routine 09/27/2024 9:00 AM EST Dental caries ORAL HYGIENE INSTRUCTIONS Routine 2024 8:00 AM EST BITEWINGS - 4 RADIOGRAPHIC IMAGES Routine 09/27/2024 8:00 AM EST Full PROPHYLAXIS - ADULT Routine 025 8:00 AM EST CASE PRESENTATION, DETAILED AND EXTENSIVE TREATMENT PLANNING Routine 09/27/2024 8:00 AM EST COMPREHENSIVE PERIODONTAL EVALUATION - NEW OR ESTABLISHED PATIENT Routine 09/27/2024 8:00 AM EST PERIODIC ORAL EVALUATION - ESTABLISHED PATIENT Routine 09/27/2024 8:00 AM EST Dental caries INTRAORAL - COMPLETE SERIES OF RADIOGRAPHIC IMAGES Routine 10/30/2023 3:00 PM EST from Last 3 Months or Most Recently Relevant to Health Maintenance [facility] ST[facility]
--- OUTSIDE RECORDS SUMMARY | 2024-11-30 13:04 | XMS_ITS | Clinical Summary ---
Author Organization [facility] Address [address] [place] [address] Care Team Providers Care Battery Charger Tester Name Role Phone Unavailable Primary Care Provider [...]
== END 2024-11-30 10:47 | disposition home or self-care (01) ==
LOC: HO.CT 10:46
PROVIDERS: PCP Internal Medicine; Visit Provider Internal Medicine Pulmonary Disease
DX: Z12.2 Encounter for screening for malignant neoplasm of respiratory organs (principal); Z87.891 Personal history of nicotine dependence
CPT/HCPCS: 71271

== ENCOUNTER → 2024-11-30 10:50 | Outpatient (BNV) | payer OTHER, SELFPAY | PROVIDERS: PCP Internal Medicine; Visit Provider Radiology Diagnostic Radiology | DX: Z87.891 Personal history of nicotine dependence (principal) | CPT/HCPCS: 71271 ==

== ENCOUNTER 2024-12-07 10:12 | Outpatient (AMB) | payer OTHER, SELFPAY ==
--- NOTE | 2024-12-07 10:16 | A.OFFVIS_ITS ---
Vital Signs 12/07/24 10:17 Height 5 ft Weight 149 lb BMI 29.1 BP 100/60 Blood Pressure Location Rt brachial Position Sitting Pulse 88 Pulse Source Doppler Pulse Oximetry (%) 97 Oxygen Delivery Method Room Air Intake Visit Reasons: Cough Allergies cat dander Allergy (Verified 12/07/24 10:21) Unknown dog dander Allergy (Verified 12/07/24 10:21) Unknown Seasonal Allergies Allergy (Verified 12/07/24 10:21) Unknown aripiprazole [From Abilify] Adverse Reaction (Intermediate, Verified 12/07/24 10:21) Dizziness HPI HPI Cough: Details: 54-year-old lady, active 35+ pack-year smoker followed for underlying COPD. Patient's symptoms now well controlled on current regimen of Anoro and albuterol MDI. She did complete her lung cancer screening CT chest that did not demonstrate any worrisome pulmonary nodules. She denies recent exacerbations. [facility] Medical History (Updated 11/03/24 @ 00:01 by Trisha Adam) Hypotension GLENROY (obstructive sleep apnea) PTSD (post-traumatic stress disorder) MDD (major depressive disorder), recurrent, severe, with psychosis Chronic fatigue Right ankle pain Left ankle pain Myofascial pain syndrome Cervicalgia Overweight (BMI 25.0-29.9) Cervical radiculopathy Hypertension Polyarthralgia Dermatochalasis Migraine Anxiety Depression History of headache Healthy adult Surgical History Hx of colonoscopy Hx of blepharoplasty History of section History of tubal ligation Family History Father No problems noted. Mother Arthritis of knee Breast cancer Heart problem HTN (hypertension) Family/Other Diabetes Arthritis of knee HTN (hypertension) Mental health disorder Social History Household Members: Significant Other and Children Household Members Other:: daughter Housing: House Do you presently have visiting nurse or other home services: No Alcohol intake: never Patient Tobacco Use Status: Current everyday Tobacco user Tobacco use type: Cigarette Cigarette Packs Per Day: 1 Cigarettes Per Day: 20.0 Years Smoked: 15 +/- started at 16 years old e-Cigarette/Vaping Use: Never Used Second Hand Smoke Exposure: No Substance Use Type: Caffiene service: No Current occupational status: employed Current occupational exposures/hazards: No Sexual orientation: Straight/Heterosexual Cognitive needs: No Hearing needs: No Vision needs: Yes Review of Systems Const Denies daytime sleepiness, Denies excessive sweating, Denies fatigue, Denies fever(s), Denies lethargy, Denies malaise, Denies night sweats, Denies snoring and Denies weight loss Eyes Denies blurry vision and Denies itchy eyes ENT Denies nasal congestion, Denies post nasal drip, Denies sinus pain, Denies sinus pressure and Denies other ( Thrush) Card Denies chest pain, Denies pedal edema, Denies dyspnea, Denies orthopnea and Denies paroxysmal nocturnal dyspnea Resp Denies cough, Denies hemoptysis, Denies excessive phlegm production, Denies dyspnea, Denies snoring and Denies wheezing GI Denies abdominal pain and Denies heartburn Musc Denies myalgias, Denies arthralgias and Denies joint swelling Skin/Breast Denies rash Neuro Denies memory loss and Denies seizure-like activity Psych Denies abnormal sleep pattern, Denies anxiety and Denies memory loss Endo Denies excessive sweating, Denies fatigue and Denies heat intolerance Fer/Lymph Denies easy bruising Aller/Immun Denies itchy eyes, Denies seasonal rhinorrhea and Denies wheezing Physical Exam Vital Signs: Last Vital Signs Pulse 88 12/07/24 10:17 BP 100/60 12/07/24 10:17 Pulse Ox 97 12/07/24 10:17 Oxygen Delivery Method Room Air 12/07/24 10:17 BMI result Body Mass Index 29.1 Const General: no acute distress and alert Nutritional Appearance: not obese Orientation/consciousness: Other orientation findings ( oriented) HEENT Head: Yes atraumatic Eyes General: appearance normal, both eyes and all related structures Sclerae: sclerae normal EOM: EOMs intact bilaterally Neck Neck: Yes supple Lymphatic: no lymphadenopathy noted Resp Effort & Inspection: normal respiratory effort and no use of accessory muscles Auscultation: clear to auscultation bilaterally Cardio Rate: regular rate Rhythm: regular rhythm Heart sounds: no gallops, no murmurs and no rubs Skin General skin exam: other ( warm) Extrem General: No clubbing, No cyanosis and No edema Assessment & Plan Assessment & Plan (1) COPD (chronic obstructive pulmonary disease): Code(s): J44.9 - Chronic obstructive pulmonary disease, unspecified Category: Medical Qualifiers: COPD type: unspecified COPD Qualified Code(s): J44.9 - Chronic obstructive pulmonary disease, unspecified Plan: Well controlled on Anoro and albuterol MDI. Continue current regimen. (2) Personal history of nicotine dependence: Code(s): Z87.891 - Personal history of nicotine dependence Category: Medical Plan: Results of lung cancer screening CT chest from November of 2024 reviewed, no worrisome nodules at this time. Continue with yearly screening, next in November of 2025, ordered. Orders: Orders CT lung screening 11/29/25 Z87.891 - Personal history of nicotine dependence Coding Level of Care Code Est Pt Level 4 (50530) Diagnoses Chronic obstructive pulmonary disease, unspecified COPD type J44.9 COPD type: unspecified COPD Personal history of nicotine dependence Z87.891
[2024-12-07 10:17] VITALS: BP 100/60; PULSE 88; O2SAT 97; BMI 29.1
--- OUTSIDE RECORDS SUMMARY | 2024-12-07 11:47 | XMS_ITS | Clinical Summary ---
Author Organization [facility] Address [address] [place] [address] Care Team Providers Care Ground Water Technician Name Role Phone Unavailable Primary Care Provider [...]
== END 2024-12-07 10:32 | disposition home or self-care (01) ==
LOC: HO.HPS 10:13
PROVIDERS: PCP Internal Medicine; Visit Provider Internal Medicine Pulmonary Disease
DX: J44.9 Chronic obstructive pulmonary disease, unspecified (principal); Z87.891 Personal history of nicotine dependence
CPT/HCPCS: 99214

== ENCOUNTER → 2024-12-07 10:12 | Outpatient (BNVA) | payer OTHER, SELFPAY | PROVIDERS: PCP Internal Medicine; Visit Provider Internal Medicine Pulmonary Disease | DX: J44.9 Chronic obstructive pulmonary disease, unspecified (principal); F17.210 Nicotine dependence, cigarettes, uncomplicated | CPT/HCPCS: 99212 ==

== ENCOUNTER 2025-03-14 10:19 | Outpatient (REF) | payer OTHER, SELFPAY ==
--- OUTSIDE RECORDS SUMMARY | 2025-03-14 11:33 | XMS_ITS | Clinical Summary ---
Author Organization [employer] Address [address] [place] [address] Care Team Providers Care Environmental Studies Professor Name Role Phone Unavailable Primary Care Provider [...] 11/14/2023 Inflamed gum 11/14/2023 Gingival bleeding 11/14/2023 Social History Tobacco Use Types Packs/Day Years [...] Description 04/28/2025 10:00 AM EDT Office Visit [facility] ADULT D[facility] [address] [place], [place] [id number] Josette Smith Health Maintenance Due Date Last Done Comments CT Colonography 1968 Colonoscopy 1968 Colorectal Cancer Screening 1968 Depression Screening 1968 FIT DNA/Cologuard 1968 FIT 1968 FOBT 1968 HIV Screening 1968 Lipid Panel 1968 SDOH Screening 1968 Sigmoidoscopy 1968 Disability Screening 1968 Alcohol/Substance Use Screening 1980 Hepatitis C Screening 01/10/1986 Pap Smear 01/10/1989 Cervical Cancer Screening 01/10/1998 HPV/Cotest 01/10/1998 Mammogram 2008 Hepatitis B Vaccines (3 of 3 - 19+ 3-dose series) 05/25/2020 12/23/2019, 11/23/2019 Zoster Vaccines (2 of 2) 10/11/2023 08/16/2023 COVID-19 Vaccine ( - season) 2024 09/25/2021, 01/16/2021, 12/26/2020 Dental Oral Exam 03/28/2025 09/27/2024, 04/2024, 07/06/2019, Additional history exists Dental Prophylaxis 03/28/2025 09/27/2024, 0 11/14/2023, 06/14/2019, Additional history exists Influenza Vaccine (Season Ended) 2025 08/22/2021, 11/23/2019 Tobacco Screening 09/27/2025 09/27/2024 Dental X-Ray: Bitewings 09/28/2025 09/27/19, 10/30/2023, 10/17/2023, Additional history exists Dental X-Ray: Full Mouth 10/31/2026 10/30/2023 DTaP/Tdap/Td Vaccines (2 - Td or Tdap) 06/28/2029 06/28/2019 RSV Patients and Patients Aged 60 years or older (1 - 1-dose 75+ series) 01/10/2043 Pneumococcal Vaccine: 50+ Years Completed 09/24/2024, 02/20/2022, 07/01/2018 HIB Vaccines Aged [...] patient's age to complete this topic Meningococcal B Vaccine Aged Out No l onger eligible based on patient's age to complete [...] - ADULT Routine 025 8:00 AM EST BITEWINGS - 4 RADIOGRAPHIC IMAGES Routine 09/27/2024 8:00 AM EST PERIODIC ORAL EVALUATION - ESTABLISHED PATIENT Routine 09/27/2024 8:00 AM EST Dental caries INTRAORAL - COMPLETE SERIES OF RADIOGRAPHIC IMAGES Routine 10/30/2023 3:00 PM EST from Last 3 Months or Most Recently Relevant to Health Maintenance Insurance [facility] [place] STAND AD[place]
[2025-03-14 12:25] LABS: Free T4 (Free Thyroxine) 0.91 ng/dL (0.71-1.85); Thyroid Stimulating Hormone 2.34 uIU/mL (0.32-4.0)
[2025-03-15 21:48] LABS: Thyroglobulin Antibodies 2 IU/mL (< or = 1); Thyroid Peroxidase Antibodies 214 IU/mL (<9)
== END 2025-03-14 10:20 | disposition home or self-care (01) ==
LOC: HO.LAB 10:19
PROVIDERS: PCP Internal Medicine; Visit Provider Internal Medicine
DX: R79.89 Other specified abnormal findings of blood chemistry (principal)
CPT/HCPCS: 36415; 84439; 84443; 86376; 86800

== ENCOUNTER 2025-03-23 10:30 | Outpatient (AMB) | payer OTHER, SELFPAY ==
[2025-03-23 10:32] VITALS: BP 132/76; BMI 29.3
--- NOTE | 2025-03-23 10:32 | A.OFFPC_ITS ---
Vital Signs 03/23/25 10:32 Height 5 ft Weight 150 lb BMI 29.3 BP 132/76 Blood Pressure Location Lt brachial Position Sitting Intake Visit Reasons: depression with anxiety Intake Note: Patient here for a follow up Depression with Anxiety Stonecutter Required: No Accompanied by: Self / Same As Patient Allergies cat dander Allergy (Verified 03/23/25 10:51) Unknown dog dander Allergy (Verified 03/23/25 10:51) Unknown Seasonal Allergies Allergy (Verified 03/23/25 10:51) Unknown aripiprazole (From Abiliy) Adverse Reaction (Intermediate, Verified 03/23/25 10:51) Dizziness Medication List - Last Reconciled 03/23/25 by Lauren Keene MD aspirin (Adult Aspirin Regimen) 81 mg PO DAILY cariprazine 4.5 mg PO DAILY 30 days clonazepam (Klonopin) 1 mg PO BID PRN 30 days clonidine HCl 0.1 mg See Protocol PO BEDTIME 30 days docusate sodium 100 mg PO BID 30 days famotidine (Heartburn Relief (famotidine)) 20 mg PO BID ferrous sulfate 325 mg PO MOWEFR@0600 gabapentin (Neurontin) 300 mg PO TID 30 days hydroxyzine HCl 25 mg PO TID PRN 30 days levocetirizine 5 mg PO BID nicotine 21 mg transdermal DAILY PRN 28 days omeprazole 20 mg PO DAILY PRN selegiline (Emsam) 9 mg transdermal DAILY 30 days sennosides (Senna Lax) 17.2 mg (2 x 8.6 mg) PO BEDTIME 30 days zolpidem 10 mg PO BEDTIME PRN 30 days Tobacco use date assessed: 10/29/24 Dental Screening Dental Screen Date: 10/29/24 HPI HPI Comments History of Present Illness Details This is a 55-year-old female with moderate recurrent major depression follow by Psychiatry as well as generalized anxiety disorder, COPD, fibro myalgia, chronic GERD and constipation that complains of migraines that have been more frequent. Unable to prescribe sumatriptan due to an interaction with 1 of her psych medications. I will prescribe magnesium at bedtime. She follows with psychiatry every 6 weeks due to depression and anxiety not been well control but has improved. On inhalers for her COPD and she is currently wheezing. GERD stable with PPIs. Constipation well controlled with docusate as needed. She is a smoker and was advised to quit. Had lung cancer screening this year in November which recommended another CT next year. She is also on gabapentin for her fibromyalgia. [facility] Medical History Hypotension GLENROY (obstructive sleep apnea) PTSD (post-traumatic stress disorder) MDD (major depressive disorder), recurrent, severe, with psychosis Chronic fatigue Right ankle pain Left ankle pain Myofascial pain syndrome Cervicalgia Overweight (BMI 25.0-29.9) Cervical radiculopathy Hypertension Polyarthralgia Dermatochalasis Migraine Anxiety Depression History of headache Healthy adult Surgical History Hx of colonoscopy Hx of blepharoplasty History of section History of tubal ligation Family History Father No problems noted. Mother Arthritis of knee Breast cancer Heart problem HTN (hypertension) Family/Other Diabetes Arthritis of knee HTN (hypertension) Mental health disorder Social History Household Members: Significant Other and Children Household Members Other:: daughter Housing: House Do you presently have visiting nurse or other home services: No Alcohol intake: never Patient Tobacco Use Status: Current everyday Tobacco user Tobacco use type: Cigarette Cigarette Packs Per Day: 1 Cigarettes Per Day: 20.0 Years Smoked: 15 +/- started at 16 years old e-Cigarette/Vaping Use: Never Used Second Hand Smoke Exposure: No Substance Use Type: Caffiene service: No Current occupational status: employed Current occupational exposures/hazards: No Sexual orientation: Straight/Heterosexual Cognitive needs: No Hearing needs: No Vision needs: Yes Questionnaire Thrive Questionnaire Date Thrive assessed: 09/22/24 I am a: Patient What is your living situation today?: I have a steady place to live Within the past 12 months, did the food you bought not last and you didn't have the money to get more?: I choose not to answer this question Within the past 12 months, did you worry whether your food would run out before you got money to buy more?: I choose not to answer this question Do you have trouble paying for medicines?: I choose not to answer this question Do you have trouble getting transportation to medical appointments?: No Do you have trouble paying your heating and electricity bill?: I choose not to answer this question Do you have trouble taking care of your child, family member or friend?: I choose not to answer this question Do you have trouble with day-to-day activities such as bathing, preparing meals, shopping, managing finances, etc.?: No Are you currently unemployed and looking for a job?: I choose not to answer this question Are you interested in more education?: I choose not to answer this question Please select the resources that you would like help with: Job search/training Currently or been in a relationship where the following occur: No concerns reported THRIVE Score: 0 VÍCTOR-7 AMB Questionnaire VÍCTOR-7 Date VÍCTOR - 7 assessed: 10/29/24 Source: Developed by Drs. Eddie Rothman, Padmini Blancas, Azeem Katz and colleagues, with an educational ran from [employer]. Review of Systems Const All systems reviewed & are unremarkable except as noted in HPI and below Card Denies chest pain at rest, Denies chest pain with activity, Denies edema, Denies irregular heart rhythm, Denies claudication, Denies dyspnea, Denies dyspnea on exertion, Denies orthopnea, Denies paroxysmal nocturnal dyspnea and Denies slow heart rate Resp Denies cough, Denies dyspnea and Denies dyspnea on exertion GI Denies abdominal pain, Denies change in bowel habits, Denies excessive flatus, Denies nausea and Denies vomiting Physical exam (Primary Care) Vital Signs: Last Vital Signs BP 132/76 03/23/25 10:32 BMI result Body Mass Index 29.3 Tobacco/Smoking Status: Tobacco use Status Tobacco use date assessed 10/29/24 03/23/25 10:36 Patient Tobacco Use Status Current everyday Tobacco 03/23/25 10:36 Tobacco use type Cigarette 03/23/25 10:36 e-Cigarette/Vaping Use Never Used 03/23/25 10:36 Are you ready to quit: No Tobacco cessation counseling provided: Yes Items discussed: Nicotine replacement Relapse Prevention: discussed the importance of a supportive environment, discussed extending NRT, discussed negative mood or depression after quitting, weight gain after smoking is common and discussed dietary, exercise and/or lifestyle changes Number of minutes spent counselin CPT code: 77687 - 4-10 Minutes Thrive Assessment: Date of Thrive Assessment Date Thrive assessed 09/22/24 03/23/25 10:36 Currently or been in a relationship where the following occur: No concerns reported Resp Effort & Inspection: normal respiratory effort Auscultation: clear to auscultation bilaterally Cardio Jugular venous distension: no JVD Rate: regular rate Rhythm: regular rhythm Heart sounds: S1 normal heart sound present and S2 normal heart sound present Coding Level of Care Code Est Pt Level 4 (10946) Complex EM visit Add On G2211 Diagnoses Moderate recurrent major depression F33.1 VÍCTOR (generalized anxiety disorder) F41.1 Chronic idiopathic constipation K59.04 Gastroesophageal reflux disease, unspecified whether esophagitis present K21.9 Esophagitis presence: esophagitis presence not specified Fibromyalgia M79.7 Chronic obstructive pulmonary disease, unspecified COPD type J44.9 COPD type: unspecified COPD Migraine without aura and without status migrainosus, not intractable G43.009 Migraine type: without aura Status migrainosus presence: without status migrainosus Intractability: not intractable Additional Codes Vital Signs *Quality* - CPT code: 81288 - 4-10 Minutes ([id number]) Time Spent (min) 22 Assessment & Plan Assessment & Plan (1) Moderate recurrent major depression: Code(s): F33.1 - Major depressive disorder, recurrent, moderate Category: Medical (2) VÍCTOR (generalized anxiety disorder): Code(s): F41.1 - Generalized anxiety disorder Category: Medical (3) Chronic idiopathic constipation: Code(s): K59.04 - Chronic idiopathic constipation Category: Medical (4) GERD (gastroesophageal reflux disease): Code(s): K21.9 - Gastro-esophageal reflux disease without esophagitis Category: Medical Qualifiers: Esophagitis presence: esophagitis presence not specified Qualified Code(s): K21.9 - Gastro-esophageal reflux disease without esophagitis (5) Fibromyalgia: Code(s): M79.7 - Fibromyalgia Category: Medical (6) COPD (chronic obstructive pulmonary disease): Code(s): J44.9 - Chronic obstructive pulmonary disease, unspecified Category: Medical Qualifiers: COPD type: unspecified COPD Qualified Code(s): J44.9 - Chronic obstructive pulmonary disease, unspecified (7) Migraine: Code(s): G43.909 - Migraine, unspecified, not intractable, without status migrainosus Category: Medical Qualifiers: Migraine type: without aura Status migrainosus presence: without status migrainosus Intractability: not intractable Qualified Code(s): G43.009 - Migraine without aura, not intractable, without status migrainosus Plan Continue current meds. Follow-up with psychiatry every 6 weeks. Repeat lung cancer screening next year. Refill docusate and senna for constipation. Start magnesium at bedtime to prevent migraines. Medications: New magnesium oxide 400 mg PO BEDTIME 90 caps 1RF 90 days Refilled sennosides (Senna Lax) hold for loose stool 17.2 mg (2 x 8.6 mg) PO BEDTIME 60 tabs 0RF 30 days docusate sodium hold for loose stool 100 mg PO BID 60 caps 0RF 30 days nicotine remove at bedtime 21 mg transdermal DAILY PRN 28 ea 0RF smoking cessation 28 days
--- OUTSIDE RECORDS SUMMARY | 2025-03-23 11:08 | XMS_ITS | Clinical Summary ---
Author Organization [facility] Address [address] [place] [address] Care Team Providers Care Extraction Machine Operator Name Role Phone Unavailable Primary Care Provider Unavailabl e Social History Tobacco Use Types Packs/Day Years Used Date Smoking Tobacco: Never Assessed Comments Unknown Sex and Gender Information Value Date Recorded Sex Assigned at Not on file Legal Sex Female 6:51 PM EST Gender Identity Not on file Sexual Orientation Not on file Plan of Treatment Health Maintenance Due Date Last Done Comments Hepatitis C Virus Screening 1970 HIV Screening 01/10/1981 DTaP/Tdap/Td Vaccines (1 - Tdap) 01/10/1987 Hepatitis B Vaccines (1 of 3 - 19+ 3-dose series) 12/22 Pneumococcal Vaccines 50+ (1 of 1 - PCV) 01/10/2018 Zoster (Shingles) Vaccine (1 of 2) 01/10/2018 COVID-19 Vaccine (1 - 2023- season) 2024
== END 2025-03-23 11:02 | disposition home or self-care (01) ==
LOC: HO.HMCH 10:31
PROVIDERS: PCP Internal Medicine; Visit Provider Internal Medicine
DX: J44.9 Chronic obstructive pulmonary disease, unspecified (principal); F33.1 Major depressive disorder, recurrent, moderate; F41.1 Generalized anxiety disorder; K59.04 Chronic idiopathic constipation; K21.9 Gastro-esophageal reflux disease without esophagitis; M79.7 Fibromyalgia; G43.009 Migraine without aura, not intractable, without status migrainosus

== ENCOUNTER → 2025-03-23 10:30 | Outpatient (BNVA) | payer OTHER, SELFPAY | PROVIDERS: PCP Internal Medicine; Visit Provider Internal Medicine | DX: F41.1 Generalized anxiety disorder (principal); F33.1 Major depressive disorder, recurrent, moderate; J44.9 Chronic obstructive pulmonary disease, unspecified; M79.7 Fibromyalgia; K21.9 Gastro-esophageal reflux disease without esophagitis; K59.04 Chronic idiopathic constipation; G43.909 Migraine, unspecified, not intractable, without status migrainosus; G43.009 Migraine without aura, not intractable, without status migrainosus; F17.210 Nicotine dependence, cigarettes, uncomplicated; Z79.899 Other long term (current) drug therapy | CPT/HCPCS: 99212 ==

== ENCOUNTER 2025-05-03 10:20 | Outpatient (REF) | payer OTHER, SELFPAY ==
--- NOTE | ~2025-05-03 | XR_ITS ---
EXAMINATION: XR FOOT, LEFT CLINICAL INFORMATION: M79.672 - Pain in left foot COMPARISON: October 07, 2014. TECHNIQUE: AP, lateral, and oblique views of the left foot. FINDINGS: No acute cortical disruption or malalignment. No gross lytic or blastic lesions. No subcutaneous emphysema. No gross joint effusion. No calcaneal spur. XR/XR foot LT min 3V IMPRESSION: No acute fracture or dislocation. Negative exam. Electronically signed by: Peyman Hanson MD 05/03/2025 12:29 PM EDT
== END 2025-05-03 10:21 | disposition home or self-care (01) ==
LOC: HO.HMGCX 10:20
PROVIDERS: PCP Internal Medicine; Visit Provider Physician Assistant Medical
DX: S96.919A Strain of unspecified muscle and tendon at ankle and foot level, unspecified foot, initial encounter (principal); M79.672 Pain in left foot; M79.89 Other specified soft tissue disorders; X58.XXXA Exposure to other specified factors, initial encounter; Z79.899 Other long term (current) drug therapy
CPT/HCPCS: 73630; 99212

== ENCOUNTER 2025-05-03 10:20 | Outpatient (AMB) | payer OTHER, SELFPAY ==
--- OUTSIDE RECORDS SUMMARY | 2025-04-28 11:00 | XMS_ITS | Encounter Summary ---
Author Organization [email or web address] Address [address] [place] [address] Care Team Providers Care Out Of School Hours Care Worker Name Role Phone Unavailable Primary Care Provider Unavailabl e Reason for Visit * Reason Comments Routine Cleaning Dental Exam Encounter Details Date Type Department Care Team ([facility] st Contact Info) Description 04/28/2025 11:00 AM EDT Office Visit [facility] [address] [place] [address] Arian Monte Dental calculus (Primary Dx) Social History Tobacco Use Types [...] Sign Reading Time Taken Comments Blood Pressure 138/80 04/28/2025 10:57 AM EDT Pulse 70 04/28/2025 10:57 AM EDT Temperature - - Respiratory Rate - - Oxygen Saturation - - Inhaled Oxygen Concentration - - Weight - - Height - - Body Mass Index - - documented in this encounter Progress Notes * Arian Monte - 04/28/2025 11:00 AM EDT Patient ID: Deannasanjay Gómez is a 55 y.o. female. Time Out: Timeout Date: 04/28/25, Timeout Time: 1101 Location: [facility] Tooth: Maxilla and Mandible Procedure: Prophylaxis Verified the above with patient, licensed loan officer assistant, and provider. Confirmed via patient's chart, intraorally and by radiographs. Cable Tool Driller: not applicable Medical Hx: Vitals: Blood pressure 138/80, pulse 70. Medications, Med Hx reviewed with patient and updated in chart. Treatment Provided Dental procedures in this visit D1110 - PROPHYLAXIS - ADULT (Completed) Service provider: Arian Monte Billing provider: Adilson No DDS D1330 - ORAL HYGIENE INSTRUCTIONS (Completed) Service provider: Arian Monte Billing provider: Adilson No DDS D9450 - CASE PRESENTATION, DETAILED AND EXTENSIVE TREATMENT PLANNING (Completed) Service provider: Arian Monte Billing provider: Adilson No DDS Instruments Used: Ultrasonic Scalers and Prophy angle Fluoride: N/A Oral Cancer Screening: No lesions Head/Neck Exam: No Lesions Calculus: Light and Localized Plaque: Light and Generalized Stain: Heavy and Generalized Bleeding: Light and Localized Gingiva: Healthy [place]: Fair Perio Chart: Not Completed Oral hygiene instructions provided to patient including brushing technique and flossing. Recommendations: Melrose two times daily, modified quiroz technique, Floss daily Recall Frequency: 6 mo NV: 6mr Hygienist: Arian Monte RDH documented in this encounter Plan of Treatment Upcoming Encounters Date Type Department Care Team (Late st Contact Info) Description 11/02/2025 10:00 AM EST Office Visit [facility] [address] [place] [address] Arian Monte Scheduled Orders Name Type Priority Associated Diagnoses Orde r Schedule PROPHYLAXIS - ADULT Dental Routine 1 Occ urrences starting 04/28/2025 documented as of this encounter Procedures Procedure Name Priority Date/Time Associated Diagnosis Comments PROPHYLAXIS - ADULT Routine 04/28/2025 1 1:00 AM EDT ORAL HYGIENE INSTRUCTIONS Routine 2024 11:00 AM EDT CASE PRESENTATION, DETAILED AND EXTENSIVE TREATMENT PLANNING Routine 04/28/2025 11:00 AM EDT documented in this encounter Visit Diagnoses Diagnosis Dental calculus- Primary Accretions on teeth documented in this encounter
[2025-05-03 10:32] VITALS: BP 120/84; PULSE 102; TEMP 37; O2SAT 97; BMI 29.7
--- NOTE | 2025-05-03 10:32 | AM.OFFWIN_ITS ---
Intake Vital Signs 05/03/25 10:32 Height 5 ft Weight 152 lb 4 oz BMI 29.7 BP 120/84 Blood Pressure Location Lt brachial Position Sitting Pulse 102 H Pulse Source Pulse Oximeter Temp 98.6 F Temp Source Oral Pulse Oximetry (%) 97 Oxygen Delivery Method Room Air Intake Visit Reasons: EP-lt foot pain & swollen Patient Tobacco Use Status: Current everyday Tobacco user Supervisor Burling And Joining Required: Yes Is last menstrual period known: No Post menopausal: Yes Patient : No Allergies cat dander Allergy (Verified 05/03/25 10:37) Unknown dog dander Allergy (Verified 05/03/25 10:37) Unknown Seasonal Allergies Allergy (Verified 05/03/25 10:37) Unknown aripiprazole (From Abilify) Adverse Reaction (Intermediate, Verified 05/03/25 10:37) Dizziness HPI HPI Comments History of Present Illness Details History of Present Illness - The patient is a 55-year-old female pr esenting with left foot pain and swelling. - The foot pain began approximately 3 we eks ago without any known inciting event. - Pain is at the base of the 3rd and 4th digit on the left. - Her foot swells at times. - The pain worsens with weight-bearing a nd ambulation. - The patient has no history of gout. - She has no numbness, tingling, redness , or warmth. Physical Exam General: Cooperative, healthy appearing, comfortable, no acute distress and well developed Respiratory: Normal respiratory effort and able to speak in complete sentences. Clear to auscultation bilaterally Cardiovascular: Regular rate and rhythm. Normal S1 and S2 Skin: No rashes or lesions noted. No erythema noted. No bruises or abrasions noted. Neuro: Sensation is intact. Extremities: Mild edema noted to the left foot. No redness or warmth noted. No deformity noted. TTP of the MCP joint on the dorsal aspect on the 3rd and 4th digit on the foot. No TTP of the plantar fascia, forefoot, and calcaneous. FROM of the left ankle. No calf tenderness noted. Ambulates with steady gait. Patient was informed and verbally consented to the use of an ambient scribe for clinic note documentation during this visit. [facility] Medical History Hypotension GLENROY (obstructive sleep apnea) PTSD (post-traumatic stress disorder) MDD (major depressive disorder), recurrent, severe, with psychosis Chronic fatigue Right ankle pain Left ankle pain Myofascial pain syndrome Cervicalgia Overweight (BMI 25.0-29.9) Cervical radiculopathy Hypertension Polyarthralgia Dermatochalasis Migraine Anxiety Depression History of headache Healthy adult Surgical History Hx of colonoscopy Hx of blepharoplasty History of section History of tubal ligation Family History Father No problems noted. Mother Arthritis of knee Breast cancer Heart problem HTN (hypertension) Family/Other Diabetes Arthritis of knee HTN (hypertension) Mental health disorder Social History Household Members: Significant Other and Children Household Members Other:: daughter Housing: House Do you presently have visiting nurse or other home services: No Alcohol intake: never Patient Tobacco Use Status: Current everyday Tobacco user Tobacco use type: Cigarette Cigarette Packs Per Day: 1 Cigarettes Per Day: 20.0 Years Smoked: 15 +/- started at 16 years old e-Cigarette/Vaping Use: Never Used Second Hand Smoke Exposure: No Substance Use Type: Caffiene Patient : No service: No Current occupational status: employed Current occupational exposures/hazards: No Sexual orientation: Straight/Heterosexual Cognitive needs: No Hearing needs: No Vision needs: Yes Review of Systems Const All systems reviewed & are unremarkable except as noted in HPI and below Physical Exam Vital Signs: Last Vital Signs Temp 98.6 F 05/03/25 10:32 Pulse 102 H 05/03/25 10:32 BP 120/84 05/03/25 10:32 Pulse Ox 97 05/03/25 10:32 Oxygen Delivery Method Room Air 05/03/25 10:32 BMI result Body Mass Index 29.7 Assessment & Plan Assessment & Plan (1) Left foot pain: Code(s): M79.672 - Pain in left foot (2) Muscle strain of foot: Code(s): S96.919A - Strain of unspecified muscle and tendon at ankle and foot level, unspecified foot, initial encounter Qualifiers: Encounter type: initial encounter Laterality: left Qualified Code(s): S96.917B - Strain of unspecified muscle and tendon at ankle and foot level, left foot, initial encounter Plan Most likely strain vs sprain vs bunion vs arthritis vs ?gout Plan - An x-ray of the foot will be conducted to exclude fractures or structural abnormalities. - Consideration for a walking shoe to reduce pain during walking. - rest, ice and elevation - tylenol or motrin as needed for pain - will refer her to podiatry - foillow up with her PCP Orders: Orders XR foot LT min 3V Today M79.672 - Pain in left foot Referrals Podiatry Referral M79.672 - Pain in left foot Coding Level of Care Code Est Pt Level 4 (35918) Diagnoses Left foot pain M79.672 Muscle strain of left foot, initial encounter S96.124A Encounter type: initial encounter Laterality: left
--- OUTSIDE RECORDS SUMMARY | 2025-05-03 11:21 | XMS_ITS | Clinical Summary ---
Author Organization [facility] Address [address] [place] [address] Care Team Providers Care Wrap Knitting Machine Operator Name Role Phone Unavailable Primary [...]
== END 2025-05-03 12:36 | disposition home or self-care (01) ==
PROVIDERS: PCP Internal Medicine; Visit Provider Physician Assistant Medical
DX: M79.672 Pain in left foot (principal); S96.912A Strain of unspecified muscle and tendon at ankle and foot level, left foot, initial encounter

== ENCOUNTER → 2025-05-03 11:49 | Outpatient (BNV) | payer OTHER, SELFPAY | PROVIDERS: PCP Internal Medicine; Visit Provider Radiology Diagnostic Radiology | DX: M79.672 Pain in left foot (principal) | CPT/HCPCS: 73630 ==

== ENCOUNTER 2025-05-07 13:18 | Emergency (ER) | payer OTHER, SELFPAY ==
[2025-05-07 13:22] VITALS: BP 143/80; PULSE 105; RESP 18; TEMP 36.3; O2SAT 98; BMI 24.4
--- NOTE | 2025-05-07 13:22 | ED.LOWEXIN ---
HPI - Extremity Injury (Lower) General Chief Complaint: Extremity Injury, Lower Stated Complaint: l foot pain Time Seen by Provider: 05/07/25 13:28 Source: patient and family Mode of arrival: ambulatory Limitations: no limitations History of Present Illness ED Provider: Rajwinder Duke APRN HPI Narrative: 55-year-old female with history of generalized anxiety disorder, recurrent major depression, COPD, fibromyalgia, migraines here with complaints of atraumatic left foot pain for the last 3 weeks. Patient reports she woke up 1 morning and felt pain in her left foot. She does not recall any injury or trauma. This pain did not wake her up. She denies any associated weakness, redness, swelling, numbness/tingling of the extremity. Patient reports that she has been seen by her primary care doctor and was prescribed a topical pain cream and muscle relaxants which did not help her pain. She also has tried [id number] Motrin and Tylenol which has not alleviated the pain. She was recommended to use a orthopedic shoe with a stiff sole but she does not feel that this helps. She does have an appointment with orthopedics in 1 month to be seen. Pain is worsened with walking and with extension of the 2nd-5th toes. Related Data Home Medications ?Medication ?Instructions ?Recorded ?Confirmed famotidine 20 mg tablet (Heartburn 20 mg PO BID 10/19/24 03/23/25 Relief (famotidine)) omeprazole 20 mg capsule,delayed 20 mg PO DAILY PRN Acid Reflux 10/19/24 03/23/25 release aspirin 81 mg tablet,delayed 81 mg PO DAILY 10/20/24 03/23/25 release (Adult Aspirin Regimen) levocetirizine 5 mg tablet 5 mg PO BID 03/23/25 03/23/25 gabapentin 400 mg capsule 400 mg PO TID 05/03/25 Previous Rx's ?Medication ?Instructions ?Recorded cariprazine 4.5 mg capsule 4.5 mg PO DAILY 30 days #30 caps 10/26/24 clonazepam 1 mg tablet (Klonopin) 1 mg PO BID PRN moderate to severe 10/26/24 anxiety 30 days #60 tabs clonidine HCl 0.1 mg tablet 0.1 mg PO BEDTIME 30 days #30 tabs 10/26/24 hydroxyzine HCl 25 mg tablet 25 mg PO TID PRN mild Anxiety 30 10/26/24 days #60 tabs zolpidem 10 mg tablet 10 mg PO BEDTIME PRN Insomnia 30 10/26/24 days #30 tabs docusate sodium 100 mg capsule 100 mg PO BID 30 days #60 caps 03/23/25 magnesium oxide 400 mg PO BEDTIME 90 days #90 caps 03/23/25 nicotine 21 mg/24 hr daily 21 mg transdermal DAILY PRN 03/23/25 transdermal patch smoking cessation 28 days #28 ea prednisone 20 mg tablet 40 mg (2 x 20 mg) PO DAILY #10 tabs 05/07/25 Allergies Allergy/AdvReac Type Severity Reaction Status Date / Time cat dander Allergy Unknown Verified 05/07/25 13:24 dog dander Allergy Unknown Verified 05/07/25 13:24 Seasonal Allergies Allergy Unknown Verified 05/07/25 13:24 aripiprazole (From AbilifCantargia) AdvReac Intermediate Dizziness Verified 05/07/25 13:24 Review of Systems Review of Systems: Yes all other systems are reviewed and are negative Constitutional: Constitutional: Reports no additional constitutional complaints, Denies body ache(s), Denies chills, Denies fever(s), Denies headache(s) and Denies weakness Eyes: Eyes: Reports no additional eye complaints and Denies change in vision ENT: Reports system reviewed and no additional complaints, except as documented, Denies dizziness, Denies headache(s), Denies nasal congestion, Denies nasal discharge and Denies neck pain Cardiovascular: Cardiovascular: Reports no additional cardiovascular complaints, Denies chest pain, Denies leg edema and Denies dyspnea Respiratory: Respiratory: Reports no additional respiratory complaints, Denies cough and Denies dyspnea Gastrointestinal: Gastrointestinal: Reports no additional gastrointestinal complaints, Denies abdominal pain, Denies diarrhea, Denies nausea and Denies vomiting Genitourinary: Genitourinary: Reports no additional female genitourinary complaints and Denies urinary incontinence Musculoskeletal: Musculoskeletal: Reports no additional musculoskeletal complaints, Denies back pain, Reports arthralgias, Denies joint swelling, Denies neck pain, Denies numbness and Denies tingling Integumentary/Breasts: Skin/Breast: Reports system reviewed and no additional complaints, except as docu and Denies rash Neurologic: Reports system reviewed and no additional complaints, except as documented, Denies Abnormal speech present, Denies dizziness, Denies headache(s), Denies numbness, Denies tingling and Denies weakness PMFSH Past Medical History Attestation statement: The following information was validated with the patient. Source: old records reviewed and nursing notes reviewed Medical History Hypotension GLENROY (obstructive sleep apnea) PTSD (post-traumatic stress disorder) MDD (major depressive disorder), recurrent, severe, with psychosis Chronic fatigue Right ankle pain Left ankle pain Myofascial pain syndrome Cervicalgia Overweight (BMI 25.0-29.9) Cervical radiculopathy Hypertension Polyarthralgia Dermatochalasis Migraine Anxiety Depression History of headache Healthy adult Surgical History Hx of colonoscopy Hx of blepharoplasty History of section History of tubal ligation Family History Family History Father No problems noted. Mother Arthritis of knee Breast cancer Heart problem HTN (hypertension) Family/Other Diabetes Arthritis of knee HTN (hypertension) Mental health disorder Social History Social History Household Members: Significant Other and Children Household Members Other:: daughter Housing: House Do you presently have visiting nurse or other home services: No Alcohol intake: never Patient Tobacco Use Status: Current everyday Tobacco user Tobacco use type: Cigarette Cigarette Packs Per Day: 1 Cigarettes Per Day: 20.0 Years Smoked: 15 +/- started at 16 years old e-Cigarette/Vaping Use: Never Used Second Hand Smoke Exposure: No Substance Use Type: Caffiene Advance Directives: No Advance Directives Information Provided: Yes service: No Current occupational status: employed Current occupational exposures/hazards: No Sexual orientation: Straight/Heterosexual Cognitive needs: No Hearing needs: No Vision needs: Yes Physical Exam Vital Signs: Vital Signs: Last Vital Signs Temp 97.3 F 05/07/25 13:22 Pulse 105 H 05/07/25 13:22 Resp 18 05/07/25 13:22 BP 143/80 H 05/07/25 13:22 Pulse Ox 98 05/07/25 13:22 O2 Del Method Room Air 05/07/25 13:22 BMI result Body Mass Index 24.4 Const: General: cooperative, healthy appearing, comfortable and no acute distress Orientation/consciousness: patient oriented x3 Limitations: no limitations HEENT: Head: Yes normal to inspection Ears: hearing grossly normal bilaterally General nose exam: Normal external nose present Face and sinus: Yes normal facial exam Mouth: Normal oral and palatal mucosa present Throat: Yes posterior oropharynx normal Eyes: General: appearance normal, both eyes and all related structures Pupils: Equal, round and reactive pupils present Neck: Neck: Yes normal visual inspection Chest: Chest palpation & inspection: normal inspection of the chest Resp: Effort & Inspection: normal respiratory effort Auscultation: clear to auscultation bilaterally Cardio: Rate: regular rate Rhythm: regular rhythm Peripheral pulses: Peripheral pulses 2+ throughout GI: Inspection: Yes normal to inspection Palpation (GI): Soft to palpation and nontender Auscultation: normal bowel sounds Back/Spine/Pelvis: Thoracic/Lumbar Spine: thoracic and lumbar spine normal to inspection Skin: General skin exam: no rashes or lesions noted Neuro: General: patient oriented x3, no focal motor deficits and normal sensation to monofilament Cranial nerves: Yes Equal, round and reactive pupils present Cognition (Neuro): normal cognition Speech: No Abnormal speech present Gait exam (Neuro): Normal gait present Motor exam (neuro): 5/5 motor strength present throughout Extrem: General: Yes normal to inspection Ankle/foot/toe images:  1. Pain on palpation especially with extension of the toes. No pain over the first toe or at the base. No swelling, redness or warmth noted. Normal sensation. Full active and passive ROM of the foot/ankle. 2+ DP/Pt pulses. Medical Decision Making Medical Decision Making MDM Narrative: 55-year-old female with history of generalized anxiety disorder, recurrent major depression, COPD, fibromyalgia, migraines here with complaints of atraumatic left foot pain for the last 3 weeks. Patient reports she woke up 1 morning and felt pain in her left foot. She does not recall any injury or trauma. This pain did not wake her up. She denies any associated weakness, redness, swelling, numbness/tingling of the extremity. Patient reports that she has been seen by her primary care doctor and was prescribed a topical pain cream and muscle relaxants which did not help her pain. She also has tried [id number] Motrin and Tylenol which has not alleviated the pain. She was recommended to use a orthopedic shoe with a stiff sole but she does not feel that this helps. She does have an appointment with orthopedics in 1 month to be seen. Pain is worsened with walking and with extension of the 2nd-5th toes. Pain on palpation especially with extension of the toes. No pain over the first toe or at the base. No swelling, redness or warmth noted. Normal sensation. Full active and passive ROM of the foot/ankle. 2+ DP/Pt pulses. Reviewed x-ray outpatient which shows no acute findings. Likely tendonitis/arthritis. Low suspician for septic joint, gout, fracture, dislocation based on clinical exam Will add prednisone. Recommended continued supportive measures [id number] and follow up outpatient with Orthopedics Differential Diagnosis Differential Diagnoses: The differential diagnosis associated with the presentation includes See above Admission/Observation Consideration of admission/observation: Escalation of care including admission/observation considered Independent Historian Clinical information obtained from an independent historian. History obtained from or confirmed by: Spouse Tests considered The following testing was considered but not selected: Patient had outpatient x-ray. No new trauma requiring repeat x-ray Prescription Management I considered prescription management with: Pain Medication Discharge Plan Discharge Clinical Impression: Foot pain, left Patient Disposition: Home, Self-Care Instructions: Arthralgia (ED) Additional Instructions: Continue motrin, tylenol and topical pain medication Use the shoe at home Follow-up as scheduled with orthopedics Prescriptions: New prednisone 20 mg tablet 40 mg PO DAILY Qty: 10 0RF No Action famotidine [Heartburn Relief (famotidine)] 20 mg tablet 20 mg PO BID omeprazole 20 mg capsule,delayed release(DR/EC) 20 mg PO DAILY PRN (Reason: Acid Reflux) aspirin [Adult Aspirin Regimen] 81 mg tablet,delayed release (DR/EC) 81 mg PO DAILY clonidine HCl 0.1 mg Tablet 0.1 mg PO BEDTIME 30 Days Qty: 30 0RF Protocol: Hold for SBP< HOLD for SBP < : 90 clonazepam [Klonopin] 1 mg tablet 1 mg PO BID PRN (Reason: moderate to severe anxiety) 30 Days Qty: 60 0RF hydroxyzine HCl 25 mg tablet 25 mg PO TID PRN (Reason: mild Anxiety) 30 Days Qty: 60 0RF zolpidem 10 mg tablet 10 mg PO BEDTIME PRN (Reason: Insomnia) 30 Days Qty: 30 0RF cariprazine 4.5 mg capsule 4.5 mg PO DAILY 30 Days Qty: 30 0RF levocetirizine 5 mg tablet 5 mg PO BID docusate sodium 100 mg capsule 100 mg PO BID 30 Days Qty: 60 0RF Rx Instructions: hold for loose stool nicotine 21 mg/24 hr patch 24 hour 21 mg transdermal DAILY PRN (Reason: smoking cessation) 28 Days Qty: 28 0RF Rx Instructions: remove at bedtime magnesium oxide 400 mg magnesium capsule 400 mg PO BEDTIME 90 Days Qty: 90 1RF gabapentin 400 mg capsule 400 mg PO TID Referrals: Lauren Merritt MD [Primary Care Provider, Internal Medicine] Print Language: Danish
[2025-05-07 13:43] VITALS: BP 143/80; PULSE 105; RESP 18; TEMP 36.3; O2SAT 98
== END 2025-05-07 13:46 | disposition home or self-care (01) ==
PROVIDERS: Emergency Provider Emergency Medicine; PCP Internal Medicine
DX: M79.662 Pain in left lower leg (principal); F41.1 Generalized anxiety disorder; F33.9 Major depressive disorder, recurrent, unspecified; J44.9 Chronic obstructive pulmonary disease, unspecified; M79.7 Fibromyalgia; G43.909 Migraine, unspecified, not intractable, without status migrainosus; I95.9 Hypotension, unspecified; G47.33 Obstructive sleep apnea (adult) (pediatric); F43.10 Post-traumatic stress disorder, unspecified; E66.3 Overweight; I10 Essential (primary) hypertension; M54.12 Radiculopathy, cervical region; M25.50 Pain in unspecified joint; F17.210 Nicotine dependence, cigarettes, uncomplicated; Z79.82 Long term (current) use of aspirin; Z68.25 Body mass index [BMI] 25.0-25.9, adult
CPT/HCPCS: 99282

== ENCOUNTER 2025-05-16 13:15 | Outpatient (REF) | payer OTHER, SELFPAY ==
[2025-05-16 15:45] LABS: Uric Acid 4.4 mg/dL (2.4-5.7)
[2025-05-16 15:59] LABS: Thyroid Stimulating Hormone 1.69 uIU/mL (0.32-4.0)
== END 2025-05-16 13:16 | disposition home or self-care (01) ==
LOC: HO.LAB 13:15
PROVIDERS: PCP Internal Medicine; Visit Provider Internal Medicine
DX: M10.9 Gout, unspecified (principal); E06.3 Autoimmune thyroiditis; F33.1 Major depressive disorder, recurrent, moderate; F41.1 Generalized anxiety disorder; K21.9 Gastro-esophageal reflux disease without esophagitis; M79.7 Fibromyalgia; J44.9 Chronic obstructive pulmonary disease, unspecified
CPT/HCPCS: 36415; 84443; 84550; 96127; 99212

== ENCOUNTER 2025-05-16 13:15 | Outpatient (AMB) | payer OTHER, SELFPAY ==
--- NOTE | 2025-05-16 13:21 | A.OFFPC_ITS ---
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 Accompanied by: Self / Same As Patient Allergies cat dander Allergy (Verified 05/16/25 13:39) Unknown dog dander Allergy (Verified 05/16/25 13:39) Unknown Seasonal Allergies Allergy (Verified 05/16/25 13:39) Unknown aripiprazole (From Abiliy) Adverse Reaction (Intermediate, Verified 05/16/25 13:39) Dizziness Medication List - Last Reconciled 05/16/25 by Lauren Keene MD aspirin (Adult Aspirin Regimen) 81 mg PO DAILY azelastine 1 - 2 sprays intranasal BID cariprazine 4.5 mg PO DAILY 30 days clonazepam (Klonopin) 1 mg PO BID PRN 30 days clonidine HCl 0.1 mg See Protocol PO BEDTIME 30 days docusate sodium 100 mg PO BID 30 days famotidine (Heartburn Relief (famotidine)) 20 mg PO BID gabapentin 400 mg PO TID hydroxyzine HCl 25 mg PO TID PRN 30 days levocetirizine 5 mg PO BID magnesium oxide 400 mg PO BEDTIME 90 days nicotine 21 mg transdermal DAILY PRN 28 days omeprazole 20 mg PO DAILY PRN prazosin 5 mg PO BEDTIME prednisone 40 mg (2 x 20 mg) PO DAILY zolpidem 10 mg PO BEDTIME PRN 30 days Tobacco use date assessed: 05/16/25 Dental Screening Dental Screen Date: 10/29/24 Did you have a dental visit in the last 12 months?: Yes Did you have a dental problem in the last 6 months where you did not have access to dental care?: No Was dental information given to patient?: Patient has dentist HPI HPI Comments History of Present Illness Details The patient is a 55-year-old female presenting with management of mul tiple chronic conditions including tendonitis, Corey's thyroiditis, and migraine. The patient reports a history of tendonitis, which has been causing significant pain, leading her to seek emergency care. She was advised to use a boot to manage inflammation, but the pain persists, complicating her daily activities. 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 Despite normal thyroid function, the patient expresses concern about weight gain and fatigue, attributing these symptoms to her thyroid condition. The patient has a long-standing history of migraines, which have recently been exacerbated by stress and anxiety. She has been using magnesium supplements, although she reports limited efficacy in managing her symptoms. [facility] Medical History (Updated 05/16/25 @ 13:57 by Lauren Keene MD) Hypotension GLENROY (obstructive sleep apnea) PTSD (post-traumatic stress disorder) MDD (major depressive disorder), recurrent, severe, with psychosis Chronic fatigue Right ankle pain Left ankle pain Myofascial pain syndrome Cervicalgia Overweight (BMI 25.0-29.9) Cervical radiculopathy Hypertension Polyarthralgia Dermatochalasis Migraine Anxiety Depression History of headache Healthy adult Surgical History Hx of colonoscopy Hx of blepharoplasty History of section History of tubal ligation Family History Father No problems noted. Mother Arthritis of knee Breast cancer Heart problem HTN (hypertension) Family/Other Diabetes Arthritis of knee HTN (hypertension) Mental health disorder Social History Household Members: Significant Other and Children Household Members Other:: daughter Housing: House Do you presently have visiting nurse or other home services: No Alcohol intake: never Patient Tobacco Use Status: Current everyday Tobacco user Tobacco use type: Cigarette Cigarette Packs Per Day: 1 Cigarettes Per Day: 20.0 Years Smoked: 15 +/- started at 16 years old e-Cigarette/Vaping Use: Never Used Second Hand Smoke Exposure: No Substance Use Type: Caffiene service: No Current occupational status: employed Current occupational exposures/hazards: No Sexual orientation: Straight/Heterosexual Cognitive needs: No Hearing needs: No Vision needs: Yes Questionnaire PHQ-9 Over the last 2 weeks, how often have you been bothered by any of the following problems? 1. Little interest or pleasure in doing things: nearly every day 2. Feeling down, depressed, or hopeless: nearly every day 3. Trouble falling or staying asleep, or sleeping too much: nearly every day 4. Feeling tired or having little energy: nearly every day 5. Poor appetite or overeating: more than half the days 6. Feeling bad about yourself - or that you are a failure or have let yourself or your family down: nearly every day 7. Trouble concentrating on things, such as reading the newspaper or watching television: more than half the days 8. Moving or speaking so slowly that other people could have noticed. Or the opposite - being so fidgety or restless that you have been moving around a lot more than usual: more than half the days 9. Thoughts that you would be better off or of hurting yourself in some way: more than half the days Total score: 23 Depression Screening Interpretation: Positive (no suicidal thoughts) Depression Screening Follow-up: Existing condition, In treatment, Community Mental Health Worker F/U and Follow-up Visit Requested Depression Screening Done: Yes 81874 - PHQ-9 Billing: Yes Source: Developed by Drs. Eddie Rothman, Padmini Blancas, Azeem Katz and colleagues, with an educational ran from [employer]. Thrive Questionnaire Date Thrive assessed: 09/22/24 I am a: Patient What is your living situation today?: I have a steady place to live Within the past 12 months, did the food you bought not last and you didn't have the money to get more?: I choose not to answer this question Within the past 12 months, did you worry whether your food would run out before you got money to buy more?: I choose not to answer this question Do you have trouble paying for medicines?: I choose not to answer this question Do you have trouble getting transportation to medical appointments?: No Do you have trouble paying your heating and electricity bill?: I choose not to answer this question Do you have trouble taking care of your child, family member or friend?: I choose not to answer this question Do you have trouble with day-to-day activities such as bathing, preparing meals, shopping, managing finances, etc.?: No Are you currently unemployed and looking for a job?: I choose not to answer this question Are you interested in more education?: I choose not to answer this question Please select the resources that you would like help with: Job search/training Currently or been in a relationship where the following occur: No concerns reported THRIVE Score: 0 AUDIT C Alcohol Use Questionnaire (AUDIT-C) 1. How often do you have a drink containing alcohol?: Never 3. How often do you have six or more drinks on one occasion?: Never Total Score: 0 Score Reviewed/Action Taken: No VÍCTOR-7 AMB Questionnaire VÍCTOR-7 Date VÍCTOR - 7 assessed: 05/16/25 Feeling nervous, anxious, or on edge: 1 = Several days Not being able to stop or control worryin = Several days Worrying too much about different things: 1 = Several days Trouble relaxin = Several days Being so restless that it is hard to sit still: 1 = Several days Becoming easily annoyed or irritable: 2 = More than half the days Feeling afraid as if something awful might happen: 2 = More than half the days Total VÍCTOR-7 score (0-4 normal; 5-9 mild; 10-14 moderate; 15-21 severe): 9 Source: Developed by Drs. Eddie Rothman, Padmini Blancas, Azeem Katz and colleagues, with an educational ran from [employer]. VÍCTOR-7 Assessment Billing VÍCTOR-7 Assessment Tool: VÍCTOR-7 Assessment 91697 Review of Systems Const All systems reviewed & are unremarkable except as noted in HPI and below Card Denies chest pain at rest, Denies chest pain with activity, Denies edema, Denies irregular heart rhythm, Denies claudication, Denies dyspnea, Denies dyspnea on exertion, Denies orthopnea, Denies paroxysmal nocturnal dyspnea and Denies slow heart rate Resp Denies cough, Denies dyspnea and Denies dyspnea on exertion GI Denies abdominal pain, Denies change in bowel habits, Denies excessive flatus, Denies nausea and Denies vomiting Physical exam (Primary Care) Vital Signs: Last Vital Signs Pulse 98 05/16/25 13:22 BP 126/72 05/16/25 13:22 Pulse Ox 97 05/16/25 13:22 BMI result Body Mass Index 24.6 Tobacco/Smoking Status: Tobacco use Status Tobacco use date assessed 05/16/25 05/16/25 13:38 Patient Tobacco Use Status Current everyday Tobacco 05/16/25 13:23 Tobacco use type Cigarette 05/16/25 13:23 e-Cigarette/Vaping Use Never Used 05/16/25 13:23 PHQ-9: PHQ-9 Score PHQ-9: Total score 23 05/16/25 13:41 Depression Screening Interpretation: Positive (no suicidal thoughts) Depression Screening Follow-up: Existing condition, In treatment, Community Mental Health Worker F/U and Follow-up Visit Requested Thrive Assessment: Date of Thrive Assessment Date Thrive assessed 09/22/24 05/16/25 13:23 Currently or been in a relationship where the following occur: No concerns reported Resp Effort & Inspection: normal respiratory effort Auscultation: clear to auscultation bilaterally Cardio Jugular venous distension: no JVD Rate: regular rate Rhythm: regular rhythm Heart sounds: S1 normal heart sound present and S2 normal heart sound present Extrem General: Yes full ROM Coding Level of Care Code Est Pt Level 4 (97269) Complex EM visit Add On G2211 Diagnoses Moderate recurrent major depression F33.1 VÍCTOR (generalized anxiety disorder) F41.1 Corey's disease E06.3 Gastroesophageal reflux disease, unspecified whether esophagitis present K21.9 Esophagitis presence: esophagitis presence not specified Fibromyalgia M79.7 Chronic obstructive pulmonary disease, unspecified COPD type J44.9 COPD type: unspecified COPD Additional Codes VÍCTOR-7 Assessment Billing - VÍCTOR-7 Assessment Tool: VÍCTOR-7 Assessment 76255 ([id number]) PHQ-9 - 86122 - PHQ-9 Billing: Yes ([id number]) Time Spent (min) 24 Assessment & Plan Assessment & Plan (1) Moderate recurrent major depression: Code(s): F33.1 - Major depressive disorder, recurrent, moderate Category: Medical (2) VÍCTOR (generalized anxiety disorder): Code(s): F41.1 - Generalized anxiety disorder Category: Medical (3) Corey's disease: Code(s): E06.3 - Autoimmune thyroiditis Category: Medical (4) GERD (gastroesophageal reflux disease): Code(s): K21.9 - Gastro-esophageal reflux disease without esophagitis Category: Medical Qualifiers: Esophagitis presence: esophagitis presence not specified Qualified Code(s): K21.9 - Gastro-esophageal reflux disease without esophagitis (5) Fibromyalgia: Code(s): M79.7 - Fibromyalgia Category: Medical (6) COPD (chronic obstructive pulmonary disease): Code(s): J44.9 - Chronic obstructive pulmonary disease, unspecified Category: Medical Qualifiers: COPD type: unspecified COPD Qualified Code(s): J44.9 - Chronic obstructive pulmonary disease, unspecified Plan For the management of tendonitis, the patient was advised to continue using the boot to manage inflammation and pain. A follow-up with a b2b appointment setter is scheduled to further evaluate and manage the condition. Regarding Corey's thyroiditis, despite normal thyroid function tests, the patient will have repeat testing in six weeks to monitor any changes. The patient is advised to maintain her current lifestyle modifications to manage weight gain and fatigue. For migraine management, the patient is referred to a neurologist for further evaluation and potential treatment options, including magnesium glycinate supplementation. Patient was informed and verbally consented to the use of an ambient scribe for clinic note documentation during this visit. Orders: Orders Uric Acid Today M10.9 - Gout, unspecified Thyroid Stimulating Hormone Today E06.3 - Autoimmune thyroiditis Referrals Neurology Referral G43.009 - Migraine without aura, not intractable, without status migrainosus Medications: New tramadol 50 mg PO BID PRN 10 tabs 0RF pain 5 days magnesium glycinate 300 mg (3 x 100 mg magnesium) PO BEDTIME 270 caps 1RF 90 days Changed From aspirin (Adult Aspirin Regimen) 81 mg PO DAILY To aspirin (Adult Aspirin Regimen) 81 mg PO DAILY 90 tabs 1RF 90 days From famotidine (Heartburn Relief (famotidine)) 20 mg PO BID To famotidine (Heartburn Relief (famotidine)) 20 mg PO BID 180 tabs 1RF 90 days From gabapentin 400 mg PO TID To gabapentin 400 mg PO TID 90 caps 1RF 30 days From levocetirizine 5 mg PO BID To levocetirizine 5 mg PO BID 180 tabs 1RF 90 days From omeprazole 20 mg PO DAILY PRN Acid Reflux To omeprazole 20 mg PO DAILY PRN 90 caps 1RF Acid Reflux 90 days Discontinued prednisone Discontinued Reason: Patient Completed Course 40 mg (2 x 20 mg) PO DAILY 10 tabs 0RF magnesium oxide Discontinued Reason: Patient Completed Course 400 mg PO BEDTIME 90 days 90 caps 1RF
[2025-05-16 13:22] VITALS: BP 126/72; PULSE 98; O2SAT 97; BMI 24.6
--- OUTSIDE RECORDS SUMMARY | 2025-05-16 14:33 | XMS_ITS | Clinical Summary ---
Author Organization [facility] Address [address] [place] [address] Care Team Providers Care Expressive Music Therapist Name Role Phone Unavailable Primary Care Provider [...] of 2) 01/10/2018 COVID-19 Vaccine ( - 2023- season) 2024
--- OUTSIDE RECORDS SUMMARY | 2025-05-16 14:33 | XMS_ITS | Clinical Summary ---
Author Organization [facility] Address [address] [place] [address] Care Team Providers Care Merchandising Director Name Role Phone Unavailable Primary Care Provider [...] 10 mg by mouth at bedtime. Active Ventolin HFA 108 (90 Base) MCG/ACT inhaler Inhale 2 puffs every 4 (four) hours if needed. 5 Active levocetirizine (Xyzal) 5 MG tablet Take 1 tablet by mouth 2 times daily. 5 Active Magnesium Oxide -Mg Supplement 400 MG capsule TAKE 1 CAPSULE BY MOUTH DAILY AT BEDTIME FOR 90 DAYS 5 Active Active Problems Problem Noted Date Diagnosed Date Dental calculus 12/18/2023 Periodontal disease 11/14/2023 Dental caries 11/14/2023 Inflamed gum 11/14/2023 Gingival bleeding 11/14/2023 Encounters Date Type Department Care Team Description 04/28/2025 11:00 AM EDT Office Visit [facility] [address] [place] [address] Arian Monte Dental calculus (Primary Dx) 04/15/2025 Telephone [facility] [address] [place] [address] Melody Etienne DDS from Last 3 Months Social History Tobacco [...] Description 11/02/2025 10:00 AM EST Office Visit [facility] [address] [place] [address] Arian Monte Health Maintenance Due Date Last Done Comments [...] Vaccine ( season) 2024 09/25/2021, 01/16/2021, 12/26/2020 Dental Oral Exam 03/28/2025 09/27/2024, 04/2024, 07/06/2019, Additional history exists Influenza Vaccine (#1) 2025 08/22/2021, 2019 Dental X-Ray: Bitewings 09/28/2025 09/27/19, 10/30/2023, 10/17/2023, Additional history exists Dental Prophylaxis 10/30/2025 04/28/2025, 0 09/27/2024, 11/14/2023, Additional history exists Tobacco Screening 04/28/2026 04/28/2025 Dental X-Ray: Full Mouth 10/31/2026 10/30/2023 DTaP/Tdap/Td [...] Procedure Name Priority Date/Time Associated Diagnosis Comments ORAL HYGIENE INSTRUCTIONS Routine 2024 11:00 AM EDT PROPHYLAXIS - ADULT Routine 04/28/2025 1 1:00 AM EDT CASE PRESENTATION, DETAILED AND EXTENSIVE TREATMENT PLANNING Routine 04/28/2025 11:00 AM EDT BITEWINGS - 4 RADIOGRAPHIC IMAGES Routine 09/27/2024 8:00 AM EST PERIODIC ORAL EVALUATION - ESTABLISHED PATIENT Routine 09/27/2024 8:00 AM EST Dental caries INTRAORAL - COMPLETE SERIES OF RADIOGRAPHIC IMAGES Routine 10/30/2023 3:00 PM EST from Last 3 Months or Most Recently Relevant to Health Maintenance Insurance [facility] MEDICAID STAND ADULT
== END 2025-05-16 13:57 | disposition home or self-care (01) ==
LOC: HO.HMCH 13:15
PROVIDERS: PCP Internal Medicine; Visit Provider Internal Medicine
DX: F33.1 Major depressive disorder, recurrent, moderate (principal); F41.1 Generalized anxiety disorder; J44.9 Chronic obstructive pulmonary disease, unspecified; E06.3 Autoimmune thyroiditis; K21.9 Gastro-esophageal reflux disease without esophagitis; M79.7 Fibromyalgia